=== PATIENT | female | born 1950 | race Caucasian/White ===

== ENCOUNTER 2016-04-03 10:50 | Inpatient (IN) | payer BC ==
[2016-04-03] MEDS ORDERED: MAGNESIUM SULF 50% (8.12 MEQ/2 ML-1 GM VIAL) ONE (10:54)
[2016-04-03] MEDS ORDERED: TERBUTALINE SULFATE 1 MG/1 ML VIAL SQ ONE ×2 (10:54→10:59)
[2016-04-03] MEDS ORDERED: MAGNESIUM SULF 50% (8.12 MEQ/2 ML-1 GM VIAL) IVPB ONE (10:59)
--- NOTE | 2016-04-03 11:04 | PDOC ---
History of Present Illness - General History Source: Patient Exam Limitations: No Limitations - History of Present Illness Initial Comments: 04/03/16 11:06 The patient is a 65 year old female, with a significant past medical history of asthma, COPD, congenital defect (corrected at ), on home O2 (2L), HTN, and EtOH abuse who was BIBA and presents to the emergency department with recent cough and SOB for the past couple of days She reports having multiple sick contacts with most of her family being sick with the flu. She reports with her cough bringing up yellow sputum. She reports 4 days ago being put on 5mg of prednisone daily which she increased to 30mg. She denies recent fevers, chills, headache or dizziness. She denies recent nausea, vomit, diarrhea or constipation. She denies recent chest pain. Allergies: NKA Social history: Former smoker (20 years ago). EtOH abuse. 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) COPD: Yes (o2 dependent at home) - Psycho/Social/Smoking Cessation Hx Anxiety: Yes Suicidal Ideation: No Smoking History: Former smoker Have you smoked in the past 12 months: No If you are a former smoker, when did you quit?: 1989 Information on smoking cessation initiated: No Hx Alcohol Use: No Drug/Substance Use Hx: No Substance Use Type: Alcohol <Brigette Castellanos - Last Filed: 04/03/16 13:36> - Past Medical History Allergies/Adverse Reactions: Allergies Allergy/AdvReac Type Severity Reaction Status Date / Time No Known Allergies Allergy Verified 04/03/16 11:01 Home Medications: Ambulatory Orders Albuterol Sulfate Inhaler - [Ventolin HFA Inhaler -] 2 inh PO Q4H PRN 05/05/15 Prednisone [Deltasone -] 30 mg PO BID #30 tablet 05/05/15 Nebivolol HCl [Bystolic] 2.5 mg PO HS 04/03/16 Tiotropium Br/Olodaterol HCl [Stiolto Respimat Inhal [place]] 4 gm IH DAILY Verapamil HCl [Verapamil ER] 180 mg PO DAILY 04/03/16 Review of Systems - Review of Systems Able to Perform ROS?: Yes Comments:: 04/03/16 11:06 CONSTITUTIONAL: Absent: fever, no chills, no fatigue EYES: Absent: visual changes ENT: Absent: ear pain, no sore throat CARDIOVASCULAR: Absent: chest pain, no palpitations RESPIRATORY: + cough and SOB GI: Absent: abdominal pain, no nausea, no vomiting, no constipation, no diarrhea GENITOURINARY: Absent: dysuria, no frequency, no hematuria MUSKULOSKELETAL: Absent: back pain, no arthralgia, no myalgia SKIN: Absent: rash NEURO: Absent: headache <Simone Nesbitt - Last Filed: 04/03/16 13:34> *Physical Exam - Vital Signs Last Vital Signs Temp Pulse Resp BP Pulse Ox 107 H 36 H 130/67 100 04/03/16 10:56 04/03/16 10:56 04/03/16 10:56 04/03/16 10:56 - Physical Exam Comments: 04/03/16 11:07 GENERAL: Well developed, well nourished. Awake and alert. No acute distress. HEENT: Normocephalic, atraumatic. PERRLA, EOMI. No conjunctival pallor. Sclera are non- icteric. Moist mucous membranes. Oropharynx is clear. NECK: Supple. Full ROM. No JVD. Carotid pulses 2+ and symmetric, without bruits. No thyromegaly. No lymphadenopathy. CARDIOVASCULAR: +Tachycardia. Regular rate and rhythm. No murmurs, rubs, or gallops. Distal pulses are 2+ and symmetric. PULMONARY: Distant breath sounds bilaterally. Labored breathing with accessory muscle use. No wheezing, rales or rhonchi. ABDOMINAL: Soft. Non-tender. Non-distended. No rebound or guarding. No organomegaly. Normoactive bowel sounds. MUSCULOSKELETAL Normal range of motion at all joints. No bony deformities or tenderness. No CVA tenderness. EXTREMITIES: No cyanosis. No clubbing. No edema. No calf tenderness. SKIN: Psoriatic raised erythematous lesions, circumferential around her bilateral tibial fibial region. Warm and dry. NEUROLOGICAL: Alert, awake, appropriate. Cranial nerves 2-12 intact. No deficits to light touch and temperature in face, upper extremities and lower extremities. No motor deficits in the in face, upper extremities and lower extremities. Normoreflexic in the upper and lower extremities. Normal speech. Toes are down- going bilaterally. Gait is normal without ataxia. PSYCHIATRIC: Cooperative. Good eye contact. Appropriate mood and affect. <Simone Nesbitt - Last Filed: 04/03/16 13:34> - Vital Signs Last Vital Signs Temp Pulse Resp BP Pulse Ox 107 H 36 H 130/67 100 04/03/16 10:56 04/03/16 10:56 04/03/16 10:56 04/03/16 10:56 <Brigette Castellanos - Last Filed: 04/03/16 13:36> ED Treatment Course - LABORATORY CBC & Chemistry Diagram: 04/03/16 11:10 04/03/16 11:10 - RADIOLOGY Radiograph Interpretation: 04/03/16 12:08 CHEST X-RAY impressions reported : No evidence of active pulmonary disease. <Simone Nesbitt - Last Filed: 04/03/16 13:34> - LABORATORY CBC & Chemistry Diagram: 04/03/16 11:10 04/03/16 11:10 <Brigette Castellanos - Last Filed: 04/03/16 13:36> Medical Decision Making - Medical Decision Making 04/03/16 12:55 Call made to , awaiting call back Call made to Dr. Devlin, awaiting call back. 04/03/16 12:58 Call back from , case discussed. 04/03/16 13:17 Call made to , awaiting call back. 04/03/16 13:34 Call back from , case discussed. <Simone Nesbitt - Last Filed: 04/03/16 13:34> - Medical Decision Making 04/03/16 11:12 65-year-old female with history of COPDon home O2 2 L and chronic steroids ( prednisone 5 mg daily), intubated many years ago, hypertension presents to the emergency department with 4 day history of cough productive with yellow sputum and progressively worsening shortness of breath; she was in respiratory distress and was given Solu-Medrol and DuoNeb treatment by EMS prior to arrival. Differential diagnosis includes but is not limited to: COPD exacerbation, CHF exacerbation, influenza, pneumonia, ACS, anemia, dehydration, sepsis, electrolyte abnormality, toxic/metabolic derangement. Plan: 1. Respiratory supportwe'll place the patient on BiPAP 2. DuoNeb treatment 3. Terbutaline 0.25 mg IM 4. Magnesium sulfate 5. Chest x-ray 6. EKG 7. Labs 8. Urine 9. Influenza PCR 10. Observe and reevaluate 04/03/16 13:35 Addendum: Labs were reviewed and are noted in the EMR. Her lactate is 3.8. The patient was given broad-spectrum antibiotics. She is feeling improved on the BiPAP but nonetheless will admit her to the ICU. <Brigette Castellanos - Last Filed: 04/03/16 13:36> *DC/Admit/Observation/Transfer - Attestations Scribe Attestion: 04/03/16 11:07 Documentation prepared by Simone Nesbitt, acting as expert medical writer for Brigette Castellanos MD. <Simone Nesbitt - Last Filed: 04/03/16 13:34> - Discharge Dispostion Admit: Yes - Attestations Physician Attestion: 04/03/16 11:16 I, Dr. Brigette Castellanos, attest that the scribes documentation that appears above has been prepared under my direction and personally reviewed by me in its entirety. I confirmed that the note above accurately reflects all work, treatment, procedures, and medical decision-making performed by me. <Brigette Castellanos - Last Filed: 04/03/16 13:36> Diagnosis at time of Disposition: Shortness of breath, COPD exacerbation - Discharge Dispostion Condition at time of disposition: Stable
[2016-04-03] MEDS ORDERED: IPRATROPIUM BR 0.02% 0.5 MG/2.5 ML VIAL.NEB. NEB ONE (11:05)
[2016-04-03] MEDS ORDERED: methylPREDNISolone NA SUCC 125 MG/2 ML VIAL ONE (11:09)
[2016-04-03] MEDS: ALBUTEROL SO4 0.083% IH SOL 2.5 MG/3 ML VIAL.NEB. NEB SCH ×4 (11:15→12:30)
[2016-04-03] MEDS ORDERED: ALBUTEROL SO4 0.083% IH SOL 2.5 MG/3 ML VIAL.NEB. NEB ONE (11:26)
[2016-04-03 11:30] LABS: BASOPHIL 0.2 % (0-2.0); EOSINOPHIL 0.1 % (0-4.5); MCH 35.5 pg (25.7-33.7); MCHC 33.6 g/dl (32.0-36.0); MEAN CELL VOLUME 105.5 fl (80-96); MEAN PLT VOLUME 6.8 fl (7.5-11.1); NEUTROPHILS 87.7 % (42.8-82.8); PLATELET COUNT 142 K/MM3 (134-434); RDW 13.7 % (11.6-15.6); WHITE BLOOD COUNT 6.2 K/mm3 (4.0-10.0)
[2016-04-03 12:08] LABS: ALBUMIN 3.7 g/dl (3.4-5.0); ANION GAP 12 (8-16); BILIRUBIN,TOTAL 0.5 mg/dL (0.2-1.0); CALCIUM 8.4 mg/dL (8.5-10.1); CO2 27 mmol/L (21-32); CREATININE 0.6 mg/dL (0.55-1.02); GLUCOSE,RANDOM 165 mg/dL (74-106); SGPT/ALT 44 U/L (12-78); TOT PROT 7.1 g/dl (6.4-8.2)
[2016-04-03 12:10] LABS: ALK PHOS 59 U/L (45-117); TROPONIN I < 0.02 ng/ml (0.00-0.05)
[2016-04-03 12:13] LABS: SGOT/AST 65 U/L (15-37)
[2016-04-03] MEDS ORDERED: SODIUM CHLORIDE 1,000 ML IV STA ×2 (12:15→18:10)
[2016-04-03] MEDS ORDERED: VANCOMYCIN 1,000 MG in DEXTROSE 5%-WATER - 250 ML IVPB ONE (12:15)
[2016-04-03] MEDS ORDERED: PIPERACILLIN/TAZOB 3.375 GM/50 ML PRE-DOCKED IV ONE (12:15)
[2016-04-03] MEDS ORDERED: PIPERACILLIN/TAZOB 3.375 GM 50 ML IVPB ONE (12:42)
[2016-04-03] MEDS ORDERED: VANCOMYCIN 1 GRAM (PRE-DOCKED) 250 ML IVPB ONE (12:42)
[2016-04-03 13:00] LABS: ARTERIAL BLOOD GAS BASE EXCESS 3.5 meq/l (-2-2); ARTERIAL BLOOD GAS HCO3 29.4 meq/L (22-26); ARTERIAL BLOOD GAS pH 7.38 (7.35-7.45)
[2016-04-03 13:01] LABS: ALLENS TEST POSITIVE; ART PUNCT SITE LEFT RADIAL; LPM/O2% 40%; MECH. VENT. BIPAP; METHEMOGLOBIN 1.8 % (0.4-1.5); PT. ON O2? YES; TYPE OF O2 BIPAP
[2016-04-03 13:02] LABS: VENT RATE 14; VT/PRESS IPAP 10/EPAP 4
--- NOTE | 2016-04-03 14:57 | HP ---
PCP: Annette Bruno CHIEF COMPLAINT: Shortness of breath HISTORY OF PRESENT ILLNESS: This is a 65-year-old woman who comes to the ER complaining of shortness of breath. She says she has a history of COPD and asthma, and she uses oxygen 2 LPM. She started feeling short of breath on 03/31 and started taking Prednisone. She has also been using Albuterol inhaler and nebulizer with no improvement. She has been short of breath at rest and with exertion. She has a cough with yellow sputum, chills and wheezing. She denies fever, chest pain, leg edema, orthopnea, PND, nocturia, urinary frequency. She has been in contact with family members who have influenza. In the ER, she was treated with terbutaline 0.25 mg SQ, magnesium sulfate 2 g IV, Atrovent neb, Albuterol neb, SoluMedrol 125 mg IV, Zosyn 3.375 g IV, Vancomycin 1 g IV, and she was placed on BiPAP. PAST MEDICAL HISTORY Chronic hypoxic respiratory failure COPD Asthma Hypertension Alcohol abuse Eczema PAST SURGICAL HISTORY Congenital heart defect repair Allergies No Known Allergies Allergy (Verified 04/03/16 11:01) HOME MEDICATIONS 3 Medication Instructions Recorded Albuterol Sulfate Inhaler - 2 inh PO Q4H PRN 05/05/15 [Ventolin HFA Inhaler -] Prednisone [Deltasone -] 30 mg PO BID #30 tablet 05/05/15 Nebivolol HCl [Bystolic] 2.5 mg PO HS 04/03/16 Tiotropium Br/Olodaterol HCl 4 gm IH DAILY 04/03/16 [Stiolto Respimat Inhal [place]] Verapamil HCl [Verapamil ER] 180 mg PO DAILY 04/03/16 Social History: Smoking: Quit 20 years ago Alcohol: Denies recent use Drugs: Denies Recent Travel: No Family History: Unremarkable REVIEW OF SYSTEMS CONSTITUTIONAL: Present: chills. Absent: fever, diaphoresis, generalized weakness, malaise, loss of appetite, weight change HEENT: Absent: rhinorrhea, nasal congestion, throat pain, throat swelling, difficulty swallowing, mouth swelling, ear pain, eye pain, visual changes CARDIOVASCULAR: Absent: chest pain, syncope, palpitations, lightheadedness, peripheral edema RESPIRATORY: Present: cough, shortness of breath, wheezing. Absent: orthopnea, stridor, hemoptysis GASTROINTESTINAL: Absent: abdominal pain, abdominal distension, nausea, vomiting , diarrhea, constipation, melena, hematochezia GENITOURINARY: Absent: dysuria, frequency, urgency, hesitancy, hematuria, flank pain MUSCULOSKELETAL: Absent: myalgia, arthralgia, joint swelling, back pain, neck pain SKIN: Absent: rash, itching, pallor HEMATOLOGIC/IMMUNOLOGIC: Absent: easy bleeding, easy bruising, lymphadenopathy, frequent infections ENDOCRINE: Absent: unexplained weight gain, unexplained weight loss, heat intolerance, cold intolerance NEUROLOGIC: Absent: headache, focal weakness, paresthesias, dizziness, unsteady gait, seizure, mental status changes, bladder or bowel incontinence PSYCHIATRIC: Absent: anxiety, depression, suicidal or homicidal ideation, hallucinations. PHYSICAL EXAMINATION Vital Signs Period Temp Pulse Resp BP Sys/[place] Pulse Ox Last 24 Hr 99.7 F 100-120 16-36 102-130/55-67 93-100 GENERAL: Awake, alert, and fully oriented, tachypneic. HEAD: Normal with no signs of trauma. EYES: Pupils equal, round and reactive to light, extraocular movements intact, sclerae anicteric, conjunctivae clear. EARS, NOSE, THROAT: Ears normal, nares patent, oropharynx clear without exudates. Moist mucous membranes. NECK: Normal range of motion, supple without lymphadenopathy, JVD, or masses. LUNGS: Diminished breath sounds with wheezes bilaterally. No accessory muscle use. HEART: Tachycardic, normal S1 and S2 without murmur, rub or gallop. ABDOMEN: Soft, nontender, not distended, normoactive bowel sounds, no guarding, no rebound, no masses. No hepatomegaly or splenomegaly. MUSCULOSKELETAL: Normal range of motion at all joints. No bony deformities or tenderness. No CVA tenderness. UPPER EXTREMITIES: 2+ pulses, warm, well-perfused. No cyanosis. No clubbing. Cap refill <2 seconds. No peripheral edema. LOWER EXTREMITIES: 2+ pulses, warm, well-perfused. No calf tenderness. No peripheral edema. NEUROLOGICAL: Cranial nerves II-XII intact. Normal speech. Gait not observed. PSYCHIATRIC: Cooperative. Good eye contact. Appropriate mood and affect. SKIN: Warm, dry, normal turgor. Scaly erythematous rash on back and legs. Laboratory Results - last 24 hr 04/03/16 04/03/16 04/03/16 11:10 11:10 11:10 WBC 6.2 RBC 3.93 Hgb 14.0 Hct 41.5 MCV 105.5 H MCHC 33.6 RDW 13.7 Plt Count 142 MPV 6.8 L Neutrophils % 87.7 H Lymphocytes % 6.4 L Monocytes % 5.6 Eosinophils % 0.1 Basophils % 0.2 Puncture Site ABG pH ABG pCO2 at Pt Temp ABG pO2 at Pt Temp ABG HCO3 ABG O2 Sat (Measured) ABG O2 Content ABG Base Excess Cuate Test Carboxyhemoglobin Methemoglobin O2 Delivery Device Oxygen Flow Rate Vent Mode Vent Rate Mechanical Rate PEEP Pressure Support Vent Sodium 135 L Potassium 5.1 Chloride 96 L Carbon Dioxide 27 Anion Gap 12 BUN 5 L Creatinine 0.6 Creat Clearance w eGFR > 60 Random Glucose 165 H Lactic Acid 3.852 H* Calcium 8.4 L Total Bilirubin 0.5 AST 65 H ALT 44 Alkaline Phosphatase 59 Creatine Kinase 133 Troponin I < 0.02 Total Protein 7.1 Albumin 3.7 04/03/16 12:55 WBC RBC Hgb Hct MCV MCHC RDW Plt Count MPV Neutrophils % Lymphocytes % Monocytes % Eosinophils % Basophils % Puncture Site Left radial ABG pH 7.38 ABG pCO2 at Pt Temp 51.4 H D ABG pO2 at Pt Temp 118.0 H D ABG HCO3 29.4 H ABG O2 Sat (Measured) 98.0 ABG O2 Content 19.1 ABG Base Excess 3.5 H Cuate Test Positive Carboxyhemoglobin 1.0 Methemoglobin 1.8 H O2 Delivery Device Bipap Oxygen Flow Rate 40% Vent Mode S/t Vent Rate 14 Mechanical Rate Bipap PEEP 0.0 Pressure Support Vent Ipap 10/epap 4 Sodium Potassium Chloride Carbon Dioxide Anion Gap BUN Creatinine Creat Clearance w eGFR Random Glucose Lactic Acid Calcium Total Bilirubin AST ALT Alkaline Phosphatase Creatine Kinase Troponin I Total Protein Albumin Chest x-ray: No acute process. ASSESSMENT/PLAN: This is a 65-year-old woman with a history of chronic hypoxic respiratory failure, COPD, asthma, HTN, eczema and alcohol abuse, who comes to the ER with shortness of breath and productive cough x 3 days. She has had no improvement with Prednisone and Albuterol. She was tachycardic and tachypneic and found to have lactic acid 3.85. She is being admitted now for treatment of an emergent condition. 1. Acute and chronic hypoxic respiratory failure secondary to acute bronchitis and acute exacerbation of COPD - Continue SoluMedrol, DuoNeb - Hold Prednisone, Albuterol, Stiolto - Rocephin, Zithromax IV - Sputum culture - Oxygen to keep saturation >90% - BiPAP as needed - Pulmonary consult 2. Sepsis secondary to acute bronchitis - IV fluids - Repeat lactic acid - Follow up blood, sputum cultures - Repeat chest x-ray in AM 3. Hypertension - Continue Bystolic, Verapamil
[2016-04-03] MEDS ORDERED: ONDANSETRON 4 MG/2 ML VIAL IVPB PRN (14:59)
[2016-04-03] MEDS ORDERED: AZITHROMYCIN IVPB 500 MG in DEXTROSE 5%-WATER - 250 ML IVPB SCH (16:15)
[2016-04-03] MEDS: AZITHROMYCIN IVPB 500 MG/250 ML D5W PRE-DOCKED IVPB SCH (16:39)
--- NOTE | 2016-04-03 16:48 | CONSULT ---
Consult Consult Specialty:: PULM/CCM Referred by:: POONAM Reason for Consultation:: Acute Respiratory Failure / Possible Sepsis - History of Present Illness Chief Complaint: Worsening SOB History of Present Illness: 65 F, well known to me from the outpatient setting. Severe, O2 dependent COPD ( GOLD D). Daughter had Influenza last week. Over the last few days developed increasing SOB. According to her daughter, she became pail and cyanotic. Required NIPPV in the ER due to hypoxemia and severe respiratory distress. No travel history. No recorded fever. No hemoptysis. In the ER she was treated with terbutaline 0.25 mg SQ, magnesium sulfate 2 g IV , Atrovent/Albuterol nebulizers, SoluMedrol 125 mg IV, Zosyn 3.375 g IV, and Vancomycin 1 g IV. - History Source History Provided By: Patient Limitations to Obtaining History: No Limitations - Past Medical History Pulmonary: Yes: COPD, O2 Dependent. No: Sleep Apnea - Alcohol/Substance Use Hx Alcohol Use: No - Smoking History Smoking history: Former smoker Have you smoked in the past 12 months: No If you are a former smoker, when did you quit?: 1989 Home Medications - Allergies Allergies/Adverse Reactions: Allergies Allergy/AdvReac Type Severity Reaction Status Date / Time No Known Allergies Allergy Verified 04/03/16 11:01 - Home Medications Home Medications: Ambulatory Orders Albuterol Sulfate Inhaler - [Ventolin HFA Inhaler -] 2 inh PO Q4H PRN 05/05/15 Prednisone [Deltasone -] 30 mg PO BID #30 tablet 05/05/15 Nebivolol HCl [Bystolic] 2.5 mg PO HS 04/03/16 Tiotropium Br/Olodaterol HCl [Stiolto Respimat Inhal [place]] 4 gm IH DAILY Verapamil HCl [Verapamil ER] 180 mg PO DAILY 04/03/16 Review of Systems - Review of Systems Constitutional: reports: Malaise, Weakness. denies: Chills, Fever, Night Sweats , Unintentional Wgt. Loss Eyes: reports: No Symptoms HENT: reports: No Symptoms Neck: reports: No Symptoms Cardiovascular: reports: Shortness of Breath. denies: Chest Pain, Edema, Palpitations Respiratory: reports: Cough, SOB, SOB on Exertion, Wheezing. denies: Hemoptysis Gastrointestinal: reports: No Symptoms Genitourinary: reports: No Symptoms Breasts: reports: No Symptoms Reported Musculoskeletal: reports: No Symptoms Integumentary: reports: No Symptoms Neurological: reports: No Symptoms Endocrine: reports: No Symptoms Hematology/Lymphatic: reports: No Symptoms Psychiatric: reports: No Symptoms Physical Exam Vital Signs: Vital Signs Temperature 98.2 F 04/03/16 16:00 Pulse Rate 96 H 04/03/16 16:00 Respiratory Rate 22 04/03/16 16:00 Blood Pressure 94/55 04/03/16 16:00 O2 Sat by Pulse Oximetry (%) 95 04/03/16 15:24 Constitutional: Yes: Mild Distress, Thin Eyes: Yes: Conjunctiva Clear, EOM Intact HENT: Yes: Atraumatic, Normocephalic Neck: Yes: Supple, Trachea Midline Cardiovascular: Yes: Tachycardia Respiratory: Yes: Accessory Muscle Use, Cough, Diminished, On Nasal O2, Rhonchi , SOB, Tachypnea, Wheezes. No: Rales, Stridor Gastrointestinal: Yes: Normal Bowel Sounds, Soft ...Rectal Exam: No: Deferred Renal/: Yes: WNL Musculoskeletal: Yes: WNL Extremities: Yes: WNL Edema: No Peripheral Pulses WNL: Yes Integumentary: Yes: WNL Neurological: Yes: Alert, Oriented ...Motor Strength: WNL Psychiatric: Yes: WNL, Alert, Oriented Imaging - Results Chest X-ray: Report Reviewed, Image Reviewed (No acute process) Problem List - Problems (1) COPD exacerbation Code(s): J44.1 - CHRONIC OBSTRUCTIVE PULMONARY DISEASE W (ACUTE) EXACERBATION (2) Shortness of breath Code(s): R06.02 - SHORTNESS OF BREATH (3) Bronchitis Code(s): J40 - BRONCHITIS, NOT SPECIFIED ACUTE OR CHRONIC (4) COPD (chronic obstructive pulmonary disease) Code(s): J44.9 - CHRONIC OBSTRUCTIVE PULMONARY DISEASE, UNSPECIFIED Qualifiers : COPD type: COPD with acute exacerbation Qualified Code(s): J44.1 - Chronic obstructive pulmonary disease with (acute) exacerbation (5) Acute respiratory failure with hypoxia Code(s): J96.01 - ACUTE RESPIRATORY FAILURE WITH HYPOXIA (6) Sepsis Code(s): A41.9 - SEPSIS, UNSPECIFIED ORGANISM (7) Lactic acidosis Code(s): E87.2 - ACIDOSIS Assessment/Plan NIPPV support as needed BD TX Medrol Trend lactic acid -> R/O Sepsis but likely due to Increased WOB ID evaluation Influenza screen is negative Follow cultures VTE prophylaxis ICU monitoring Dr Devlin CCTime 35"
[2016-04-03 17:03] VITALS: BMI 25.8
[2016-04-03 17:33] LABS: URINE APPEARANCE CLEAR; URINE BILIRUBIN NEGATIVE (NEGATIVE); URINE COLOR STRAW; URINE GLUCOSE (UA) 3+ (NEGATIVE); URINE KETONE NEGATIVE (NEGATIVE); URINE LEUK ESTERASE NEGATIVE (NEGATIVE); URINE NITRITE NEGATIVE (NEGATIVE); URINE PROTEIN NEGATIVE (NEGATIVE); URINE UROBILINOGEN NEGATIVE E.U./dl (0.2-1.0)
[2016-04-03 17:34] LABS: URINE BLOOD 1+ (NEGATIVE)
[2016-04-03 17:39] LABS: URINE BACTERIA RARE /hpf (NONE SEEN); URINE RBC 1 /hpf (0-3); URINE WBC <1 /hpf (3-5)
--- NOTE | 2016-04-03 18:00 | PN ---
Progress Note (short form) - Note Progress Note: ID Consult dictated Acute exacerbation COPD Possible pneumonia Lactic acidosis Pending c/s, continue empiric zithromax/ ceftriaxone
[2016-04-03] MEDS: methylPREDNISolone NA SUCC 40 MG/1 ML VIAL IVPB SCH (18:12)
[2016-04-03] MEDS: ALBUTEROL SO4 2.5/IPRATROPIUM 0.5 INH SOL 3 ML VIAL.NEB. NEB SCH (19:35)
--- NOTE | 2016-04-03 20:02 | CONS ---
DATE OF CONSULTATION: INFECTIOUS DISEASE CONSULTATION HISTORY OF PRESENT ILLNESS: The patient is a 65-year-old female with a history of oxygen dependent COPD, eczema, evaluated for possible pneumonia. The patient lives at home. She was in contact with her daughter who was diagnosed with acute influenza. The patient did not receive Tamiflu prophylaxis. Over the past several days, she has had increasing shortness of breath, cough productive of greenish sputum. She presented to the emergency room. Chest x-ray showed no new changes; she was however short of breath requiring BiPAP, and was noted to have an elevated lactic acid level. An influenza swab performed in the emergency room was negative. She was empirically treated with Zosyn, Zithromax, ceftriaxone, for possible pneumonia. At the present time she is in the intensive care unit. She is on nasal cannula. She appears slightly short of breath but is in no acute respiratory distress. No recent hospitalizations, ill contact as mentioned. No recent antibiotic therapy. She is a former smoker. Positive for oxygen dependent COPD, asthma, hypertension, eczema. PAST SURGICAL HISTORY: Status post congenital heart defect repair. ALLERGIES: No known allergies. MEDICATION: Ventolin, prednisone, Bystolic, verapamil. SOCIAL HISTORY: Lives at home, former smoker. Former alcohol use. SYSTEMS REVIEW: Neurologic: No loss of consciousness, seizure activity, or focal weakness. Cardiac: Negative chest pain or palpitations. Respiratory: As per HPI. Gastrointestinal: Negative vomiting or diarrhea. Genitourinary: Negative for urinary tract infection. LABORATORY DATA: White count 6.2, hematocrit 41.5, platelet count 142. BUN 5, creatinine 0.6. Liver enzymes normal. Lactic acid 3.2. Urinalysis less than 1 white cell. Influenza screen negative. Chest x-ray chronic changes, no acute infiltrate. PHYSICAL EXAMINATION: General: She is awake and alert. She is short of breath at rest on nasal cannula, cachectic. Vital signs: Temperature 98.2, blood pressure 99/55, pulse 95 regular, respirations 18 per minute. HEENT: Sclerae anicteric. Cardiovascular: Heart sounds tachycardic, S1, S2. Respiratory: Lungs diminished breath sounds throughout. Abdomen: Soft. Nontender. Extremities: Negative for edema. Skin: Evidence of eczema present on her back, upper and lower extremities. IMPRESSION: 1. Acute exacerbation chronic obstructive pulmonary disease. 2. Possible pneumonia. 3. Lactic acidosis. 4. Influenza exposure. Await cultures. Continue empiric Zithromax and ceftriaxone, intravenous corticosteroids, and inhaled bronchodilators. Would not give Tamiflu prophylaxis at this point. Follow up chest x-ray, will follow. Thank you for the kind referral. EDAURDO BALDERAS M.D. ALEX/[id number]
--- NOTE | 2016-04-03 21:25 | EKG ---
Test Reason : Blood Pressure : / mmHG Vent. Rate : 118 BPM Atrial Rate : 118 BPM P-R Int : 116 ms QRS Dur : 070 ms QT Int : 310 ms P-R-T Axes : 076 075 065 degrees QTc Int : 434 ms SINUS TACHYCARDIA OTHERWISE NORMAL ECG WHEN COMPARED WITH ECG OF 11-FEB-2002 12:39, NO SIGNIFICANT CHANGE WAS FOUND Confirmed by CHRISTIAN GARVEY MD ([id number]) on 04/03/2016 9:24:34 PM Referred By: Confirmed By:CHRISTIAN GARVEY MD
[2016-04-03] MEDS ORDERED: CHLORHEXIDINE GLUCONATE 4% CLEANSER FOR DECOLONIZATION TP SCH (22:00)
[2016-04-03] MEDS ORDERED: NEBIVOLOL 2.5 MG TABLET (FP) PO SCH (22:00)
[2016-04-03] MEDS: MUPIROCIN 2% TOPICAL OINTMENT FOR DECOLONIZATION NS SCH (22:40)
[2016-04-03] MEDS: HEPARIN NA (PORCINE) 5,000 UNITS/ML 1ML VIAL SQ SCH (22:41)
[2016-04-04] MEDS: ALBUTEROL SO4 2.5/IPRATROPIUM 0.5 INH SOL 3 ML VIAL.NEB. NEB SCH ×4 (00:33→18:30)
[2016-04-04] MEDS: methylPREDNISolone NA SUCC 40 MG/1 ML VIAL IVPB SCH ×3 (02:00→17:44)
[2016-04-04] MEDS: HEPARIN NA (PORCINE) 5,000 UNITS/ML 1ML VIAL SQ SCH ×3 (06:12→21:38)
[2016-04-04 06:44] LABS: MEAN CELL VOLUME 105.7 fl (80-96); MEAN PLT VOLUME 7.2 fl (7.5-11.1); NEUTROPHILS 84.1 % (42.8-82.8); PLATELET COUNT 156 K/MM3 (134-434); RDW 13.4 % (11.6-15.6); WHITE BLOOD COUNT 2.8 K/mm3 (4.0-10.0)
[2016-04-04 07:10] LABS: CALCIUM 8.1 mg/dL (8.5-10.1); CREATININE 0.4 mg/dL (0.55-1.02); PHOSPHOROUS 3.5 mg/dL (2.5-4.9)
[2016-04-04] MEDS ORDERED: ACETAMINOPHEN 325 MG TABLET (FP) PO PRN ×2 (09:16→13:42)
--- NOTE | 2016-04-04 09:19 | PN ---
Progress Note, Physician History of Present Illness: Awake, alert OOB in chair Appears more comfortable Mildly tachypneic at rest on nasal cannula No c/o fever/ chills - Current Medication List Current Medications: Active Medications Albuterol/Ipratropium (Duoneb -) 1 amp NEB QIDR [facility] Last Admin: 04/04/16 06:20 Dose: 1 amp Azithromycin (Zithromax 500mg Ivpb (Pre-Docked)) 500 mg IVPB DAILY [facility] Last Admin: 04/03/16 16:39 Dose: 500 mg Ceftriaxone Sodium (Rocephin 1gm Ivpb (Pre-Docked)) 1 gm IVPB DAILY [facility] Chlorhexidine Gluconate (Hibiclens For Decolonization -) 1 applic TP HS [facility] Last Admin: 04/03/16 22:41 Dose: 1 applic Heparin Sodium (Porcine) (Heparin -) 5,000 unit SQ TID [facility] Last Admin: 04/04/16 06:12 Dose: 5,000 unit Methylprednisolone Sodium Succinate (Solu-Medrol -) 40 mg IVPB Q8H-IV [facility] Last Admin: 04/04/16 02:00 Dose: 40 mg Mupirocin (Bactroban Ointment (For Decolonization) -) 1 applic NS BID [facility] Stop: 04/08/16 21:59 Last Admin: 04/03/16 22:40 Dose: 1 applic Nebivolol (Bystolic -) 2.5 mg PO HS [facility] Last Admin: 04/03/16 22:41 Dose: 2.5 mg Ondansetron HCl (Zofran Injection) 4 mg IVPB Q6H PRN PRN Reason: NAUSEA Verapamil HCl (Calan Sr -) 180 mg PO DAILY [facility] - Objective Vital Signs: Vital Signs Temperature 98.4 F 04/04/16 05:58 Pulse Rate 80 04/04/16 08:00 Respiratory Rate 18 04/04/16 08:00 Blood Pressure 108/56 04/04/16 08:00 O2 Sat by Pulse Oximetry (%) 96 04/03/16 20:00 Constitutional: Yes: No Distress, Cachectic Eyes: Yes: Conjunctiva Clear Cardiovascular: Yes: Regular Rate and Rhythm, S2 Respiratory: Yes: Diminished Gastrointestinal: Yes: Normal Bowel Sounds, Soft. No: Tenderness Edema: No Integumentary: Yes: Other (+ eczema) Labs: CBC, BMP 04/04/16 05:20 04/04/16 05:20 Assessment/Plan Acute exacerbation COPD Possible pneumonia Lactic acidosis Leukopenia- possibly secondary to viral URI Await cultures Continue empiric zithromax/ ceftriaxone
[2016-04-04] MEDS ORDERED: TRIMETHOBENZAMIDE HCL 200MG/2ML INJ IM ONE (09:25)
[2016-04-04] MEDS ORDERED: PT OWN MED DRAWER 7, Y5N ONE (09:26)
[2016-04-04] MEDS: AZITHROMYCIN IVPB 500 MG/250 ML D5W PRE-DOCKED IVPB SCH (09:28)
[2016-04-04] MEDS: MUPIROCIN 2% TOPICAL OINTMENT FOR DECOLONIZATION NS SCH (09:29)
[2016-04-04] MEDS ORDERED: CEFTRIAXONE 1 GM in DEXTROSE 5%-WATER - 50 ML IVPB SCH (10:00)
[2016-04-04] MEDS ORDERED: VERAPAMIL HCL 180 MG E.R. TABLET (FP) PO SCH (10:00)
[2016-04-04] MEDS ORDERED: cefTRIAXone 1 GM/50 ML BAG (PRE-DOCKED) IVPB SCH (10:00)
[2016-04-04] MEDS ORDERED: chlordiazePOXIDE 5 MG CAPSULE PO PRN ×2 (11:04→13:42)
--- NOTE | 2016-04-04 11:06 | PN ---
Physical Exam: SUBJECTIVE: Patient seen and examined at bedside in ICU. States she feels much better & is breathing well. Afebrile overnight on bipap and saturating well on NC 2liters this morning. OBJECTIVE: Vital Signs Period Temp Pulse Resp BP Sys/[place] Pulse Ox Last 24 Hr 98.2 F-98.8 F 70-97 18-22 94-129/55-80 95-96 GENERAL: The patient is awake, alert, and fully oriented, in no acute distress. HEENT: Atraumatic, EOMI, PERRLA, No lynmphadenopathy, no rhinorrhea LUNGS: diminished breath soudns bilaterally without wheezing, crackles or stridor HEART: Regular rate and rhythm, S1, S2 without murmur, rub or gallop. ABDOMEN: Soft, nontender, nondistended, normoactive bowel sounds EXTREMITIES: 2+ pulses, warm, well-perfused, no edema. NEUROLOGICAL: Cranial nerves II through XII grossly intact. Normal speech, normal gait. PSYCH: Normal mood, normal affect. SKIN: Warm, dry, normal turgor, no rashes or lesions noted Laboratory Results - last 24 hr 04/03/16 04/03/16 04/04/16 16:22 19:30 05:20 WBC 2.8 L D RBC 3.78 Hgb 13.6 Hct 40.0 MCV 105.7 H MCHC 34.0 RDW 13.4 Plt Count 156 MPV 7.2 L Neutrophils % 84.1 H Lymphocytes % 6.4 L Monocytes % 9.5 Eosinophils % 0.0 D Basophils % 0.0 Sodium Potassium Chloride Carbon Dioxide Anion Gap BUN Creatinine Random Glucose Lactic Acid 1.948 Calcium Phosphorus Magnesium Urine Color Straw Urine Appearance Clear Urine pH 6.0 Ur Specific [place] 1.003 Urine Protein Negative Urine Glucose (UA) 3+ H Urine Ketones Negative Urine Blood 1+ H Urine Nitrite Negative Urine Bilirubin Negative Urine Urobilinogen Negative Ur Leukocyte Esterase Negative Urine RBC 1 Urine WBC <1 Ur Epithelial Cells Rare Urine Bacteria Rare 04/04/16 05:20 WBC RBC Hgb Hct MCV MCHC RDW Plt Count MPV Neutrophils % Lymphocytes % Monocytes % Eosinophils % Basophils % Sodium 141 Potassium 4.3 Chloride 100 Carbon Dioxide 32 Anion Gap 9 BUN 8 D Creatinine 0.4 L D Random Glucose 120 H D Lactic Acid Calcium 8.1 L Phosphorus 3.5 Magnesium 3.0 H Urine Color Urine Appearance Urine pH Ur Specific [place] Urine Protein Urine Glucose (UA) Urine Ketones Urine Blood Urine Nitrite Urine Bilirubin Urine Urobilinogen Ur Leukocyte Esterase Urine RBC Urine WBC Ur Epithelial Cells Urine Bacteria Active Medications Generic Name Dose Route Start Last Admin Trade Name Freq PRN Reason Stop Dose Admin Acetaminophen 650 mg 04/04/16 09:16 Tylenol - PO Q6H PRN FEVER OR PAIN Albuterol/Ipratropium 1 amp 04/03/16 18:00 04/04/16 06:20 Duoneb - NEB 1 amp QIDR [place] Administration Azithromycin 500 mg 04/03/16 16:15 04/04/16 09:28 Zithromax 500mg Ivpb (Pre-Docked) IVPB 500 mg DAILY [place] Administration Ceftriaxone Sodium 1 gm 04/04/16 10:00 04/04/16 09:28 Rocephin 1gm Ivpb (Pre-Docked) IVPB 1 gm DAILY [place] Administration Chlorhexidine Gluconate 1 applic 04/03/16 22:00 04/03/16 22:41 Hibiclens For Decolonization - TP 1 applic HS [place] Administration Heparin Sodium (Porcine) 5,000 unit 04/03/16 22:00 04/04/16 06:12 Heparin - SQ 5,000 unit TID [place] Administration Methylprednisolone Sodium Succinate 40 mg 04/03/16 18:00 04/04/16 09:28 Solu-Medrol - IVPB 40 mg Q8H-IV [place] Administration Mupirocin 1 applic 04/03/16 22:00 04/04/16 09:29 Bactroban Ointment (For Decolonization) - NS 04/08/16 21:59 1 applic BID [place] Administration Nebivolol 2.5 mg 04/03/16 22:00 04/03/16 22:41 Bystolic - PO 2.5 mg HS [place] Administration Ondansetron HCl 4 mg 04/03/16 14:59 Zofran Injection IVPB Q6H PRN NAUSEA Verapamil HCl 180 mg 04/04/16 10:00 Calan Sr - PO DAILY [place] ASSESSMENT/PLAN: 65 F w/ severe O2 dependent COPD (GOLD D). Daughter had flu last week, shes felt SOB last few days & became pail & cyanotic. She has a cough with yellow sputum, chills and wheezing. Required BiPAP in ED d/t hypoxemia. Found to have lactic acid 3.85. #Acute on Chronic Hypoxic respiratory failure, due to likely viral bronchitis superimposed on chronic COPD -Solumedrol 40mg q8h, start tapering tomorrow -Azithromycin, Ceftriaxone -continue duonebs -NC @2L, keep O2 Sat >90% -ID Following #Acute Sepsis -lactic acid resolved -no IVF at present (Received 2 liters NS in ED) -continue antibiotics & f/u cultures -f/u CXR in AM #HTN -Continue home meds: Bystolic, Verapamil #History of alcohol abuse -daughter informed me that patient drinks 4-5 beers a night -started Librium PRN for potential withdrawal symptoms Prophylaxis/FEN -Heparin -No IVF, Monitoring electrolytes, tolerating PO diet Visit type - Emergency Visit Emergency Visit: Yes ED Registration Date: 04/03/16 Care time: The patient presented to the Emergency Department on the above date and was hospitalized for further evaluation of their emergent condition. - New Patient This patient is new to me today: Yes Date on this admission: 04/04/16 - Critical Care Critical Care patient: Yes Total Critical Care Time (in minutes): 45 Critical Care Statement: The care of this patient involved high complexity decision making to prevent further life threatening deterioration of the patient 's condition and/or to evalute & treat vital organ system(s) failure or risk of failure.
[2016-04-04 11:55] LABS: PLATELET ESTIMATE ADEQUATE (NORMAL)
--- NOTE | 2016-04-04 12:28 | PN ---
Teaching Attending Note Name of Resident: Trey Vasques ATTENDING PHYSICIAN STATEMENT I saw and evaluated the patient. I reviewed the resident's note and discussed the case with the resident. I agree with the resident's findings and plan as documented. SUBJECTIVE: Pt seen and examined in the ICU. Breathing much improved today. Minimal cough and wheezing. Did not require BiPAP overnight. Saturating well on nasal cannula 2L/min which is her baseline. No fevers or chills. OBJECTIVE: Last Vital Signs Temp Pulse Resp BP Pulse Ox 98.8 F 90 18 99/82 95 04/04/16 10:00 04/04/16 10:00 04/04/16 11:21 04/04/16 11:21 04/04/16 09:00 Intake & Output 04/01/16 04/02/16 04/03/16 04/04/16 23:59 23:59 23:59 23:59 Intake Total 1980 1050 Output Total 400 Balance 1580 1050 Weight 88 lb 4 oz 88 lb 4 oz Gen: mildly tachypneic at rest Heart: RRR Lung: distant breath sounds, no wheezes, rales Abd: soft, nontender Ext: no edema CBC, BMP 04/04/16 05:20 04/04/16 05:20 Active Medications Acetaminophen (Tylenol -) 650 mg PO Q6H PRN PRN Reason: FEVER OR PAIN Albuterol/Ipratropium (Duoneb -) 1 amp NEB QIDR [facility] Last Admin: 04/04/16 11:10 Dose: 1 amp Azithromycin (Zithromax 500mg Ivpb (Pre-Docked)) 500 mg IVPB DAILY [facility] Last Admin: 04/04/16 09:28 Dose: 500 mg Ceftriaxone Sodium (Rocephin 1gm Ivpb (Pre-Docked)) 1 gm IVPB DAILY [facility] Last Admin: 04/04/16 09:28 Dose: 1 gm Chlordiazepoxide HCl (Librium -) 15 mg PO Q8H PRN PRN Reason: WITHDRAWAL(CONT SUBST) Last Admin: 04/04/16 12:00 Dose: 15 mg Chlorhexidine Gluconate (Hibiclens For Decolonization -) 1 applic TP HS [facility] Last Admin: 04/03/16 22:41 Dose: 1 applic Heparin Sodium (Porcine) (Heparin -) 5,000 unit SQ TID [facility] Last Admin: 04/04/16 06:12 Dose: 5,000 unit Methylprednisolone Sodium Succinate (Solu-Medrol -) 40 mg IVPB Q8H-IV [place] Last Admin: 04/04/16 09:28 Dose: 40 mg Mupirocin (Bactroban Ointment (For Decolonization) -) 1 applic NS BID [facility] Stop: 04/08/16 21:59 Last Admin: 04/04/16 09:29 Dose: 1 applic Nebivolol (Bystolic -) 2.5 mg PO HS [facility] Last Admin: 04/03/16 22:41 Dose: 2.5 mg Ondansetron HCl (Zofran Injection) 4 mg IVPB Q6H PRN PRN Reason: NAUSEA Verapamil HCl (Calan Sr -) 180 mg PO DAILY [facility] ASSESSMENT AND PLAN: Acute on Chronic Hypoxic and Hypercapneic Respiratory Failure Acute COPD Exacerbation Lactic Acidosis resolved Acute Bronchitis - continue medrol at current dose - inhaled bronchodilators standing and PRN - O2 to keep SpO2 >90% - continue antibiotics - f/u cultures - monitor for alcohol withdrawal - DVT prophylaxis - can monitor on floor
[2016-04-04] MEDS ORDERED: ONDANSETRON 4 MG/2 ML VIAL IVPB PRN (13:42)
--- NOTE | 2016-04-04 19:46 | PN ---
Physical Exam: SUBJECTIVE: Patient seen and examined at bedside. When asked about tremulousness , patient states she gets tremulous from albuterol. Breathing is better than when arrived in ED but not at baseline, becomes SOB with ambulation. OBJECTIVE: Vital Signs Period Temp Pulse Resp BP Sys/[place] Pulse Ox Last 24 Hr 97.8 F-98.8 F 70-92 18-22 99-129/42-82 95-96 GENERAL: The patient is awake, alert, and fully oriented, in no acute distress. HEAD: Normal with no signs of trauma. EYES: PERRL, extraocular movements intact, sclera anicteric, conjunctiva clear. No ptosis. LUNGS: Distant breath sounds. No wheezes, no crackles, no accessory muscle use. HEART: Regular rate and rhythm, S1, S2 without murmur, rub or gallop. ABDOMEN: Soft, nontender, nondistended, normoactive bowel sounds, no guarding, no rebound, no hepatosplenomegaly, no masses. EXTREMITIES: 2+ pulses, warm, well-perfused, no edema. NEUROLOGICAL: Cranial nerves II through XII grossly intact. Normal speech, gait not observed. Laboratory Results - last 24 hr 04/03/16 04/04/16 04/04/16 19:30 05:20 05:20 WBC 2.8 L D RBC 3.78 Hgb 13.6 Hct 40.0 MCV 105.7 H MCHC 34.0 RDW 13.4 Plt Count 156 MPV 7.2 L Neutrophils % 84.1 H Lymphocytes % 6.4 L Monocytes % 9.5 Eosinophils % 0.0 D Basophils % 0.0 Platelet Estimate Adequate Basophilic Stippling 1+ Macrocytosis 1+ Sodium 141 Potassium 4.3 Chloride 100 Carbon Dioxide 32 Anion Gap 9 BUN 8 D Creatinine 0.4 L D Random Glucose 120 H D Lactic Acid 1.948 Calcium 8.1 L Phosphorus 3.5 Magnesium 3.0 H Active Medications Generic Name Dose Route Start Last Admin Trade Name Freq PRN Reason Stop Dose Admin Acetaminophen 650 mg 04/04/16 13:42 Tylenol - PO Q6H PRN FEVER OR PAIN Albuterol/Ipratropium 1 amp 04/04/16 18:00 04/04/16 18:30 Duoneb - NEB 1 amp QIDR [place] Administration Azithromycin 500 mg 04/05/16 10:00 Zithromax 500mg Ivpb (Pre-Docked) IVPB DAILY [facility] Ceftriaxone Sodium 1 gm 04/05/16 10:00 Rocephin 1gm Ivpb (Pre-Docked) IVPB DAILY [facility] Chlordiazepoxide HCl 15 mg 04/04/16 13:42 Librium - PO Q8H PRN WITHDRAWAL(CONT SUBST) Heparin Sodium (Porcine) 5,000 unit 04/04/16 14:00 04/04/16 15:17 Heparin - SQ 5,000 unit TID [place] Administration Methylprednisolone Sodium Succinate 40 mg 04/04/16 18:00 04/04/16 17:44 Solu-Medrol - IVPB 40 mg Q8H-IV [place] Administration Nebivolol 2.5 mg 04/04/16 22:00 Bystolic - PO HS [place] Ondansetron HCl 4 mg 04/04/16 13:42 Zofran Injection IVPB Q6H PRN NAUSEA Verapamil HCl 180 mg 04/05/16 10:00 Calan Sr - PO DAILY [place] Imaging 04/03 CXR: emphysematous changes in upper lobes; no acute process 04/04 CXR: increased interstitial markings consistent with COPD ASSESSMENT/PLAN: 65-year-old woman with a history of chronic hypoxic respiratory failure, COPD on home O2, asthma, HTN, eczema and alcohol abuse, admitted for SOB. Acute on chronic hypoxic and hypercapnic respiratory failure secondary to acute bronchitis and acute exacerbation of COPD - on 3L NC now, baseline need at home is 2L - continue SoluMedrol, DuoNebs - ceftriaxone (day #1) and azithromycin (day #1) - flu swab negative; sputum culture ordered - BiPAP as needed - pulmonary following Sepsis secondary to acute bronchitis Lactic acidosis, resolved - tachycardia and tachypnea have resolved - lactic acid trended to wnl after IV fluids - flu swab negative; blood cultures NGTD; sputum culture ordered Hypertension --BP well-controlled --continue Bystolic, verapamil F/E/N Fluids: PO intake adequate Electrolytes: replete as indicated Nutrition: regular diet DVT prophylaxis: subq heparin, oob, ambulation Dispo: pre post tomorrow to assess home O2 needs; continues to require inpatient care. Full Code. Visit type - Emergency Visit Emergency Visit: Yes ED Registration Date: 04/03/16 Care time: The patient presented to the Emergency Department on the above date and was hospitalized for further evaluation of their emergent condition. - New Patient This patient is new to me today: Yes Date on this admission: 04/04/16 - Critical Care Critical Care patient: No
[2016-04-04] MEDS: FOLIC ACID 1 MG TABLET (FP) PO SCH (21:38)
[2016-04-04] MEDS: THIAMINE HCL 100 MG TABLET (FP) PO SCH (21:38)
[2016-04-04] MEDS: NEBIVOLOL 2.5 MG TABLET (FP) PO SCH (21:43)
[2016-04-05] MEDS: methylPREDNISolone NA SUCC 40 MG/1 ML VIAL IVPB SCH ×3 (02:23→16:59)
[2016-04-05] MEDS: ALBUTEROL SO4 2.5/IPRATROPIUM 0.5 INH SOL 3 ML VIAL.NEB. NEB SCH ×5 (06:45→18:22)
[2016-04-05] MEDS: HEPARIN NA (PORCINE) 5,000 UNITS/ML 1ML VIAL SQ SCH ×3 (06:47→21:38)
[2016-04-05 07:29] LABS: BASOPHIL 0.2 % (0-2.0); MCH 36.1 pg (25.7-33.7); MEAN CELL VOLUME 106.2 fl (80-96); MEAN PLT VOLUME 7.1 fl (7.5-11.1); NEUTROPHILS 90.8 % (42.8-82.8); PLATELET COUNT 141 K/MM3 (134-434); WHITE BLOOD COUNT 4.8 K/mm3 (4.0-10.0)
[2016-04-05 08:08] LABS: ALBUMIN 3.5 g/dl (3.4-5.0); ALK PHOS 56 U/L (45-117); ANION GAP 10 (8-16); BILIRUBIN,TOTAL 0.4 mg/dL (0.2-1.0); CALCIUM 8.5 mg/dL (8.5-10.1); CO2 31 mmol/L (21-32); CREATININE 0.6 mg/dL (0.55-1.02); GLUCOSE,RANDOM 131 mg/dL (74-106); MAGNESIUM 2.7 mg/dL (1.8-2.4); PHOSPHOROUS 3.3 mg/dL (2.5-4.9); SGOT/AST 20 U/L (15-37); SGPT/ALT 35 U/L (12-78); TOT PROT 6.7 g/dl (6.4-8.2)
[2016-04-05] MEDS ORDERED: PT OWN MED DRAWER 7, Y5N ONE ×2 (09:08→21:36)
[2016-04-05] MEDS: VERAPAMIL HCL 180 MG E.R. TABLET (FP) PO SCH (09:24)
[2016-04-05] MEDS: FOLIC ACID 1 MG TABLET (FP) PO SCH (09:24)
[2016-04-05] MEDS: THIAMINE HCL 100 MG TABLET (FP) PO SCH (09:24)
[2016-04-05] MEDS ORDERED: cefTRIAXone 1 GM/50 ML BAG (PRE-DOCKED) IVPB SCH (10:00)
[2016-04-05] MEDS ORDERED: AZITHROMYCIN IVPB 500 MG/250 ML D5W PRE-DOCKED IVPB SCH (10:00)
--- NOTE | 2016-04-05 11:01 | PN ---
Progress Note (short form) - Note Progress Note: PULMONARY States breathing about the same but appears more dyspneic today. +nonproductive cough but no wheezing. +chest tightness. Last Vital Signs Temp Pulse Resp BP Pulse Ox 98.0 F 98 H 20 112/54 94 L 04/05/16 08:00 04/05/16 08:00 04/05/16 08:00 04/05/16 08:00 04/05/16 08:00 Gen: mildly tachypneic at rest Heart: RRR Lung: distant breath sounds, no wheezes Abd: soft, nontender Ext: no edema CBC, BMP 04/05/16 05:35 04/05/16 05:35 Active Medications Acetaminophen (Tylenol -) 650 mg PO Q6H PRN PRN Reason: FEVER OR PAIN Albuterol/Ipratropium (Duoneb -) 1 amp NEB QIDR [facility] Last Admin: 04/05/16 06:45 Dose: 1 amp Azithromycin (Zithromax 500mg Ivpb (Pre-Docked)) 500 mg IVPB DAILY [facility] Last Admin: 04/05/16 09:25 Dose: 500 mg Ceftriaxone Sodium (Rocephin 1gm Ivpb (Pre-Docked)) 1 gm IVPB DAILY [facility] Chlordiazepoxide HCl (Librium -) 15 mg PO Q8H PRN PRN Reason: WITHDRAWAL(CONT SUBST) Folic Acid (Folic Acid -) 1 mg PO DAILY [facility] Last Admin: 04/05/16 09:24 Dose: 1 mg Heparin Sodium (Porcine) (Heparin -) 5,000 unit SQ TID [facility] Last Admin: 04/05/16 06:47 Dose: 5,000 unit Methylprednisolone Sodium Succinate (Solu-Medrol -) 40 mg IVPB Q8H-IV [facility] Last Admin: 04/05/16 09:24 Dose: 40 mg Nebivolol (Bystolic -) 2.5 mg PO HS [facility] Last Admin: 04/04/16 21:43 Dose: 2.5 mg Ondansetron HCl (Zofran Injection) 4 mg IVPB Q6H PRN PRN Reason: NAUSEA Thiamine HCl (Vitamin B1 -) 100 mg PO DAILY [facility] Last Admin: 04/05/16 09:24 Dose: 100 mg Verapamil HCl (Calan Sr -) 180 mg PO DAILY [facility] Last Admin: 04/05/16 09:24 Dose: 180 mg A/P Acute on Chronic Hypoxic and Hypercapneic Respiratory Failure Acute COPD Exacerbation Lactic Acidosis resolved Acute Bronchitis - continue medrol at current dose - inhaled bronchodilators standing and PRN - O2 to keep SpO2 >90% - continue antibiotics - f/u cultures - monitor for alcohol withdrawal - DVT prophylaxis
[2016-04-05] MEDS ORDERED: LORAZEPAM CARPU-JECT 2 MG/ML DISP.SYRIN IVPUSH PRN (13:30)
--- NOTE | 2016-04-05 13:34 | PN ---
Physical Exam: SUBJECTIVE: Patient seen and examined. Still SOB with exertion. OBJECTIVE: Vital Signs Period Temp Pulse Resp BP Sys/[place] Pulse Ox Last 24 Hr 97.6 F-98.6 F 83-98 18-20 112-141/42-91 94-94 GENERAL: The patient is awake, alert, and fully oriented, in no acute distress. HEAD: Normal with no signs of trauma. EYES: PERRL, extraocular movements intact, sclera anicteric, conjunctiva clear. No ptosis. LUNGS: Distant breath sounds. No wheezes, no crackles, no accessory muscle use. HEART: Regular rate and rhythm, S1, S2 without murmur, rub or gallop. ABDOMEN: Soft, nontender, nondistended, normoactive bowel sounds, no guarding, no rebound, no hepatosplenomegaly, no masses. EXTREMITIES: 2+ pulses, warm, well-perfused, no edema. NEUROLOGICAL: Cranial nerves II through XII grossly intact. Normal speech, gait not observed. Laboratory Results - last 24 hr 04/05/16 04/05/16 05:35 05:35 WBC 4.8 D RBC 4.10 Hgb 14.8 Hct 43.6 MCV 106.2 H MCHC 34.0 RDW 13.0 Plt Count 141 MPV 7.1 L Neutrophils % 90.8 H Lymphocytes % 4.7 L D Monocytes % 4.3 Eosinophils % 0.0 Basophils % 0.2 D Sodium 141 Potassium 4.2 Chloride 100 Carbon Dioxide 31 Anion Gap 10 BUN 11 D Creatinine 0.6 D Creat Clearance w eGFR > 60 Random Glucose 131 H Calcium 8.5 Phosphorus 3.3 Magnesium 2.7 H Total Bilirubin 0.4 AST 20 D ALT 35 D Alkaline Phosphatase 56 Total Protein 6.7 Albumin 3.5 Active Medications Generic Name Dose Route Start Last Admin Trade Name Freq PRN Reason Stop Dose Admin Acetaminophen 650 mg 04/04/16 13:42 Tylenol - PO Q6H PRN FEVER OR PAIN Albuterol/Ipratropium 1 amp 04/04/16 18:00 04/05/16 11:25 Duoneb - NEB 1 amp QIDR [place] Administration Azithromycin 500 mg 04/05/16 10:00 04/05/16 09:25 Zithromax 500mg Ivpb (Pre-Docked) IVPB 500 mg DAILY [place] Administration Ceftriaxone Sodium 1 gm 04/05/16 10:00 02/23/17 13:23 Rocephin 1gm Ivpb (Pre-Docked) IVPB 1 gm DAILY [place] Administration Chlordiazepoxide HCl 15 mg 04/04/16 13:42 Librium - PO Q8H PRN WITHDRAWAL(CONT SUBST) Folic Acid 1 mg 04/04/16 20:30 04/05/16 09:24 Folic Acid - PO 1 mg DAILY [place] Administration Heparin Sodium (Porcine) 5,000 unit 04/04/16 14:00 04/05/16 13:24 Heparin - SQ 5,000 unit TID [place] Administration Lorazepam 2 mg 04/05/16 13:30 Ativan Injection - IVPUSH 04/06/16 13:29 ONCE PRN WITHDRAWAL(CONT SUBST) Methylprednisolone Sodium Succinate 40 mg 04/04/16 18:00 04/05/16 09:24 Solu-Medrol - IVPB 40 mg Q8H-IV [place] Administration Nebivolol 2.5 mg 04/04/16 22:00 04/04/16 21:43 Bystolic - PO 2.5 mg HS [place] Administration Ondansetron HCl 4 mg 04/04/16 13:42 Zofran Injection IVPB Q6H PRN NAUSEA Thiamine HCl 100 mg 04/04/16 20:30 04/05/16 09:24 Vitamin B1 - PO 100 mg DAILY [place] Administration Verapamil HCl 180 mg 04/05/16 10:00 04/05/16 09:24 Calan Sr - PO 180 mg DAILY [place] Administration Imaging 04/03 CXR: emphysematous changes in upper lobes; no acute process 04/04 CXR: increased interstitial markings consistent with COPD ASSESSMENT/PLAN 65-year-old woman with a history of chronic hypoxic respiratory failure, COPD on home O2, asthma, HTN, eczema and alcohol abuse, admitted for SOB. Acute on chronic hypoxic and hypercapnic respiratory failure secondary to acute bronchitis and acute exacerbation of COPD - continue SoluMedrol, DuoNebs - ceftriaxone (day #2) and azithromycin (day #2) - flu swab negative; sputum culture ordered - BiPAP as needed - pre-post evaluation pending - pulmonary following Sepsis secondary to acute bronchitis, sepsis resolved Lactic acidosis, resolved Hypertension --BP well-controlled --continue Bystolic, verapamil h/o ETOH abuse --monitor for signs of withdrawal --ativan PRN for seizure F/E/N Fluids: PO intake adequate Electrolytes: replete as indicated Nutrition: regular diet DVT prophylaxis: subq heparin, oob, ambulation Dispo: continues to require inpatient care. Full Code. Visit type - Emergency Visit Emergency Visit: Yes ED Registration Date: 04/03/16 Care time: The patient presented to the Emergency Department on the above date and was hospitalized for further evaluation of their emergent condition. - New Patient This patient is new to me today: No - Critical Care Critical Care patient: No
--- NOTE | 2016-04-05 15:30 | PN ---
Progress Note, Physician History of Present Illness: OOB in chair Breathing improved Mildly tachypneic on nasal cannula Afebrile - Current Medication List Current Medications: Active Medications Acetaminophen (Tylenol -) 650 mg PO Q6H PRN PRN Reason: FEVER OR PAIN Albuterol/Ipratropium (Duoneb -) 1 amp NEB QIDR [facility] Last Admin: 04/05/16 13:52 Dose: 1 amp Chlordiazepoxide HCl (Librium -) 15 mg PO Q8H PRN PRN Reason: WITHDRAWAL(CONT SUBST) Folic Acid (Folic Acid -) 1 mg PO DAILY [facility] Last Admin: 04/05/16 09:24 Dose: 1 mg Heparin Sodium (Porcine) (Heparin -) 5,000 unit SQ TID [facility] Last Admin: 04/05/16 13:24 Dose: 5,000 unit Lorazepam (Ativan Injection -) 2 mg IVPUSH ONCE PRN PRN Reason: WITHDRAWAL(CONT SUBST) Stop: 04/06/16 13:29 Methylprednisolone Sodium Succinate (Solu-Medrol -) 40 mg IVPB Q8H-IV [facility] Last Admin: 04/05/16 09:24 Dose: 40 mg Nebivolol (Bystolic -) 2.5 mg PO HS [facility] Last Admin: 04/04/16 21:43 Dose: 2.5 mg Ondansetron HCl (Zofran Injection) 4 mg IVPB Q6H PRN PRN Reason: NAUSEA Thiamine HCl (Vitamin B1 -) 100 mg PO DAILY [facility] Last Admin: 04/05/16 09:24 Dose: 100 mg Verapamil HCl (Calan Sr -) 180 mg PO DAILY [facility] Last Admin: 04/05/16 09:24 Dose: 180 mg - Objective Vital Signs: Vital Signs Temperature 97.5 F L 04/05/16 14:00 Pulse Rate 84 04/05/16 14:00 Respiratory Rate 21 04/05/16 14:00 Blood Pressure 112/54 04/05/16 08:00 O2 Sat by Pulse Oximetry (%) 96 04/05/16 13:30 Constitutional: Yes: No Distress, Cachectic Eyes: Yes: Conjunctiva Clear Cardiovascular: Yes: Regular Rate and Rhythm, S1, S2 Respiratory: Yes: CTA Bilaterally Gastrointestinal: Yes: Normal Bowel Sounds, Soft. No: Tenderness Edema: No Integumentary: Yes: Other (+ eczema) Labs: CBC, BMP 04/05/16 05:35 04/05/16 05:35 Assessment/Plan Acute exacerbation COPD Lactic acidosis- resolved D/C antibiotics, observe off
[2016-04-05] MEDS: NEBIVOLOL 2.5 MG TABLET (FP) PO SCH (21:41)
[2016-04-06] MEDS: ALBUTEROL SO4 2.5/IPRATROPIUM 0.5 INH SOL 3 ML VIAL.NEB. NEB SCH ×3 (00:05→11:43)
[2016-04-06] MEDS: methylPREDNISolone NA SUCC 40 MG/1 ML VIAL IVPB SCH ×2 (01:51→10:02)
[2016-04-06] MEDS: HEPARIN NA (PORCINE) 5,000 UNITS/ML 1ML VIAL SQ SCH ×2 (05:51→14:03)
[2016-04-06 07:29] LABS: BASOPHIL 0.2 % (0-2.0); MCH 35.7 pg (25.7-33.7); MCHC 33.9 g/dl (32.0-36.0); MEAN CELL VOLUME 105.4 fl (80-96); MEAN PLT VOLUME 7.1 fl (7.5-11.1); NEUTROPHILS 90.3 % (42.8-82.8); PLATELET COUNT 149 K/MM3 (134-434); RDW 13.4 % (11.6-15.6); WHITE BLOOD COUNT 5.9 K/mm3 (4.0-10.0)
[2016-04-06 07:46] LABS: ALBUMIN 3.5 g/dl (3.4-5.0); ALK PHOS 57 U/L (45-117); ANION GAP 6 (8-16); BILIRUBIN,TOTAL 0.4 mg/dL (0.2-1.0); CALCIUM 8.2 mg/dL (8.5-10.1); CO2 33 mmol/L (21-32); CREATININE 0.6 mg/dL (0.55-1.02); GLUCOSE,RANDOM 123 mg/dL (74-106); MAGNESIUM 2.8 mg/dL (1.8-2.4); SGOT/AST 20 U/L (15-37); SGPT/ALT 37 U/L (12-78); TOT PROT 6.7 g/dl (6.4-8.2)
[2016-04-06] MEDS ORDERED: PT OWN MED DRAWER 7, Y5N ONE (10:01)
[2016-04-06] MEDS: THIAMINE HCL 100 MG TABLET (FP) PO SCH (10:02)
[2016-04-06] MEDS: VERAPAMIL HCL 180 MG E.R. TABLET (FP) PO SCH (10:02)
[2016-04-06] MEDS: FOLIC ACID 1 MG TABLET (FP) PO SCH (10:02)
[2016-04-06 11:43] VITALS: PULSE 85
--- NOTE | 2016-04-06 12:40 | PN ---
Progress Note (short form) - Note Progress Note: PULMONARY WANTS TO GO HOME VSS/AFEBRILE ANICTERIC DISTANT NO WHEEZE S1S2 BS+ NO EDEMA LABS/MEDS/NOTES/IMAGING/MICRO REVIEWED Acute on Chronic Hypoxic and Hypercapneic Respiratory Failure resolved Acute COPD Exacerbation Lactic Acidosis resolved Acute Bronchitis - Taper prednisone as an outpatient - inhaled bronchodilators standing and PRN - O2 to keep SpO2 >90% has home O2 - Agree with continuing treatment as an outpatient Jovan ROSE MD
[2016-04-06 14:12] VITALS: BP 144/60; TEMP 98
--- NOTE | 2016-04-06 15:10 | DS ---
[id number] Period Temp Pulse Resp BP Sys/[place] Pulse Ox Last 24 Hr 97.4 F-98.0 F 73-100 20-20 128-144/58-78 91-96 PHYSICAL EXAM GENERAL: The patient is awake, alert, and fully oriented, in no acute distress. HEAD: Normal with no signs of trauma. EYES: PERRL, extraocular movements intact, sclera anicteric, conjunctiva clear. ENT: Ears normal, nares patent, oroph O2 to keep SpO2 >90% has home [id number] clear without exudates, moist mucous membranes. NECK: Trachea midline, full range of motion, supple. LUNGS: Breath sounds equal, clear to auscultation bilaterally, no wheezes, no crackles, no accessory muscle use. HEART: Regular rate and rhythm, S1, S2 without murmur, rub or gallop. ABDOMEN: Soft, nontender, nondistended, normoactive bowel sounds, no guarding, no rebound, no hepatosplenomegaly, no masses. EXTREMITIES: 2+ pulses, warm, well-perfused, no edema. NEUROLOGICAL: Cranial nerves II through XII grossly intact. Normal speech, gait not observed. PSYCH: Normal mood, normal affect. SKIN: Warm, dry, normal turgor, no rashes or lesions noted. LABS Laboratory Results - last 24 hr 04/06/16 04/06/16 06:30 06:30 WBC 5.9 RBC 4.14 Hgb 14.8 Hct 43.6 MCV 105.4 H MCHC 33.9 RDW 13.4 Plt Count 149 MPV 7.1 L Neutrophils % 90.3 H Lymphocytes % 3.7 L D Monocytes % 5.8 Eosinophils % 0.0 Basophils % 0.2 Sodium 139 Potassium 4.2 Chloride 100 Carbon Dioxide 33 H Anion Gap 6 L BUN 12 Creatinine 0.6 Creat Clearance w eGFR > 60 Random Glucose 123 H Calcium 8.2 L Magnesium 2.8 H Total Bilirubin 0.4 AST 20 ALT 37 Alkaline Phosphatase 57 Total Protein 6.7 Albumin 3.5 HOSPITAL COURSE: Date of Admission:04/03/16 Date of Discharge: 04/06/16 Minutes to complete discharge: 35 Discharge Summary Reason For Visit: SOB;OBSTRUCTIVE CHRONIC BRONCITIS WITH EXACERBATIO Current Active Problems Acute respiratory failure with hypoxia (Acute) COPD exacerbation (Acute) Lactic acidosis (Acute) Sepsis (Acute) Shortness of breath (Acute) Hospital Course: This is a 65-year-old woman with a history of chronic hypoxic respiratory failure, COPD on home O2, asthma, HTN, eczema and alcohol abuse,who presents with to ER c/o SOB. Admitted with Acute on chronic hypoxic and hypercapnic respiratory failure secondary to acute bronchitis and acute exacerbation of COPD : Pt was evaluated by pulmonary during the hospital stay, received IV Steroid and Nebulizer with improvement, will transitioned to PO Prednisone. Pt received Ceftriaxone and Azithomycin, remains afebrile, Cxr showed no evidence of active pulmonary disease. Influenza ruled out,, Blood culture showed no growth. Seen by ID who suggests to hold off on antibiotics, O2 sat stable on 2L N/C. Sepsis secondary to acute bronchitis, sepsis resolved * Hypertension : BP remains well-controlled, will continue Bystolic, verapamil *h/o ETOH abus: No signs of signs of withdrawal Condition: Fair - Instructions Diet, Activity, Other Instructions: Low salt diet Continue on Home oxygen, keep SpO2 >90% has home O2 Prednisone 10mg taper dose 40mg daily for 3 days 30mg daily for 3 days 20mg daily for 3 days, then continue on 10mg daily Referrals: Annette Bruno MD [Primary Care Provider] - 2 Weeks Brennan Devlin MD [Staff Physician] - 2 Weeks Disposition: HOME - Home Medications Comprehensive Discharge Medication List: Ambulatory Orders Albuterol Sulfate Inhaler - [Ventolin HFA Inhaler -] 2 inh PO Q4H PRN 05/05/15 Nebivolol HCl [Bystolic] 2.5 mg PO HS 04/03/16 Tiotropium Br/Olodaterol HCl [Stiolto Respimat Inhal [place]] 4 gm IH DAILY Verapamil HCl [Verapamil ER] 180 mg PO DAILY 04/03/16 Acetaminophen [Tylenol .Regular Strength -] 650 mg PO Q6H PRN #0 tablet Folic Acid - 1 mg PO DAILY #30 tablet 04/06/16 Prednisone [Deltasone -] 40 mg PO DAILY #30 tablet 04/06/16 Thiamine HCl [Vitamin B1 -] 100 mg PO DAILY #30 tablet 04/06/16 This patient is new to me today: Yes Date on this admission: 04/06/16 Emergency Visit: Yes ED Registration Date: 04/03/16 Care time: The patient presented to the Emergency Department on the above date and was hospitalized for further evaluation of their emergent condition. Critical Care patient: No - Discharge Referral Referred to [facility] No
== END 2016-04-06 17:19 | disposition home or self-care (01) | DRG 871 ==
LOC: JER 10:50 → JERBED 15:11 → JICU 16:14 → J6S 04-04 15:43
PROVIDERS: ADMIT Internal Medicine; ATTEND Nurse Practitioner Family
PROC: 5A09357 Assistance with Respiratory Ventilation, Less than 24 Consecutive Hours, Continuous Positive Airway Pressure (ICD-10-PCS; principal; 2016-04-03)
DX: A41.9 Sepsis, unspecified organism (principal); J96.21 Acute and chronic respiratory failure with hypoxia; J96.22 Acute and chronic respiratory failure with hypercapnia; J44.0 Chronic obstructive pulmonary disease with (acute) lower respiratory infection; J44.1 Chronic obstructive pulmonary disease with (acute) exacerbation; J45.901 Unspecified asthma with (acute) exacerbation; E87.2 Acidosis; R64 Cachexia; Z99.81 Dependence on supplemental oxygen; I10 Essential (primary) hypertension; F10.10 Alcohol abuse, uncomplicated; Z87.891 Personal history of nicotine dependence; L30.9 Dermatitis, unspecified; J20.9 Acute bronchitis, unspecified
CPT/HCPCS: 36415; 36600; 71010-TC; 80048; 80053; 81003; 81015; 82375; 82550; 82803; 83050; 83605; 83735; 84100; 84484; 85025; 87040; 87254; 87804; 93005; 93010; 94640; 94761; 99285-25; J1644

== ENCOUNTER 2016-12-31 09:46 | Emergency (ER) | payer BC ==
[2016-12-31 10:01] VITALS: BP 97/70; TEMP 98; BMI 19.0
--- NOTE | 2016-12-31 11:56 | PDOC ---
History of Present Illness - History of Present Illness Initial Comments: 12/31/16 12:07 Patient is a 66 year old female with a PMHx of COPD (former smoker), Oxygen dependent, chronic low dose steroids, insomnia, and chronic leg pain, who presents to the ED with shortness of breath on exertion. Patient just came from respiratory rehab, given albuterol and nebulizer, referred to ED for her shortness of breath. She states shes been feeling very tired lately. She last saw her hydrology technician a month ago. She denies fevers, chills, sore throat. Denies nausea, vomiting, diarrhea. She denies abdominal pain, chest pain. 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 ASD VS VSD) - Suicide/Smoking/Psychosocial Hx Smoking History: Former smoker Have you smoked in the past 12 months: No If you are a former smoker, when did you quit?: 1989 Information on smoking cessation initiated: No Hx Alcohol Use: No Drug/Substance Use Hx: No Substance Use Type: None <Heather Prather - Last Filed: 12/31/16 14:05> - Past Medical History Allergies/Adverse Reactions: Allergies Allergy/AdvReac Type Severity Reaction Status Date / Time No Known Allergies Allergy Verified 12/31/16 09:56 Home Medications: Ambulatory Orders Albuterol Sulfate Inhaler - [Ventolin HFA Inhaler -] 2 inh PO Q4H PRN 05/05/15 Nebivolol HCl [Bystolic] 2.5 mg PO HS 04/03/16 Tiotropium Br/Olodaterol HCl [Stiolto Respimat Inhal [place]] 4 gm IH DAILY Verapamil HCl [Verapamil ER] 180 mg PO DAILY 04/03/16 Acetaminophen [Tylenol .Regular Strength -] 650 mg PO Q6H PRN #0 tablet Folic Acid - 1 mg PO DAILY #30 tablet 04/06/16 Prednisone [Deltasone -] 40 mg PO DAILY #30 tablet 04/06/16 Thiamine HCl [Vitamin B1 -] 100 mg PO DAILY #30 tablet 04/06/16 Azithromycin [Zithromax 250mg Tablets -] 250 mg PO UTDICT #6 tab 12/31/16 Prednisone [Deltasone -] 40 mg PO DAILY #4 tablet 12/31/16 Review of Systems - Review of Systems Comments:: 12/31/16 12:07 GENERAL/CONSTITUTIONAL: No fever or chills. +generalized weakness. HEAD, EYES, EARS, NOSE AND THROAT: No change in vision. No ear pain or discharge. No sore throat. GASTROINTESTINAL: No nausea, vomiting, diarrhea or constipation. GENITOURINARY: No dysuria, frequency, or change in urination. CARDIOVASCULAR: No chest pain or shortness of breath. RESPIRATORY: +dyspnea on exertion. No cough, no hemoptysis. MUSCULOSKELETAL: No new joint or muscle swelling or pain. No neck or back pain. +chronic leg pain. SKIN: No rash NEUROLOGIC: No headache, vertigo, loss of consciousness, or change in strength/ sensation. ENDOCRINE: No increased thirst. No abnormal weight change. HEMATOLOGIC/LYMPHATIC: No anemia, easy bleeding, or history of blood clots. ALLERGIC/IMMUNOLOGIC: No hives or skin allergy. <Becky Lane - Last Filed: 12/31/16 12:07> *Physical Exam - Vital Signs Last Vital Signs Temp Pulse Resp BP Pulse Ox 98.0 F 79 20 97/70 98 12/31/16 09:56 12/31/16 09:56 12/31/16 09:56 12/31/16 09:56 12/31/16 09:56 - Physical Exam Comments: 12/31/16 12:10 GENERAL: Awake, alert, and fully oriented, in no acute distress HEAD: No signs of trauma EYES: PERRLA, EOMI, sclera anicteric, conjunctiva clear ENT: Auricles normal inspection, hearing grossly normal, nares patent, oropharynx clear without exudates. Moist mucosa NECK: Normal ROM, supple, no lymphadenopathy, JVD, or masses LUNGS: Diminished breath sounds bilaterally. Conversational dyspnea. HEART: Regular rate and rhythm, normal S1 and S2, no murmurs, rubs or gallops ABDOMEN: Soft, nontender, normoactive bowel sounds. No guarding, no rebound. No masses EXTREMITIES: Normal range of motion, no edema. No clubbing or cyanosis. No cords, erythema, or tenderness NEUROLOGICAL: Cranial nerves II through XII grossly intact. Normal speech, normal gait SKIN: Warm, Dry, normal turgor, no rashes or lesions noted. <Becky Lane - Last Filed: 12/31/16 12:07> - Vital Signs Last Vital Signs Temp Pulse Resp BP Pulse Ox 98.0 F 79 20 97/70 98 12/31/16 09:56 12/31/16 09:56 12/31/16 09:56 12/31/16 09:56 12/31/16 09:56 <Heather Prather - Last Filed: 12/31/16 14:05> ED Treatment Course - LABORATORY CBC & Chemistry Diagram: 12/31/16 12:30 12/31/16 12:24 <Heather Prather - Last Filed: 12/31/16 14:05> Medical Decision Making - Medical Decision Making 12/31/16 12:49 a/p: 66yo female with copd on chronic home o2 with conversational dyspnea and sob -worse over last 4 days -sent from resp rehab pulm quita labs, ekg, cxr nebs, steroids, reassess abg 12/31/16 14:00 lungs cta after 3 duonebs. pt states feeling much better. ambulated with patient multiple laps in the ED without conversational dypsnea or resp distress no fevers or cough. 12/31/16 14:01 cxra clear labs reviewed. pt requesting to go home will d/c home with burst steroids discussed extensively with the patient and her daughter all reasons to return to the Ed and need for follow up with Dr. Devlin Answered all questions. Pt stable for d/c to home. <Heather Prather - Last Filed: 12/31/16 14:05> *DC/Admit/Observation/Transfer - Attestations Scribe Attestion: 12/31/16 12:11 Documentation prepared by Becky Lane, acting as medical director occupational health for Heather Prather DO. <Becky Lane - Last Filed: 12/31/16 12:07> - Discharge Dispostion Admit: No - Attestations Physician Attestion: 12/31/16 14:05 I, Dr. Heather Prather DO, attest that this document has been prepared under my direction and personally reviewed by me in its entirety. I further attest, that it accurately reflects all work, treatment, procedures and medical decision -making performed by me. <Heather Prather - Last Filed: 12/31/16 14:05> Diagnosis at time of Disposition: COPD exacerbation - Discharge Dispostion Disposition: HOME Condition at time of disposition: Stable - Prescriptions Prescriptions: Azithromycin [Zithromax 250mg Tablets -] 250 mg PO UTDICT #6 tab Prednisone [Deltasone -] 40 mg PO DAILY #4 tablet - Referrals Referrals: Brennan Devlin MD [Staff Physician] - - Patient Instructions Printed Discharge Instructions: DI for Chronic Obstructive Pulmonary Disease Additional Instructions: Please make an appointment to see Dr. Devlin. Please return to the ED with any concerns. Please take all meds as prescribed.
[2016-12-31] MEDS ORDERED: ALBUTEROL SO4 2.5/IPRATROPIUM 0.5 INH SOL 3 ML VIAL.NEB. NEB ONE ×3 (11:57)
[2016-12-31] MEDS ORDERED: methylPREDNISolone NA SUCC 125 MG/2 ML VIAL IVPB ONE (11:58)
[2016-12-31] MEDS ORDERED: SODIUM CHLORIDE 0.9% 1000 ML INFUS.BAG IV ONE (11:58)
[2016-12-31 12:17] LABS: ARTERIAL BLD GAS O2 SATURATION 95.2 % (90-98.9); ARTERIAL BLOOD GAS BASE EXCESS 3.3 meq/l (-2-2); ARTERIAL BLOOD GAS HCO3 28.6 meq/L (22-26); ARTERIAL BLOOD GAS PO2 72.1 mmHg (80-100); ARTERIAL BLOOD GAS pH 7.39 (7.35-7.45)
[2016-12-31 12:21] LABS: ALLENS TEST POSITIVE
[2016-12-31 12:39] LABS: BASOPHIL 0.6 % (0-2.0); EOSINOPHIL 0.5 % (0-4.5); MCH 32.2 pg (25.7-33.7); MCHC 33.4 g/dl (32.0-36.0); MEAN CELL VOLUME 96.6 fl (80-96); MEAN PLT VOLUME 6.9 fl (7.5-11.1); NEUTROPHILS 87.2 % (42.8-82.8); PLATELET COUNT 194 K/MM3 (134-434); RDW 12.6 % (11.6-15.6); WHITE BLOOD COUNT 7.1 K/mm3 (4.0-10.0)
[2016-12-31] MEDS ORDERED: methylPREDNISolone NA SUCC 125 MG/2 ML VIAL ONE (12:39)
[2016-12-31 13:07] LABS: ALK PHOS 65 U/L (45-117); ANION GAP 5 (8-16); BILIRUBIN,TOTAL 0.5 mg/dL (0.2-1.0); CALCIUM 9.3 mg/dL (8.5-10.1); CO2 32 mmol/L (21-32); CREATININE 0.6 mg/dL (0.55-1.02); GLUCOSE,RANDOM 99 mg/dL (74-106); MAGNESIUM 2.4 mg/dL (1.8-2.4); SGOT/AST 23 U/L (15-37); SGPT/ALT 32 U/L (12-78); TOT PROT 6.9 g/dl (6.4-8.2)
[2016-12-31 14:20] VITALS: PULSE 78
--- NOTE | 2017-01-01 18:20 | EKG ---
Test Reason : Blood Pressure : / mmHG Vent. Rate : 072 BPM Atrial Rate : 072 BPM P-R Int : 126 ms QRS Dur : 070 ms QT Int : 392 ms P-R-T Axes : 055 069 044 degrees QTc Int : 429 ms NORMAL SINUS RHYTHM NONSPECIFIC ST ABNORMALITY WHEN COMPARED WITH ECG OF 03-APR-2016 11:10, VENT. RATE HAS DECREASED BY 46 BPM BASELINE ARTIFACT REPEAT EKG IF CLINICALLY INDICATED Confirmed by KEVYN SOUTH MD ([id number]) on 01/01/2017 6:19:45 PM Referred By: Confirmed By:KEVYN SOUTH MD
== END 2016-12-31 14:20 | disposition home or self-care (01) ==
LOC: JER 09:46
PROC: 3E0333Z Introduction of Anti-inflammatory into Peripheral Vein, Percutaneous Approach (ICD-10-PCS; principal; 2016-12-31)
PROC: 3E0F7GC Introduction of Other Therapeutic Substance into Respiratory Tract, Via Natural or Artificial Opening (ICD-10-PCS; 2016-12-31)
PROC: 3E0F7GC Introduction of Other Therapeutic Substance into Respiratory Tract, Via Natural or Artificial Opening (ICD-10-PCS; 2016-12-31)
PROC: 3E0F7GC Introduction of Other Therapeutic Substance into Respiratory Tract, Via Natural or Artificial Opening (ICD-10-PCS; 2016-12-31)
DX: J44.1 Chronic obstructive pulmonary disease with (acute) exacerbation (principal); Z99.81 Dependence on supplemental oxygen; G47.00 Insomnia, unspecified
CPT/HCPCS: 36415; 36600; 71010-TC; 80053; 82375; 82803; 83050; 83735; 85025; 93005; 93010; 94640; 96374; 99283-25

== ENCOUNTER 2017-12-04 19:31 | Emergency (ER) | payer BC ==
[2017-12-04 19:50] VITALS: BMI 21.2
[2017-12-04] MEDS ORDERED: ALBUTEROL SO4 2.5/IPRATROPIUM 0.5 INH SOL 3 ML VIAL.NEB. NEB ONE (19:51)
--- NOTE | 2017-12-04 19:52 | PDOC ---
History of Present Illness - General Chief Complaint: Shortness of Breath Stated Complaint: SOB Time Seen by Provider: 12/04/17 19:41 - History of Present Illness Initial Comments: 12/04/17 19:52 66 year old woman with history of COPD (former smoker) on 2L home oxygen, spinal stenosis, chronic leg pain, on low dose steroids who presents with 2 days of exertional shortness of breath. She denies any recent travel, long flights or car rides, denies recent surgery or prolonged immobilization. Denies any estrogen use. Denies any fevers, sick contacts, denies cough or URI symptoms. The patient's last COPD exacerbation was 1 year ago and she goes to pulmonary theray 3 times a week. She denies any other complaints at bedside but notes that she feels anxious because she does not want to feel short of breath when she moves. PMHX: as in HPI Meds: see below Allergies: NKDA Tob: prior smoker Etoh: none Rec drugs: none PCP: Kiana Pulm: Beckie Past History - Past Medical History Allergies/Adverse Reactions: Allergies Allergy/AdvReac Type Severity Reaction Status Date / Time No Known Allergies Allergy Verified 01/19/17 12:47 Home Medications: Ambulatory Orders Albuterol Sulfate Inhaler - [Ventolin HFA Inhaler -] 2 inh PO Q4H PRN 05/05/15 Tiotropium Br/Olodaterol HCl [Stiolto Respimat Inhal [place]] 2 gm IH DAILY Verapamil HCl [Verapamil ER] 180 mg PO DAILY 04/03/16 Acetaminophen [Tylenol .Regular Strength -] 650 mg PO Q6H PRN #0 tablet Nebivolol HCl [Bystolic] 5 mg PO HS 12/31/16 Escitalopram Oxalate [Lexapro -] 5 mg PO DAILY 01/19/17 Thiamine HCl [B-1] 100 mg PO DAILY 01/19/17 predniSONE [Deltasone -] 10 mg PO DAILY 01/19/17 predniSONE [Deltasone -] 40 mg PO DAILY #8 tablet 01/19/17 Asthma: Yes Cardiac Disorders: Yes (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 ASD VS VSD) - Suicide/Smoking/Psychosocial Hx Smoking History: Unknown if ever smoked Have you smoked in the past 12 months: No If you are a former smoker, when did you quit?: 1989 Information on smoking cessation initiated: No Hx Alcohol Use: No Drug/Substance Use Hx: No Substance Use Type: None *Physical Exam - Vital Signs Last Vital Signs Temp Pulse Resp BP Pulse Ox 98.3 F 90 30 H 143/86 91 L 12/04/17 19:31 12/04/17 19:31 12/04/17 19:31 12/04/17 19:31 12/04/17 19:31 - Physical Exam Comments: 12/04/17 20:47 + decreased breath sounds in all lobes RRR palpable pulses moist mucous membranes, nonerythematous, no notable nasal congestion No CVA tenderness otherwise unremarkable exam ED Treatment Course - LABORATORY CBC & Chemistry Diagram: 12/04/17 20:18 12/04/17 20:18 Medical Decision Making - Medical Decision Making 12/04/17 20:45 66 year old woman with history of COPD (former smoker) on 2L home oxygen, spinal stenosis, chronic leg pain, on low dose steroids who presents with 2 days of exertional shortness of breath. She denies any recent travel, long flights or car rides, denies recent surgery or prolonged immobilization. Denies any estrogen use. Denies any fevers, sick contacts, denies cough or URI symptoms. The patient's last COPD exacerbation was 1 year ago and she goes to pulmonary theray 3 times a week. She denies any other complaints at bedside but notes that she feels anxious because she does not want to feel short of breath when she moves. DDX including but not limited to: COPD exacerbation vs PNA vs PE vs viral URI W/U: - cbc, cmp, trop, lactic acid, PT/INR, PTT - EKG - CXR TX: - duoneb, solumedrol, Mg ED Course: Patient anxious appearing but satting above 95-96 on home oxygen (2L [place]) Duoneb started at bedside. 12/04/17 20:48 ABG showed some mild CO2 retention. CBC w/o white count Likely COPD exacerbation *DC/Admit/Observation/Transfer - Referrals Referrals: Annette Bruno MD [Primary Care Provider] - - Patient Instructions - Post Discharge Activity
[2017-12-04] MEDS ORDERED: MAGNESIUM SULF 50% (8.12 MEQ/2 ML-1 GM VIAL) IVPB ONE (20:00)
[2017-12-04] MEDS ORDERED: methylPREDNISolone NA SUCC 125 MG/2 ML VIAL IVPUSH ONE (20:00)
[2017-12-04 20:24] LABS: BASO % 0.4 % (0-2.0); EOS % 3.1 % (0-4.5); HEMOGLOBIN 13.8 GM/dL (10.7-15.3); LYMPH % 10.6 % (8-40); MCHC 33.5 g/dl (32.0-36.0); MEAN CELL VOLUME 98.4 fl (80-96); MEAN PLT VOLUME 7.5 fl (7.5-11.1); MONO % 7.2 % (3.8-10.2); NEUT % 78.7 % (42.8-82.8); PLATELET COUNT 170 K/MM3 (134-434); RBC 4.17 M/mm3 (3.60-5.2); RDW 12.5 % (11.6-15.6); WHITE BLOOD COUNT 7.2 K/mm3 (4.0-10.0)
[2017-12-04] MEDS ORDERED: MAGNESIUM 1GM/D5W - 1 GM/100 ML IVPB IVPB ONE (20:29)
[2017-12-04] MEDS ORDERED: methylPREDNISolone NA SUCC 125 MG/2 ML VIAL ONE (20:29)
[2017-12-04 20:43] LABS: ARTERIAL BLD GAS O2 SATURATION 95.9 % (90-98.9); ARTERIAL BLOOD GAS BASE EXCESS 1.4 meq/l (-2-2); ARTERIAL BLOOD GAS PCO2 57.8 mmHg (35-45); ARTERIAL BLOOD GAS PO2 89.8 mmHg (80-100); ARTERIAL BLOOD GAS pH 7.31 (7.35-7.45)
[2017-12-04 20:45] LABS: ALLENS TEST POSITIVE
--- NOTE | 2017-12-04 21:00 | PDOC ---
Attending Attestation - Resident Resident Name: Alicia Hurd - ED Attending Attestation I have performed the following: I have examined & evaluated the patient, The case was reviewed & discussed with the resident, I agree w/resident's findings & plan, Exceptions are as noted - HPI HPI: 12/04/17 20:57 Ms Reyes is a 66 yo F h/o COPD (former smoker) on 2L home oxygen, spinal stenosis, chronic leg pain, on low dose steroids who presents with 2 days of exertional shortness of breath. She denies chest pain She denies palpitations She denies productive cough Pt concerned because she is now afraid to exert herself due to fear of worsening shortness of breath short of breath when she moves. PMHX: as in HPI Meds: see below Allergies: NKDA PCP: Kiana Pulm: [place] - Physicial Exam PE: 12/04/17 20:59 GENERAL: The patient is in no acute distress. HEAD: Normal with no signs of trauma. EYES: PERRLA, EOMI, sclera anicteric, conjunctiva clear. ENT: Ears normal, nares patent, oropharynx clear without exudates. Moist mucous membranes. NECK: Normal range of motion, supple without lymphadenopathy, JVD, or masses. LUNGS: Decreased breath sounds diffusely, faint expiratory wheezing, upper airway noise HEART: Regular rate and rhythm, normal S1 and S2 without murmur ABDOMEN: Soft, nontender, no guarding, no rebound. EXTREMITIES: Normal range of motion, no edema. NEUROLOGICAL: Cranial nerves II through XII grossly intact. Normal speech. No focal neurological deficits. MUSCULOSKELETAL: Back non-tender to palpation, no CVA tenderness SKIN: Warm, Dry, normal turgor, no rashes or lesions noted. 12/05/17 03:59 - Medical Decision Making 12/04/17 20:59 Laboratory Tests 12/04/17 12/04/17 20:18 20:33 WBC 7.2 Hgb 13.8 Hct 41.0 Plt Count 170 ABG pH 7.31 L ABG pCO2 at Pt Temp 57.8 H D ABG pO2 at Pt Temp 89.8 D ABG HCO3 28.4 H ABG O2 Sat (Measured) 95.9 EK12/04/17 22:52 CXR: ? increased markings Right middle lobe? Pt re assessed She states that she feels much better She does not want to stay in the Hospital Will discharge to home - Prednisone burst, Azithromycin Follow up with Pulmonary Return to the ER for any other concerns or complaints Clinical Impression: COPD exacerbation, initial presentation
[2017-12-04 21:22] LABS: INR 0.87 (0.83-1.09); PROTHROMBIN TIME (PATIENT) 10.3 SEC (9.7-13.0)
[2017-12-04 21:25] LABS: ACTIVATED PTT 30.2 SECONDS (25.2-36.5)
[2017-12-04] MEDS ORDERED: AZITHROMYCIN IVPB 500 MG in DEXTROSE 5%-WATER - 250 ML IVPB ONE (22:03)
[2017-12-04] MEDS ORDERED: AZITHROMYCIN IVPB 500 MG/250 ML BAG IVPB ONE (22:21)
[2017-12-04 22:40] LABS: ALBUMIN 3.4 g/dl (3.4-5.0); ALK PHOS 73 U/L (45-117); ANION GAP 7 MMOL/L (8-16); BILIRUBIN,TOTAL 0.2 mg/dL (0.2-1); BLOOD UREA NITROGEN 9 mg/dL (7-18); CALCIUM 8.8 mg/dL (8.5-10.1); CHLORIDE 102 mmol/L (98-107); CO2 30 mmol/L (21-32); CREATININE 0.6 mg/dL (0.55-1.3); GLUCOSE,RANDOM 124 mg/dL (74-106); POTASSIUM 4.2 mmol/L (3.5-5.1); SGOT/AST 31 U/L (15-37); SGPT/ALT 34 U/L (13-61); SODIUM 139 mmol/L (136-145); TOT PROT 6.2 g/dl (6.4-8.2)
--- NOTE | 2017-12-04 23:02 | PDOC ---
*Physical Exam - Vital Signs Last Vital Signs Temp Pulse Resp BP Pulse Ox 98.3 F 90 30 H 143/86 91 L 12/04/17 19:31 12/04/17 19:31 12/04/17 19:31 12/04/17 19:31 12/04/17 19:31 - Physical Exam Comments: 12/05/17 03:50 General Appearance: Nourished. No Apparent Distress HEENT: No Pharyngeal Erythema, Tonsillar Exudate, Tonsillar Erythema Neck: No Cervical Lymphadenopathy Respiratory/Chest: Lungs Clear, Normal Breath Sounds. No Crackles, Rales, Rhonchi, Wheezing Cardiovascular: Regular Rhythm, Regular Rate. No Murmur, Gallops, Rubs Gastrointestinal/Abdominal: Normal Bowel Sounds, Soft. No Guarding, Rebound, Tenderness Musculoskeletal: No CVA Tenderness Extremity: Normal Capillary Refill Integumentary: Normal Color, Dry, Warm Neurologic: Fully Oriented, Alert, Normal Mood/Affect, Normal Response, ED Treatment Course - LABORATORY CBC & Chemistry Diagram: 12/04/17 20:18 12/04/17 20:45 - ADDITIONAL ORDERS Additional order review: Laboratory Results 12/04/17 12/04/17 12/04/17 20:45 20:45 20:45 PT with INR INR PTT (Actin FS) D-Dimer 313 Anticoagulation Therapy Puncture Site ABG pH ABG pCO2 at Pt Temp ABG pO2 at Pt Temp ABG HCO3 ABG O2 Sat (Measured) ABG O2 Content ABG Base Excess Cuate Test O2 Delivery Device Oxygen Flow Rate Vent Mode Vent Rate Mechanical Rate Pressure Support Vent Sodium 139 Potassium 4.2 Chloride 102 Carbon Dioxide 30 Anion Gap 7 L BUN 9 Creatinine 0.6 Creat Clearance w eGFR > 60 Random Glucose 124 H Lactic Acid 0.8 Calcium 8.8 Total Bilirubin 0.2 AST 31 ALT 34 Alkaline Phosphatase 73 Creatine Kinase 78 CK-MB (CK-2) Troponin I < 0.02 Total Protein 6.2 L Albumin 3.4 12/04/17 12/04/17 12/04/17 20:33 20:18 20:18 PT with INR INR PTT (Actin FS) D-Dimer Anticoagulation Therapy No Result Required. Puncture Site Right radial ABG pH 7.31 L ABG pCO2 at Pt Temp 57.8 H D ABG pO2 at Pt Temp 89.8 D ABG HCO3 28.4 H ABG O2 Sat (Measured) 95.9 ABG O2 Content 17.7 ABG Base Excess 1.4 Cuate Test Positive O2 Delivery Device No Result Required. Oxygen Flow Rate 2lpm Vent Mode No Result Required. Vent Rate No Result Required. Mechanical Rate No Result Required. Pressure Support Vent No Result Required. Sodium Potassium Chloride Carbon Dioxide Anion Gap BUN Creatinine Creat Clearance w eGFR Random Glucose Lactic Acid 1.0 Calcium Total Bilirubin AST ALT Alkaline Phosphatase Creatine Kinase CK-MB (CK-2) Troponin I Cancelled Total Protein Albumin 12/04/17 12/04/17 20:18 20:18 PT with INR 10.30 INR 0.87 PTT (Actin FS) 30.2 D-Dimer Anticoagulation Therapy Puncture Site ABG pH ABG pCO2 at Pt Temp ABG pO2 at Pt Temp ABG HCO3 ABG O2 Sat (Measured) ABG O2 Content ABG Base Excess Cuate Test O2 Delivery Device Oxygen Flow Rate Vent Mode Vent Rate Mechanical Rate Pressure Support Vent Sodium Cancelled Potassium Cancelled Chloride Cancelled Carbon Dioxide Cancelled Anion Gap Cancelled BUN Cancelled Creatinine Cancelled Creat Clearance w eGFR Cancelled Random Glucose Cancelled Lactic Acid Calcium Cancelled Total Bilirubin Cancelled AST Cancelled ALT Cancelled Alkaline Phosphatase Cancelled Creatine Kinase Cancelled CK-MB (CK-2) Cancelled Troponin I Total Protein Cancelled Albumin Cancelled 12/04/17 20:18 RBC 4.17 MCV 98.4 H MCHC 33.5 RDW 12.5 MPV 7.5 D Neutrophils % 78.7 Lymphocytes % 10.6 D Monocytes % 7.2 Eosinophils % 3.1 Basophils % 0.4 - Medications Given in the ED: ED Medications Discontinued Medications Generic Name Dose Route Start Last Admin Trade Name [place]q PRN Reason Stop Dose Admin Albuterol/Ipratropium 1 amp 12/04/17 19:51 12/04/17 20:18 Duoneb - NEB 12/04/17 19:52 1 amp ONCE ONE Administration Magnesium Sulfate 1 gm 12/04/17 20:00 12/04/17 20:43 Magnesium Sulfate IVPB 12/04/17 20:01 1 gm ONCE ONE Administration Methylprednisolone Sodium Succinate 125 mg 12/04/17 20:00 12/04/17 20:43 Solu-Medrol - IVPUSH 12/04/17 20:01 125 mg ONCE ONE Administration Progress Note - Progress Note Progress Note: The patient is a 67 year old female with a history of COPD who presents for evaluation of shortness of breath. The patient is pending lab results and dispo. Medical Decision Making - Medical Decision Making 12/05/17 03:51 CMP is unremarkable. The patient reports improvement in her symptoms and is requesting discharge. We will discharge the patient with azithromycin and prednisone with primary care provider and pulmonology follow up. We discussed the results, plan, and return precautions with the patient who voiced understanding and is agreeable with the plan. *DC/Admit/Observation/Transfer Diagnosis at time of Disposition: COPD (chronic obstructive pulmonary disease) Qualifiers: COPD type: unspecified COPD Qualified Code(s): J44.9 - Chronic obstructive pulmonary disease, unspecified - Discharge Dispostion Disposition: HOME Condition at time of disposition: Stable Decision to Admit order: No - Prescriptions Prescriptions: Azithromycin [Zithromax 250mg Tablets -] 250 mg PO UTDICT #6 tab predniSONE [Deltasone -] 40 mg PO DAILY #8 tablet - Referrals Referrals: Annette Bruno MD [Primary Care Provider] - Yunior Arechiga MD [Staff Physician] - - Patient Instructions Printed Discharge Instructions: DI for Chronic Obstructive Pulmonary Disease Additional Instructions: Please return to the ER if you experience concerning or worsening symptoms including worsening difficulty breathing, weakness, or chest pain. We have sent a prescription for antibiotics to your pharmacy and steroids that you should take as directed. Please call to schedule a follow up appointment with your primary care provider tomorrow to discuss your ER visit and further management of your symptoms. - Post Discharge Activity
[2017-12-05 00:03] VITALS: BP 136/78; PULSE 99; TEMP 98.5
== END 2017-12-05 00:03 | disposition home or self-care (01) ==
LOC: JER 19:31
PROC: 3E0F7GC Introduction of Other Therapeutic Substance into Respiratory Tract, Via Natural or Artificial Opening (ICD-10-PCS; principal; 2017-12-04)
PROC: 3E0333Z Introduction of Anti-inflammatory into Peripheral Vein, Percutaneous Approach (ICD-10-PCS; 2017-12-04)
PROC: 3E033GC Introduction of Other Therapeutic Substance into Peripheral Vein, Percutaneous Approach (ICD-10-PCS; 2017-12-04)
DX: J44.9 Chronic obstructive pulmonary disease, unspecified (principal); Z99.81 Dependence on supplemental oxygen; M48.00 Spinal stenosis, site unspecified; I48.91 Unspecified atrial fibrillation; M79.609 Pain in unspecified limb; Z79.52 Long term (current) use of systemic steroids
CPT/HCPCS: 36415; 36600; 71045-TC-FY; 80053; 82550; 82803; 83605; 84484; 85025; 85379; 85610; 85730; 87040; 99283-25

== ENCOUNTER 2017-12-17 20:44 | Observation (INO) | payer BC ==
[2017-12-17] MEDS ORDERED: DEXAMETHASONE SOD PHOSPHATE 10 MG/1 ML VIAL ONE (20:54)
[2017-12-17] MEDS ORDERED: MAGNESIUM SULF 50% (8.12 MEQ/2 ML-1 GM VIAL) IVPB ONE (21:07)
--- NOTE | 2017-12-17 21:10 | PDOC ---
History of Present Illness - General Chief Complaint: Shortness of Breath Stated Complaint: DIFFICULTY BREATHING Time Seen by Provider: 12/17/17 20:59 History Source: Patient - History of Present Illness Initial Comments: 12/17/17 23:55 67 year old female with increased work of breathing and desating at home BIBA given duoneb and decadron En route. upon arrival patient with increased work of breathing, decreased breath sounds and tripoding noted. patient reports that symptoms all started today at 2 pm patient currently on 2 L oxygen via NC. denies fever/ chills, cough, NVD, abdominal pain. reports that she completed a course of antibiotics for pneumonia 2 weeks ago. 12/18/17 00:28 Past History - Past Medical History Allergies/Adverse Reactions: Allergies Allergy/AdvReac Type Severity Reaction Status Date / Time No Known Allergies Allergy Verified 01/19/17 12:47 Home Medications: Ambulatory Orders Albuterol Sulfate Inhaler - [Ventolin HFA Inhaler -] 2 inh PO Q4H PRN 05/05/15 Tiotropium Br/Olodaterol HCl [Stiolto Respimat Inhal [place]] 2 gm IH DAILY Verapamil HCl [Verapamil ER] 180 mg PO DAILY 04/03/16 Acetaminophen [Tylenol .Regular Strength -] 650 mg PO Q6H PRN #0 tablet Nebivolol HCl [Bystolic] 5 mg PO HS 12/31/16 Escitalopram Oxalate [Lexapro -] 5 mg PO DAILY 01/19/17 Thiamine HCl [B-1] 100 mg PO DAILY 01/19/17 predniSONE [Deltasone -] 10 mg PO DAILY 01/19/17 Azithromycin [Zithromax 250mg Tablets -] 250 mg PO UTDICT #6 tab 12/04/17 predniSONE [Deltasone -] 40 mg PO DAILY #8 tablet 12/04/17 Asthma: Yes Cardiac Disorders: Yes (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 ASD VS VSD) - Suicide/Smoking/Psychosocial Hx Smoking History: Unknown if ever smoked Have you smoked in the past 12 months: No If you are a former smoker, when did you quit?: 1989 Hx Alcohol Use: No Drug/Substance Use Hx: No Substance Use Type: None Review of Systems - Review of Systems Able to Perform ROS?: Yes Is the patient limited Ukrainian proficient: No Constitutional: No: Symptoms Reported, See HPI, Chills, Diaphoresis, Fever, Loss of Appetite, Malaise, Night Sweats, Weakness, Weight Stable, Unintentional Wgt. Loss, Unexplained wgt Loss, Other Respiratory: Yes: Shortness of Breath, SOB at Rest, Wheezing Cardiac (ROS): No: Symptoms Reported, See HPI, Chest Pain, Edema, Irregular Heart Rate, Lightheadedness, Palpitations, Syncope, Chest Tightness, Other ABD/GI: No: Symptoms Reported, See HPI, Abdominal Distended, Abd. Pain w/ defecation, Blood Streaked Bowels, Constipated, Diarrhea, Difficulty Swallowing , Nausea, Poor Appetite, Poor Fluid Intake, Rectal Bleeding, Vomiting, Indigestion, Abdominal cramping, Tarry Stools, Other *Physical Exam - Vital Signs 12/18/17 00:31 Last Vital Signs Temp Pulse Resp BP Pulse Ox 98.4 F 121 H 24 H 109/53 L 99 12/17/17 20:45 12/17/17 20:45 12/17/17 20:45 12/17/17 20:45 12/17/17 20:45 - Physical Exam General Appearance: Yes: Severe Distress Respiratory/Chest: positive: Accessory Muscle Use, Decreased Breath Sounds Cardiovascular: positive: Regular Rate Gastrointestinal/Abdominal: positive: Normal Bowel Sounds, Soft Integumentary: positive: Normal Color, Dry, Warm Neurologic: positive: Fully Oriented, Alert, Normal Mood/Affect Heart Score/ECG Review - History History: Slightly suspicious - Electrocardiogram EKG: Normal - Age Age: >/= 65 - Risk Factors Risk Factors Heart Score: Yes Smoking History Based on the list above the patient has:: 1-2 risk factors - Troponin Troponin: </= normal limit - Score Heart Score - Total: 3 - ECG Intrepretation Rhythm: Regular Rhythm Comment:: 12/18/17 00:36 NSR: 96 Bpm ED Treatment Course - LABORATORY CBC & Chemistry Diagram: 12/17/17 21:12 12/17/17 23:02 - RADIOLOGY Radiology Studies Ordered: Category Date Time Status CHEST X-RAY PORTABLE* [RAD] Stat Radiology 12/17/17 21:05 Ordered Progress Note - Progress Note Progress Note: A: Medical Decision Making - Medical Decision Making 12/17/17 23:09 patient now reports that she is feeling better. o2 sat 90% on 2 l increased to 3 l now at 92- 93%. patient has oxygen at home however o2 is more than at home dose. 12/17/17 23:45 patient signed out to Dr. Siddiqi/ Dr. still pending chemistry and ABG. *DC/Admit/Observation/Transfer Diagnosis at time of Disposition: COPD exacerbation COPD (chronic obstructive pulmonary disease) Qualifiers: COPD type: unspecified COPD Qualified Code(s): J44.9 - Chronic obstructive pulmonary disease, unspecified - Discharge Dispostion Decision to Admit order: Yes - Referrals Referrals: Annette Bruno MD [Primary Care Provider] - - Patient Instructions - Post Discharge Activity
[2017-12-17] MEDS ORDERED: MAGNESIUM 1GM/D5W - 1 GM/100 ML IVPB IVPB ONE (21:13)
[2017-12-17] MEDS: ALBUTEROL SO4 2.5/IPRATROPIUM 0.5 INH SOL 3 ML VIAL.NEB. NEB SCH ×3 (21:20→22:13)
[2017-12-17 21:27] LABS: BASO % 0.4 % (0-2.0); EOS % 1.8 % (0-4.5); HEMATOCRIT 40.9 % (32.4-45.2); HEMOGLOBIN 14.1 GM/dL (10.7-15.3); LYMPH % 21.9 % (8-40); MCHC 34.5 g/dl (32.0-36.0); MEAN CELL VOLUME 98.5 fl (80-96); MEAN PLT VOLUME 7.8 fl (7.5-11.1); MONO % 8.3 % (3.8-10.2); NEUT % 67.6 % (42.8-82.8); PLATELET COUNT 188 K/MM3 (134-434); RBC 4.16 M/mm3 (3.60-5.2); RDW 12.5 % (11.6-15.6); WHITE BLOOD COUNT 6.9 K/mm3 (4.0-10.0)
[2017-12-17 21:46] LABS: INR 0.87 (0.83-1.09); PROTHROMBIN TIME (PATIENT) 10.2 SEC (9.7-13.0)
[2017-12-17] MEDS ORDERED: ALBUTEROL SO4 2.5/IPRATROPIUM 0.5 INH SOL 3 ML VIAL.NEB. NEB ONE (21:54)
[2017-12-17 23:38] LABS: ALBUMIN 3.5 g/dl (3.4-5.0); ALK PHOS 65 U/L (45-117); ANION GAP 6 MMOL/L (8-16); BILIRUBIN,TOTAL 0.2 mg/dL (0.2-1); BLOOD UREA NITROGEN 9 mg/dL (7-18); CALCIUM 8.7 mg/dL (8.5-10.1); CHLORIDE 100 mmol/L (98-107); CO2 32 mmol/L (21-32); CREATININE 0.6 mg/dL (0.55-1.3); GLUCOSE,RANDOM 172 mg/dL (74-106); MAGNESIUM 2.8 mg/dL (1.8-2.4); N-TERMINAL BNP 159.9 pg/ml (5-125); POTASSIUM 3.9 mmol/L (3.5-5.1); SGOT/AST 23 U/L (15-37); SGPT/ALT 27 U/L (13-61); SODIUM 138 mmol/L (136-145); TOT PROT 6.2 g/dl (6.4-8.2)
[2017-12-17 23:55] LABS: ARTERIAL BLD GAS O2 SATURATION 97.6 % (90-98.9); ARTERIAL BLOOD GAS BASE EXCESS 4.4 meq/l (-2-2); ARTERIAL BLOOD GAS pH 7.36 (7.35-7.45); CARBOXYHEMOGLOBIN 0.8 gm% (0.5-2.0)
--- NOTE | 2017-12-18 00:13 | PN ---
Teaching Attending Note Name of Resident: Reema Siddiqi ATTENDING PHYSICIAN STATEMENT I saw and evaluated the patient. I reviewed the resident's note and discussed the case with the resident. I agree with the resident's findings and plan as documented. SUBJECTIVE: Patient is a 67 year old woman with history of COPD (former smoker) on 2L home oxygen, spinal stenosis, chronic leg pain, on low dose steroids who presents with 2 days of worsening shortness of breath. She was desaturating at Home and was unable to speak on arrival in the ER. Feeling much better after duoneb, MgSO4 and decadron treatment. Denies fever or chills but had mild cough with scanty yellow sputum. She completed a course of antibiotics (azithromycin) for pneumonia 2 weeks ago. Got Flu and pneumovax vaccines. OBJECTIVE: Alert Vital Signs Period Temp Pulse Resp BP Sys/[place] Pulse Ox Last 24 Hr 98.4 F 96-121 24-24 109/53 99-99 HEENT: No Jaundice, eye redness or discharge, PERRLA, EOMI. Normocephalic, atraumatic. External ears are normal and hearing is grossly intact. No nasal discharge. Neck: Supple, nontender. No palpable adenopathy or thyromegaly. No JVD Chest: Good effort. No wheezing or rales. Good air entry. Clear to percussion. Heart: Regular. No S3, rub or murmur Abdomen: Not distended, soft, nontender and no HSM. No rebound or guarding. Normoactive bowel sounds. Ext: Peripheral pulses intact. No leg edema. Skin: Warm and dry. No petechiae, rash or ecchymosis. Neuro: Alert. Oriented x3. CN 2-12 grossly intact. Sensation grossly intact in all four extremities and DTR are symmetric. Home Medications Medication Instructions Recorded Albuterol Sulfate Inhaler - 2 inh PO Q4H PRN 05/05/15 [Ventolin HFA Inhaler -] Tiotropium Br/Olodaterol HCl 2 gm IH DAILY 04/03/16 [Stiolto Respimat Inhal [place]] Verapamil HCl [Verapamil ER] 180 mg PO DAILY 04/03/16 Acetaminophen [Tylenol .Regular 650 mg PO Q6H PRN #0 tablet 04/06/16 Strength -] Nebivolol HCl [Bystolic] 5 mg PO HS 12/31/16 Escitalopram Oxalate [Lexapro -] 5 mg PO DAILY 01/19/17 Thiamine HCl [B-1] 100 mg PO DAILY 01/19/17 predniSONE [Deltasone -] 10 mg PO DAILY 01/19/17 Azithromycin [Zithromax 250mg 250 mg PO UTDICT #6 tab 12/04/17 Tablets -] predniSONE [Deltasone -] 40 mg PO DAILY #8 tablet 12/04/17 Abnormal Lab Results 12/17/17 12/17/17 12/17/17 21:12 23:02 23:44 MCV 98.5 H MCH 34.0 H ABG pCO2 at Pt Temp 55.0 H ABG pO2 at Pt Temp 101.0 H ABG HCO3 30.6 H ABG Base Excess 4.4 H Anion Gap 6 L Random Glucose 172 H Magnesium 2.8 H B-Natriuretic Peptide 159.9 H Total Protein 6.2 L ASSESSMENT AND PLAN: 1. COPD exacerbation - No obvious precpitating factor. No acute pathology on CXR. Will continue treatment with duoneb, spiriva, symbicort, solumedrol and NC oxygen. No need for antibiotics at this time. 2. DVT prophylaxis - Lovenox 40 mg SQ q 24 hours. 3. Advance directives - Full code
[2017-12-18 00:25] VITALS: BMI 20.8
[2017-12-18] MEDS ORDERED: methylPREDNISolone NA SUCC 40 MG/1 ML VIAL IVPUSH SCH (02:15)
--- NOTE | 2017-12-18 03:01 | HP ---
CHIEF COMPLAINT: SOB PCP: Dr. Bruno HISTORY OF PRESENT ILLNESS: Patient is a 67 y/o female with a history of HTN, COPD on 2 L NC, spinal stenosis, and chronic leg pain who presents for shortness of breath. Patient reports she started feeling short of breath around 2 pm. Even with movement on the couch she would feel sort of breath and had to stop and rest. She did a nebulizer treatment with no relief and decided to come to the hospital. Patient was recently in the ED for shortness of breath two weeks, was given a Zpack and course of steroids. She reports she felt better after the treatment. She follows with Dr. Devlin who she saw on Thrusday and also reported she was at her baseline. She denies any travel or feelings of fever, cough, or congestion recently. She was diagnosed with COPD 2.5 years ago and put on 2 L NC around the same time. She reports being compliant with her medications. She received dexamethasone and magnesium in the ED and feels better, but she was returning from walking to the bathroom and continued to be short of breath. Patient reported she got the flu shot this year. ER course was notable for: (1) Dexamethasone (2) Magnesium (3) Recent Travel: denies PAST MEDICAL HISTORY: HTN, COPD on 2L, spinal stenosis PAST SURGICAL HISTORY: repair of congenital heart "valve defect" at age 16 Social History: Smokin pack year history, quit 23 years ago Alcohol: denies Drugs: medical marijuana for chronic back pain Family History: Allergies No Known Allergies Allergy (Verified 01/19/17 12:47) HOME MEDICATIONS: Home Medications Medication Instructions Recorded Albuterol Sulfate Inhaler - 2 inh PO Q4H PRN 05/05/15 [Ventolin HFA Inhaler -] Tiotropium Br/Olodaterol HCl 2 gm IH DAILY 04/03/16 [Stiolto Respimat Inhal [place]] Verapamil HCl [Verapamil ER] 180 mg PO DAILY 04/03/16 Acetaminophen [Tylenol .Regular 650 mg PO Q6H PRN #0 tablet 04/06/16 Strength -] Nebivolol HCl [Bystolic] 5 mg PO HS 12/31/16 Escitalopram Oxalate [Lexapro -] 5 mg PO DAILY 01/19/17 Thiamine HCl [B-1] 100 mg PO DAILY 01/19/17 predniSONE [Deltasone -] 10 mg PO DAILY 01/19/17 Azithromycin [Zithromax 250mg 250 mg PO UTDICT #6 tab 12/04/17 Tablets -] predniSONE [Deltasone -] 40 mg PO DAILY #8 tablet 12/04/17 REVIEW OF SYSTEMS CONSTITUTIONAL: Absent: fever, chills, diaphoresis, generalized weakness, malaise, loss of appetite, weight change HEENT: Absent: rhinorrhea, nasal congestion, throat pain, throat swelling, difficulty swallowing, mouth swelling, ear pain, eye pain, visual changes CARDIOVASCULAR: Absent: chest pain, syncope, palpitations, irregular heart rate, lightheadedness , peripheral edema RESPIRATORY: shortness of breathdyspnea with exertion, Absent: cough, orthopnea, wheezing, stridor, hemoptysis GASTROINTESTINAL: Absent: abdominal pain, abdominal distension, nausea, vomiting, diarrhea, constipation, melena, hematochezia GENITOURINARY: Absent: dysuria, frequency, urgency, hesitancy, hematuria, flank pain, genital pain MUSCULOSKELETAL: Absent: myalgia, arthralgia, joint swelling, back pain, neck pain SKIN: Absent: rash, itching, pallor HEMATOLOGIC/IMMUNOLOGIC: Absent: easy bleeding, easy bruising, lymphadenopathy, frequent infections ENDOCRINE: Absent: unexplained weight gain, unexplained weight loss, heat intolerance, cold intolerance NEUROLOGIC: Absent: headache, focal weakness or paresthesias, dizziness, unsteady gait, seizure, mental status changes, bladder or bowel incontinence PSYCHIATRIC: Absent: anxiety, depression, suicidal or homicidal ideation, hallucinations. PHYSICAL EXAMINATION Vital Signs - 24 hr 12/17/17 12/17/17 20:45 21:05 Temperature 98.4 F Pulse Rate 121 H 96 H Respiratory 24 H 24 H Rate Blood Pressure 109/53 L O2 Sat by Pulse 99 99 Oximetry (%) GENERAL: Awake, alert, and fully oriented, in no acute distress. HEAD: Normal with no signs of trauma. EYES: Pupils equal, round and reactive to light, extraocular movements intact, EARS, NOSE, THROAT: Moist mucous membranes. LUNGS:Bilateral crackles, poor inspiratory effort. No accessory muscle use. HEART: Regular rate and rhythm, normal S1 and S2 without murmur, rub or gallop. ABDOMEN: Soft, nontender, not distended, normoactive bowel sounds, no guarding, no rebound, no masses. LOWER EXTREMITIES: 2+ pulses, warm, well-perfused. No calf tenderness. No peripheral edema. NEUROLOGICAL: Cranial nerves II-XII intact. Normal speech. Normal gait. PSYCHIATRIC: Cooperative. Good eye contact. Appropriate mood and affect. SKIN: Warm, dry, normal turgor, no rashes or lesions noted, normal capillary refill. Laboratory Results - last 24 hr CBC, BMP 12/17/17 21:12 12/17/17 23:02 ASSESSMENT/PLAN: Patient is a 67 y/o female with a history of HTN, COPD on 2 L NC, spinal stenosis, and chronic leg pain who presents for shortness of breath likely 2/2 to COPD exacerbation. #COPD exacerbation - no evidence of infectious process - patient received Dexamethasone and Magnesium in ED - ABG ph: 7.36 CO2: 55 O2: 101 HCO3: 30.6 - patient at baseline 2L NC and oxygen saturation ~95% - CXR: no acute disease - [address] : COPD, no acute processes - 40 q8h solumedrol - duonebs scheduled QID - symbicort BID - continue daily prednisone 5mg #HTN - continue home medications #depression - continue escatalopram Visit type - Emergency Visit Emergency Visit: Yes Care time: The patient presented to the Emergency Department on the above date and was hospitalized for further evaluation of their emergent condition. - New Patient This patient is new to me today: Yes Date on this admission: 12/18/17 - Critical Care Critical Care patient: No
[2017-12-18 06:17] LABS: BASO % 0.1 % (0-2.0); HEMATOCRIT 38.6 % (32.4-45.2); HEMOGLOBIN 12.8 GM/dL (10.7-15.3); LYMPH % 5.2 % (8-40); MCH 32.2 pg (25.7-33.7); MCHC 33.1 g/dl (32.0-36.0); MEAN CELL VOLUME 97.2 fl (80-96); MONO % 1.3 % (3.8-10.2); NEUT % 93.4 % (42.8-82.8); PLATELET COUNT 151 K/MM3 (134-434); RBC 3.97 M/mm3 (3.60-5.2); RDW 12.1 % (11.6-15.6); WHITE BLOOD COUNT 5.3 K/mm3 (4.0-10.0)
[2017-12-18] MEDS ORDERED: methylPREDNISolone NA SUCC 40 MG/1 ML VIAL ONE (06:23)
[2017-12-18 07:12] LABS: ALBUMIN 3.5 g/dl (3.4-5.0); ALK PHOS 62 U/L (45-117); ANION GAP 8 MMOL/L (8-16); BILIRUBIN,TOTAL 0.3 mg/dL (0.2-1); BLOOD UREA NITROGEN 9 mg/dL (7-18); CALCIUM 8.9 mg/dL (8.5-10.1); CHLORIDE 102 mmol/L (98-107); CO2 29 mmol/L (21-32); CREATININE 0.6 mg/dL (0.55-1.3); GLUCOSE,RANDOM 150 mg/dL (74-106); POTASSIUM 4.2 mmol/L (3.5-5.1); SGOT/AST 18 U/L (15-37); SGPT/ALT 27 U/L (13-61); SODIUM 138 mmol/L (136-145); TOT PROT 6.4 g/dl (6.4-8.2)
[2017-12-18 07:54] VITALS: PULSE 97; TEMP 98.5
[2017-12-18] MEDS ORDERED: ALBUTEROL SO4 2.5/IPRATROPIUM 0.5 INH SOL 3 ML VIAL.NEB. NEB SCH (08:00)
[2017-12-18] MEDS ORDERED: ALBUTEROL SO4 8 GM HFA INHALER IH PRN (08:27)
--- NOTE | 2017-12-18 08:41 | DS ---
Physical Examination Vital Signs: Vital Signs Temperature 98.5 F 12/18/17 07:50 Pulse Rate 97 H 12/18/17 07:50 Respiratory Rate 16 12/18/17 07:50 Blood Pressure 109/54 L 12/18/17 07:50 O2 Sat by Pulse Oximetry (%) 99 12/18/17 07:50 Patient feels improved denies any worsening SOB or Cough wants to go home, at home on 2 Ltr NC HEENT: Mm moist, not using accessory muscles CHEST: CA B/L minimal wheezes B/L Good AE CVS: S1S2 R no m/g/r ABD: No distention, non tender Bs + EXT: No edema feet, no calf tenderness NEUROLOGIST: AOX3 non focal Labs: CBC, BMP 12/18/17 06:00 12/18/17 06:00 CBC, BMP 12/18/17 06:00 12/18/17 06:00 Discharge Summary Reason For Visit: OBSTRUCTIVE CHRONIC BRONCHITIS WITH EXACERBATION Current Active Problems COPD exacerbation (Acute) HTN COPD Hospital Course: 67 y/o female with a history of HTN, COPD on 2 L NC, spinal stenosis, and chronic leg pain who presents for shortness of breath. Patient reports she started feeling short of breath around 2 pm. Patient is compliant with meds F/U regularly with Pulmologist, schedule for a visit tomorrow, over night patient symptoms improved denies any fever, chills, nausea, vomiting, normal WBC , CXR no infiltrates, , patient was admitted for observation but she wants to go home as she improved and understand how to manage her symptoms. Will discuss with Dr Quiles if he wants to see her before she goes home. At the time of examination she is comfortable hemodynamically stable no respiratory distress. Time Spent 36 minutes Condition: Fair - Instructions Diet, Activity, Other Instructions: Low Salt ;ow cholestrol Patient is advised to stay for observation , but insisted to go home as sghe ffels improved will F/U with his Pulmologist office, patient signed ama and left home we explained all adverse out come including worsening SOB< Hypoxia, respiratory failure and , but patient signed ama in presence of her daughter, she has all her meds at home will provided Po prednisone prescription and educated to call 911 and visit Ed if develops worsening Htpoxia , SOB or any other symptoms.Daughter and Patient understood the plan. Referrals: Hadi,Annette, MD [Primary Care Provider] - 2 Weeks Brennan Devlin MD [Staff Physician] - 12/18/17 Disposition: AGAINST MEDICAL ADVICE - Home Medications Comprehensive Discharge Medication List: Ambulatory Orders Albuterol Sulfate Inhaler - [Ventolin HFA Inhaler -] 2 inh PO Q4H PRN 05/05/15 Verapamil HCl [Verapamil ER] 60 mg PO DAILY 04/03/16 Nebivolol HCl [Bystolic] 5 mg PO HS 12/31/16 Escitalopram Oxalate [Lexapro -] 5 mg PO DAILY 01/19/17 Umeclidinium [place] [Incruse Ellipta] 62.5 mcg IH DAILY 12/18/17 predniSONE [Deltasone -] 40 mg PO DAILY #14 tablet 12/18/17
[2017-12-18] MEDS ORDERED: predniSONE 20 MG TABLET (UD) PO ONE (09:40)
[2017-12-18] MEDS ORDERED: predniSONE 20 MG TABLET (UD) ONE (09:43)
[2017-12-18 09:49] VITALS: BP 106/58
--- NOTE | 2017-12-18 09:56 | EKG ---
Test Reason : Blood Pressure : / mmHG Vent. Rate : 096 BPM Atrial Rate : 096 BPM P-R Int : 114 ms QRS Dur : 064 ms QT Int : 348 ms P-R-T Axes : 110 083 084 degrees QTc Int : 439 ms POOR DATA QUALITY, INTERPRETATION MAY BE ADVERSELY AFFECTED NORMAL SINUS RHYTHM NORMAL ECG WHEN COMPARED WITH ECG OF 19-JAN-2017 12:52, NO SIGNIFICANT CHANGE WAS FOUND Confirmed by SONDRA CEDENO, NEIDA ([id number]) on 12/18/2017 9:56:21 AM Referred By: Confirmed By:NEIDA AMARO MD
[2017-12-18] MEDS ORDERED: BUDESONIDE/FORMETEROL FUMARATE 160/4.5 mcg INHALER IH SCH (10:00)
[2017-12-18] MEDS ORDERED: PATIENT'S OWN MEDICATION (NON-FORMULARY) (Umeclidinium Bromide [Incruse Ellipta] 62.5 MCG) IH SCH (10:00)
[2017-12-18] MEDS ORDERED: ESCITALOPRAM OXALATE 10 MG TABLET (FP) PO SCH (10:00)
[2017-12-18] MEDS ORDERED: VERAPAMIL HCL 120 MG TABLET PO SCH (10:00)
[2017-12-18] MEDS ORDERED: predniSONE 5 MG TABLET (UD) PO SCH (10:00)
[2017-12-18] MEDS ORDERED: NEBIVOLOL 5 MG TABLET (FP) PO SCH (10:00)
[2017-12-18 11:16] LABS: ANISOCYTOSIS 1+; MACROCYTOSIS 1+; OVALOCYTE 1+
[2017-12-18 11:38] LABS: PLATELET ESTIMATE ADEQUATE
== END 2017-12-18 09:45 | disposition left against medical advice (07) ==
LOC: JER 20:44 → JERBED 23:46
PROVIDERS: ADMIT Internal Medicine; ATTEND Internal Medicine
PROC: 3E0333Z Introduction of Anti-inflammatory into Peripheral Vein, Percutaneous Approach (ICD-10-PCS; principal; 2017-12-17)
PROC: 3E033GC Introduction of Other Therapeutic Substance into Peripheral Vein, Percutaneous Approach (ICD-10-PCS; 2017-12-17)
PROC: 3E0F7GC Introduction of Other Therapeutic Substance into Respiratory Tract, Via Natural or Artificial Opening (ICD-10-PCS; 2017-12-17)
DX: J44.1 Chronic obstructive pulmonary disease with (acute) exacerbation (principal); I10 Essential (primary) hypertension; F32.9 Major depressive disorder, single episode, unspecified; Z87.891 Personal history of nicotine dependence; Z95.1 Presence of aortocoronary bypass graft; Z99.81 Dependence on supplemental oxygen
CPT/HCPCS: 36415; 36600; 71045-TC-FY; 80053; 82375; 82550; 82803; 83050; 83735; 83880; 84484; 85025; 85610; 85730; 93005; 93010; 94640; 96374; 96375; 99285-25; G0378

== ENCOUNTER 2018-01-12 10:57 | Inpatient (IN) | payer BC ==
[2018-01-12] MEDS ORDERED: ALBUTEROL SO4 2.5/IPRATROPIUM 0.5 INH SOL 3 ML VIAL.NEB. NEB ONE ×2 (11:14→11:17)
--- NOTE | 2018-01-12 11:14 | PDOC ---
History of Present Illness - General Chief Complaint: Shortness of Breath Stated Complaint: trouble breathing Time Seen by Provider: 01/12/18 11:14 - History of Present Illness Initial Comments: 01/12/18 11:26 The patient is a 67 year old female with a history of COPD on home O2, CAD, Spinal stenosis who presents for evaluation of shortness of breath. She reports worsening shortness of breath over the past few days despite use of her inhaler and nebulizers prompting her presentation to the ED for further evaluation. She notes that her symptoms are similar to her prior COPD exacerbations. She otherwise denies fevers, chills, cough, chest pain, nausea, vomiting, abdominal pain, or changes with urination or bowel movements. Past History - Past Medical History Allergies/Adverse Reactions: Allergies Allergy/AdvReac Type Severity Reaction Status Date / Time No Known Allergies Allergy Verified 01/12/18 11:06 Home Medications: Ambulatory Orders Albuterol Sulfate Inhaler - [Ventolin HFA Inhaler -] 2 inh PO Q4H PRN 05/05/15 Verapamil HCl [Verapamil ER] 60 mg PO DAILY 04/03/16 Nebivolol HCl [Bystolic] 5 mg PO HS 12/31/16 Escitalopram Oxalate [Lexapro -] 5 mg PO DAILY 01/19/17 predniSONE [Deltasone -] 5 mg PO DAILY 01/19/17 Umeclidinium Brm/Vilanterol Tr [Anoro Ellipta 62.5-25 Mcg INH] 1 each IH DAILY 01/12/18 Asthma: Yes Cardiac Disorders: Yes (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 ASD VS VSD) - Suicide/Smoking/Psychosocial Hx Smoking History: Unknown if ever smoked Have you smoked in the past 12 months: No If you are a former smoker, when did you quit?: 1989 Information on smoking cessation initiated: No Hx Alcohol Use: No Drug/Substance Use Hx: No Substance Use Type: None Review of Systems - Review of Systems Comments:: 01/12/18 11:28 Constitutional: No fevers, chills, fatigue, malaise HEENT: No Rhinorrhea, nasal congestion, visual changes Cardiovascular: No chest pain, syncope, palpitations, lightheadedness Respiratory: Shortness of breath. No Cough, Hemoptysis, Gastrointestinal: No Abdominal pain, Nausea, Vomiting, Constipation, Diarrhea, Melena Genitourinary: No Dysuria, Frequency, Urgency, Hesitancy, Hematuria, Flank pain Musculoskeletal: No Myalgia, arthralgia Skin: No rashes, itching, bruising, pallor Neurologic: No Headache, Dizziness, Numbness, Weakness, or Tingling Psychiatric: No Hallucinations. No SI or HI *Physical Exam - Vital Signs Last Vital Signs Temp Pulse Resp BP Pulse Ox 98 H 22 H 109/57 L 92 L 01/12/18 11:03 01/12/18 11:03 01/12/18 11:03 01/12/18 11:03 - Physical Exam Comments: 01/12/18 11:28 General Appearance: Nourished. No Apparent Distress HEENT: No Pharyngeal Erythema, Tonsillar Exudate, Tonsillar Erythema Neck: No Cervical Lymphadenopathy Respiratory/Chest: Poor air movement bilaterally with bibasilar rales and diffuse end expiratory wheezing on exam. No Crackles, Rhonchi, Cardiovascular: Regular Rhythm, Regular Rate. No Murmur, Gallops, Rubs Gastrointestinal/Abdominal: Normal Bowel Sounds, Soft. No Guarding, Rebound, Tenderness Musculoskeletal: No CVA Tenderness Extremity: Normal Capillary Refill Integumentary: Normal Color, Dry, Warm Neurologic: Fully Oriented, Alert, Normal Mood/Affect, Normal Response, Moderate Sedation - Procedure Monitoring Vital Signs: Procedure Monitoring Vital Signs Temperature Pulse Rate 98 H 01/12/18 11:03 Respiratory Rate 22 H 01/12/18 11:03 Blood Pressure 109/57 L 01/12/18 11:03 O2 Sat by Pulse Oximetry (%) 92 L 01/12/18 11:03 ED Treatment Course - LABORATORY CBC & Chemistry Diagram: 01/12/18 11:23 01/12/18 11:30 Medical Decision Making - Medical Decision Making 01/12/18 11:30 The patient is a 67 year old female with a history of COPD on home O2, CAD, Spinal stenosis who presents for evaluation of shortness of breath. Differential includes but is not limited to: COPD exacerbation, ACS, Arrhythmia , Infectious, Metabolic Derangement. Given the patient's history and physical exam, we will obtain a cbc, cmp, troponin, bnp, ekg, chest plain film to evaluate further. We will treat with duonebs, and solumedrol and continue to monitor and reassess while here in the ED. 01/12/18 12:59 CBC, cmp, troponin, bnp is unremarkable. Chest plain film demonstrates flattened diapharms. The patient continues to have poor air movement on exam despite treatment. We believe she requires admission for further management. We discussed the case with the admitting team who accepted the patient for admission. We discussed the case with Dr. Tariq who is covering for the patient's pulmonoligist Dr. Devlin who is aware of the case. *DC/Admit/Observation/Transfer Diagnosis at time of Disposition: COPD (chronic obstructive pulmonary disease) Qualifiers: COPD type: unspecified COPD Qualified Code(s): J44.9 - Chronic obstructive pulmonary disease, unspecified - Discharge Dispostion Condition at time of disposition: Stable Decision to Admit order: Yes - Referrals Referrals: Annette Bruno MD [Primary Care Provider] - - Patient Instructions - Post Discharge Activity
[2018-01-12] MEDS ORDERED: methylPREDNISolone NA SUCC 125 MG/2 ML VIAL IVPUSH ONE (11:25)
[2018-01-12] MEDS ORDERED: methylPREDNISolone NA SUCC 125 MG/2 ML VIAL ONE (11:31)
[2018-01-12 11:52] LABS: BASO % 0.7 % (0-2.0); EOS % 4.5 % (0-4.5); HEMATOCRIT 41.8 % (32.4-45.2); HEMOGLOBIN 13.7 GM/dL (10.7-15.3); LYMPH % 15.7 % (8-40); MCH 32.1 pg (25.7-33.7); MCHC 32.8 g/dl (32.0-36.0); MEAN CELL VOLUME 97.8 fl (80-96); MEAN PLT VOLUME 6.9 fl (7.5-11.1); NEUT % 69.1 % (42.8-82.8); PLATELET COUNT 197 K/MM3 (134-434); RBC 4.28 M/mm3 (3.60-5.2); RDW 12.8 % (11.6-15.6); WHITE BLOOD COUNT 6.1 K/mm3 (4.0-10.0)
--- NOTE | 2018-01-12 12:23 | PDOC ---
Attending Attestation - Resident Resident Name: Juan Ramon Chandra - ED Attending Attestation I have performed the following: I have examined & evaluated the patient, The case was reviewed & discussed with the resident, I agree w/resident's findings & plan, Exceptions are as noted - HPI HPI: 01/12/18 12:18 67-year-old female history of COPD on home O2 and chronic steroids 5 mg of prednisone per day here today complaining of worsening shortness of breath for last 2-3 days. Patient states she has been using nebulizers at home without relief. No fevers no chills denies any leg swelling no chest pain is followed by Dr. bae her side her chipper. No history of previous blood clots no moderating factors - Physicial Exam PE: 01/12/18 12:22 Awake alert no acute distress lung exam is with decreased lung sounds bilaterally heart is regular without any murmurs rubs or gallops abdomen is soft and nontender skin is warm and dry extremities are warm and well-perfused no edema tenderness neurologically alert and oriented 3 - Medical Decision Making 01/12/18 12:23 Differential diagnosis includes pneumonia, COPD exacerbation, pleural effusions , CHF, no current risk factors for PE. Anemia, plan CBC CMP chest x-ray we will treat for likely COPD exacerbation with steroid bolus to a nabs patient will likely require admission for COPD exacerbation will discuss with the ECP Dr. Bruno or Dr. best Heart Score/ECG Review #1 ECG reviewed & interpreted by me at: 11:30 General ECG Interpretation: Sinus Rhythm, Normal Rate (76), Normal Intervals, No acute ischemic changes (L)
[2018-01-12 12:26] LABS: ALBUMIN 3.6 g/dl (3.4-5.0); ALK PHOS 55 U/L (45-117); ANION GAP 9 MMOL/L (8-16); BILIRUBIN,TOTAL 0.4 mg/dL (0.2-1); BLOOD UREA NITROGEN 8 mg/dL (7-18); CALCIUM 8.8 mg/dL (8.5-10.1); CHLORIDE 102 mmol/L (98-107); CO2 30 mmol/L (21-32); CREATININE 0.7 mg/dL (0.55-1.3); GLUCOSE,RANDOM 129 mg/dL (74-106); N-TERMINAL BNP 75.6 pg/ml (5-125); POTASSIUM 3.9 mmol/L (3.5-5.1); SGOT/AST 17 U/L (15-37); SGPT/ALT 25 U/L (13-61); SODIUM 141 mmol/L (136-145); TOT PROT 6.4 g/dl (6.4-8.2)
[2018-01-12] MEDS ORDERED: ALBUTEROL SO4 0.083% IH SOL 2.5 MG/3 ML VIAL.NEB. NEB ONE ×2 (12:37→12:50)
[2018-01-12] MEDS ORDERED: MAGNESIUM SULF 50% (8.12 MEQ/2 ML-1 GM VIAL) IVPB ONE (12:57)
[2018-01-12] MEDS ORDERED: MAGNESIUM 1GM/D5W - 1 GM/100 ML IVPB IVPB ONE (13:12)
[2018-01-12] MEDS ORDERED: ALBUTEROL SO4 8 GM HFA INHALER IH PRN (13:38)
--- NOTE | 2018-01-12 13:43 | HP ---
CHIEF COMPLAINT:Shortness of breath PCP: Dr. Bruno HISTORY OF PRESENT ILLNESS: 67 y/o female with PMH of COPD (on 2l of home o2), Afib (not on AC), spinal stenosis presents for worsening shortness of breath. patient states for the past few ays she has been having increased tightness in the chest and worsening shortness of breath depsite using her usual inhales, she has also been walking less. She states this is how her usuaul COPD exacerbation presents. Of note, she was here one month ago with similar complaints. She states her granddaughetr has been sick with fever and cough however she denies any other symptoms except shortness of breath. denies any recent travel ER course was notable for: (1) solumedrol 125 X1 (2) 3 rounds of duonebs, 1 amp of albuterol (3) Recent Travel: none PAST MEDICAL HISTORY: see above PAST SURGICAL HISTORY: congenital cardiac defect surgery at age 16 Social History: Smoking:former smoker smoked for 40 years, quit 23 years ago Alcohol:denies Drugs: CBD oil for her spinal stenosis pain Family History: DM, colon ca on mothers side; cardiac problems on both side Allergies No Known Allergies Allergy (Verified 01/12/18 11:06) HOME MEDICATIONS: Home Medications Medication Instructions Recorded Albuterol Sulfate Inhaler - 2 inh PO Q4H PRN 05/05/15 [Ventolin HFA Inhaler -] Verapamil HCl [Verapamil ER] 60 mg PO DAILY 04/03/16 Nebivolol HCl [Bystolic] 5 mg PO HS 12/31/16 Escitalopram Oxalate [Lexapro -] 5 mg PO DAILY 01/19/17 predniSONE [Deltasone -] 5 mg PO DAILY 01/19/17 Umeclidinium Brm/Vilanterol Tr 1 each IH DAILY 01/12/18 [Anoro Ellipta 62.5-25 Mcg INH] REVIEW OF SYSTEMS CONSTITUTIONAL: Absent: fever, chills, diaphoresis, generalized weakness, malaise, loss of appetite, weight change HEENT: Absent: rhinorrhea, nasal congestion, throat pain, throat swelling, difficulty swallowing, mouth swelling, ear pain, eye pain, visual changes CARDIOVASCULAR: Absent: chest pain, syncope, palpitations, irregular heart rate, lightheadedness , peripheral edema RESPIRATORY: Present:shortness of breath, dyspnea with exertion, wheezing Absent: cough, , orthopnea, wheezing, stridor, hemoptysis GASTROINTESTINAL: Absent: abdominal pain, abdominal distension, nausea, vomiting, diarrhea, constipation, melena, hematochezia GENITOURINARY: Absent: dysuria, frequency, urgency, hesitancy, hematuria, flank pain, genital pain MUSCULOSKELETAL: Absent: myalgia, arthralgia, joint swelling, back pain, neck pain SKIN: Absent: rash, itching, pallor HEMATOLOGIC/IMMUNOLOGIC: Absent: easy bleeding, easy bruising, lymphadenopathy, frequent infections ENDOCRINE: Absent: unexplained weight gain, unexplained weight loss, heat intolerance, cold intolerance NEUROLOGIC: Absent: headache, focal weakness or paresthesias, dizziness, unsteady gait, seizure, mental status changes, bladder or bowel incontinence PSYCHIATRIC: Absent: anxiety, depression, suicidal or homicidal ideation, hallucinations. PHYSICAL EXAMINATION Vital Signs - 24 hr 01/12/18 01/12/18 11:03 12:10 Temperature 98.6 F Pulse Rate 98 H Pulse Rate [ 74 Apical] Respiratory 22 H 20 Rate Blood Pressure 109/57 L Blood Pressure 120/60 [Left Arm] O2 Sat by Pulse 92 L 99 Oximetry (%) GENERAL: Awake, alert,, in no acute distress, on nasal cannula. EYES: no scleral icterus NECK: no JVD, no lymphadenopathy LUNGS:poor inspiratory effort; however, no rales, rhonchi or wheezing appreciated. HEART: Regular rate and rhythm, normal S1 and S2 without murmur, rub or gallop. ABDOMEN: Soft, nontender, not distended, normoactive bowel sounds, no guarding, no rebound, no masses. No hepatomegaly or splenomegaly. MUSCULOSKELETAL: Normal range of motion at all joints. No bony deformities or tenderness. No CVA tenderness. EXTREMITIES: warm; well-perfused, no clubbing/cyanosis or edema SKIN: Warm, dry, normal turgor, no rashes or lesions noted, normal capillary refill. Laboratory Results - last 24 hr 01/12/18 01/12/18 11:23 11:30 WBC 6.1 RBC 4.28 Hgb 13.7 Hct 41.8 MCV 97.8 H MCH 32.1 MCHC 32.8 RDW 12.8 Plt Count 197 D MPV 6.9 L Absolute Neuts (auto) 4.2 Neutrophils % 69.1 D Lymphocytes % 15.7 D Monocytes % 10.0 D Eosinophils % 4.5 D Basophils % 0.7 D Nucleated RBC % 0 Sodium 141 Potassium 3.9 Chloride 102 Carbon Dioxide 30 Anion Gap 9 BUN 8 Creatinine 0.7 Creat Clearance w eGFR > 60 Random Glucose 129 H Calcium 8.8 Total Bilirubin 0.4 AST 17 ALT 25 Alkaline Phosphatase 55 Creatine Kinase 60 Troponin I < 0.02 B-Natriuretic Peptide 75.6 Total Protein 6.4 Albumin 3.6 ASSESSMENT/PLAN: 67 y/o female with PMH of COPD (on home o2), Afib, spinal stenosis presents to the ED with worsening shortness of breath and chest tightness for the past few days, #Acute COPD Exacerbation -patient has had multiple hospitalizations this year for COPD -IV solumedrol 40q6H -standing duonebs QID -c/w patients home inhalers -Azithromycin -Dr Devlin has already been consulted by the ED -monitor O2 sats #Afib not on AC -Dr. Patel is patients supervisor framing mill -c/w bystolic 5mg and verapamil 180 daily #Depression -c/w pateints lexapro F/E/N -not on fluids -monitor electrolytes -sodium controlled diet DVT PPX: heaprin SQ dispo: admit to med-surg Problem List - Problem (1) COPD (chronic obstructive pulmonary disease) Code(s): J44.9 - CHRONIC OBSTRUCTIVE PULMONARY DISEASE, UNSPECIFIED Qualifiers: COPD type: unspecified COPD Qualified Code(s): J44.9 - Chronic obstructive pulmonary disease, unspecified (2) Shortness of breath Code(s): R06.02 - SHORTNESS OF BREATH Visit type - Emergency Visit Emergency Visit: Yes ED Registration Date: 01/12/18 Care time: The patient presented to the Emergency Department on the above date and was hospitalized for further evaluation of their emergent condition. - New Patient This patient is new to me today: Yes Date on this admission: 01/12/18 - Critical Care Critical Care patient: No
--- NOTE | 2018-01-12 13:50 | HP ---
CHIEF COMPLAINT: sob PCP: Quita (pulm), Amanda (cardio) HISTORY OF PRESENT ILLNESS: Pt is a 67 y/o F with PMH COPD 2L home O2 with 2 exacerbations within the last year who presented to ED with complaint of SOB x 4 days. Pt has been resistant to coming to ED, but finally agreed to let daughter bring her as she was not improving. Pt's grandchild is sick with resp symptoms. Denies fever, chills, cough, travel, leg swelling, nausea, vomiting, diarrhea. ER course was notable for: (1) HR 98, BP 109/57, RR 22, sat 99 on 2L (2) CXR with hyperinflation. Similar to previous. No infiltrate. (3) duonebs x 3, medrol 125, ventolin x 1, mag sulfate Recent Travel: denies PAST MEDICAL HISTORY: COPD (2L home O2, 2 exacerbations w/in last year), ?Afib (reported but no AC), spinal stenosis, s/p CABG for repair of congenital septal defect (unclear if atrial or ventricular). Note: pt denies hx CAD stating she had CABG for congenital defect and has no known coronary disease PAST SURGICAL HISTORY: Social History: Smoking: former Alcohol: denies Drugs: prescribed CBD oil Family History: denies Allergies No Known Allergies Allergy (Verified 01/12/18 11:06) HOME MEDICATIONS: Home Medications Medication Instructions Recorded Albuterol Sulfate Inhaler - 2 inh PO Q4H PRN 05/05/15 [Ventolin HFA Inhaler -] Verapamil HCl [Verapamil ER] 60 mg PO DAILY 04/03/16 Nebivolol HCl [Bystolic] 5 mg PO HS 12/31/16 Escitalopram Oxalate [Lexapro -] 5 mg PO DAILY 01/19/17 predniSONE [Deltasone -] 5 mg PO DAILY 01/19/17 Umeclidinium Brm/Vilanterol Tr 1 each IH DAILY 01/12/18 [Anoro Ellipta 62.5-25 Mcg INH] REVIEW OF SYSTEMS CONSTITUTIONAL: Absent: fever, chills, diaphoresis, generalized weakness, malaise, loss of appetite, weight change HEENT: Absent: rhinorrhea, nasal congestion, throat pain, throat swelling, difficulty swallowing, mouth swelling, ear pain, eye pain, visual changes CARDIOVASCULAR: Absent: chest pain, syncope, palpitations, irregular heart rate, lightheadedness , peripheral edema RESPIRATORY: shortness of breath Absent: cough,, dyspnea with exertion, orthopnea, wheezing, stridor, hemoptysis GASTROINTESTINAL: Absent: abdominal pain, abdominal distension, nausea, vomiting, diarrhea, constipation, melena, hematochezia GENITOURINARY: Absent: dysuria, frequency, urgency, hesitancy, hematuria, flank pain, genital pain MUSCULOSKELETAL: Absent: myalgia, arthralgia, joint swelling, back pain, neck pain SKIN: Absent: rash, itching, pallor HEMATOLOGIC/IMMUNOLOGIC: Absent: easy bleeding, easy bruising, lymphadenopathy, frequent infections ENDOCRINE: Absent: unexplained weight gain, unexplained weight loss, heat intolerance, cold intolerance NEUROLOGIC: Absent: headache, focal weakness or paresthesias, dizziness, unsteady gait, seizure, mental status changes, bladder or bowel incontinence PSYCHIATRIC: Absent: anxiety, depression, suicidal or homicidal ideation, hallucinations. PHYSICAL EXAMINATION Vital Signs - 24 hr 01/12/18 01/12/18 11:03 12:10 Temperature 98.6 F Pulse Rate 98 H Pulse Rate [ 74 Apical] Respiratory 22 H 20 Rate Blood Pressure 109/57 L Blood Pressure 120/60 [Left Arm] O2 Sat by Pulse 92 L 99 Oximetry (%) GEN: comfortable, nad HEENT: NCAT, EOMI Neck: supple, no jvd, no bruits Cardio: rrr, normal s1s2, no mrg Pulm: decreased air entry b/l, no wheezing, no rales/ronchi Abd: soft, + bs, nontender, no organomegally Ext: no edema Laboratory Results - last 24 hr 01/12/18 01/12/18 11:23 11:30 WBC 6.1 RBC 4.28 Hgb 13.7 Hct 41.8 MCV 97.8 H MCH 32.1 MCHC 32.8 RDW 12.8 Plt Count 197 D MPV 6.9 L Absolute Neuts (auto) 4.2 Neutrophils % 69.1 D Lymphocytes % 15.7 D Monocytes % 10.0 D Eosinophils % 4.5 D Basophils % 0.7 D Nucleated RBC % 0 Sodium 141 Potassium 3.9 Chloride 102 Carbon Dioxide 30 Anion Gap 9 BUN 8 Creatinine 0.7 Creat Clearance w eGFR > 60 Random Glucose 129 H Calcium 8.8 Total Bilirubin 0.4 AST 17 ALT 25 Alkaline Phosphatase 55 Creatine Kinase 60 Troponin I < 0.02 B-Natriuretic Peptide 75.6 Total Protein 6.4 Albumin 3.6 ASSESSMENT/PLAN: Pt is a 67 y/o F with PMH COPD with mult exacerbations who presents to ED with complaint of SOB x 4 days. Pt admitted with COPD exacerbation. #COPD exacerbation -ventolin -solu 40 q6h -pulm consult. ED spoke with Dr. Marcum -Azithromycin #AF -currently in sinus -? a fib -pt will need to f/u with cardio regarding possible benefit of AC. d/w pt. states understanding -c/w bystolic #spinal stenosis -chronic -pain is controlled -no alarm signs #FEN -not on fluids -lytes wnl -Na diet #PPx -Hep SubQ #Dispo -Med surg for COPD exacerbation Rad Ness MD PGY-2 IM Visit type - Emergency Visit Emergency Visit: Yes ED Registration Date: 01/12/18 Care time: The patient presented to the Emergency Department on the above date and was hospitalized for further evaluation of their emergent condition. - New Patient This patient is new to me today: Yes Date on this admission: 01/14/18 - Critical Care Critical Care patient: No
[2018-01-12] MEDS ORDERED: AZITHROMYCIN 250 MG TABLET ONE (14:35)
[2018-01-12] MEDS ORDERED: HEPARIN NA (PORCINE) 5,000 UNITS/ML 1ML VIAL ONE (14:45)
[2018-01-12] MEDS: HEPARIN NA (PORCINE) 5,000 UNITS/ML 1ML VIAL SQ SCH ×2 (14:49→21:01)
[2018-01-12] MEDS ORDERED: AZITHROMYCIN 500 MG TABLET PO ONE (15:00)
[2018-01-12] MEDS: ALBUTEROL SO4 2.5/IPRATROPIUM 0.5 INH SOL 3 ML VIAL.NEB. NEB SCH ×2 (16:00→22:10)
--- NOTE | 2018-01-12 16:12 | PN ---
Teaching Attending Note Name of Resident: Bessy Atkinson ATTENDING PHYSICIAN STATEMENT I saw and evaluated the patient. I reviewed the resident's note and discussed the case with the resident. I agree with the resident's findings and plan as documented. SUBJECTIVE:67yo F wtih PMH COPD on 2L [place] home O2, afib not on anticoagulation, congenital heart defect s/p repair, and spinal stenosis presenting wtih SOB for several days. no assoc with fever, chills, cough, N/V/C/D. this is her 3rd exacerbation this year and 2nd since her chronic steroids were reduced from 10mg to 5mg. (she has been on 10mg since the ) OBJECTIVE: Last Vital Signs Temp Pulse Resp BP Pulse Ox 99.5 F 99 H 16 110/69 96 01/12/18 15:58 01/12/18 15:58 01/12/18 13:44 01/12/18 15:58 01/12/18 15:58 General NAD CV S1 S2 RRR no murmur/rub/gallop Lungs CTA B/L no wheezing/rales/rhonchi abdomen soft NT/ND Extremities no pedal edema ASSESSMENT AND PLAN: 67yo F wtih PMH COPD on 2L [place] home O2, afib not on anticoagulation, congenital heart defect s/p repair, and spinal stenosis presenting with SOB for several days and found to have acute COPD exacerbation 1. Acute COPD exacerbation- medicine admission. currently 96% on 2L NC. start solumedrol 40mg Q8H, Azithromycin, nebs RTC and prn, inhalers. will consult pulm. may benefit from increasing steroids back up to 10mg. will defer to pulmonary team to decide 2. afib not on anticoagulation- unclear why. rate controlled. cont home medications 3. spinal stenosis- PT and pain control 4. congenital heart defect- s/p surgical repair 5. DVT ppx- hep sq
--- NOTE | 2018-01-12 16:41 | CON.PULM ---
Consult Consult Specialty:: PULMONARY Referred by:: POONAM Reason for Consultation:: A/E COPD - History of Present Illness Chief Complaint: SOB History of Present Illness: The patient is a 67 year old female with a history of COPD on home O2, CAD, Spinal stenosis who presents for evaluation of shortness of breath. She reports worsening shortness of breath over the past few days despite use of her inhaler and nebulizers prompting her presentation to the ED for further evaluation. She notes that her symptoms are similar to her prior COPD exacerbations. She otherwise denies fevers, chills, cough, chest pain, nausea, vomiting, abdominal pain, or changes with urination or bowel movements. - History Source History Provided By: Patient, Family Member, Medical Record Limitations to Obtaining History: No Limitations - Past Medical History Pulmonary: Yes: COPD, O2 Dependent. No: Sleep Apnea - Alcohol/Substance Use Hx Alcohol Use: No - Smoking History Smoking history: Unknown if ever smoked Have you smoked in the past 12 months: No If you are a former smoker, when did you quit?: 1989 - Social History ADL: Independent Place of : [facility] History of Recent Travel: Yes Home Medications - Allergies Allergies/Adverse Reactions: Allergies Allergy/AdvReac Type Severity Reaction Status Date / Time No Known Allergies Allergy Verified 01/12/18 11:06 - Home Medications Home Medications: Ambulatory Orders Albuterol Sulfate Inhaler - [Ventolin HFA Inhaler -] 2 inh PO Q4H PRN 05/05/15 Verapamil HCl [Verapamil ER] 60 mg PO DAILY 04/03/16 Nebivolol HCl [Bystolic] 5 mg PO HS 12/31/16 Escitalopram Oxalate [Lexapro -] 5 mg PO DAILY 01/19/17 predniSONE [Deltasone -] 5 mg PO DAILY 01/19/17 Umeclidinium Brm/Vilanterol Tr [Anoro Ellipta 62.5-25 Mcg INH] 1 each IH DAILY 01/12/18 Family Disease History - Family Disease History Family History: Unremarkable Review of Systems - Review of Systems Constitutional: reports: Lethargy, Loss of Appetite Cardiovascular: reports: Shortness of Breath Respiratory: reports: Exercise Intolerance, SOB, SOB on Exertion Gastrointestinal: reports: No Symptoms Genitourinary: reports: No Symptoms Breasts: reports: No Symptoms Reported Musculoskeletal: reports: No Symptoms Physical Exam Vital Sings: Vital Signs Temperature 99.5 F 01/12/18 15:58 Pulse Rate 99 H 01/12/18 15:58 Respiratory Rate 16 01/12/18 13:44 Blood Pressure 110/69 01/12/18 15:58 O2 Sat by Pulse Oximetry (%) 96 01/12/18 15:58 Constitutional: Yes: Anxious Eyes: Yes: PERRL HENT: Yes: Normocephalic Neck: Yes: Trachea Midline Cardiovascular: Yes: Regular Rate and Rhythm, S1, S2 Respiratory: Yes: Diminished Gastrointestinal: Yes: Soft Edema: No Labs: CBC, BMP 01/12/18 11:23 01/12/18 11:30 Imaging - Results Chest X-ray: Report Reviewed, Image Reviewed Problem List - Problems (1) COPD (chronic obstructive pulmonary disease) Code(s): J44.9 - CHRONIC OBSTRUCTIVE PULMONARY DISEASE, UNSPECIFIED Qualifiers: COPD type: unspecified COPD Qualified Code(s): J44.9 - Chronic obstructive pulmonary disease, unspecified (2) Acute respiratory failure with hypoxia Code(s): J96.01 - ACUTE RESPIRATORY FAILURE WITH HYPOXIA (3) Bronchitis Code(s): J40 - BRONCHITIS, NOT SPECIFIED ACUTE OR CHRONIC (4) COPD exacerbation Code(s): J44.1 - CHRONIC OBSTRUCTIVE PULMONARY DISEASE W (ACUTE) EXACERBATION (5) Shortness of breath Code(s): R06.02 - SHORTNESS OF BREATH Assessment/Plan O2 SUPPLEMENTATION SUGGEST ICS/LABA/LAMA/HARRY IV STEROIDS ORDERED CHEST CT ANTIBIOTICS PER PRIMARY TEAM INFLU SWAB/URINARY ANTIGENS/SPUTUM GRAM STAIN WILL FOLLOW Jovan ROSE MD
[2018-01-12] MEDS ORDERED: ACETAMINOPHEN 325 MG TABLET (FP) PO PRN (17:24)
[2018-01-12 17:59] VITALS: BMI 20.2
[2018-01-12] MEDS: NEBIVOLOL 5 MG TABLET (FP) PO SCH (21:00)
[2018-01-12] MEDS: methylPREDNISolone NA SUCC 40 MG/1 ML VIAL IVPUSH SCH (21:01)
[2018-01-13] MEDS: methylPREDNISolone NA SUCC 40 MG/1 ML VIAL IVPUSH SCH ×4 (00:57→17:56)
[2018-01-13] MEDS: HEPARIN NA (PORCINE) 5,000 UNITS/ML 1ML VIAL SQ SCH ×3 (05:42→23:54)
[2018-01-13] MEDS: ALBUTEROL SO4 2.5/IPRATROPIUM 0.5 INH SOL 3 ML VIAL.NEB. NEB SCH ×4 (07:09→20:20)
[2018-01-13 07:40] LABS: HEMATOCRIT 39.9 % (32.4-45.2); HEMOGLOBIN 12.7 GM/dL (10.7-15.3); MCH 31.4 pg (25.7-33.7); MEAN CELL VOLUME 98.2 fl (80-96); PLATELET COUNT 173 K/MM3 (134-434); RBC 4.06 M/mm3 (3.60-5.2); RDW 12.2 % (11.6-15.6); WHITE BLOOD COUNT 4.1 K/mm3 (4.0-10.0)
[2018-01-13 08:03] LABS: ANION GAP 7 MMOL/L (8-16); BLOOD UREA NITROGEN 10 mg/dL (7-18); CALCIUM 8.6 mg/dL (8.5-10.1); CHLORIDE 101 mmol/L (98-107); CO2 30 mmol/L (21-32); CREATININE 0.6 mg/dL (0.55-1.3); GLUCOSE,RANDOM 142 mg/dL (74-106); MAGNESIUM 2.5 mg/dL (1.8-2.4); PHOSPHOROUS 3.5 mg/dL (2.5-4.9); POTASSIUM 4.1 mmol/L (3.5-5.1); SODIUM 138 mmol/L (136-145)
[2018-01-13] MEDS ORDERED: PT OWN MED DRAWER 7, Y5N ONE ×2 (09:14→23:36)
[2018-01-13] MEDS: ESCITALOPRAM OXALATE 10 MG TABLET (FP) PO SCH (09:54)
[2018-01-13] MEDS: AZITHROMYCIN 250 MG TABLET PO SCH (09:54)
[2018-01-13] MEDS: VERAPAMIL HCL 120 MG E.R. TABLET PO SCH (09:55)
[2018-01-13] MEDS ORDERED: PATIENT'S OWN MEDICATION (NON-FORMULARY) (Escitalopram Oxalate [Lexapro -] 5 MG) PO SCH (10:00)
[2018-01-13] MEDS ORDERED: PATIENT'S OWN MEDICATION (NON-FORMULARY) (Umeclidinium Brm/Vilanterol Tr [Anoro Ellipta 62 IH SCH (10:00)
--- NOTE | 2018-01-13 11:18 | EKG ---
Test Reason : Blood Pressure : / mmHG Vent. Rate : 076 BPM Atrial Rate : 076 BPM P-R Int : 136 ms QRS Dur : 060 ms QT Int : 382 ms P-R-T Axes : 065 079 077 degrees QTc Int : 429 ms NORMAL SINUS RHYTHM NORMAL ECG WHEN COMPARED WITH ECG OF 17-DEC-2017 21:00, NO SIGNIFICANT CHANGE WAS FOUND Confirmed by CHRISTIAN GARVEY MD ([id number]) on 01/13/2018 11:17:58 AM Referred By: Confirmed By:CHRISTIAN GARVEY MD
--- NOTE | 2018-01-13 11:59 | PN ---
Progress Note (short form) - Note Progress Note: PULMONARY States breathing is improving. Less cough and wheezing. No fevers or chills. Vital Signs Period Temp Pulse Resp BP Sys/Meadows Pulse Ox Last 24 Hr 97.4 F-99.5 F 74-107 16-20 108-137/45-69 96-99 Gen: NAD at rest Heart: RRR Lung: scattered rhonchi Abd: soft, nontender Ext: no edema CBC, BMP 01/13/18 06:15 01/13/18 06:15 Active Medications Acetaminophen (Tylenol -) 650 mg PO Q6H PRN PRN Reason: pain 4-6 Albuterol Sulfate (Ventolin Hfa Inhaler -) 2 puff IH Q4H PRN PRN Reason: SHORT OF BREATH/WHEEZING Albuterol/Ipratropium (Duoneb -) 1 amp NEB RQID [facility] Last Admin: 01/13/18 11:38 Dose: 1 amp Azithromycin (Zithromax -) 250 mg PO DAILY [facility] Last Admin: 01/13/18 09:54 Dose: 250 mg Escitalopram Oxalate (Lexapro -) 5 mg PO DAILY [facility] Last Admin: 01/13/18 09:54 Dose: 5 mg Heparin Sodium (Porcine) (Heparin -) 5,000 unit SQ TID [facility] Last Admin: 01/13/18 05:42 Dose: 5,000 unit Methylprednisolone Sodium Succinate (Solu-Medrol -) 40 mg IVPUSH Q6H-IV [facility] Last Admin: 01/13/18 09:54 Dose: 40 mg Nebivolol (Bystolic -) 5 mg PO HS [facility] Last Admin: 01/12/18 21:00 Dose: Not Given Non-Formulary Medication (Umeclidinium Brm/Vilanterol Tr [Anoro Ellipta 62.5-25 Mcg Inh]) 1 each IH DAILY [facility] Verapamil HCl (Calan Sr -) 120 mg PO DAILY [facility] Last Admin: 01/13/18 09:55 Dose: 120 mg A/P Acute COPD Exacerbation Chronic Hypoxic Respiratory Failure Atrial Fibrillation - will decrease steroids to q8h - can likely change steroids to PO prednisone 40mg daily in AM if continues to improve - inhaled bronchodilators standing and PRN - azithromycin - O2 to keep SpO2 >90% - DVT prophylaxis
--- NOTE | 2018-01-13 13:22 | PN ---
Teaching Attending Note Name of Resident: Bessy Atkinson ATTENDING PHYSICIAN STATEMENT I saw and evaluated the patient. I reviewed the resident's note and discussed the case with the resident. I agree with the resident's findings and plan as documented. SUBJECTIVE:clinically improved. had coughing fit last night which has since resolved. not productive. denies CP, SOB, fever, chills, N/V/C/D OBJECTIVE: Last Vital Signs Temp Pulse Resp BP Pulse Ox 98.6 F 107 H 18 137/57 L 98 01/13/18 10:01/13/18 10:01/13/18 10:01/13/18 10:01/12/18 21:00 General NAD CV S1 S2 RRR no murmur/rub/gallop Lungs CTA B/L no wheezing/rales/rhonchi ASSESSMENT AND PLAN: 67yo F wtih PMH COPD on 2L [place] home O2, afib not on anticoagulation, congenital heart defect s/p repair, and spinal stenosis presenting with SOB for several days and found to have acute COPD exacerbation 1. Acute COPD exacerbation-clinically improved. CT chest done. awaiting results. decrease medrol to Q8H, azithro day 2, nebs and inhalers. will need close monitoring with pulmonary team on discharge. may need higher dose of maintenance steroids after taper is completed. 2. afib not on anticoagulation- unclear why. rate controlled. cont home medications 3. spinal stenosis- PT and pain control 4. congenital heart defect- s/p surgical repair 5. DVT ppx- hep sq 6. anticipate d/c in next 24H.
--- NOTE | 2018-01-13 14:09 | PN ---
Physical Exam: SUBJECTIVE: Patient seen and examined at bedside. patient states she si feeling better however was getting dyspenic slightly while going to the bathroom- she denies any CP/N/V fevers or chills OBJECTIVE: Vital Signs Period Temp Pulse Resp BP Sys/Meadows Pulse Ox Last 24 Hr 97.4 F-99.5 F 84-107 18-19 108-138/46-69 96-98 GENERAL: The patient is awake, alert, on nasal canula 2L. EYES: no sceleral icterus NECK: no JVD. LUNGS: no wheezing or rales, slight decreased inspiratory effort. HEART: tachycardic, S1, S2 without murmur, rub or gallop. ABDOMEN: Soft, nontender, nondistended, normoactive bowel sounds, no guarding, no rebound, no hepatosplenomegaly, no masses. EXTREMITIES: 2+ pulses, warm, well-perfused, no edema. SKIN: Warm, dry, normal turgor, no rashes or lesions noted Laboratory Results - last 24 hr 01/13/18 01/13/18 06:15 06:15 WBC 4.1 RBC 4.06 Hgb 12.7 Hct 39.9 MCV 98.2 H MCH 31.4 MCHC 32.0 RDW 12.2 Plt Count 173 MPV 7.0 L Sodium 138 Potassium 4.1 Chloride 101 Carbon Dioxide 30 Anion Gap 7 L BUN 10 Creatinine 0.6 Creat Clearance w eGFR > 60 Random Glucose 142 H Calcium 8.6 Phosphorus 3.5 Magnesium 2.5 H Active Medications Generic Name Dose Route Start Last Admin Trade Name Freq PRN Reason Stop Dose Admin Acetaminophen 650 mg 01/12/18 17:24 Tylenol - PO Q6H PRN pain 4-6 Albuterol Sulfate 2 puff 01/12/18 13:38 Ventolin Hfa Inhaler - IH Q4H PRN SHORT OF BREATH/WHEEZING Albuterol/Ipratropium 1 amp 01/12/18 16:00 01/13/18 11:38 Duoneb - NEB 1 amp RQID [place] Administration Azithromycin 250 mg 01/13/18 10:00 01/13/18 09:54 Zithromax - PO 250 mg DAILY [place] Administration Escitalopram Oxalate 5 mg 01/13/18 10:00 01/13/18 09:54 Lexapro - PO 5 mg DAILY [place] Administration Heparin Sodium (Porcine) 5,000 unit 01/12/18 14:00 01/13/18 05:42 Heparin - SQ 5,000 unit TID [place] Administration Methylprednisolone Sodium Succinate 40 mg 01/13/18 18:00 Solu-Medrol - IVPUSH Q8H-IV [place] Nebivolol 5 mg 01/12/18 22:00 01/12/18 21:00 Bystolic - PO Not Given HS [place] Non-Formulary Medication 1 each 01/13/18 10:00 Umeclidinium Brm/Vilanterol Tr [Anoro Ellipta 62.5-25 Mcg Inh] IH DAILY [place] Verapamil HCl 120 mg 01/13/18 10:00 01/13/18 09:55 Calan Sr - PO 120 mg DAILY [place] Administration ASSESSMENT/PLAN: 67 y/o female with PMH of COPD (on home o2), Afib, spinal stenosis presents to the ED with worsening shortness of breath and chest tightness for the past few days, #Acute COPD Exacerbation -patient has had multiple hospitalizations this year for COPD -IV solumedrol 40q6H -standing duonebs QID -c/w patients home inhalers -Azithromycin -Dr Devlin has already been consulted by the ED -monitor O2 sats -awaiting CT results #Afib not on AC -Dr. Patel is patients producer assistant -c/w bystolic 5mg and verapamil 120 daily #Depression -c/w pateints lexapro F/E/N -not on fluids -monitor electrolytes -sodium controlled diet DVT PPX: heaprin SQ Problem List - Problems (1) COPD (chronic obstructive pulmonary disease) Code(s): J44.9 - CHRONIC OBSTRUCTIVE PULMONARY DISEASE, UNSPECIFIED Qualifiers: COPD type: unspecified COPD Qualified Code(s): J44.9 - Chronic obstructive pulmonary disease, unspecified (2) Shortness of breath Code(s): R06.02 - SHORTNESS OF BREATH Visit type - Emergency Visit Emergency Visit: Yes ED Registration Date: 01/12/18 Care time: The patient presented to the Emergency Department on the above date and was hospitalized for further evaluation of their emergent condition. - New Patient This patient is new to me today: No - Critical Care Critical Care patient: No
[2018-01-13] MEDS: NEBIVOLOL 5 MG TABLET (FP) PO SCH (23:54)
[2018-01-14] MEDS: methylPREDNISolone NA SUCC 40 MG/1 ML VIAL IVPUSH SCH ×2 (02:18→09:33)
[2018-01-14 06:26] LABS: HEMATOCRIT 37.9 % (32.4-45.2); HEMOGLOBIN 12.6 GM/dL (10.7-15.3); MCH 32.3 pg (25.7-33.7); MCHC 33.2 g/dl (32.0-36.0); MEAN CELL VOLUME 97.5 fl (80-96); MEAN PLT VOLUME 7.1 fl (7.5-11.1); PLATELET COUNT 172 K/MM3 (134-434); RBC 3.88 M/mm3 (3.60-5.2); RDW 12.4 % (11.6-15.6)
[2018-01-14] MEDS: HEPARIN NA (PORCINE) 5,000 UNITS/ML 1ML VIAL SQ SCH ×2 (06:39→13:20)
[2018-01-14 06:59] LABS: ANION GAP 7 MMOL/L (8-16); BLOOD UREA NITROGEN 11 mg/dL (7-18); CALCIUM 8.4 mg/dL (8.5-10.1); CHLORIDE 104 mmol/L (98-107); CO2 31 mmol/L (21-32); CREATININE 0.6 mg/dL (0.55-1.3); GLUCOSE,RANDOM 127 mg/dL (74-106); MAGNESIUM 2.3 mg/dL (1.8-2.4); PHOSPHOROUS 3.1 mg/dL (2.5-4.9); POTASSIUM 4.3 mmol/L (3.5-5.1); SODIUM 142 mmol/L (136-145)
[2018-01-14] MEDS: ALBUTEROL SO4 2.5/IPRATROPIUM 0.5 INH SOL 3 ML VIAL.NEB. NEB SCH ×3 (08:58→16:50)
[2018-01-14] MEDS: ESCITALOPRAM OXALATE 10 MG TABLET (FP) PO SCH (09:32)
[2018-01-14] MEDS: AZITHROMYCIN 250 MG TABLET PO SCH (09:32)
[2018-01-14] MEDS: VERAPAMIL HCL 120 MG E.R. TABLET PO SCH (09:33)
[2018-01-14] MEDS ORDERED: predniSONE 20 MG TABLET (UD) PO SCH (10:30)
[2018-01-14] MEDS ORDERED: predniSONE 20 MG TABLET (UD) PO ONE (11:15)
--- NOTE | 2018-01-14 12:19 | PN ---
Progress Note, Physician History of Present Illness: PULMONARY ALERT,OOB-CHAIR,-RESP DISTRESS - Current Medication List Current Medications: Active Medications Acetaminophen (Tylenol -) 650 mg PO Q6H PRN PRN Reason: pain 4-6 Albuterol Sulfate (Ventolin Hfa Inhaler -) 2 puff IH Q4H PRN PRN Reason: SHORT OF BREATH/WHEEZING Albuterol/Ipratropium (Duoneb -) 1 amp NEB RQID [facility] Last Admin: 01/14/18 08:58 Dose: 1 amp Azithromycin (Zithromax -) 250 mg PO DAILY [facility] Last Admin: 01/14/18 09:32 Dose: 250 mg Escitalopram Oxalate (Lexapro -) 5 mg PO DAILY [facility] Last Admin: 01/14/18 09:32 Dose: 5 mg Heparin Sodium (Porcine) (Heparin -) 5,000 unit SQ TID [facility] Last Admin: 01/14/18 06:39 Dose: 5,000 unit Nebivolol (Bystolic -) 5 mg PO HS [facility] Last Admin: 01/13/18 23:54 Dose: 5 mg Non-Formulary Medication (Umeclidinium Brm/Vilanterol Tr [Anoro Ellipta 62.5-25 Mcg Inh]) 1 each IH DAILY [facility] Prednisone (Deltasone -) 60 mg PO DAILY [facility] Verapamil HCl (Calan Sr -) 120 mg PO DAILY [facility] Last Admin: 01/14/18 09:33 Dose: 120 mg - Objective Vital Signs: Vital Signs Temperature 97.7 F 01/14/18 09:43 Pulse Rate 92 H 01/14/18 09:43 Respiratory Rate 20 01/14/18 09:43 Blood Pressure 154/60 01/14/18 09:43 O2 Sat by Pulse Oximetry (%) 98 01/13/18 21:00 Constitutional: Yes: Well Nourished, Calm Eyes: Yes: WNL HENT: Yes: WNL Neck: Yes: WNL Cardiovascular: Yes: Pulse Irregular, S1, S2 Respiratory: Yes: Diminished Gastrointestinal: Yes: Normal Bowel Sounds, Soft Extremities: Yes: WNL Edema: No Labs: CBC, BMP 01/14/18 06:15 01/14/18 06:15 Problem List - Problems (1) Chronic hypoxemic respiratory failure Code(s): J96.11 - CHRONIC RESPIRATORY FAILURE WITH HYPOXIA (2) COPD exacerbation Code(s): J44.1 - CHRONIC OBSTRUCTIVE PULMONARY DISEASE W (ACUTE) EXACERBATION (3) Shortness of breath Code(s): R06.02 - SHORTNESS OF BREATH (4) Afib Code(s): I48.91 - UNSPECIFIED ATRIAL FIBRILLATION Assessment/Plan A/P Acute COPD Exacerbation improving Chronic Hypoxic Respiratory Failure Atrial Fibrillation - prednisone 60mg daily with taper - inhaled bronchodilators standing and PRN - azithromycin - O2 to keep SpO2 >90% - DVT prophylaxis - pfts outpatient DR ISBELL
--- NOTE | 2018-01-14 14:53 | PN ---
Teaching Attending Note Name of Resident: Bessy Atkinson ATTENDING PHYSICIAN STATEMENT I saw and evaluated the patient. I reviewed the resident's note and discussed the case with the resident. I agree with the resident's findings and plan as documented with exceptions below. SUBJECTIVE: Patient seen and examined. breathing improved, feels well, no complaints. OBJECTIVE: Vital Signs Period Temp Pulse Resp BP Sys/[place] Pulse Ox Last 24 Hr 97.5 F-98.0 F 85-93 20-20 111-154/44-96 92-98 Intake & Output 01/11/18 01/12/18 01/13/18 01/14/18 23:59 23:59 23:59 23:59 Output Total 500 Balance -500 Weight 100 lb 9.6 oz General: sitting in chair in no acute distress, no use of acessory muscles of respiration, able to talk in full sentences Chest: good air entry, no wheezing appreciated Extremities: no edema Active Medications Acetaminophen (Tylenol -) 650 mg PO Q6H PRN PRN Reason: pain 4-6 Albuterol Sulfate (Ventolin Hfa Inhaler -) 2 puff IH Q4H PRN PRN Reason: SHORT OF BREATH/WHEEZING Albuterol/Ipratropium (Duoneb -) 1 amp NEB RQID [facility] Last Admin: 01/14/18 12:31 Dose: 1 amp Azithromycin (Zithromax -) 250 mg PO DAILY [facility] Last Admin: 01/14/18 09:32 Dose: 250 mg Escitalopram Oxalate (Lexapro -) 5 mg PO DAILY [facility] Last Admin: 01/14/18 09:32 Dose: 5 mg Heparin Sodium (Porcine) (Heparin -) 5,000 unit SQ TID [facility] Last Admin: 01/14/18 13:20 Dose: 5,000 unit Nebivolol (Bystolic -) 5 mg PO HS [facility] Last Admin: 01/13/18 23:54 Dose: 5 mg Non-Formulary Medication (Umeclidinium Brm/Vilanterol Tr [Anoro Ellipta 62.5-25 Mcg Inh]) 1 each IH DAILY [facility] Prednisone (Deltasone -) 60 mg PO DAILY [facility] Verapamil HCl (Calan Sr -) 120 mg PO DAILY [facility] Last Admin: 01/14/18 09:33 Dose: 120 mg ASSESSMENT AND PLAN: -Acute COPD exacerbation -?afib not on anticoagulation -HTN Plan: Markedly improved. Breathing well. Discussed with Dr. Arechiga, slow prednisone taper till reaches 10 mg, then per DR. Devlin. Resume home meds D/c home today. Plan discussed with patient in detail, all questions answered.
[2018-01-14 15:11] VITALS: PULSE 85; TEMP 98.6
[2018-01-14 15:23] VITALS: BP 130/60
--- NOTE | 2018-01-14 15:39 | DS ---
Physical Exam: SUBJECTIVE: Patient seen and examined OBJECTIVE: Vital Signs Period Temp Pulse Resp BP Sys/[place] Pulse Ox Last 24 Hr 97.5 F-98.6 F 85-93 20-20 111-154/44-96 92-98 PHYSICAL EXAM GENERAL: The patient is awake, alert, and fully oriented, in no acute distress. HEAD: Normal with no signs of trauma. EYES: PERRL, extraocular movements intact, sclera anicteric, conjunctiva clear. ENT: Ears normal, nares patent, oropharynx clear without exudates, moist mucous membranes. NECK: Trachea midline, full range of motion, supple. LUNGS: Breath sounds equal, clear to auscultation bilaterally, no wheezes, no crackles, no accessory muscle use. HEART: Regular rate and rhythm, S1, S2 without murmur, rub or gallop. ABDOMEN: Soft, nontender, nondistended, normoactive bowel sounds, no guarding, no rebound, no hepatosplenomegaly, no masses. EXTREMITIES: 2+ pulses, warm, well-perfused, no edema. NEUROLOGICAL: Cranial nerves II through XII grossly intact. Normal speech, gait not observed. PSYCH: Normal mood, normal affect. SKIN: Warm, dry, normal turgor, no rashes or lesions noted. LABS Laboratory Results - last 24 hr 01/14/18 01/14/18 06:15 06:15 WBC 8.0 RBC 3.88 Hgb 12.6 Hct 37.9 MCV 97.5 H MCH 32.3 MCHC 33.2 RDW 12.4 Plt Count 172 MPV 7.1 L Sodium 142 Potassium 4.3 Chloride 104 Carbon Dioxide 31 Anion Gap 7 L BUN 11 Creatinine 0.6 Creat Clearance w eGFR > 60 Random Glucose 127 H Calcium 8.4 L Phosphorus 3.1 Magnesium 2.3 HOSPITAL COURSE: Date of Admission:01/12/18 67 y/o female with PMH of COPD, afib spinal stenosis presented to ED with worsening shoprtness of breat, 2/2 COPD> this feels like her usual exacerbations she states. she was given solumedrol 125 in the ED in addition to 3 rounds of duonebs. she was seen by Dr. Oneal the rate clerk passenger. we staarted her on IV solumedorl 40 q6 in addition to standing duonebs and albuterol. she repsonded well, she normally uses 2l of o2 at home so we continued that here. we then decreased her steroids to 40 q8 with great improvmet. she was discharged on a prednisoen taper starting at 60mg with the taper down by 5mg every 3 days untul shr got to her usual dose of 10 mg. she was told to follow up with her rate clerk passenger in 2 weeks. Date of Discharge: 01/14/18 Minutes to complete discharge: 39 Discharge Summary Reason For Visit: OBSTRUCTIVE CHRONIC BRONCHITIS WITH EXACERBATION Current Active Problems Afib (Acute) COPD (chronic obstructive pulmonary disease) (Acute) Chronic hypoxemic respiratory failure (Acute) Condition: Stable - Instructions Diet, Activity, Other Instructions: You came to the emergency room with worsening shortness of breath likely secondary to your COPD. Please resume all of your home medications in addition: -We are sending you home on a steroid taper We are starting you on 60mg then will taper by 5mg every 3 days until you reach 10mg and then continue to take 10mg daily 60 mg for 3 days 55 mg for 3 days 50 mg for 3 days 45 mg for 3 days 40 mg for 3 days 35 mg for 3 days 30 mg for 3 days 25 mg for 3 days 20 mg for 3 days 15 mg for 3 days 10 mg daily until you see Dr. Devlin Please use 2 liters of 02 while at rest; and use 3 liters of 02 with exercise. We advise that you follow up with Dr. Bruno within one week We advise that you follow up with Dr. Devlin within two weeks *If you begin to experience worsening shortness of breath, chest pain, fevers, vomiting please return to the emergency room immediately. Referrals: Annette Bruno MD [Primary Care Provider] - 1 Week Brennan Devlin MD [Staff Physician] - 2 Weeks Disposition: HOME - Home Medications Comprehensive Discharge Medication List: Ambulatory Orders Albuterol Sulfate Inhaler - [Ventolin HFA Inhaler -] 2 inh PO Q4H PRN 05/05/15 Verapamil HCl [Verapamil ER] 60 mg PO DAILY 04/03/16 Nebivolol HCl [Bystolic] 5 mg PO HS 12/31/16 Escitalopram Oxalate [Lexapro -] 5 mg PO DAILY 01/19/17 predniSONE [Deltasone -] 5 mg PO DAILY 01/19/17 Umeclidinium Brm/Vilanterol Tr [Anoro Ellipta 62.5-25 Mcg INH] 1 each IH DAILY 01/12/18 Prednisone See Taper PO DAILY 33 Days #231 tab.ds.pk 01/14/18 Problem List - Problems (1) COPD (chronic obstructive pulmonary disease) Code(s): J44.9 - CHRONIC OBSTRUCTIVE PULMONARY DISEASE, UNSPECIFIED Qualifiers: COPD type: unspecified COPD Qualified Code(s): J44.9 - Chronic obstructive pulmonary disease, unspecified (2) Shortness of breath Code(s): R06.02 - SHORTNESS OF BREATH This patient is new to me today: No Emergency Visit: Yes ED Registration Date: 01/12/18 Care time: The patient presented to the Emergency Department on the above date and was hospitalized for further evaluation of their emergent condition. Critical Care patient: No - Discharge Referral Referred to [facility] No
[2018-01-15] MEDS ORDERED: predniSONE 20 MG TABLET (UD) PO SCH (10:00)
== END 2018-01-14 17:49 | disposition home or self-care (01) | DRG 191 ==
LOC: JER 10:57 → JERBED 12:57 → OBSVTOIN 13:35 → J5S 16:18
PROVIDERS: ADMIT Internal Medicine; ATTEND Hospitalist
DX: J44.1 Chronic obstructive pulmonary disease with (acute) exacerbation (principal); J96.11 Chronic respiratory failure with hypoxia; I25.10 Atherosclerotic heart disease of native coronary artery without angina pectoris; Z95.1 Presence of aortocoronary bypass graft; Z99.81 Dependence on supplemental oxygen; F32.9 Major depressive disorder, single episode, unspecified
CPT/HCPCS: 36415; 71045-TC-FY; 71250-TC; 80048; 80053; 82550; 83735; 83880; 84100; 84484; 85025; 85027; 87899; 93005; 93010; 94640; 94761; 99284-25; G0378; J1644

== ENCOUNTER 2018-10-09 09:44 | Emergency (ER) | payer BC ==
[2018-10-09 10:01] VITALS: TEMP 98.5; BMI 21.8
--- NOTE | 2018-10-09 10:51 | PDOC ---
History of Present Illness - General Chief Complaint: Blood Pressure Problem Stated Complaint: HYPOTENSION Time Seen by Provider: 10/09/18 10:24 - History of Present Illness Initial Comments: 10/09/18 10:45 68F with pmh of COPD on 2L home O2 and chronic steroids 6mg of prednisone per day here today for low blood pressure found by the nurse as she was prepared for her usual physical therapy. The patient fells asymptomatic, at her baseline. No recent change in medication, no recent use of antibiotics. Hasn't had breakfast this morning, never does besides coffee. 10/09/18 11:07 Pressure at physical Therapy was around 80/40 Past History - Past Medical History Allergies/Adverse Reactions: Allergies Allergy/AdvReac Type Severity Reaction Status Date / Time No Known Allergies Allergy Verified 10/09/18 09:59 Home Medications: Ambulatory Orders Albuterol Sulfate Inhaler - [Ventolin HFA Inhaler -] 2 inh PO Q4H PRN 05/05/15 Verapamil HCl [Verapamil ER] 120 mg PO DAILY 04/03/16 Nebivolol HCl [Bystolic] 5 mg PO HS 12/31/16 Escitalopram Oxalate [Lexapro -] 5 mg PO DAILY 01/19/17 predniSONE [Deltasone -] 6 mg PO DAILY 01/19/17 Asthma: Yes Cardiac Disorders: Yes (A.FIB) COPD: Yes (o2 dependent at home) HTN: Yes - Surgical History 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) - Suicide/Smoking/Psychosocial Hx Smoking History: Never smoked Have you smoked in the past 12 months: No If you are a former smoker, when did you quit?: 1989 Information on smoking cessation initiated: No Hx Alcohol Use: No Drug/Substance Use Hx: No Substance Use Type: None Review of Systems - Review of Systems Able to Perform ROS?: Yes Is the patient limited Moroccan proficient: No Constitutional: No: Symptoms Reported HEENTM: No: Symptoms Reported Respiratory: No: Symptoms reported Cardiac (ROS): No: Symptoms Reported ABD/GI: No: Symptoms Reported : No: Symptoms Reported Musculoskeletal: No: Symptoms Reported Integumentary: No: Symptoms Reported Neurological: No: Symptoms reported All Other Systems: Reviewed and Negative *Physical Exam - Vital Signs Last Vital Signs Temp Pulse Resp BP Pulse Ox 98.5 F 72 17 110/41 L 97 10/09/18 09:59 10/09/18 09:59 10/09/18 09:59 10/09/18 09:59 10/09/18 09:59 - Physical Exam General Appearance: Yes: Nourished, Appropriately Dressed. No: Apparent Distress HEENT: positive: EOMI, TOLU, Normal ENT Inspection Respiratory/Chest: positive: Lungs Clear, Decreased Breath Sounds. negative: Chest Tender, Respiratory Distress Cardiovascular: positive: Regular Rhythm, Regular Rate, S1, S2 Gastrointestinal/Abdominal: positive: Normal Bowel Sounds, Flat, Soft. negative : Tender Musculoskeletal: positive: Normal Inspection. negative: CVA Tenderness Extremity: positive: Normal Capillary Refill Integumentary: positive: Normal Color, Dry, Warm Neurologic: positive: Fully Oriented, Normal Mood/Affect ED Treatment Course - LABORATORY CBC & Chemistry Diagram: 10/09/18 11:05 10/09/18 11:05 Medical Decision Making - Medical Decision Making 10/09/18 11:09 68F witrh chronic COPD/emphysema on home O2 2L and prednisone coming in for low blood pressure per physical therapist. On the differential is acs, PE, or any infectious process of the lung, UTI. However in the absence of chest pain, acute shortness of breath, tachycardia, recent travel, swollen legs, active cancers, hemoptysis and hormonal therapy this patient is at very low risk for PE and we will not investigate this avenue at this time. Will check EKG and troponin for acs, and cxr for evidence pneumonia, as well as UA/UC for UTI. 10/09/18 11:55 EKG: Normal sinus rhythm, normal ekg CXR: No change of adverse nature. 10/09/18 12:16 Patient still feels asymptomatic, no change in BP from her baseline here. Pending UA for discharge., 10/09/18 13:[address] Bruno who will reach out to the patient to schedule an appointment for next week. *DC/Admit/Observation/Transfer Diagnosis at time of Disposition: Hypotensive episode - Discharge Dispostion Disposition: HOME Condition at time of disposition: Improved Decision to Admit order: No - Referrals Referrals: Annette Bruno MD [Primary Care Provider] - - Patient Instructions Printed Discharge Instructions: DI for Hypotension Additional Instructions: Come back to the emergency department for any new, worsening or concerning symptom. Follow up with Dr. Bruno, she will call you to set up an appointment. - Post Discharge Activity
[2018-10-09] MEDS ORDERED: SODIUM CHLORIDE 1,000 ML IV STA (10:55)
[2018-10-09 11:26] LABS: BASO % 0.2 % (0-2.0); EOS % 0.2 % (0-4.5); HEMATOCRIT 39.8 % (32.4-45.2); HEMOGLOBIN 13.4 GM/dL (10.7-15.3); LYMPH % 6.9 % (8-40); MCH 33.2 pg (25.7-33.7); MCHC 33.5 g/dl (32.0-36.0); MEAN PLT VOLUME 7.3 fl (7.5-11.1); MONO % 3.4 % (3.8-10.2); NEUT % 89.3 % (42.8-82.8); PLATELET COUNT 172 K/MM3 (134-434); RBC 4.03 M/mm3 (3.60-5.2); RDW 12.9 % (11.6-15.6); WHITE BLOOD COUNT 8.9 K/mm3 (4.0-10.0)
[2018-10-09 12:10] LABS: ALBUMIN 3.7 g/dl (3.4-5.0); BILIRUBIN,TOTAL 0.5 mg/dL (0.2-1); BLOOD UREA NITROGEN 8.6 mg/dL (7-18); CALCIUM 9.2 mg/dL (8.5-10.1); CREATININE 0.6 mg/dL (0.55-1.3); MAGNESIUM 2.5 mg/dL (1.8-2.4); POTASSIUM 4.9 mmol/L (3.5-5.1); TOT PROT 6.7 g/dl (6.4-8.2)
--- NOTE | 2018-10-09 12:43 | PDOC ---
Documentation entered by Lety Burns SCRIBE, acting as scribe for Erma Matute MD. Erma Matute MD: This documentation has been prepared by the Kayt ramon Adrianna, SCRIBE, under my direction and personally reviewed by me in its entirety. I confirm that the documentation accurately reflects all work, treatment, procedures, and medical decision making performed by me. Attending Attestation - Resident Resident Name: Cezar Moralez - ED Attending Attestation I have performed the following: I have examined & evaluated the patient, The case was reviewed & discussed with the resident, I agree w/resident's findings & plan, Exceptions are as noted - HPI HPI: 10/09/18 12:36 68 yo F h/o severe copd on home oxygen, currently physicial therapy due to severe copd, here today with c/o feeling lightheaded at physical therapy. pt was sitting, and suddenly felt lightheaded. denies loc. no cp no palpitations. no f/c has had this intermittently for the last few months, usually while standing relieved by sitting down. denies vertigo. no other complaints. no ho pe or dvt. no recent leg swelling.no new meds. - Physicial Exam PE: 10/09/18 12:40 awake alert dry mucous membranes, lungs distant breath sounds bilaterally heart rrr no mrg abd soft nt nd ext wwp. no edema. no calf tenderness. - Medical Decision Making 10/09/18 12:40 68 yo F h/o severe copd. frequent low bp, here today with transient hypotension at physical therapy, feeling lighteaded now resolves. normal exam plan iv hydration. r/o electrolyte abnormality anemia, infection such as uti or pna. ekg. pt feels improved following ns bolus. ekg unremarkable. Heart Score/ECG Review #1 General ECG Interpretation: Sinus Rhythm, Normal Rate (65), Normal Intervals, No acute ischemic changes
[2018-10-09 12:47] VITALS: BP 112/78; PULSE 65
[2018-10-09 13:06] LABS: EPI CELLS 2.9 /HPF (0-5/HPF); HYALINE CASTS 0 /lpf (0-8); URINE APPEARANCE CLEAR; URINE BACTERIA 26.9 /hpf (NEGATIVE); URINE BILIRUBIN NEGATIVE (NEGATIVE); URINE COLOR YELLOW; URINE GLUCOSE (UA) NEGATIVE (NEGATIVE); URINE KETONE NEGATIVE (NEGATIVE); URINE LEUK ESTERASE 2+ (NEGATIVE); URINE NITRITE NEGATIVE (NEGATIVE); URINE PROTEIN NEGATIVE (NEGATIVE); URINE RBC 1 /hpf (0-4); URINE UROBILINOGEN 0.2 mg/dL (0.2-1.0); URINE WBC 7 /hpf (0-5)
--- NOTE | 2018-10-09 15:29 | EKG ---
Test Reason : Blood Pressure : / mmHG Vent. Rate : 065 BPM Atrial Rate : 065 BPM P-R Int : 132 ms QRS Dur : 068 ms QT Int : 412 ms P-R-T Axes : 068 067 059 degrees QTc Int : 428 ms POOR DATA QUALITY, INTERPRETATION MAY BE ADVERSELY AFFECTED NORMAL SINUS RHYTHM NORMAL ECG WHEN COMPARED WITH ECG OF 12-JAN-2018 11:25, NO SIGNIFICANT CHANGE WAS FOUND Confirmed by HEAVENLY CEDENO, ALFA ([id number]) on 10/09/2018 3:29:41 PM Referred By: Confirmed By:ALFA BURDICK MD
== END 2018-10-09 14:22 | disposition home or self-care (01) ==
LOC: JER 09:44
PROC: 3E0337Z Introduction of Electrolytic and Water Balance Substance into Peripheral Vein, Percutaneous Approach (ICD-10-PCS; principal; 2018-10-09)
DX: I95.9 Hypotension, unspecified (principal); I10 Essential (primary) hypertension; I48.91 Unspecified atrial fibrillation; J44.9 Chronic obstructive pulmonary disease, unspecified; J45.909 Unspecified asthma, uncomplicated; Z99.81 Dependence on supplemental oxygen; Z79.52 Long term (current) use of systemic steroids
CPT/HCPCS: 36415; 71045-TC-FY; 80053; 81003; 83735; 84484; 85025; 87086; 93005; 93010; 99283-25; J7030

== ENCOUNTER 2018-11-18 05:08 | Inpatient (IN) | payer BC ==
[2018-11-11 10:53] VITALS: BMI 21.4
[~2018-11-18 05:08] MED LIST: BACITRACIN 50,000 UNITS VIAL TP ONE; BUPIVACAINE HCL/PF 0.25% (2.5MG/ML) 10 ML VIAL IJ ONE; BUPIVACAINE LIPOSOME/PF (EXPAREL) 266 MG/20 ML VIAL NR ONE; LIDOCAINE 1%/EPI 1:100000 (20 ML MULTI DOSE VIAL) IJ ONE; VANCOMYCIN 1,000 MG VIAL (RESTRICTED TO ID ONLY) IVPB ONE
[2018-11-18] MEDS ORDERED: BUPIVACAINE LIPOSOME/PF (EXPAREL) 266 MG/20 ML VIAL ONE (07:17)
[2018-11-18] MEDS ORDERED: BUPIVACAINE HCL/PF 0.25% (2.5MG/ML) 10 ML VIAL ONE (07:18)
[2018-11-18] MEDS ORDERED: BUPIVACAINE HCL/PF 0.5% (5 MG/ML) 30 ML VIAL IJ ONE ×4 (07:18→08:28)
[2018-11-18] MEDS ORDERED: MIDAZOLAM HCL 2 MG/2 ML SINGLE DOSE VIAL ONE ×2 (07:19)
[2018-11-18] MEDS ORDERED: LIDOCAINE HCL 1% EPINEPHRINE 1:200,000 30 ML VIAL (PF) ONE ×2 (07:20→07:27)
[2018-11-18] MEDS ORDERED: THROMBIN (BOVINE) 20,000 UNIT VIAL TP ONE (07:27)
[2018-11-18] MEDS ORDERED: HYDROCORTISONE SOD SUCCINATE 2 ML ONE (07:35)
[2018-11-18] MEDS ORDERED: PROPOFOL 20 ML ONE (07:49)
[2018-11-18] MEDS ORDERED: SUCCINYLCHOLINE CHLORIDE 200 MG/10 ML SYRINGE ONE (07:50)
[2018-11-18] MEDS ORDERED: ROCURONIUM BROMIDE 50 MG/5 ML SYRINGE ONE (07:50)
[2018-11-18] MEDS ORDERED: CEFAZOLIN 1 GM/D5W 1 GM/50 ML BAG IVPB ONE (08:13)
[2018-11-18] MEDS ORDERED: morphine SULFATE/PF 0.5 MG/ML (2cc Syringe - QUVA) ONE (08:15)
--- NOTE | 2018-11-18 08:17 | HP ---
History & Physical Update - History History: No Change - Physical Physical: No Change - Assessment Assessment: No Change - Plan Plan: No Change (Inital H&P is located in patient's paper chart. It is complete , accurate and UTD. No new complaints or medications.)
[2018-11-18] MEDS ORDERED: morphine SULFATE/PF 0.5 MG/ML (2cc Syringe - QUVA) IT ONE (08:20)
[2018-11-18] MEDS ORDERED: ACETAMINOPHEN 1000 MG/100 ML VIAL (NON FORMULARY) IVPB PRN ×3 (08:20→18:13)
[2018-11-18] MEDS ORDERED: PHENYLEPHRINE HCL 10 MG/1 ML SINGLE DOSE VIAL ONE (08:42)
[2018-11-18] MEDS ORDERED: LIDOCAINE 1%/EPI 1:100000 (20 ML MULTI DOSE VIAL) IJ ONE (08:49)
[2018-11-18] MEDS ORDERED: FLUMAZENIL 0.5 MG/5 ML VIAL ONE (09:19)
[2018-11-18] MEDS ORDERED: GENTAMICIN SO4 80 MG/2 ML VIAL IVPB ONE (09:50)
[2018-11-18] MEDS ORDERED: HYDROGEN PEROXIDE 473 ML PO ONE (09:50)
[2018-11-18] MEDS ORDERED: BACITRACIN 50,000 UNITS VIAL TP ONE (09:50)
--- NOTE | 2018-11-18 10:48 | OP ---
Operative Note - Note: Operative Date: 11/18/18 Pre-Operative Diagnosis: Chronic LBP, spondylosis, radiculopathy Operation: L4/5 Laminectomies w/ transpedicular approach for interbody cage and arthrodesis with L4/5 posterior fusion Implants: As above Post-Operative Diagnosis: Same as Pre-op Surgeon: Luciano Andino Marine Electrician Apprentice: Ralph Newsome Anesthesiologist/FILM NUMBERER: Kari Rodriguez Anesthesia: Spinal Specimens Removed: L4/5 disc Estimated Blood Loss (mls): 50 Drains & Tubes with Location: ABBEY Drains, Volume Out (mls): 100 (Snell/clear) Fluid Volume Replaced (mls): 1,000 Operative Report Dictated: Yes
[2018-11-18] MEDS ORDERED: ALBUTEROL SO4 8 GM HFA INHALER IH PRN ×2 (10:55→18:13)
[2018-11-18] MEDS ORDERED: LACTATED RINGERS SOLUTION 1,000 ML/1,000 ML INFUS.BAG IV SCH ×2 (11:00→18:13)
[2018-11-18] MEDS ORDERED: HEPARIN NA (PORCINE) 5,000 UNITS/ML 1ML VIAL SQ SCH ×2 (11:00→22:00)
--- NOTE | 2018-11-18 11:15 | HP ---
CHIEF COMPLAINT: Lumbar spine Laminectomy PCP: Dr. Bruno HISTORY OF PRESENT ILLNESS: 68yo F with h/o of COPD (2LNC), HTN, pAF (Not on AC), and spinal stenosis who presents today after L4-L5 laminectomy performed by Dr. Andino. Pt reports she has had significant lower extremity neuropathic pain for years, however within the past 6 months her activity and walking has been suffering. She sought help from Dr. Andino who recommended she have L4-L5 laminectomy due to her significant debilitation. In her procedure today, pt underwent epidural/spinal blockade as opposed to general due to her significant COPD history. Her surgery was uneventful with reported 50cc EBL, ABBEY drain instillment , and 1L IVF replacement. Pt post-operatively reports no pain and is unable to truly control her legs due to the lasting effects under the spinal anesthesia. She reports no pain and her breathing feels her baseline. 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 Social History: Smoking: Former; quit 31 years prior and smoked 0.5-1ppd for over 40years Alcohol: Denies Drugs: Previous CBD oil use for back pain FamHx: DM, colon ca maternal side; cardiac issues on both maternal and paternal sides Allergies No Known Allergies Allergy (Verified 11/18/18 07:05) HOME MEDICATIONS: Home Medications Medication Instructions Recorded Albuterol Sulfate Inhaler - 2 inh PO Q4H PRN 05/05/15 [Ventolin HFA Inhaler -] Verapamil HCl [Verapamil ER] 120 mg PO DAILY 04/03/16 Nebivolol HCl [Bystolic] 5 mg PO HS 12/31/16 Escitalopram Oxalate [Lexapro -] 5 mg PO DAILY 01/19/17 predniSONE [Deltasone -] 2.6 mg PO TID 01/19/17 Calcium Carbonate [Calcium] 500 mg PO DAILY 11/11/18 Cholecalciferol (Vitamin D3) 1,000 unit PO DAILY 11/11/18 [Vitamin D3] REVIEW OF SYSTEMS As per HPI PHYSICAL EXAMINATION Vital Signs - 24 hr 11/18/18 11/18/18 06:40 07:03 Temperature 98.1 F Pulse Rate 81 Respiratory 18 18 Rate Blood Pressure 114/59 L GENERAL: Awake, alert, and fully oriented, in no acute distress. HEENT: NC/AT, EOMI, EUGENIA, sclera anicteric, MMM NECK: No JVD LUNGS: CTA bilaterally. No wheezes, and no crackles. No accessory muscle use. 2LNC HEART: RRR, normal S1 and S2 without murmur ABDOMEN: Soft, NT/ND, normoactive bowel sounds, no guarding EXTREMITIES: 2+ DP pulses, warm, well-perfused. No peripheral edema. NEUROLOGICAL: Limited due to spinal anesthesia effect CN II-XII intact Strength symmetrical in upper extremities Sensation intactin upper extremities Unable to assess lower extremities currently PSYCHIATRIC: Cooperative. Good eye contact. Appropriate mood and affect. SKIN: Warm, dry, no rashes Laboratory Results - last 24 hr 11/18/18 06:15 Blood Type B POSITIVE Antibody Screen Negative Active Medications Albuterol Sulfate (Ventolin Hfa Inhaler -) 2 puff IH Q4H PRN PRN Reason: SHORT OF BREATH/WHEEZING Calcium Carbonate (Os-Kapil 500mg -) 500 mg PO DAILY [place] Cholecalciferol (Vitamin D3 -) 1,000 unit PO DAILY [place] Docusate Sodium (Colace -) 100 mg PO TID [place] Escitalopram Oxalate (Lexapro -) 5 mg PO DAILY [place] Folic Acid (Folic Acid -) 1 mg PO DAILY [place] Heparin Sodium (Porcine) (Heparin -) 5,000 unit SQ Q8H [place] Cefazolin Sodium (Ancef 1 Gm Premixed Ivpb -) 1 gm in 50 mls @ 100 mls/hr IVPB Q8H-IV [place] Stop: 11/19/18 17:59 Lactated Ringer's (Lactated Ringers Solution) 1,000 ml in 1,000 mls @ 125 mls/ hr IV ASDIR [place] Nebivolol (Bystolic -) 5 mg PO HS [place] Prednisone (Deltasone -) 2.6 mg PO TID [place] Verapamil HCl (Calan Sr -) 120 mg PO DAILY [place] ASSESSMENT/PLAN: L4-L5 laminectomy POD 0 2/2 to spinal stenosis COPD, not in exacerbaton HTN Paroxysmal Atrial fibrillation --Pain control currently with spinal anesthesia --Avoid NSAIDs at all points --May have to introduce agents once anesthesia effects diminish: trial tylenol first --Monitor ABBEY drain output --Pt received Ancef pre-op for ABX PPX --Albuterol PRN available to patient if SOB or wheezing ensues --Continue home medications as below: Calcium supplementation Colace 100mg TID Vitamin D3 supplementation Lexapro 5mg qdaily Prednisone 2.6mg TID PO Bystolic 5mg HS PO Verapamil 120mg qdaily PO FEN: Fluids: LR@100cc/hr; hemodynamics allowing can d/c once eating Electrolyte abnormalities: AM labs tomorrow Nutrition: Regular diet per surgery PPX: DVT - SCDs only Dispo: Monitor due to COPD history Case discussed with Dr. Toby Stewart, DO - IM PGY-3 Visit type - Emergency Visit Emergency Visit: No - New Patient This patient is new to me today: Yes Date on this admission: 11/18/18 - Critical Care Critical Care patient: No
--- NOTE | 2018-11-18 12:25 | CONSULT ---
Consultation: REQUESTING PROVIDER: Dr Andino CONSULT REQUEST: We have been asked to medically evaluate this patient for ( specify). HISTORY OF PRESENT ILLNESS: Pt is a 68 yo F with a significant past medical history of COPD (on 2l NC at home), HTN, pAF (Not on AC), and spinal stenosis who presented to [facility] today to undego an L4-L5 laminectomy. Pt endorses she has been suffering from chronic bilateral lower extremity neuropathic pain for many years. Pt states that over the past 6 months, her pain has progressively gotten worse and this is what prompted her to visit a Neurosurgeon. Pt is POD#0 L4/5 Laminectomies w/ transpedicular approach for interbody cage and arthrodesis with L4/5 posterior fusion. Pt underwent epidural/spinal blockade due to COPD history. Surgery was uneventful with reported 50cc EBL. Pt evaluated in PACU. Endorses feeling well, denies any acute complaints at this juncture. 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 Alcohol: Denies NKDA REVIEW OF SYSTEMS: CONSTITUTIONAL: Absent: fever, chills, diaphoresis, generalized weakness, malaise, loss of appetite, weight change HEENT: Absent: rhinorrhea, nasal congestion, throat pain, throat swelling, difficulty swallowing, mouth swelling, ear pain, eye pain, visual changes CARDIOVASCULAR: Absent: chest pain, syncope, palpitations, irregular heart rate, lightheadedness , peripheral edema RESPIRATORY: Absent: cough, shortness of breath, dyspnea with exertion, orthopnea, wheezing, stridor, hemoptysis GASTROINTESTINAL: Absent: abdominal pain, abdominal distension, nausea, vomiting, diarrhea, constipation, melena, hematochezia GENITOURINARY: Absent: dysuria, frequency, urgency, hesitancy, hematuria, flank pain, genital pain MUSCULOSKELETAL: PRESENT: Lower extremity myalgia SKIN: Absent: rash, itching, pallor HEMATOLOGIC/IMMUNOLOGIC: Absent: easy bleeding, easy bruising, lymphadenopathy, frequent infections ENDOCRINE: Absent: unexplained weight gain, unexplained weight loss, heat intolerance, cold intolerance NEUROLOGIC: Absent: headache, focal weakness or paresthesias, dizziness, unsteady gait, seizure, mental status changes, bladder or bowel incontinence PSYCHIATRIC: Absent: anxiety, depression, suicidal or homicidal ideation, hallucinations. PHYSICAL EXAMINATION Vital Signs - 24 hr 11/18/18 11/18/18 11/18/18 06:40 07:03 10:39 Temperature 98.1 F 98.2 F Pulse Rate 81 84 Respiratory 18 18 18 Rate Blood Pressure 114/59 L 92/44 L O2 Sat by Pulse 96 Oximetry (%) 11/18/18 11/18/18 11/18/18 11:00 11:15 11:30 Temperature Pulse Rate 76 75 78 Respiratory 18 18 20 Rate Blood Pressure 86/41 L 85/40 L 90/60 O2 Sat by Pulse 95 95 94 L Oximetry (%) 11/18/18 11/18/18 11/18/18 11:45 12:00 12:15 Temperature Pulse Rate 80 78 75 Respiratory 22 H 22 H 24 H Rate Blood Pressure 87/54 L 110/83 91/52 L O2 Sat by Pulse 90 L 92 L 96 Oximetry (%) GENERAL: NAD HEAD: AT/NC EYES: EOMI, Sclera Clear EARS, NOSE, THROAT: MMM LUNGS: Rales lower lobes HEART: RRR S1S2 ABDOMEN: Soft NDNT, No HSM. LOWER EXTREMITIES: No CCE. NEUROLOGICAL: Cranial nerves II-XII intact. SILT. Motor 3/5 bilaterally. Motor upper Extremities 5/5 bilaterally. PSYCHIATRIC: Cooperative. Good eye contact. Appropriate mood and affect. SKIN: Warm, dry, normal turgor, no rashes or lesions noted. Laboratory Results - last 24 hr 11/18/18 06:15 Blood Type B POSITIVE Antibody Screen Negative Active Medications Generic Name Dose Route Start Last Admin Trade Name Freq PRN Reason Stop Dose Admin Albuterol Sulfate 2 puff 11/18/18 10:55 Ventolin Hfa Inhaler - IH Q4H PRN SHORT OF BREATH/WHEEZING Calcium Carbonate 500 mg 11/19/18 10:00 Os-Kapil 500mg - PO DAILY [place] Cholecalciferol 1,000 unit 11/19/18 10:00 Vitamin D3 - PO DAILY [place] Docusate Sodium 100 mg 11/18/18 14:00 Colace - PO TID [place] Escitalopram Oxalate 5 mg 11/19/18 10:00 Lexapro - PO DAILY [place] Folic Acid 1 mg 11/19/18 10:00 Folic Acid - PO DAILY [place] Heparin Sodium (Porcine) 5,000 unit 11/18/18 11:00 Heparin - SQ Q8H [place] Cefazolin Sodium 1 gm in 50 mls @ 100 mls/hr 11/18/18 18:00 Ancef 1 Gm Premixed Ivpb - IVPB 11/19/18 17:59 Q8H-IV [place] Lactated Ringer's 1,000 ml in 1,000 mls @ 125 mls/hr 11/18/18 11:00 Lactated Ringers Solution IV ASDIR [place] Nebivolol 5 mg 11/18/18 22:00 Bystolic - PO HS [place] Prednisone 2.6 mg 11/18/18 14:00 Deltasone - PO TID [place] Verapamil HCl 120 mg 11/19/18 10:00 Calan Sr - PO DAILY [facility] ASSESSMENT/PLAN: Pt is a 68 yo F with a significant past medical history of COPD (on 2l NC at home), HTN, pAF (Not on AC), and spinal stenosis who presented to [facility] today to undergo an L4-L5 laminectomy. # Neuro- POD#0 L4-L5 Laminectomy -Dr Andino on board -Monitor ABBEY drain output -Lumbar Spine CT w/o contrast Pending -Oxycodone 5 mg PO Q3h PRN for analgesia -Zofran PRN for Nausea -Avoid NSAIDS -s/p Ancef pre-op for ABX PPX #PULM: COPD -Solumedrol 40 Q8H -Duonebs QID -Will hold home Prednisone -HFOT for increased WOB #CARDIO- AFIB, HTN -No AC in light of fall risk -Resume Verapamil 120 Daily -Bystolic 5 HS #FEN: - LR@100cc/hr -Monitor electrolytes -Reg Diet #PPX: - HEPSQTID in evening per surgery Dispo: We will continue to follow the patient. Thank you for this consultative opportunity. Visit type - Emergency Visit Emergency Visit: No - New Patient This patient is new to me today: Yes Date on this admission: 11/18/18 - Critical Care Critical Care patient: Yes Total Critical Care Time (in minutes): 35 Critical Care Statement: The care of this patient involved high complexity decision making to prevent further life threatening deterioration of the patient 's condition and/or to evaluate & treat vital organ system(s) failure or risk of failure.
[2018-11-18] MEDS ORDERED: ALBUTEROL SO4 0.083% IH SOL 2.5 MG/3 ML VIAL.NEB. NEB ONE ×4 (12:39→17:00)
[2018-11-18] MEDS ORDERED: ONDANSETRON 4 MG/2 ML VIAL IVPUSH PRN ×3 (13:15→18:13)
[2018-11-18] MEDS ORDERED: LACTATED RINGERS SOLUTION 1,000 ML IV SCH ×2 (13:15→18:13)
[2018-11-18] MEDS ORDERED: NALOXONE HCL 0.4 MG/ML VIAL IVPUSH PRN (13:18)
[2018-11-18] MEDS ORDERED: oxyCODONE HCL 5 MG TABLET PO PRN ×2 (13:18→18:13)
[2018-11-18] MEDS ORDERED: ALBUTEROL SO4 2.5/IPRATROPIUM 0.5 INH SOL 3 ML VIAL.NEB. NEB SCH (13:26)
--- NOTE | 2018-11-18 13:53 | PN ---
Teaching Attending Note Name of Resident: Rad Leavitt ATTENDING PHYSICIAN STATEMENT I saw and evaluated the patient. I reviewed the resident's note and discussed the case with the resident. I agree with the resident's findings and plan as documented. SUBJECTIVE: Patient seen and examined in the PACU. Home O2 and steroid dependent COPD (2L NC, HTN, pAFib (Not on AC), and spinal stenosis. Refractory low back. S/P L4/5 Laminectomies w/ transpedicular approach for interbody cage and arthrodesis with L4/5 posterior fusion laminectomy. Procedure performed under spinal anesthesia. 50cc EDL. She is awake and alert. Breathing appears at baseline on NC O2. PHYSICAL EXAMINATION Vital Signs - 24 hr 11/18/18 11/18/18 11/18/18 06:40 07:03 10:39 Temperature 98.1 F 98.2 F Pulse Rate 81 84 Respiratory 18 18 18 Rate Blood Pressure 114/59 L 92/44 L O2 Sat by Pulse 96 Oximetry (%) 11/18/18 11/18/18 11/18/18 11:00 11:15 11:30 Temperature Pulse Rate 76 75 78 Respiratory 18 18 20 Rate Blood Pressure 86/41 L 85/40 L 90/60 O2 Sat by Pulse 95 95 94 L Oximetry (%) 11/18/18 11/18/18 11/18/18 11:45 12:00 12:15 Temperature Pulse Rate 80 78 75 Respiratory 22 H 22 H 24 H Rate Blood Pressure 87/54 L 110/83 91/52 L O2 Sat by Pulse 90 L 92 L 96 Oximetry (%) GENERAL: Awake and alert, NAD on NC O2 HEAD: AT/NC EYES: EOMI, Sclera Clear EARS, NOSE, THROAT: MMM LUNGS: diminished throughout, I:E prolonged, no wheezing HEART: RRR S1S2 ABDOMEN: Soft NDNT, No HSM. LOWER EXTREMITIES: No CCE. NEUROLOGICAL: Awake and alert, under residual spinal anesthesia PSYCHIATRIC: Cooperative. Good eye contact. Appropriate mood and affect. SKIN: Warm, dry, normal turgor, no rashes or lesions noted. Laboratory Results - last 24 hr 11/18/18 06:15 Blood Type B POSITIVE Antibody Screen Negative Active Medications Generic Name Dose Route Start Last Admin Trade Name Freq PRN Reason Stop Dose Admin Albuterol Sulfate 2 puff 11/18/18 10:55 Ventolin Hfa Inhaler - IH Q4H PRN SHORT OF BREATH/WHEEZING Calcium Carbonate 500 mg 11/19/18 10:00 Os-Kapil 500mg - PO DAILY [place] Cholecalciferol 1,000 unit 11/19/18 10:00 Vitamin D3 - PO DAILY [place] Docusate Sodium 100 mg 11/18/18 14:00 Colace - PO TID [place] Escitalopram Oxalate 5 mg 11/19/18 10:00 Lexapro - PO DAILY [place] Folic Acid 1 mg 11/19/18 10:00 Folic Acid - PO DAILY [place] Heparin Sodium (Porcine) 5,000 unit 11/18/18 11:00 Heparin - SQ Q8H [place] Cefazolin Sodium 1 gm in 50 mls @ 100 mls/hr 11/18/18 18:00 Ancef 1 Gm Premixed Ivpb - IVPB 11/19/18 17:59 Q8H-IV [place] Lactated Ringer's 1,000 ml in 1,000 mls @ 125 mls/hr 11/18/18 11:00 Lactated Ringers Solution IV ASDIR [place] Nebivolol 5 mg 11/18/18 22:00 Bystolic - PO HS [place] Prednisone 2.6 mg 11/18/18 14:00 Deltasone - PO TID [place] Verapamil HCl 120 mg 11/19/18 10:00 Calan Sr - PO DAILY [place] ASSESSMENT/PLAN: POD#1: S/P L4/5 Laminectomies w/ transpedicular approach for interbody cage and arthrodesis with L4/5 posterior fusion laminectomy. O2 and steroid dependent COPD HTN PAFib (not on AC) Spinal stenosis IV steroids x 24 hours BD TX Standing and PRN O2 to maintain saturation HFOT for increased WOB Avoid NSAIDS Monitor Neuro exam Will need CT Lumbar Spine Monitor drain output ICU monitoring for possible respiratory insufficiency x [address] Devlin
[2018-11-18] MEDS ORDERED: predniSONE 20 MG TABLET (UD) PO SCH (14:00)
[2018-11-18] MEDS ORDERED: DOCUSATE SODIUM 100 MG CAPSULE (FP) PO SCH (14:00)
--- NOTE | 2018-11-18 16:07 | PN ---
Teaching Attending Note Name of Resident: Dimitry Stewart ATTENDING PHYSICIAN STATEMENT I saw and evaluated the patient. I reviewed the resident's note and discussed the case with the resident. I agree with the resident's findings and plan as documented. SUBJECTIVE: This is a 68 year old woman with a history of COPD, chronic hypoxic respiratory failure, HTN, PAF, spinal stenosis who is being admitted after undergoing L4-L5 laminectomies, arthrodesis, L4-L5 posterior fusion by Dr. Andino. She had been experiencing chronic back and leg pain. Currently she has no complaints - she denies pain, SOB. OBJECTIVE: Vital Signs Period Temp Pulse Resp BP Sys/[place] Pulse Ox Last 24 Hr 98.1 F-98.2 F 68-84 15-25 85-123/40-83 90-100 HEART: S1S2, RRR LUNGS: Clear ABDOMEN: Soft, non-tender, non-distended, normal BS EXTREMITIES: No edema NEUROLOGICAL: Unable to assess lower extremities secondary to residual effects of spinal anesthesia Laboratory Results - last 24 hr 11/18/18 06:15 Blood Type B POSITIVE Antibody Screen Negative Current Medications Generic Name Dose Route Start Last Admin Trade Name Freq PRN Reason Stop Dose Admin Acetaminophen 800 mg 11/18/18 08:20 Ofirmev Injection - IVPB Q6H PRN PAIN LEVEL 1-5 Albuterol Sulfate 2 puff 11/18/18 10:55 Ventolin Hfa Inhaler - IH Q4H PRN SHORT OF BREATH/WHEEZING Albuterol/Ipratropium 1 amp 11/18/18 16:00 Duoneb - NEB RQID [place] Calcium Carbonate 500 mg 11/19/18 10:00 Os-Kapil 500mg - PO DAILY [place] Chlorhexidine Gluconate 1 applic 11/18/18 22:00 Hibiclens For Decolonization - TP HS [place] Cholecalciferol 1,000 unit 11/19/18 10:00 Vitamin D3 - PO DAILY [place] Diphenhydramine HCl 25 mg 11/18/18 13:18 Benadryl Injection - IVPUSH ONCE PRN FOR ITCHING Docusate Sodium 100 mg 11/18/18 14:00 Colace - PO TID [place] Escitalopram Oxalate 5 mg 11/19/18 10:00 Lexapro - PO DAILY [place] Folic Acid 1 mg 11/19/18 10:00 Folic Acid - PO DAILY [place] Heparin Sodium (Porcine) 5,000 unit 10/08/19 22:00 Heparin - SQ Q8H [place] Cefazolin Sodium 1 gm in 50 mls @ 100 mls/hr 11/18/18 18:00 Ancef 1 Gm Premixed Ivpb - IVPB 11/19/18 17:59 Q8H-IV [place] Lactated Ringer's 1,000 ml in 1,000 mls @ 125 mls/hr 11/18/18 11:00 Lactated Ringers Solution IV ASDIR [place] Lactated Ringer's 1,000 mls @ 75 mls/hr 11/18/18 13:15 Lactated Ringers Solution IV ASDIR [place] Methylprednisolone Sodium Succinate 40 mg 11/18/18 18:00 Solu-Medrol - IVPUSH Q8H-IV [place] Mupirocin 1 applic 11/18/18 22:00 Bactroban Ointment (For Decolonization) - NS 11/23/18 21:59 BID [place] Naloxone HCl 0.4 mg 11/18/18 13:18 Narcan - IVPUSH ONCE PRN Sedation Nebivolol 5 mg 11/18/18 22:00 Bystolic - PO HS [place] Ondansetron HCl 4 mg 11/18/18 13:15 Zofran Injection IVPUSH Q6H PRN NAUSEA AND/OR VOMITING Ondansetron HCl 4 mg 11/18/18 13:18 Zofran Injection IVPUSH ONCE PRN NAUSEA Oxycodone HCl 5 mg 11/18/18 13:18 Roxicodone - PO Q3H PRN PAIN LEVEL 6-10 Verapamil HCl 120 mg 11/19/18 10:00 Calan Sr - PO DAILY [facility] ASSESSMENT AND PLAN: This is a 68 year old woman with a history of COPD, chronic hypoxic respiratory failure, HTN, PAF, lumbar spinal stenosis with radiculopathy who presented today for lumbar spine surgery. 1. Lumbar spinal stenosis, spondylosis, and radiculopathy - s/p L4-L5 laminectomies, arthrodesis, L4-L5 posterior fusion today - Pain control - Physical therapy 2. Chronic hypoxic respiratory failure secondary to COPD - Stable - Oxygen to maintain saturation >90% - On Prednisone at home - changed to SoluMedrol - DuoNeb, albuterol as needed 3. HTN - Continue Bystolic, verapamil 4. Paroxysmal atrial fib - Currently in sinus rhythm
[2018-11-18] MEDS ORDERED: ceFAZolin SODIUM 1 GM VIAL IVPB ONE (17:00)
[2018-11-18] MEDS ORDERED: ceFAZolin SODIUM 1 GM VIAL ONE (17:04)
[2018-11-18] MEDS ORDERED: methylPREDNISolone NA SUCC 40 MG/1 ML VIAL IVPUSH SCH (18:00)
[2018-11-18] MEDS ORDERED: CEFAZOLIN 1 GM/D5W 1 GM/50 ML BAG IVPB SCH (18:00)
[2018-11-18] MEDS ORDERED: PT OWN MED DRAWER 7, Y5N ONE (21:11)
[2018-11-18] MEDS: ALBUTEROL SO4 2.5/IPRATROPIUM 0.5 INH SOL 3 ML VIAL.NEB. NEB SCH (21:25)
[2018-11-18] MEDS: DOCUSATE SODIUM 100 MG CAPSULE (FP) PO SCH (21:27)
[2018-11-18] MEDS: HEPARIN NA (PORCINE) 5,000 UNITS/ML 1ML VIAL SQ SCH (21:28)
[2018-11-18] MEDS: NEBIVOLOL 5 MG TABLET (FP) PO SCH (21:28)
[2018-11-18] MEDS: MUPIROCIN 2% TOPICAL OINTMENT FOR DECOLONIZATION NS SCH (21:47)
[2018-11-18] MEDS ORDERED: NEBIVOLOL 5 MG TABLET (FP) PO SCH (22:00)
[2018-11-18] MEDS ORDERED: CHLORHEXIDINE GLUCONATE 4% CLEANSER FOR DECOLONIZATION TP SCH (22:00)
[2018-11-18] MEDS ORDERED: MUPIROCIN 2% TOPICAL OINTMENT FOR DECOLONIZATION NS SCH (22:00)
[2018-11-19] MEDS ORDERED: DEXTROSE 5%-WATER - 50 ML IVPB ONE ×3 (01:19→16:41)
[2018-11-19] MEDS ORDERED: ceFAZolin SODIUM 1 GM VIAL ONE ×3 (01:19→16:40)
[2018-11-19] MEDS: CEFAZOLIN 1 GM in DEXTROSE 5%-WATER - 50 ML IVPB SCH ×3 (01:28→17:06)
[2018-11-19] MEDS: methylPREDNISolone NA SUCC 40 MG/1 ML VIAL IVPUSH SCH ×3 (01:29→17:07)
[2018-11-19] MEDS ORDERED: KETOROLAC TROMETHAMINE 30 MG/1 ML VIAL IVPUSH ONE (01:32)
[2018-11-19] MEDS ORDERED: KETOROLAC TROMETHAMINE 30 MG/1 ML VIAL ONE (01:35)
[2018-11-19] MEDS ORDERED: methylPREDNISolone NA SUCC 40 MG/1 ML VIAL IVPUSH SCH (02:00)
[2018-11-19] MEDS: DOCUSATE SODIUM 100 MG CAPSULE (FP) PO SCH ×3 (06:20→21:48)
[2018-11-19] MEDS: HEPARIN NA (PORCINE) 5,000 UNITS/ML 1ML VIAL SQ SCH ×3 (06:20→21:48)
[2018-11-19 06:56] LABS: HEMATOCRIT 32.3 % (32.4-45.2); MCH 33.6 pg (25.7-33.7); MCHC 33.9 g/dl (32.0-36.0); MEAN CELL VOLUME 98.9 fl (80-96); MEAN PLT VOLUME 7.7 fl (7.5-11.1); PLATELET COUNT 131 K/MM3 (134-434); RBC 3.27 M/mm3 (3.60-5.2); RDW 12.5 % (11.6-15.6); WHITE BLOOD COUNT 7.5 K/mm3 (4.0-10.0)
[2018-11-19 07:12] LABS: BLOOD UREA NITROGEN 9.7 mg/dL (7-18); CALCIUM 8.6 mg/dL (8.5-10.1); CREATININE 0.8 mg/dL (0.55-1.3); POTASSIUM 4.8 mmol/L (3.5-5.1)
[2018-11-19] MEDS ORDERED: SENNOSIDES 8.6MG TABLET (FP) PO PRN ×2 (07:33→18:47)
[2018-11-19] MEDS: ALBUTEROL SO4 2.5/IPRATROPIUM 0.5 INH SOL 3 ML VIAL.NEB. NEB SCH ×4 (07:35→20:26)
--- NOTE | 2018-11-19 08:45 | PN ---
Progress Note (short form) - Note Progress Note: NEUROSURGERY POD #1 s/p L4/5 Laminectomies w/ transpedicular approach for interbody cage and arthrodesis with L4/5 posterior fusion No acute events since surgery per RN notes. Prior too surgery, patient c/o LBP with LLE radiculopathy. Now s/p above procedure, states her LLE pain has completely resolved. Patient is alert. Supine in bed at 30 degrees. Pain is 3/10. Hasn't been oob yet. Denies n/v/f/c, CP, palpitations, SOB, VILLAGRAN or parasthesias. Last Vital Signs Temp Pulse Resp BP Pulse Ox 97.6 F 77 19 103/73 97 11/19/18 08:00 11/19/18 08:00 11/19/18 08:00 11/19/18 08:00 11/18/18 21:00 CBC, BMP 11/19/18 05:46 11/19/18 05:46 Output Trends 11/18/18 11/18/18 11/18/18 11/18/18 10:30 17:30 22:07 06:00 MACIE 50 75 Musa 100 250 Gen: nad Back: wound c/d/i. MACIE (serosang) on bulb suction --> (expect more as we used 3L intraop for irrigation) Musa: to gravity (clear) Neuro: GMNVI in all extremities. No motor or sensory deficits LE: SCDs bilat. Soft. NT. Problem List - Problems (1) Spondylosis Assessment/Plan: 68 yo female POD #1 s/p POD #1 s/p L4/5 Laminectomies w/ transpedicular approach for interbody cage and arthrodesis with L4/5 posterior fusion Goals for today: 1. dc musa and begin trial of void 2. pain management as per anasthesia 3. record macie output q shift --> most likely will dc in AM 4. cleared from neurosurgery to downgrade to floor 5. oob and ambulate with PT 6. TLSO 7. dc planning for home 11/20/18 Above plan discussed with Dr. Andino and agrees. Code(s): M47.9 - SPONDYLOSIS, UNSPECIFIED (2) Afib Code(s): I48.91 - UNSPECIFIED ATRIAL FIBRILLATION (3) COPD (chronic obstructive pulmonary disease) Code(s): J44.9 - CHRONIC OBSTRUCTIVE PULMONARY DISEASE, UNSPECIFIED Qualifiers: COPD type: unspecified COPD Qualified Code(s): J44.9 - Chronic obstructive pulmonary disease, unspecified (4) HTN (hypertension) Code(s): I10 - ESSENTIAL (PRIMARY) HYPERTENSION
[2018-11-19] MEDS ORDERED: PT OWN MED DRAWER 7, Y5N ONE (09:35)
[2018-11-19] MEDS: MUPIROCIN 2% TOPICAL OINTMENT FOR DECOLONIZATION NS SCH (09:40)
--- NOTE | 2018-11-19 09:41 | PN ---
Progress Note, Physician Chief Complaint: s/p lumbar laminectomy under spinal anesthesia History of Present Illness: post op day one, duramorph in the spinal for post op analgesia - Current Medication List Current Medications: Active Medications Acetaminophen (Ofirmev Injection -) 800 mg IVPB Q6H PRN PRN Reason: PAIN LEVEL 1-5 Albuterol Sulfate (Ventolin Hfa Inhaler -) 2 puff IH Q4H PRN PRN Reason: SHORT OF BREATH/WHEEZING Albuterol/Ipratropium (Duoneb -) 1 amp NEB RQID [facility] Last Admin: 11/18/18 21:25 Dose: 1 amp Calcium Carbonate (Os-Kapil 500mg -) 500 mg PO DAILY [facility] Cholecalciferol (Vitamin D3 -) 1,000 unit PO DAILY [facility] Docusate Sodium (Colace -) 100 mg PO TID [facility] Last Admin: 11/19/18 06:20 Dose: Not Given Escitalopram Oxalate (Lexapro -) 5 mg PO DAILY [facility] Folic Acid (Folic Acid -) 1 mg PO DAILY [facility] Heparin Sodium (Porcine) (Heparin -) 5,000 unit SQ TID [facility] Last Admin: 11/19/18 06:20 Dose: 5,000 unit Cefazolin Sodium 1 gm/ (Dextrose) 50 mls @ 100 mls/hr IVPB Q8H-IV [facility] Stop: 11/20/18 01:59 Last Admin: 11/19/18 01:28 Dose: 100 mls/hr Influenza Virus Vaccine Quadrival (Flulaval Quad [id number]) 60 mcg IM .ONCE ONE Stop: 11/19/18 10:01 Methylprednisolone Sodium Succinate (Solu-Medrol -) 40 mg IVPUSH Q8H-IV [facility] Last Admin: 11/19/18 01:29 Dose: 40 mg Mupirocin (Bactroban Ointment (For Decolonization) -) 1 applic NS BID [facility] Stop: 11/23/18 21:59 Last Admin: 11/18/18 21:47 Dose: 1 applic Nebivolol (Bystolic -) 5 mg PO DAILY [facility] Ondansetron HCl (Zofran Injection) 4 mg IVPUSH Q6H PRN PRN Reason: NAUSEA AND/OR VOMITING Oxycodone HCl (Roxicodone -) 5 mg PO Q3H PRN PRN Reason: PAIN LEVEL 6-10 Last Admin: 11/18/18 23:32 Dose: 5 mg Senna (Senna -) 2 tab PO HS PRN PRN Reason: CONSTIPATION Verapamil HCl (Calan Sr -) 120 mg PO DAILY [place] - Objective Vital Signs: Vital Signs Temperature 97.6 F 11/19/18 08:00 Pulse Rate 77 11/19/18 08:00 Respiratory Rate 11/19/18 08:00 Blood Pressure 103/73 11/19/18 08:00 O2 Sat by Pulse Oximetry (%) 97 11/19/18 08:00 Constitutional: Yes: Well Nourished Cardiovascular: Yes: WNL Respiratory: Yes: WNL Gastrointestinal: Yes: WNL Labs: CBC, BMP 11/19/18 05:46 11/19/18 05:46 Assessment/Plan Doing well, pain controlled, no anesthetic complications, dept of anesthesia janeth sign off care at this time
[2018-11-19] MEDS ORDERED: ESCITALOPRAM OXALATE 10 MG TABLET (FP) PO SCH ×2 (10:00)
[2018-11-19] MEDS ORDERED: NEBIVOLOL 5 MG TABLET (FP) PO SCH (10:00)
[2018-11-19] MEDS ORDERED: VERAPAMIL HCL 120 MG E.R. TABLET PO SCH ×2 (10:00)
[2018-11-19] MEDS ORDERED: CHOLECALCIFEROL (VIT D3) 1,000 UNIT (25 MCG) TABLET PO SCH ×2 (10:00)
[2018-11-19] MEDS ORDERED: CALCIUM (OYSTER SHELL) 500 MG TABLET (FP) PO SCH ×2 (10:00)
[2018-11-19] MEDS ORDERED: FLU VACCINE QUAD 60 MCG/0.5 ML (MDV 19-20) IM ONE (10:00)
[2018-11-19] MEDS ORDERED: FOLIC ACID 1 MG TABLET (FP) PO SCH ×2 (10:00)
--- NOTE | 2018-11-19 10:10 | PN ---
Progress Note (short form) - Note Progress Note: PE: No events overnight. No complaints today. Denies shortness of breath. Pain well controlled with medications. Vital Signs Temperature 97.6 F 11/19/18 08:00 Pulse Rate 77 11/19/18 08:00 Respiratory Rate 19 11/19/18 08:00 Blood Pressure 103/73 11/19/18 08:00 O2 Sat by Pulse Oximetry (%) 97 11/19/18 08:00 GENERAL: Awake, alert, and fully oriented, in no acute distress. HEENT: NC/AT, EOMI, EUGENIA, sclera anicteric, MMM NECK: No JVD LUNGS: CTA bilaterally. No wheezes, and no crackles. No accessory muscle use. 2LNC HEART: RRR, normal S1 and S2 without murmur ABDOMEN: Soft, NT/ND, normoactive bowel sounds, no guarding EXTREMITIES: 2+ DP pulses, warm, well-perfused. No peripheral edema. NEUROLOGICAL: CN II-XII intact. 5/5 strength b/l upper extremities in all jordan 4/5 in lower extremities in all jordan b/l Sensation intact PSYCHIATRIC: Cooperative. Good eye contact. Appropriate mood and affect. SKIN: Warm, dry, no rashes CBC, BMP 11/19/18 05:46 11/19/18 05:46 Active Medications Acetaminophen (Ofirmev Injection -) 800 mg IVPB Q6H PRN PRN Reason: PAIN LEVEL 1-5 Albuterol Sulfate (Ventolin Hfa Inhaler -) 2 puff IH Q4H PRN PRN Reason: SHORT OF BREATH/WHEEZING Albuterol/Ipratropium (Duoneb -) 1 amp NEB RQID [facility] Last Admin: 11/18/18 21:25 Dose: 1 amp Calcium Carbonate (Os-Kapil 500mg -) 500 mg PO DAILY [facility] Last Admin: 11/19/18 09:39 Dose: 500 mg Cholecalciferol (Vitamin D3 -) 1,000 unit PO DAILY [facility] Last Admin: 11/19/18 09:39 Dose: 1,000 unit Docusate Sodium (Colace -) 100 mg PO TID [facility] Last Admin: 11/19/18 06:20 Dose: Not Given Escitalopram Oxalate (Lexapro -) 5 mg PO DAILY [facility] Last Admin: 11/19/18 09:39 Dose: 5 mg Folic Acid (Folic Acid -) 1 mg PO DAILY [facility] Last Admin: 11/19/18 09:39 Dose: 1 mg Heparin Sodium (Porcine) (Heparin -) 5,000 unit SQ TID [facility] Last Admin: 11/19/18 06:20 Dose: 5,000 unit Cefazolin Sodium 1 gm/ (Dextrose) 50 mls @ 100 mls/hr IVPB Q8H-IV [facility] Stop: 11/20/18 01:59 Last Admin: 11/19/18 09:38 Dose: 100 mls/hr Methylprednisolone Sodium Succinate (Solu-Medrol -) 40 mg IVPUSH Q8H-IV [facility] Last Admin: 11/19/18 09:39 Dose: 40 mg Mupirocin (Bactroban Ointment (For Decolonization) -) 1 applic NS BID [facility] Stop: 11/23/18 21:59 Last Admin: 11/19/18 09:40 Dose: 1 applic Nebivolol (Bystolic -) 5 mg PO DAILY [facility] Last Admin: 11/19/18 09:47 Dose: 5 mg Ondansetron HCl (Zofran Injection) 4 mg IVPUSH Q6H PRN PRN Reason: NAUSEA AND/OR VOMITING Oxycodone HCl (Roxicodone -) 5 mg PO Q3H PRN PRN Reason: PAIN LEVEL 6-10 Last Admin: 11/18/18 23:32 Dose: 5 mg Senna (Senna -) 2 tab PO HS PRN PRN Reason: CONSTIPATION Verapamil HCl (Calan Sr -) 120 mg PO DAILY [facility] Last Admin: 11/19/18 09:47 Dose: 120 mg --Pain controlled; continue regiment: --Tylenol Pain 4-6 --Oxycodone 5mg q3h Pain 6-10 --Avoid NSAIDs at all points --Monitor ABBEY drain output: minimal --Surgery per post-op ABX duration --Albuterol PRN available to patient if SOB or wheezing ensues --Would likely need Symbicort BID and Spiriva long-term --Can decrease steroids to Medrol 40mg BID today --Continue home medications as below: Calcium supplementation Colace 100mg TID Vitamin D3 supplementation Lexapro 5mg qdaily Bystolic 5mg HS PO Verapamil 120mg qdaily PO FEN: Fluids: Discontinue fluids Electrolyte abnormalities: None Nutrition: Regular diet PPX: DVT - SCDs; chemical Case discussed with Dr. Erin Stewart, DO - IM PGY-3 <Dimitry Stewart - Last Filed: 11/19/18 10:24> - Note Progress Note: Attending Addendum I have seen and examined the indicated patient independently/along with the resident team. I have personally verified all lawson exam findings and historical components. I have personally interpreted all diagnostics indicated per todays orders and reviewed interpretation of indicated subspecialty services. This patient meets a high level of medical complexity and warrants inpatient admission to avoid decompensation and worsening of the indicated illness. 60 minutes have been spent in the completion of this admission. S: Agree with historical findings as outlined in resident documentation regarding history of present illness. 10 system ROS completed and is negative aside from indicated issues in the resident/attending history of present illness and full documentation. Past Medical History and Past Surgical Histories reviewed in depth; per resident note Social history is reviewed; per resident note; Complete family history is reviewed with patient and is non-pertinent aside from the indicated issues outlined above. No sudden history of cardiac . O: All vital signs reviewed per ER records and are as per EMR NAD, AAO, Resting in bed; mentating at baseline per prior encounters. Postop changes noted with no acute signs of infection. NC AT EOMI PERRLA Neck supple, trachea midline, no luis en[address] LN RRR s1/2 Lungs CTAB, w/ sym expansion. On 2L O2 via NC. NT ND +BS No skin breakdown or rashes noted CN2-12 wnl, no new focal deficits noted Muscle tone normal, no deficits in motor function or strength noted Normal mood, appropriate behavior, average insight A/P: Patient seen, examined, and discussed in depth with resident team. Problem list reviewed per resident note and agree with their discussion aside from as supplemented by myself below. She is not on LABA/LAMA, etc. at home per documented meds. No recent PFTs. Calling pulmonary medicine for assessment. Problems include: -Chronic respiratory failure on home O2 2/2 underlying COPD (continue O2, incentive spirometry, pulmonary consult, PRN nebs, continue PO steroids. Question need for inhaled steroids given chronic pred use. Will discuss with pulm. Needs PFTs) -S/P Operative fixation as described. Further management per surgical services. Full code Problems include: Continue to monitor on the floor; agree with plan as documented per resident note. <Sang Khan - Last Filed: 11/20/18 07:11>
--- NOTE | 2018-11-19 11:35 | PN ---
Teaching Attending Note Name of Resident: Alirio Leavitt ATTENDING PHYSICIAN STATEMENT I saw and evaluated the patient. I reviewed the resident's note and discussed the case with the resident. I agree with the resident's findings and plan as documented. SUBJECTIVE: Pt seen and examined in the ICU. Pain controlled. Tolerating PO. No fevers or chills. OBJECTIVE: Vital Signs Period Temp Pulse Resp BP Sys/Meadows Pulse Ox Last 24 Hr 97.6 F-99.2 F 68-86 14-25 87-133/41-83 90-100 Intake & Output 11/16/18 11/17/18 11/18/18 11/19/18 23:59 23:59 23:59 23:59 Intake Total 1950 50 Output Total 1210 1495 Balance 740 -1445 Weight 50.802 kg 52.481 kg Gen: NAD at rest Heart: RRR Lung: decreased breath sounds at the bases Abd: soft, nontender Ext: no edema CBC, BMP 11/19/18 05:46 11/19/18 05:46 Active Medications Acetaminophen (Ofirmev Injection -) 800 mg IVPB Q6H PRN PRN Reason: PAIN LEVEL 1-5 Albuterol Sulfate (Ventolin Hfa Inhaler -) 2 puff IH Q4H PRN PRN Reason: SHORT OF BREATH/WHEEZING Albuterol/Ipratropium (Duoneb -) 1 amp NEB RQID [facility] Last Admin: 11/18/18 21:25 Dose: 1 amp Calcium Carbonate (Os-Kapil 500mg -) 500 mg PO DAILY [facility] Last Admin: 11/19/18 09:39 Dose: 500 mg Cholecalciferol (Vitamin D3 -) 1,000 unit PO DAILY [facility] Last Admin: 11/19/18 09:39 Dose: 1,000 unit Docusate Sodium (Colace -) 100 mg PO TID [facility] Last Admin: 11/19/18 06:20 Dose: Not Given Escitalopram Oxalate (Lexapro -) 5 mg PO DAILY [facility] Last Admin: 11/19/18 09:39 Dose: 5 mg Folic Acid (Folic Acid -) 1 mg PO DAILY [facility] Last Admin: 11/19/18 09:39 Dose: 1 mg Heparin Sodium (Porcine) (Heparin -) 5,000 unit SQ TID [facility] Last Admin: 11/19/18 06:20 Dose: 5,000 unit Cefazolin Sodium 1 gm/ (Dextrose) 50 mls @ 100 mls/hr IVPB Q8H-IV [facility] Stop: 11/20/18 01:59 Last Admin: 11/19/18 09:38 Dose: 100 mls/hr Methylprednisolone Sodium Succinate (Solu-Medrol -) 40 mg IVPUSH Q8H-IV [facility] Last Admin: 11/19/18 09:39 Dose: 40 mg Mupirocin (Bactroban Ointment (For Decolonization) -) 1 applic NS BID [facility] Stop: 11/23/18 21:59 Last Admin: 11/19/18 09:40 Dose: 1 applic Nebivolol (Bystolic -) 5 mg PO DAILY [facility] Last Admin: 11/19/18 09:47 Dose: 5 mg Ondansetron HCl (Zofran Injection) 4 mg IVPUSH Q6H PRN PRN Reason: NAUSEA AND/OR VOMITING Oxycodone HCl (Roxicodone -) 5 mg PO Q3H PRN PRN Reason: PAIN LEVEL 6-10 Last Admin: 11/18/18 23:32 Dose: 5 mg Senna (Senna -) 2 tab PO HS PRN PRN Reason: CONSTIPATION Verapamil HCl (Calan Sr -) 120 mg PO DAILY [facility] Last Admin: 11/19/18 09:47 Dose: 120 mg ASSESSMENT AND PLAN: Lumbar Spinal Stenosis with Radiculopathy s/p L4-L5 Laminectomies/Interbody Cage Insertion/Fusion COPD Chronic Hypoxic Respiratory Failure Paroxysmal Atrial Fibrillation HTN - pain control - incentive spirometry - decrease steroids to home dose - inhaled bronchodilators - O2 to keep SpO2 >90% - monitor drain output - PO as tolerated - rehab/PT - DVT prophylaxis - can monitor on floor
--- NOTE | 2018-11-19 15:23 | PN ---
Physical Exam: SUBJECTIVE: Patient seen and examined in ICU. No acute events, pt feels great. OBJECTIVE: Vital Signs Period Temp Pulse Resp BP Sys/Meadows Pulse Ox Last 24 Hr 97.6 F-99.2 F 70-86 14-24 92-133/42-73 94-97 GENERAL: The patient is awake, alert, and fully oriented, in no acute distress. NECK: Trachea midline, full range of motion, supple. LUNGS: Breath sounds equal, clear to a uscultation bilaterally, no wheezes, no crackles, no accessory muscle use. HEART: Regular rate and rhythm, S1, S2 without murmur, rub or gallop. ABDOMEN: Soft, nontender, nondistended EXTREMITIES: warm, well-perfused, no edema. SKIN: Warm, dry, no rashes or lesions noted Laboratory Results - last 24 hr 11/19/18 11/19/18 05:46 05:46 WBC 7.5 RBC 3.27 L Hgb 11.0 Hct 32.3 L MCV 98.9 H MCH 33.6 MCHC 33.9 RDW 12.5 Plt Count 131 L D MPV 7.7 Sodium 140 Potassium 4.8 Chloride 104 Carbon Dioxide 32 Anion Gap 4 L BUN 9.7 Creatinine 0.8 Est GFR (CKD-EPI)AfAm 88.42 Est GFR (CKD-EPI)NonAf 76.29 Random Glucose 104 Calcium 8.6 Active Medications Generic Name Dose Route Start Last Admin Trade Name Freq PRN Reason Stop Dose Admin Acetaminophen 800 mg 11/18/18 18:13 Ofirmev Injection - IVPB Q6H PRN PAIN LEVEL 1-5 Albuterol Sulfate 2 puff 11/18/18 18:13 Ventolin Hfa Inhaler - IH Q4H PRN SHORT OF BREATH/WHEEZING Albuterol/Ipratropium 1 amp 11/18/18 16:00 11/19/18 11:20 Duoneb - NEB 1 amp RQID [place] Administration Calcium Carbonate 500 mg 11/19/18 10:00 11/19/18 09:39 Os-Kapil 500mg - PO 500 mg DAILY [facility] Administration Cholecalciferol 1,000 unit 11/19/18 10:00 11/19/18 09:39 Vitamin D3 - PO 1,000 unit DAILY [place] Administration Docusate Sodium 100 mg 11/18/18 22:00 11/19/18 06:20 Colace - PO Not Given TID [place] Escitalopram Oxalate 5 mg 11/19/18 10:00 11/19/18 09:39 Lexapro - PO 5 mg DAILY [place] Administration Folic Acid 1 mg 11/19/18 10:00 11/19/18 09:39 Folic Acid - PO 1 mg DAILY [place] Administration Heparin Sodium (Porcine) 5,000 unit 11/18/18 22:00 11/19/18 06:20 Heparin - SQ 5,000 unit TID [place] Administration Cefazolin Sodium 1 gm/ 50 mls @ 100 mls/hr 11/19/18 02:00 11/19/18 09:38 Dextrose IVPB 11/20/18 01:59 100 mls/hr Q8H-IV [place] Administration Methylprednisolone Sodium Succinate 40 mg 11/19/18 02:00 11/19/18 09:39 Solu-Medrol - IVPUSH 40 mg Q8H-IV [place] Administration Mupirocin 1 applic 11/18/18 22:00 11/19/18 09:40 Bactroban Ointment (For Decolonization) - NS 11/23/18 21:59 1 applic BID [place] Administration Nebivolol 5 mg 11/19/18 10:00 11/19/18 09:47 Bystolic - PO 5 mg DAILY [place] Administration Ondansetron HCl 4 mg 11/18/18 18:13 Zofran Injection IVPUSH Q6H PRN NAUSEA AND/OR VOMITING Oxycodone HCl 5 mg 11/18/18 18:13 11/18/18 23:32 Roxicodone - PO 5 mg Q3H PRN Administration PAIN LEVEL 6-10 Senna 2 tab 11/19/18 07:33 Senna - PO HS PRN CONSTIPATION Verapamil HCl 120 mg 11/19/18 10:00 11/19/18 09:47 Calan Sr - PO 120 mg DAILY [place] Administration ASSESSMENT/PLAN: Pt is a 68 yo F with a significant past medical history of COPD (on 2l NC at home), HTN, pAF (Not on AC), and spinal stenosis who presented to [facility] today to undergo an L4-L5 laminectomy. # Neuro- POD#1 L4-L5 Laminectomy -Dr Andino on board -Monitor ABBEY drain output -Lumbar Spine CT w/o contrast Pending -Oxycodone 5 mg PO Q3h PRN for analgesia -Zofran PRN for Nausea -Avoid NSAIDS -s/p Ancef pre-op for ABX PPX - Incentive shyann and get oob as tolerated. -PT/OT evaluation #PULM: COPD -Solumedrol 40 Q8H -Duonebs QID -Will hold home Prednisone -HFOT for increased WOB #CARDIO- AFIB, HTN -No AC in light of fall risk -Resume Verapamil 120 Daily -Bystolic 5 HS #FEN: - LR@100cc/hr -Monitor electrolytes -Reg Diet #PPX: - HEPSQTID in evening per surgery Dispo: Up for transfer to the floors. Thank you for this consultative opportunity. Visit type - Emergency Visit Emergency Visit: Yes ED Registration Date: 11/18/18 Care time: The patient presented to the Emergency Department on the above date and was hospitalized for further evaluation of their emergent condition. - New Patient This patient is new to me today: Yes Date on this admission: 11/19/18 - Critical Care Critical Care patient: Yes Total Critical Care Time (in minutes): 35 Critical Care Statement: The care of this patient involved high complexity decision making to prevent further life threatening deterioration of the patient 's condition and/or to evaluate & treat vital organ system(s) failure or risk of failure. - Discharge Referral Referred to [facility] Med P.C[facility] No ATTENDING PHYSICIAN STATEMENT I saw and evaluated the patient. I reviewed the resident's note and discussed the case with the resident. I agree with the resident's findings and plan as documented. SUBJECTIVE: OBJECTIVE: ASSESSMENT AND PLAN:
[2018-11-19] MEDS ORDERED: ALBUTEROL SO4 8 GM HFA INHALER IH PRN (18:47)
[2018-11-19] MEDS ORDERED: ACETAMINOPHEN 1000 MG/100 ML VIAL (NON FORMULARY) IVPB PRN (18:47)
[2018-11-19] MEDS ORDERED: ONDANSETRON 4 MG/2 ML VIAL IVPUSH PRN (18:47)
[2018-11-19] MEDS ORDERED: MUPIROCIN 2% TOPICAL OINTMENT FOR DECOLONIZATION NS SCH (22:00)
[2018-11-19] MEDS: oxyCODONE HCL 5 MG TABLET PO PRN (23:52)
[2018-11-20] MEDS ORDERED: ceFAZolin SODIUM 1 GM VIAL ONE ×2 (01:32→10:17)
[2018-11-20] MEDS: CEFAZOLIN 1 GM in DEXTROSE 5%-WATER - 50 ML IVPB SCH ×2 (01:39→10:21)
[2018-11-20] MEDS ORDERED: methylPREDNISolone NA SUCC 40 MG/1 ML VIAL IVPUSH SCH ×2 (02:00→10:00)
[2018-11-20] MEDS: HEPARIN NA (PORCINE) 5,000 UNITS/ML 1ML VIAL SQ SCH ×2 (06:06→13:51)
[2018-11-20] MEDS: DOCUSATE SODIUM 100 MG CAPSULE (FP) PO SCH ×2 (06:06→13:51)
[2018-11-20] MEDS: ALBUTEROL SO4 2.5/IPRATROPIUM 0.5 INH SOL 3 ML VIAL.NEB. NEB SCH ×4 (07:15→15:38)
[2018-11-20] MEDS: NEBIVOLOL 5 MG TABLET (FP) PO SCH (07:32)
--- NOTE | 2018-11-20 08:42 | PN ---
Progress Note (short form) - Note Progress Note: POD #2, s/p L4/5 Laminectomies w/ transpedicular approach for interbody cage and arthrodesis with L4/5 posterior fusion Pt seen and examined. Doing well overall. Reports some discomfort overnight. Tolerating PO. Had a small BM yesterday, +flatus. Has been oob walking. Denies cp/sob, n/v/d. Vital Signs Temp 98 F 11/20/18 06:00 Pulse 80 11/20/18 06:00 Resp 20 11/20/18 06:00 BP 133/73 11/20/18 06:00 Pulse Ox 97 11/19/18 20:40 Intake & Output 11/19/18 11/19/18 11/20/18 11:59 23:59 11:59 Intake Total 50 340 Output Total 1495 335 40 Balance -1445 5 -40 Weight 115 lb 11.2 oz 113 lb 12.8 oz Intake: IVPB 50 100 Oral 240 Output: Drainage 95 85 40 Right Lower Back 95 85 40 Urine 1400 250 Snell 1400 Void 250 Other: Voiding Method Indwelling Catheter Toilet # Unmeasured Voids Void 2 Bowel Movement No Weight Measurement Method Built in Bedscale Built in Bedscale CBC, BMP 11/19/18 05:46 11/19/18 05:46 Gen: awake, alert, nad Back: wound c/d/i (dressing changed to new 4x4's and tegaderms). ABBEY (minimal serosang drainage in reservoir-tubing stripped) on bulb suction. Drain removed, tip intact pt tolerated well. Neuro: B/L LE's 5/5 dorsi/plantarflexion. 5/5 Hip flexion/ext. SILT b/l le's A/P: 68 y/o F w/ PMHx stage 4 COPD (2LNC), HTN, pAF (Not on AC), and spinal stenosis now POD 2, s/p L4-L5 laminectomy. Afebrile, VSS Labs wnl Exam stable, incision benign ABBEY output 4ml overnight-> removed this AM without issue -Pt cleared for d/c from neurosurgery standpoint -Pt should f/u in the office in 7-10 days -Continue TLSO brace d/w attending Dr Fernandez
[2018-11-20] MEDS ORDERED: ESCITALOPRAM OXALATE 10 MG TABLET (FP) PO SCH (10:00)
[2018-11-20] MEDS ORDERED: NEBIVOLOL 5 MG TABLET (FP) PO SCH (10:00)
[2018-11-20] MEDS ORDERED: CALCIUM (OYSTER SHELL) 500 MG TABLET (FP) PO SCH (10:00)
[2018-11-20] MEDS ORDERED: FOLIC ACID 1 MG TABLET (FP) PO SCH (10:00)
[2018-11-20] MEDS ORDERED: CHOLECALCIFEROL (VIT D3) 1,000 UNIT (25 MCG) TABLET PO SCH (10:00)
[2018-11-20] MEDS ORDERED: VERAPAMIL HCL 120 MG E.R. TABLET PO SCH (10:00)
[2018-11-20] MEDS ORDERED: PT OWN MED DRAWER 7, Y5N ONE (10:16)
--- NOTE | 2018-11-20 10:16 | DS ---
"Physical Exam: SUBJECTIVE: Pt without pain today. Has only required one dose overnight. ABBEY removed by surgery today and pt feels in her usual state of health. No numbness or tingling reported. No shortness of breath. OBJECTIVE: Vital Signs Period Temp Pulse Resp BP Sys/Meadows Pulse Ox Last 24 Hr 97.9 F-98.6 F 70-94 18-21 92-143/41-73 97 PHYSICAL EXAM GENERAL: Awake, alert, and fully oriented, in no acute distress. HEENT: NC/AT, EOMI, EUGENIA, sclera anicteric, MMM NECK: No JVD LUNGS: CTA bilaterally. No wheezes, and no crackles. No accessory muscle use. 2LNC HEART: RRR, normal S1 and S2 without murmur ABDOMEN: Soft, NT/ND, normoactive bowel sounds, no guarding EXTREMITIES: 2+ DP pulses, warm, well-perfused. No peripheral edema. NEUROLOGICAL: CN II-XII intact. 5/5 strength b/l upper extremities jordan 4/5 in lower extremities jordan b/l Sensation intact PSYCHIATRIC: Cooperative. Good eye contact. Appropriate mood and affect. SKIN: Warm, dry, no rashes LABS CBC, BMP 11/19/18 05:46 11/19/18 05:46 Active Medications Acetaminophen (Ofirmev Injection -) 800 mg IVPB Q6H PRN PRN Reason: PAIN LEVEL 1-5 Albuterol Sulfate (Ventolin Hfa Inhaler -) 2 puff IH Q4H PRN PRN Reason: SHORT OF BREATH/WHEEZING Albuterol/Ipratropium (Duoneb -) 1 amp NEB RQID [facility] Last Admin: 11/20/18 07:15 Dose: 1 amp Calcium Carbonate (Os-Kapil 500mg -) 500 mg PO DAILY [facility] Last Admin: 11/20/18 10:21 Dose: 500 mg Cholecalciferol (Vitamin D3 -) 1,000 unit PO DAILY [facility] Last Admin: 11/20/18 10:21 Dose: 1,000 unit Docusate Sodium (Colace -) 100 mg PO TID [facility] Last Admin: 11/20/18 06:06 Dose: 100 mg Escitalopram Oxalate (Lexapro -) 5 mg PO DAILY [facility] Last Admin: 11/20/18 10:21 Dose: 5 mg Folic Acid (Folic Acid -) 1 mg PO DAILY [facility] Last Admin: 11/20/18 10:21 Dose: 1 mg Heparin Sodium (Porcine) (Heparin -) 5,000 unit SQ TID [facility] Last Admin: 11/20/18 06:06 Dose: 5,000 unit Cefazolin Sodium 1 gm/ (Dextrose) 50 mls @ 100 mls/hr IVPB Q8H-IV [facility] Stop: 11/21/18 01:59 Last Admin: 11/20/18 10:21 Dose: 100 mls/hr Nebivolol (Bystolic -) 5 mg PO DAILY [facility] Ondansetron HCl (Zofran Injection) 4 mg IVPUSH Q6H PRN PRN Reason: NAUSEA AND/OR VOMITING Oxycodone HCl (Roxicodone -) 5 mg PO Q3H PRN PRN Reason: PAIN LEVEL 6-10 Last Admin: 11/19/18 23:52 Dose: 5 mg Prednisone (Deltasone -) 2.5 mg PO TID [facility] Senna (Senna -) 2 tab PO HS PRN PRN Reason: CONSTIPATION Verapamil HCl (Calan Sr -) 120 mg PO DAILY [facility] Imaging: Lumbar Spine CT: IMPRESSION: Status post posterior fusion of L4 and L5 vertebral bodies with an interbody spacer present and grade 1 anterolisthesis of L4 over L5, 6 mm. Postop soft tissue changes and air are present posteriorly with a drainage catheter. Chronic compression of T12 and L1 vertebral bodies, as described above. Dense calcified atheromatous plaques in the abdominal aorta wall down through its bifurcation HOSPITAL COURSE: Date of Admission:11/18/18 Date of Discharge: 11/20/18 Pt was admitted on 11/18/18 due to lower extremity neuropathy found to have spinal stenosis of the lumbar spine for which she was receiving L4-L5 laminectomy by Dr. Andino. Pt had uncomplicated surgical procedure with minimal EBL and with placement of ABBEY drain. In addition she received post- operative prophylactic Ancef fo 24hrs post-procedure. Due to her high risk as a result of COPD pt was monitored in the hospital with post-operative Medrol. Pt had minimal pain only requiring oxycodone 5mg once throughout her stay. She was fitted for a TLSO brace and physical therapy reported 100+ feet of walking. ABBEY drain was removed by surgical team wiht <10cc output since surgery and pt was tolerating feeds and having BM. Pt is being discharged today in stable condition with instructions to visit Dr. Andino in 7-10 days for post- operative follow-up. Post-operative instructions were left by her surgical team as below. Final Diagnoses: L4-L5 laminectomy 2/2 to spinal stenosis COPD, not in exacerbaton Hx of HTN Paroxysmal Atrial fibrillation Minutes to complete discharge: 35 <Dimitry Stewart - Last Filed: 11/20/18 11:12> Physical Exam: SUBJECTIVE: Patient seen and examined OBJECTIVE: Vital Signs Period Temp Pulse Resp BP Sys/Meadows Pulse Ox Last 24 Hr 97.9 F-98.6 F 70-94 18-21 94-143/41-73 97 PHYSICAL EXAM GENERAL: The patient is awake, alert, and fully oriented, in no acute distress. HEAD: Normal with no signs of trauma. EYES: PERRL, extraocular movements intact, sclera anicteric, conjunctiva clear. ENT: Ears normal, nares patent, oropharynx clear without exudates, moist mucous membranes. NECK: Trachea midline, full range of motion, supple. LUNGS: Breath sounds equal, clear to auscultation bilaterally, no wheezes, no crackles, no accessory muscle use. HEART: Regular rate and rhythm, S1, S2 without murmur, rub or gallop. ABDOMEN: Soft, nontender, nondistended, normoactive bowel sounds, no guarding, no rebound, no hepatosplenomegaly, no masses. EXTREMITIES: 2+ pulses, warm, well-perfused, no edema. NEUROLOGICAL: Cranial nerves II through XII grossly intact. Normal speech, gait not observed. PSYCH: Normal mood, normal affect. SKIN: Warm, dry, normal turgor, no rashes or lesions noted. LABS Laboratory Results - last 24 hr 11/20/18 09:04 Vitamin B12 571 Serum Folate 19 H HOSPITAL COURSE: Date of Admission:11/18/18 Date of Discharge: 11/20/18 <Sang Khan - Last Filed: 11/20/18 12:46> Discharge Summary Problems reviewed: Yes Reason For Visit: LUMBAR STENOSIS AND INSTABILITY Current Active Problems HTN (hypertension) (Acute) Spondylosis (Acute) - Home Medications Comprehensive Discharge Medication List: Ambulatory Orders Verapamil HCl [Verapamil ER] 120 mg PO DAILY 04/03/16 Nebivolol HCl [Bystolic] 5 mg PO HS 12/31/16 Escitalopram Oxalate [Lexapro -] 5 mg PO DAILY 01/19/17 predniSONE [Deltasone -] 2.6 mg PO TID 01/19/17 Calcium Carbonate [Calcium] 500 mg PO DAILY 11/11/18 Cholecalciferol (Vitamin D3) [Vitamin D3] 1,000 unit PO DAILY 11/11/18 Albuterol Sulfate Inhaler - [Ventolin HFA Inhaler -] 2 inh PO Q4H PRN #30 neb <Dimitry Stewart - Last Filed: 11/20/18 11:12> Problems reviewed: Yes Current Active Problems HTN (hypertension) (Acute) Spondylosis (Acute) - Home Medications Comprehensive Discharge Medication List: Ambulatory Orders Verapamil HCl [Verapamil ER] 120 mg PO DAILY 04/03/16 Nebivolol HCl [Bystolic] 5 mg PO HS 12/31/16 Escitalopram Oxalate [Lexapro -] 5 mg PO DAILY 01/19/17 predniSONE [Deltasone -] 2.6 mg PO TID 01/19/17 Calcium Carbonate [Calcium] 500 mg PO DAILY 11/11/18 Cholecalciferol (Vitamin D3) [Vitamin D3] 1,000 unit PO DAILY 11/11/18 Albuterol Sulfate Inhaler - [Ventolin HFA Inhaler -] 2 inh PO Q4H PRN #30 neb <Sang Khan - Last Filed: 11/20/18 12:46> Condition: Stable - Instructions Diet, Activity, Other Instructions: Post Operative Instructions Physical Activity Resume your normal everyday activity as tolerated. No heavy lifting or exercise until seen by your surgeon. You may walk unlimited amounts and climb stairs. You may resume driving the car when you feel safe and comfortable behind the wheel and you are no longer wearing your brace. Do not operate a vehicle while taking narcotic medication. Brace If you had back surgery, wear TLSO Brace whenever out of bed. May remove to sleep and shower. Wound Care Keep your incision clean, dry and covered at all times. Apply an occlusive dressing (Saran wrap or Tegaderm) when showering to avoid getting your incision wet. Do not submerge incision or apply ointments or creams. The gustavo will be removed in the office in 10-14 days post-op. Diet There are no dietary restrictions. Eat healthy, high-fiber foods. Drink 6-8 glasses of liquid each day. This will assist in keeping your bowels regular. Pain Management You may take Tylenol or acetaminophen. Any pain prescription medication ordered should be taken as prescribed for moderate to severe pain. Avoid any ibuprofen (Motrin, Advil, Aleve, Toradol, etc) for 3 months unless otherwise discussed with your surgeon. Call Dr Mendez for any of the following: Severe pain not relieved by medication Fever of 101 or higher Excessive bleeding or drainage on dressing Inability to urinate Any chest pain or shortness of breath, seek Emergency Care. Call the office to confirm a post-operative appointment for 2-3 weeks post-op Luciano Andino MD [facility] [place] [address] [facility] CHILD SUPPORT OFFICER: This report was requested by: Ralph Newsome | Reference #: [id number] Referrals: Luciano Andino MD, [facility] [Staff Physician] - 1 Week () Annette Bruno MD [Non Staff, Medical] - 1 Week Brennan Devlin MD [Staff Physician] - (Needs PFTs, inhaler optimization, etc. Within 1 week of DC) Disposition: HOME This patient is new to me today: No Emergency Visit: No Critical Care patient: No - Discharge Referral Referred to [facility] No <Dimitry Stewart - Last Filed: 11/20/18 11:12> This patient is new to me today: No Emergency Visit: Yes ED Registration Date: 11/18/18 Care time: The patient presented to the Emergency Department on the above date and was hospitalized for further evaluation of their emergent condition. Critical Care patient: No - Discharge Referral Referred to [facility] No <Sang Khan - Last Filed: 11/20/18 12:46> ATTENDING PHYSICIAN STATEMENT I saw and evaluated the patient. I reviewed the resident's note and discussed the case with the resident. I agree with the resident's findings and plan as documented. SUBJECTIVE: OBJECTIVE: ASSESSMENT AND PLAN: <Dimitry Stewart - Last Filed: 11/20/18 11:12> Agree with resident discharge summary. Provided medical surveillance while she was in the hospital as an inpatient for indicated surgical procedure. She had no worsening of her chronic medical conditions, was discharged home on her base amount of oxygen, has no dyspnea, shortness of breath, or developing neuropathic or radicular symptoms. No red flag postoperative findings noted. Stable physical exam. Indicated follow-up as noted. <Sang Khan - Last Filed: 11/20/18 12:46>"
[2018-11-20] MEDS ORDERED: DEXTROSE 5%-WATER - 50 ML IVPB ONE (10:17)
[2018-11-20] MEDS: oxyCODONE HCL 5 MG TABLET PO PRN (12:45)
[2018-11-20 13:59] VITALS: BP 115/54; TEMP 98.1
[2018-11-20] MEDS ORDERED: predniSONE 5 MG TABLET (UD) PO SCH (14:00)
[2018-11-20 14:49] VITALS: PULSE 100
--- NOTE | 2018-11-25 09:36 | SURG ---
Surgery Editor Publications Note Editor Publications: Ralph Newsome PA-C Date of Service: 11/18/18 Diagnosis: disc herniation w/ stenosis, lithesis and facet arthropathy, significant insatbility Procedure: 1. L4/5 Transpedicular approach 2. L4/5 Laminectomy for stenosis 3. Fluroscopy 4. Microdissection 5. Interbody cage L4/5 6. Interbody & Posterior/lateral arthrodesis L4/5 7. L4/5 Posterior Instrumentation 8. Local autograft 9. Bilateral soft tissue advancement flaps (50 CM2) I was present for the entirety of the operative procedure. For further detail, please refer to operative report. Visit type - Case Type Case Type: Scheduled - New patient This patient is new to me today: Yes Date on this admission: 11/25/18
== END 2018-11-20 16:31 | disposition home or self-care (01) | DRG 454 ==
LOC: JSAMEDAYSX 05:08 → JICU 17:31 → J8W 11-19 18:51
PROVIDERS: ADMIT Internal Medicine; ATTEND Internal Medicine
PROC: 0SG0071 Fusion of Lumbar Vertebral Joint with Autologous Tissue Substitute, Posterior Approach, Posterior Column, Open Approach (ICD-10-PCS; 2018-11-18)
PROC: 0SB20ZZ Excision of Lumbar Vertebral Disc, Open Approach (ICD-10-PCS; 2018-11-18)
PROC: 0JX70ZZ Transfer Back Subcutaneous Tissue and Fascia, Open Approach (ICD-10-PCS; 2018-11-18)
PROC: B01BZZZ Fluoroscopy of Spinal Cord (ICD-10-PCS; 2018-11-18)
PROC: 0SG00AJ Fusion of Lumbar Vertebral Joint with Interbody Fusion Device, Posterior Approach, Anterior Column, Open Approach (ICD-10-PCS; principal; 2018-11-18 08:00)
DX: M48.061 Spinal stenosis, lumbar region without neurogenic claudication (principal); I47.1 Supraventricular tachycardia; J96.11 Chronic respiratory failure with hypoxia; M43.16 Spondylolisthesis, lumbar region; M51.16 Intervertebral disc disorders with radiculopathy, lumbar region; M47.26 Other spondylosis with radiculopathy, lumbar region; Q24.9 Congenital malformation of heart, unspecified; J44.9 Chronic obstructive pulmonary disease, unspecified; I48.0 Paroxysmal atrial fibrillation; I10 Essential (primary) hypertension; Z99.81 Dependence on supplemental oxygen; Z79.51 Long term (current) use of inhaled steroids
CPT/HCPCS: 36415; 72131-TC; 76000-TC-FY; 80048; 82607; 82746; 85027; 86803; 86850; 86900; 86901; 87389; 94640; 94760; 97116-GP; 97161-GP; J0131; J1644; Q2036

== ENCOUNTER 2019-02-13 17:24 | Inpatient (IN) | payer OTHER ==
--- NOTE | 2019-02-13 17:27 | PDOC ---
Rapid Medical Evaluation Time Seen by Provider: 02/13/19 17:27 Medical Evaluation: Allergies Allergy/AdvReac Type Severity Reaction Status Date / Time No Known Allergies Allergy Verified 11/18/18 07:05 02/13/19 17:27 I have performed a brief in-person evaluation of this patient. The patient presents with a chief complaint of:sob. H/o COPD (on 2LNC), pAF, not on AC, spinal stenosis, s/p L4-5 laminectomy 11/2018 Pertinent physical exam findings:visibly sob, sating 90% on 2L, RR 26 w/ BP 95/ 43 I have ordered the following:ekg/cxr/labs The patient will proceed to the ED for further evaluation. Discharge Disposition - Diagnosis SOB (shortness of breath) - Referrals - Patient Instructions - Post Discharge Activity
[2019-02-13] MEDS ORDERED: ALBUTEROL SO4 2.5/IPRATROPIUM 0.5 INH SOL 3 ML VIAL.NEB. NEB ONE ×3 (18:01→23:15)
[2019-02-13] MEDS ORDERED: methylPREDNISolone NA SUCC 125 MG/2 ML VIAL IVPUSH ONE (18:01)
[2019-02-13] MEDS ORDERED: VANCOMYCIN 1 GM in D5W (PRE-DOCKED) 1,000 MG/250 ML IVPB ONE (18:02)
[2019-02-13] MEDS ORDERED: PIPERACILLIN/TAZOB 4.5 GM 4.5 GM in DEXTROSE 5%-WATER 100 ML IVPB ONE (18:02)
--- NOTE | 2019-02-13 18:06 | PDOC ---
History of Present Illness - General Chief Complaint: Shortness of Breath Stated Complaint: SOB Time Seen by Provider: 02/13/19 17:27 History Source: Patient Exam Limitations: No Limitations - History of Present Illness Initial Comments: 02/13/19 18:03 68yF w PMHx stage IV COPD (2L NC), a fib not on AC, spinal stenosis s/p L4-5 laminectomy 11/2018 presenting w SOB. Progressive onset over past day. Took multiple albuterol inhalers today, 1x nebulizer without improvement. Denies fever, cough, chest pain, nausea/vomiting, AB swelling, urinary/bowel mvmt changes 2 weeks ago hit R leg on closet door, laceration required 22 stitches Pulm - [place] Past History - Past Medical History Allergies/Adverse Reactions: Allergies Allergy/AdvReac Type Severity Reaction Status Date / Time No Known Allergies Allergy Verified 02/13/19 17:28 Home Medications: Ambulatory Orders Verapamil HCl [Verapamil ER] 120 mg PO DAILY 04/03/16 Nebivolol HCl [Bystolic] 5 mg PO HS 12/31/16 Escitalopram Oxalate [Lexapro -] 5 mg PO DAILY 01/19/17 predniSONE [Deltasone -] 7.5 mg PO DAILY 01/19/17 Calcium Carbonate [Calcium] 500 mg PO DAILY 11/11/18 Cholecalciferol (Vitamin D3) [Vitamin D3] 1,000 unit PO DAILY 11/11/18 Albuterol Sulfate Inhaler - [Ventolin HFA Inhaler -] 2 inh PO Q4H PRN #30 neb Albuterol 0.083% Nebulizer Lelo [Ventolin 0.083%] 1 neb NEB Q4H PRN 02/13/19 Anemia: No Asthma: Yes Cancer: No Cardiac Disorders: Yes (A.FIB) CVA: No COPD: Yes (o2 dependent at home) CHF: No Dementia: No Diabetes: No GI Disorders: No Disorders: No HTN: Yes Hypercholesterolemia: Yes Liver Disease: No Seizures: No Thyroid Disease: No - Surgical History Abdominal Surgery: No Appendectomy: No 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 No: Cough, Wheezing Cardiac (ROS): No: Chest Pain, Palpitations, Syncope ABD/GI: No: Abdominal Distended, Constipated, Diarrhea, Nausea, Vomiting : No: Burning, Dysuria, Discharge Musculoskeletal: No: Back Pain, Joint Pain Integumentary: No: Bruising, Dryness, Erythema Neurological: No: Headache, Seizure, Tingling Psychiatric: No: Anxiety, Depression, Stressors Endocrine: No: Excessive Sweating, Flushing, Intolerance to Cold, Intolerance to Heat Hematologic/Lymphatic: No: Anemia, Blood Clots *Physical Exam - Vital Signs Last Vital Signs Temp Pulse Resp BP Pulse Ox 97.7 F 90 26 H 95/43 L 90 L 02/13/19 17:36 02/13/19 17:36 02/13/19 17:36 02/13/19 17:36 02/13/19 17:36 - Physical Exam General Appearance: Yes: Nourished, Appropriately Dressed, Mild Distress HEENT: positive: EOMI, TOLU, Normal Voice, Hearing Grossly Normal. negative: Scleral Icterus (R), Scleral Icterus (L), Nasal Congestion, Rhinorrhea Respiratory/Chest: positive: Accessory Muscle Use, Labored Respiration, Rapid RR , Decreased Breath Sounds (francisco javier), Wheezing (francisco javier). negative: Chest Tender, Crackles, Rales, Rhonchi, Stridor Cardiovascular: positive: Regular Rhythm, S1, S2, Tachycardia. negative: Murmur Extremity: positive: Swelling (1+ pitting to knees francisco javier), Other (R medial lower leg stiched laceration, no erythema/tenderness) Integumentary: positive: Normal Color, Dry Neurologic: positive: Fully Oriented, Alert, Normal Mood/Affect, Normal Response , Motor Strength 5/5, Responsive. negative: Numbness, Confused, Disoriented ED Treatment Course - LABORATORY CBC & Chemistry Diagram: 02/13/19 18:08 02/13/19 18:08 Medical Decision Making - Medical Decision Making 02/13/19 18:03 EKG NS, HR 76, QTc 423, no ST changes CXR clear lung jordan lactate 2.1, pH 7.31, CO2 62, O2<49 --- 68yF w PMHx COPD (2L NC), a fib not on AC, spinal stenosis s/p L4-5 laminectomy 11/2018 presenting w 1d SOB d/t COPD exacerbation (decreased breath sounds, wheezing). Low concern for ACS (neg trop) vs CHF (normal BNP) vs PNA (no consolidation) Did not start BiPAP d/t hypotension. Unknown cause of BLE swelling. Pending UA Given duoneb x3, solumedrol, vanc, zosyn, 500mL NS Admitted m/s Dr Murcia for COPD exacerbation Discharge - Discharge Information Problems reviewed: Yes Clinical Impression/Diagnosis: SOB (shortness of breath) Condition: Improved - Follow up/Referral - Patient Discharge Instructions - Post Discharge Activity
[2019-02-13] MEDS ORDERED: PIPERACILLIN/TAZOB 4.5 GM 4.5 GM/100 ML BAG IVPB ONE (18:24)
[2019-02-13] MEDS ORDERED: methylPREDNISolone NA SUCC 125 MG/2 ML VIAL ONE (18:24)
[2019-02-13 18:25] LABS: VENOUS PC02 62.8 mmHg (38-52); VENOUS PH 7.31 (7.31-7.41); VENOUS PO2 < 49 mmHg (28-48)
--- NOTE | 2019-02-13 18:28 | PDOC ---
Attending Attestation - Resident Resident Name: Rico Yee - HPI HPI: 02/13/19 18:21 pt presents to the ED complaining of a two day history of shortness of breath that is much worse than her chronic shortness of breath. Patient has a history of stage 4 COPD and is chronically on home O2. Patient states that she is usually able to ambulate without difficulty, but over the last two days she has become short of breath with any activity. Denies fever. Chronically on low dose prednisone. Has tried nebs at home without relief. 02/13/19 18:46 - Physicial Exam PE: 02/13/19 18:28 Agree with resident exam. Patient is alert and in no acute distress. Lungs are clear b/l, but with markedly decreased air entry. speaking in complete sentences. CV: rrr no murmur. - Medical Decision Making 02/13/19 18:39 Pt presents to the ED complaining of shortness of breath and VILLAGRAN. Longstanding history of severe COPD. Symptoms may be secondary to COPD exacerbation will treat with nebs and steroids and antibiotics. Will check CXR. Symptoms may also be secondary to CHF--will check troponin and BNP. Will admit to medicine 02/13/19 18:46
[2019-02-13 18:33] LABS: BASO % 0.5 % (0-2.0); EOS % 1.5 % (0-4.5); HEMATOCRIT 38.1 % (32.4-45.2); HEMOGLOBIN 12.2 GM/dL (10.7-15.3); MCH 30.1 pg (25.7-33.7); MCHC 32.1 g/dl (32.0-36.0); MEAN CELL VOLUME 93.8 fl (80-96); MEAN PLT VOLUME 7.5 fl (7.5-11.1); MONO % 10.1 % (3.8-10.2); NEUT % 65.9 % (42.8-82.8); PLATELET COUNT 206 K/MM3 (134-434); RBC 4.06 M/mm3 (3.60-5.2); RDW 13.8 % (11.6-15.6); WHITE BLOOD COUNT 4.3 K/mm3 (4.0-10.0)
[2019-02-13 18:45] LABS: INR 0.95 (0.83-1.09); PROTHROMBIN TIME (PATIENT) 11.2 SEC (9.7-13.0)
[2019-02-13 18:57] LABS: ALBUMIN 3.6 g/dl (3.4-5.0); BILIRUBIN,TOTAL 0.3 mg/dL (0.2-1); CALCIUM 9.6 mg/dL (8.5-10.1); CREATININE 0.6 mg/dL (0.55-1.3); POTASSIUM 4.7 mmol/L (3.5-5.1); TOT PROT 6.9 g/dl (6.4-8.2)
[2019-02-13] MEDS ORDERED: VANCOMYCIN 1 GRAM (PRE-DOCKED) 1,000 MG/250 ML BAG IVPB ONE (19:18)
[2019-02-13] MEDS ORDERED: SODIUM CHLORIDE 0.9% 500 ML INFUS.BAG IV ONE (20:39)
--- NOTE | 2019-02-13 20:48 | PN ---
Teaching Attending Note Name of Resident: Machelle Brown ATTENDING PHYSICIAN STATEMENT I saw and evaluated the patient. I reviewed the resident's note and discussed the case with the resident. I agree with the resident's findings and plan as documented. SUBJECTIVE: Patient is a 68 year old woman with a PMH of stage IV COPD (2L NC O2), Afib ( not on AC), Spinal stenosis (s/p L4-5 laminectomy 11/2018) and HLD presenting with SOB. Progressive onset over past day. Took multiple albuterol inhalers today, 1x nebulizer without improvement. Denies fever, cough, chest pain, nausea , vomiting, abdominal swelling, dysuria, frequency, diarrhea or constipation. Two weeks ago hit right leg on closet door and sustained a laceration that required 22 stitches. No recent travels or sick contacts. Denies alcohol, tobacco or illicit drug use. Did not get the Flu vaccine. OBJECTIVE: Alert Vital Signs Period Temp Pulse Resp BP Sys/[place] Pulse Ox Last 24 Hr 97.7 F 90 26 95/43 90 HEENT: No Jaundice, eye redness or discharge, PERRLA, EOMI. Normocephalic, atraumatic. External ears are normal and hearing is grossly intact. No nasal discharge. Neck: Supple, nontender. No palpable adenopathy or thyromegaly. No JVD Chest: Good effort. Wheezing. Clear to percussion. Heart: Regular. No S3, rub or murmur Abdomen: Not distended, soft, nontender and no HSM. No rebound or guarding. Normal bowel sounds. Ext: Peripheral pulses intact. No leg edema. Skin: Warm and dry. No petechiae, rash or ecchymosis. Neuro: Alert. Oriented x3. CN 2-12 grossly intact. Sensation grossly intact in all four extremities and DTR are symmetric. Psych: Appropriate mood and affect. Good insight. Home Medications Medication Instructions Recorded Verapamil HCl [Verapamil ER] 120 mg PO DAILY 04/03/16 Nebivolol HCl [Bystolic] 5 mg PO HS 12/31/16 Escitalopram Oxalate [Lexapro -] 5 mg PO DAILY 01/19/17 predniSONE [Deltasone -] 7.5 mg PO DAILY 01/19/17 Calcium Carbonate [Calcium] 500 mg PO DAILY 11/11/18 Cholecalciferol (Vitamin D3) 1,000 unit PO DAILY 11/11/18 [Vitamin D3] Albuterol Sulfate Inhaler - 2 inh PO Q4H PRN #30 neb 11/20/18 [Ventolin HFA Inhaler -] Albuterol 0.083% Nebulizer Lelo 1 neb NEB Q4H PRN 02/13/19 [Ventolin 0.083%] Abnormal Lab Results 02/13/19 02/13/19 02/13/19 18:08 18:08 18:08 POC VBG pCO2 62.8 H POC VBG pO2 < 49 H VBG HCO3 30.8 H VBG O2 Sat (Isidro) 63.7 L VBG Base Excess 3.5 H Anion Gap 4 L BUN 6.0 L Lactic Acid 2.1 H ASSESSMENT AND PLAN: 1. COPD exacerbation - No obvious precipitating factor. No acute abnormality on CXR. VBG shows hypoxia and hypercarbia. EKG shows NSR with no significant changes. Urinalysis pending. Being treated with solumedrol, duoneb, azithromycin , symbicort and O2. Will get ECHO and continue comprehensive care for all of patients comorbid conditions. 2. DVT prophylaxis - Lovenox 40 mg SQ q 24 hours. 3. Advance directives - Full code
--- NOTE | 2019-02-13 21:07 | HP ---
CHIEF COMPLAINT: shortness of breath HISTORY OF PRESENT ILLNESS: Ms. Reyes is a 68y/o female with COPD, a-fib (not on AC), spinal stenosis s /p laminectomy 11/2018, who presents with progressive shortness of breath. About 1 week ago she reports using her nebulizer, which she does not often, and it became more frequent. The last 4-5 days she became more short of breath with activity. In the last 24 hours the patient has been unable to get out of bed because of weakness and labored breathing. She reports cough only with breathing treatments. She denies wheezing, fever, chills, n/v/d. She did receive the flu vaccine this season. She denies sick contacts. She uses 2L O2 at home almost 24 hours a day. Her prednisone dose was recently decreased. ER course was notable for: (1) IV bolus (2) vanc, zosyn (3) solumedrol, nebs PAST MEDICAL HISTORY: COPD, a-fib (not on AC), spinal stenosis s/p laminectomy 11/2018 PAST SURGICAL HISTORY: Social History: Smoking: smoked 40 years, quit 23 years ago Alcohol: denies Drugs: denies lives with daughter Allergies No Known Allergies Allergy (Verified 02/13/19 17:28) HOME MEDICATIONS: Home Medications Medication Instructions Recorded Verapamil HCl [Verapamil ER] 120 mg PO DAILY 04/03/16 Nebivolol HCl [Bystolic] 5 mg PO HS 12/31/16 Escitalopram Oxalate [Lexapro -] 5 mg PO DAILY 01/19/17 predniSONE [Deltasone -] 7.5 mg PO DAILY 01/19/17 Calcium Carbonate [Calcium] 500 mg PO DAILY 11/11/18 Cholecalciferol (Vitamin D3) 1,000 unit PO DAILY 11/11/18 [Vitamin D3] Albuterol Sulfate Inhaler - 2 inh PO Q4H PRN #30 neb 11/20/18 [Ventolin HFA Inhaler -] Albuterol 0.083% Nebulizer Lelo 1 neb NEB Q4H PRN 02/13/19 [Ventolin 0.083%] REVIEW OF SYSTEMS see HPI PHYSICAL EXAMINATION Vital Signs - 24 hr 02/13/19 17:36 Temperature 97.7 F Pulse Rate 90 Respiratory 26 H Rate Blood Pressure 95/43 L O2 Sat by Pulse 90 L Oximetry (%) GENERAL: Awake, alert, and fully oriented, in no acute distress. 2L NC HEAD: Normal with no signs of trauma. EYES: Pupils equal, round and reactive to light, extraocular movements intact, conjunctiva clear. EARS, NOSE, THROAT: Ears normal, nares patent, oropharynx slightly erythematous. Moist mucous membranes. NECK: Normal range of motion LUNGS: Clear to auscultation bilaterally, decreased breath sounds HEART: Regular rate and rhythm, no murmur ABDOMEN: Soft, nontender, not distended, normoactive bowel sounds MUSCULOSKELETAL: Normal range of motion at all joints. UPPER EXTREMITIES: Warm, well-perfused. No peripheral edema. LOWER EXTREMITIES: Warm, well-perfused. Trace LLE edema. Sutured laceration on distal [place]. NEUROLOGICAL: Cranial nerves II-XII intact. Normal speech. PSYCHIATRIC: Cooperative. Good eye contact. Appropriate mood and affect. SKIN: Warm, dry, normal turgor Laboratory Results - last 24 hr 02/13/19 02/13/19 02/13/19 18:08 18:08 18:08 WBC 4.3 RBC 4.06 Hgb 12.2 Hct 38.1 D MCV 93.8 MCH 30.1 D MCHC 32.1 RDW 13.8 D Plt Count 206 D MPV 7.5 Absolute Neuts (auto) 2.9 Neutrophils % 65.9 Lymphocytes % 22.0 D Monocytes % 10.1 Eosinophils % 1.5 Basophils % 0.5 Nucleated RBC % 0 PT with INR INR VBG pH POC VBG pCO2 POC VBG pO2 VBG HCO3 VBG O2 Sat (Isidro) VBG Base Excess Sodium 140 Potassium 4.7 Chloride 103 Carbon Dioxide 32 Anion Gap 4 L BUN 6.0 L Creatinine 0.6 Est GFR (CKD-EPI)AfAm 109.31 Est GFR (CKD-EPI)NonAf 94.32 Random Glucose 101 Lactic Acid Calcium 9.6 Total Bilirubin 0.3 AST 23 ALT 23 Alkaline Phosphatase 67 Creatine Kinase 60 Troponin I < 0.02 B-Natriuretic Peptide Total Protein 6.9 Albumin 3.6 02/13/19 02/13/19 02/13/19 18:08 18:08 18:08 WBC RBC Hgb Hct MCV MCH MCHC RDW Plt Count MPV Absolute Neuts (auto) Neutrophils % Lymphocytes % Monocytes % Eosinophils % Basophils % Nucleated RBC % PT with INR INR VBG pH 7.31 POC VBG pCO2 62.8 H POC VBG pO2 < 49 H VBG HCO3 30.8 H VBG O2 Sat (Isidro) 63.7 L VBG Base Excess 3.5 H Sodium Potassium Chloride Carbon Dioxide Anion Gap BUN Creatinine Est GFR (CKD-EPI)AfAm Est GFR (CKD-EPI)NonAf Random Glucose Lactic Acid 2.1 H Calcium Total Bilirubin AST ALT Alkaline Phosphatase Creatine Kinase Troponin I B-Natriuretic Peptide 89.2 Total Protein Albumin 02/13/19 18:08 WBC RBC Hgb Hct MCV MCH MCHC RDW Plt Count MPV Absolute Neuts (auto) Neutrophils % Lymphocytes % Monocytes % Eosinophils % Basophils % Nucleated RBC % PT with INR 11.20 INR 0.95 VBG pH POC VBG pCO2 POC VBG pO2 VBG HCO3 VBG O2 Sat (Isidro) VBG Base Excess Sodium Potassium Chloride Carbon Dioxide Anion Gap BUN Creatinine Est GFR (CKD-EPI)AfAm Est GFR (CKD-EPI)NonAf Random Glucose Lactic Acid Calcium Total Bilirubin AST ALT Alkaline Phosphatase Creatine Kinase Troponin I B-Natriuretic Peptide Total Protein Albumin ASSESSMENT/PLAN: Ms. Reyes is a 68y/o female with COPD, a-fib (not on AC), spinal stenosis s /p laminectomy 11/2018, who presents with progressive shortness of breath. #shortness of breath -solumedrol 40mg Q6H -azithromycin 500mg daily -duonebs QID -Symbicort BID -echo -consider pulm and cards consults -blood cx pending -repeat lactic acid -UA/ urine cx DVT Ppx lovenox FEN PO fluids monitor labs dispo med/surg Visit type - Emergency Visit Emergency Visit: Yes ED Registration Date: 02/13/19 Care time: The patient presented to the Emergency Department on the above date and was hospitalized for further evaluation of their emergent condition. - New Patient This patient is new to me today: Yes Date on this admission: 02/13/19 - Critical Care Critical Care patient: No ATTENDING PHYSICIAN STATEMENT I saw and evaluated the patient. I reviewed the resident's note and discussed the case with the resident. I agree with the resident's findings and plan as documented. SUBJECTIVE: OBJECTIVE: ASSESSMENT AND PLAN:
[2019-02-13] MEDS ORDERED: AZITHROMYCIN 250 MG TABLET PO ONE (22:56)
[2019-02-13] MEDS ORDERED: AZITHROMYCIN 250 MG TABLET ONE (23:15)
[2019-02-13] MEDS: ALBUTEROL SO4 2.5/IPRATROPIUM 0.5 INH SOL 3 ML VIAL.NEB. NEB SCH (23:19)
[2019-02-13] MEDS: BUDESONIDE/FORMETEROL FUMARATE 80/4.5 mcg INHALER IH SCH (23:48)
[2019-02-14] MEDS: methylPREDNISolone NA SUCC 40 MG/1 ML VIAL IVPUSH SCH ×4 (03:04→21:40)
[2019-02-14 04:02] VITALS: BMI 29.0
[2019-02-14 06:02] LABS: PH,URINE 5.5 (5.0-8.0); URINE APPEARANCE CLEAR; URINE BILIRUBIN NEGATIVE (NEGATIVE); URINE COLOR YELLOW; URINE GLUCOSE (UA) TRACE (NEGATIVE); URINE KETONE 1+ (NEGATIVE); URINE LEUK ESTERASE NEGATIVE (NEGATIVE); URINE NITRITE NEGATIVE (NEGATIVE); URINE PROTEIN NEGATIVE (NEGATIVE)
[2019-02-14 08:36] LABS: BASO % 0.1 % (0-2.0); HEMATOCRIT 35.2 % (32.4-45.2); HEMOGLOBIN 11.6 GM/dL (10.7-15.3); LYMPH % 6.3 % (8-40); MCH 30.5 pg (25.7-33.7); MCHC 32.9 g/dl (32.0-36.0); MEAN CELL VOLUME 92.7 fl (80-96); MEAN PLT VOLUME 7.8 fl (7.5-11.1); MONO % 1.4 % (3.8-10.2); NEUT % 92.2 % (42.8-82.8); PLATELET COUNT 191 K/MM3 (134-434); RDW 13.7 % (11.6-15.6); WHITE BLOOD COUNT 4.1 K/mm3 (4.0-10.0)
[2019-02-14] MEDS: ALBUTEROL SO4 2.5/IPRATROPIUM 0.5 INH SOL 3 ML VIAL.NEB. NEB SCH ×3 (08:46→20:40)
[2019-02-14 09:06] LABS: ALBUMIN 3.2 g/dl (3.4-5.0); BILIRUBIN,TOTAL 0.3 mg/dL (0.2-1); BLOOD UREA NITROGEN 8.2 mg/dL (7-18); CALCIUM 9.2 mg/dL (8.5-10.1); CREATININE 0.5 mg/dL (0.55-1.3); MAGNESIUM 2.5 mg/dL (1.8-2.4); POTASSIUM 4.8 mmol/L (3.5-5.1); TOT PROT 6.2 g/dl (6.4-8.2)
[2019-02-14] MEDS: ENOXAPARIN NA (PORCINE) 40 MG/0.4 ML DISP.SYRIN SQ SCH (09:30)
[2019-02-14] MEDS: BUDESONIDE/FORMETEROL FUMARATE 80/4.5 mcg INHALER IH SCH ×2 (09:31→21:40)
--- NOTE | 2019-02-14 10:53 | PN ---
Progress Note (short form) - Note Progress Note: Patient is a 68 yof with a PMHx of stage IV COPD (2L NC O2), Afib (not on AC), Spinal stenosis (s/p L4-5 laminectomy 11/2018) and HLD presenting with SOB. Vital Signs Temperature 98.3 F 02/14/19 08:15 Pulse Rate 119 H 02/14/19 10:20 Respiratory Rate 20 02/14/19 08:15 Blood Pressure 123/69 02/14/19 08:15 O2 Sat by Pulse Oximetry (%) 95 02/14/19 09:00 GENERAL: The patient is awake, alert, and fully oriented, in no acute distress. HEAD: Normal with no signs of trauma. EYES: PERRL, EOMI, sclera anicteric, conjunctiva clear. ENT: Ears normal, oropharynx clear without exudates, moist mucous membranes. NECK: Trachea midline, full range of motion, supple. LUNGS: decreased air entry BL, no accessory muscle use. HEART: Regular rate and rhythm, S1, S2 without murmur, rub or gallop. ABDOMEN: Soft, Nt,ND, normoactive bowel sounds, no guarding, no rebound, no hepatosplenomegaly, no masses. EXTREMITIES: 2+ pulses, warm, well-perfused, no edema. NEUROLOGICAL: Cranial nerves II through XII grossly intact. Normal speech, gait is stable PSYCH: Normal mood, normal affect. SKIN: Warm, dry, normal turgor, no rashes or lesions noted CBCD WBC 4.1 K/mm3 (4.0-10.0) 02/14/19 07:51 RBC 3.80 M/mm3 (3.60-5.2) 02/14/19 07:51 Hgb 11.6 GM/dL (10.7-15.3) 02/14/19 07:51 Hct 35.2 % (32.4-45.2) 02/14/19 07:51 MCV 92.7 fl (80-96) 02/14/19 07:51 MCHC 32.9 g/dl (32.0-36.0) 02/14/19 07:51 RDW 13.7 % (11.6-15.6) 02/14/19 07:51 Plt Count 191 K/MM3 (134-434) 02/14/19 07:51 MPV 7.8 fl (7.5-11.1) 02/14/19 07:51 CMP Sodium 139 mmol/L (136-145) 02/14/19 07:51 Potassium 4.8 mmol/L (3.5-5.1) 02/14/19 07:51 Chloride 102 mmol/L (98-107) 02/14/19 07:51 Carbon Dioxide 31 mmol/L (21-32) 02/14/19 07:51 Anion Gap 5 MMOL/L (8-16) L 02/14/19 07:51 BUN 8.2 mg/dL (7-18) 02/14/19 07:51 Creatinine 0.5 mg/dL (0.55-1.3) L 02/14/19 07:51 Random Glucose 175 mg/dL (74-106) H 02/14/19 07:51 Calcium 9.2 mg/dL (8.5-10.1) 02/14/19 07:51 Total Bilirubin 0.3 mg/dL (0.2-1) 02/14/19 07:51 AST 15 U/L (15-37) 02/14/19 07:51 ALT 20 U/L (13-61) 02/14/19 07:51 Alkaline Phosphatase 60 U/L (45-117) 02/14/19 07:51 Total Protein 6.2 g/dl (6.4-8.2) L 02/14/19 07:51 Albumin 3.2 g/dl (3.4-5.0) L 02/14/19 07:51 CARDIAC ENZYMES Creatine Kinase 60 U/L (26-192) 02/13/19 18:08 Troponin I < 0.02 ng/ml (0.00-0.05) 02/13/19 18:08 Current Medications Generic Name Dose Route Start Last Admin Trade Name Freq PRN Reason Stop Dose Admin Albuterol/Ipratropium 1 amp 02/13/19 22:00 02/14/19 08:46 Duoneb - NEB 1 amp RQID [place] Administration Budesonide/Formoterol Fumarate 2 puff 02/13/19 23:00 02/14/19 09:31 Symbicort 80/4.5mcg - IH 2 puff BID [place] Administration Enoxaparin Sodium 40 mg 02/14/19 10:00 02/14/19 09:30 Lovenox - SQ 40 mg DAILY [place] Administration Methylprednisolone Sodium Succinate 40 mg 02/14/19 03:00 02/14/19 09:30 Solu-Medrol - IVPUSH 40 mg Q6H-IV [place] Administration Home Medications Medication Instructions Recorded Verapamil HCl [Verapamil ER] 120 mg PO DAILY 04/03/16 Nebivolol HCl [Bystolic] 5 mg PO HS 12/31/16 Escitalopram Oxalate [Lexapro -] 5 mg PO DAILY 01/19/17 predniSONE [Deltasone -] 7.5 mg PO DAILY 01/19/17 Calcium Carbonate [Calcium] 500 mg PO DAILY 11/11/18 Cholecalciferol (Vitamin D3) 1,000 unit PO DAILY 11/11/18 [Vitamin D3] Albuterol Sulfate Inhaler - 2 inh PO Q4H PRN #30 neb 11/20/18 [Ventolin HFA Inhaler -] Albuterol 0.083% Nebulizer Lelo 1 neb NEB Q4H PRN 02/13/19 [Ventolin 0.083%] CXR: No infiltrate Assessment and Plan: Patient is a 68y/o female with COPD, a-fib (not on AC), spinal stenosis s/p laminectomy 11/2018, who presents with progressive shortness of breath. #Acute COPD exacerbation on duoneb, Symbicort BID, solumedrol 40mg IV, pulm consult appreciated blood cx pending, repeat lactic acid, UA/ urine cx pending DVT Ppx: lovenox Visit type - Emergency Visit Emergency Visit: Yes ED Registration Date: 02/13/19 Care time: The patient presented to the Emergency Department on the above date and was hospitalized for further evaluation of their emergent condition. - New Patient This patient is new to me today: Yes Date on this admission: 02/15/19 - Critical Care Critical Care patient: No - Discharge Referral Referred to [facility] No
[2019-02-14] MEDS ORDERED: ALBUTEROL SO4 0.083% IH SOL 2.5 MG/3 ML VIAL.NEB. NEB PRN (12:23)
[2019-02-14 12:27] LABS: PLATELET ESTIMATE ADEQUATE
--- NOTE | 2019-02-14 12:28 | CON.PULM ---
Consult Consult Specialty:: PULM/CCM Referred by:: Hospitalist Reason for Consultation:: SOB - History of Present Illness Chief Complaint: SOB History of Present Illness: 68 F, well known to me from my office. Moderate to severe O2 dependent(2 L NC) COPD due to previous smoking history. AFib (not on AC), and recent laminectomy on 11/2018) due to spinal stenosis. Admitted via the ER due to progressive shortness of breath for about 3 to 4 days refractory to her home BD [place]. Of note, her albuterol may be . Reduction in daily Prednisone from 7.5 to 5 about 1 month ago. She did have a possible sick contact (her granddaughter). No travel history. No fever or chills. CXR: No acute process - History Source History Provided By: Patient Limitations to Obtaining History: No Limitations - Past Medical History Pulmonary: Yes: Bronchitis, COPD, O2 Dependent, Pneumonia, Previously Intubated. No: Asthma, Cancer, Pulmonary Embolus, Pulmonary Fibrosis, Sleep Apnea - Alcohol/Substance Use Hx Alcohol Use: No - Smoking History Smoking history: Former smoker Have you smoked in the past 12 months: No If you are a former smoker, when did you quit?: 1989 - Social History ADL: Independent History of Recent Travel: Yes Home Medications - Allergies Allergies/Adverse Reactions: Allergies Allergy/AdvReac Type Severity Reaction Status Date / Time No Known Allergies Allergy Verified 02/13/19 17:28 - Home Medications Home Medications: Ambulatory Orders Verapamil HCl [Verapamil ER] 120 mg PO DAILY 04/03/16 Nebivolol HCl [Bystolic] 5 mg PO HS 12/31/16 Escitalopram Oxalate [Lexapro -] 5 mg PO DAILY 01/19/17 predniSONE [Deltasone -] 7.5 mg PO DAILY 01/19/17 Calcium Carbonate [Calcium] 500 mg PO DAILY 11/11/18 Cholecalciferol (Vitamin D3) [Vitamin D3] 1,000 unit PO DAILY 11/11/18 Albuterol Sulfate Inhaler - [Ventolin HFA Inhaler -] 2 inh PO Q4H PRN #30 neb Albuterol 0.083% Nebulizer Lelo [Ventolin 0.083%] 1 neb NEB Q4H PRN 02/13/19 Review of Systems - Review of Systems Constitutional: reports: Malaise, Weakness. denies: Chills, Fever, Night Sweats , Unintentional Wgt. Loss Eyes: reports: No Symptoms HENT: reports: No Symptoms Neck: reports: No Symptoms Cardiovascular: reports: Shortness of Breath. denies: Chest Pain, Edema, Palpitations Respiratory: reports: Cough, SOB, SOB on Exertion, Wheezing. denies: Hemoptysis , Orthopnea, PND, Snoring Gastrointestinal: reports: No Symptoms Genitourinary: reports: No Symptoms Breasts: reports: No Symptoms Reported Musculoskeletal: reports: No Symptoms Integumentary: reports: No Symptoms Neurological: reports: No Symptoms Endocrine: reports: No Symptoms Hematology/Lymphatic: reports: No Symptoms Psychiatric: reports: No Symptoms Physical Exam Vital Sings: Vital Signs Temperature 98.3 F 02/14/19 08:15 Pulse Rate 119 H 02/14/19 10:20 Respiratory Rate 02/14/19 08:15 Blood Pressure 123/69 02/14/19 08:15 O2 Sat by Pulse Oximetry (%) 95 02/14/19 09:00 Constitutional: Yes: Anxious, Mild Distress, Thin Eyes: Yes: Conjunctiva Clear, EOM Intact HENT: Yes: Atraumatic, Normocephalic Neck: Yes: Supple, Trachea Midline Cardiovascular: Yes: Pulse Irregular Respiratory: Yes: Cough, Diminished, On Nasal O2, SOB, SOB on Exertion, Tachypnea, Wheezes. No: Accessory Muscle Use, Rales, Rhonchi, Stridor ...Inspection: Yes: WNL ...Clubbing: No Gastrointestinal: Yes: Normal Bowel Sounds, Soft Renal/: Yes: WNL Musculoskeletal: Yes: WNL Extremities: Yes: WNL Edema: No Peripheral Pulses WNL: Yes Integumentary: Yes: WNL Neurological: Yes: WNL, Alert, Oriented ...Motor Strength: WNL Psychiatric: Yes: WNL, Alert, Oriented Labs: CBC, BMP 02/14/19 07:51 02/14/19 07:51 Imaging - Results Chest X-ray: Report Reviewed, Image Reviewed Problem List - Problems (1) Shortness of breath Code(s): R06.02 - SHORTNESS OF BREATH (2) Afib Code(s): I48.91 - UNSPECIFIED ATRIAL FIBRILLATION (3) Bronchitis Code(s): J40 - BRONCHITIS, NOT SPECIFIED ACUTE OR CHRONIC (4) COPD (chronic obstructive pulmonary disease) Code(s): J44.9 - CHRONIC OBSTRUCTIVE PULMONARY DISEASE, UNSPECIFIED Qualifiers: COPD type: unspecified COPD Qualified Code(s): J44.9 - Chronic obstructive pulmonary disease, unspecified (5) COPD exacerbation Code(s): J44.1 - CHRONIC OBSTRUCTIVE PULMONARY DISEASE W (ACUTE) EXACERBATION (6) Chronic hypoxemic respiratory failure Code(s): J96.11 - CHRONIC RESPIRATORY FAILURE WITH HYPOXIA (7) HTN (hypertension) Code(s): I10 - ESSENTIAL (PRIMARY) HYPERTENSION Assessment/Plan Medrol Standing Duoneb Albuterol PRN O2 as needed Monitor off ABX VTE prophylaxis No smoking Will follow Thank you. Dr Devlin
[2019-02-14] MEDS: OSELTAMIVIR PHOSPHATE 75 MG CAPSULE PO SCH (15:36)
--- NOTE | 2019-02-14 23:19 | EKG ---
Test Reason : Blood Pressure : / mmHG Vent. Rate : 076 BPM Atrial Rate : 076 BPM P-R Int : 132 ms QRS Dur : 064 ms QT Int : 376 ms P-R-T Axes : 071 080 076 degrees QTc Int : 423 ms NORMAL SINUS RHYTHM NORMAL ECG WHEN COMPARED WITH ECG OF 11-NOV-2018 10:22, [place] INTERVAL HAS INCREASED Confirmed by CHRISTIAN GARVEY MD ([id number]) on 02/14/2019 11:19:18 PM Referred By: Confirmed By:CHRISTIAN GARVEY MD
[2019-02-15] MEDS: methylPREDNISolone NA SUCC 40 MG/1 ML VIAL IVPUSH SCH ×2 (02:27→09:13)
[2019-02-15] MEDS: ALBUTEROL SO4 2.5/IPRATROPIUM 0.5 INH SOL 3 ML VIAL.NEB. NEB SCH ×2 (09:08→13:07)
[2019-02-15] MEDS: OSELTAMIVIR PHOSPHATE 75 MG CAPSULE PO SCH (09:13)
[2019-02-15] MEDS: BUDESONIDE/FORMETEROL FUMARATE 80/4.5 mcg INHALER IH SCH (09:14)
[2019-02-15] MEDS: ENOXAPARIN NA (PORCINE) 40 MG/0.4 ML DISP.SYRIN SQ SCH (09:15)
[2019-02-15 09:37] VITALS: BP 128/55; PULSE 70; TEMP 98.5
--- NOTE | 2019-02-15 11:26 | PN ---
Progress Note (short form) - Note Progress Note: Breathing feels at baseline. No CP or SOB. No acute events overnight. Intake & Output 02/12/19 02/13/19 02/14/19 02/15/19 23:59 23:59 23:59 23:59 Intake Total 200 810 Balance 200 810 Weight 100 lb 6.4 oz 100 lb 6.4 oz 98 lb 11.2 oz Last Vital Signs Temp Pulse Resp BP Pulse Ox 98.5 F 70 20 128/55 L 99 02/15/19 09:35 02/15/19 09:35 02/15/19 09:35 02/15/19 09:35 02/15/19 09:00 Active Medications Albuterol Sulfate (Ventolin 0.083% Nebulizer Soln -) 1 amp NEB Q4H PRN PRN Reason: SHORT OF BREATH/WHEEZING Albuterol/Ipratropium (Duoneb -) 1 amp NEB RQID [facility] Last Admin: 02/15/19 09:08 Dose: 1 amp Budesonide/Formoterol Fumarate (Symbicort 80/4.5mcg -) 2 puff IH BID [facility] Last Admin: 02/15/19 09:14 Dose: 2 puff Enoxaparin Sodium (Lovenox -) 40 mg SQ DAILY [facility] Last Admin: 02/15/19 09:15 Dose: 40 mg Methylprednisolone Sodium Succinate (Solu-Medrol -) 40 mg IVPUSH Q6H-IV [facility] Last Admin: 02/15/19 09:13 Dose: 40 mg Oseltamivir Phosphate (Tamiflu -) 75 mg PO DAILY [facility] Stop: 02/19/19 14:44 Last Admin: 02/15/19 09:13 Dose: 75 mg Constitutional: Yes: NAD, Thin Eyes: Yes: Conjunctiva Clear, EOM Intact HENT: Yes: Atraumatic, Normocephalic Neck: Yes: Supple, Trachea Midline Cardiovascular: Yes: Pulse Irregular Respiratory: Yes: Cough, Diminished, On Nasal O2. No: Accessory Muscle Use, Rales, Rhonchi, Stridor ...Inspection: Yes: WNL ...Clubbing: No Gastrointestinal: Yes: Normal Bowel Sounds, Soft Renal/: Yes: WNL Musculoskeletal: Yes: WNL Extremities: Yes: WNL Edema: No Peripheral Pulses WNL: Yes Integumentary: Yes: WNL Neurological: Yes: WNL, Alert, Oriented ...Motor Strength: WNL Psychiatric: Yes: WNL, Alert, Oriented Labs: Laboratory Results - last 24 hr 02/14/19 02/14/19 07:51 14:45 Neutrophils % (Manual) 85.0 H Band Neutrophils % 10.0 Lymphocytes % (Manual) 5.0 L D Monocytes % (Manual) 0 L D Eosinophils % (Manual) 0.0 Basophils % (Manual) 0.0 Platelet Estimate Adequate Influenza A (Rapid) Negative Influenza B (Rapid) Negative Problem List - Problems (1) Shortness of breath Code(s): R06.02 - SHORTNESS OF BREATH (2) Afib Code(s): I48.91 - UNSPECIFIED ATRIAL FIBRILLATION (3) Bronchitis Code(s): J40 - BRONCHITIS, NOT SPECIFIED ACUTE OR CHRONIC (4) COPD (chronic obstructive pulmonary disease) Code(s): J44.9 - CHRONIC OBSTRUCTIVE PULMONARY DISEASE, UNSPECIFIED Qualifiers: COPD type: unspecified COPD Qualified Code(s): J44.9 - Chronic obstructive pulmonary disease, unspecified (5) COPD exacerbation Code(s): J44.1 - CHRONIC OBSTRUCTIVE PULMONARY DISEASE W (ACUTE) EXACERBATION (6) Chronic hypoxemic respiratory failure Code(s): J96.11 - CHRONIC RESPIRATORY FAILURE WITH HYPOXIA (7) HTN (hypertension) Code(s): I10 - ESSENTIAL (PRIMARY) HYPERTENSION Assessment/Plan DC Home with: 1. Anoro 1 inhalational dailt Albuterol nebules Q4 PRN:(patients home meds likely ) Prednisone taper over 2 weeks starting at 40mg OD down to 5mg OD Patient has home O2 There is no Pulmonary contraindication for DC home today Dr Devlin Problem List - Problems (1) Shortness of breath Code(s): R06.02 - SHORTNESS OF BREATH (2) Afib Code(s): I48.91 - UNSPECIFIED ATRIAL FIBRILLATION (3) Bronchitis Code(s): J40 - BRONCHITIS, NOT SPECIFIED ACUTE OR CHRONIC (4) COPD (chronic obstructive pulmonary disease) Code(s): J44.9 - CHRONIC OBSTRUCTIVE PULMONARY DISEASE, UNSPECIFIED Qualifiers: COPD type: unspecified COPD Qualified Code(s): J44.9 - Chronic obstructive pulmonary disease, unspecified (5) COPD exacerbation Code(s): J44.1 - CHRONIC OBSTRUCTIVE PULMONARY DISEASE W (ACUTE) EXACERBATION (6) Chronic hypoxemic respiratory failure Code(s): J96.11 - CHRONIC RESPIRATORY FAILURE WITH HYPOXIA (7) HTN (hypertension) Code(s): I10 - ESSENTIAL (PRIMARY) HYPERTENSION
--- NOTE | 2019-02-15 14:35 | DS ---
Physical Exam: SUBJECTIVE: Patient seen and examined OBJECTIVE: Vital Signs Period Temp Pulse Resp BP Sys/[place] Pulse Ox Last 24 Hr 98.1 F-98.8 F 70-107 20-20 112-136/51-59 98-99 PHYSICAL EXAM GENERAL: The patient is awake, alert, and fully oriented, in no acute distress. HEAD: Normal with no signs of trauma. EYES: PERRL, extraocular movements intact, sclera anicteric, conjunctiva clear. ENT: Ears normal, nares patent, oropharynx clear without exudates, moist mucous membranes. NECK: Trachea midline, full range of motion, supple. LUNGS: Breath sounds equal, clear to auscultation bilaterally, no wheezes, no crackles, no accessory muscle use. HEART: Regular rate and rhythm, S1, S2 without murmur, rub or gallop. ABDOMEN: Soft, nontender, nondistended, normoactive bowel sounds, no guarding, no rebound, no hepatosplenomegaly, no masses. EXTREMITIES: 2+ pulses, warm, well-perfused, no edema. NEUROLOGICAL: Cranial nerves II through XII grossly intact. Normal speech, gait not observed. PSYCH: Normal mood, normal affect. SKIN: Warm, dry, normal turgor, no rashes or lesions noted. LABS Laboratory Results - last 24 hr 02/14/19 14:45 Influenza A (Rapid) Negative Influenza B (Rapid) Negative HOSPITAL COURSE: Date of Admission:02/13/19 Date of Discharge: 02/15/19 Discharge Summary Problems reviewed: Yes Reason For Visit: SWELLING OF LOWER EXTREMITY,COPD Condition: Improved - Instructions Diet, Activity, Other Instructions: YOUR VISIT You came to the hospital because you were feeling short of breath. You were admitted to the hospital for care of your COPD. While here, you were seen by pulmonology. You are now stable and may return home. MEDICATIONS Please continue to take your medications as prescribed. Please continue to use your home oxygen on the same settings. NEW MEDICATION Tamiflu once a day by mouth for 3 more days You will need to take a prednisone taper as follows: February 16, 2019 take 40 mg prednisone by mouth February 17, 2019 take 40 mg prednisone by mouth February 18, 2019 take 30 mg prednisone by mouth February 19, 2019 take 30 mg prednisone by mouth February 20, 2019 take 20 mg prednisone by mouth February 21, 2019 take 10 mg prednisone by mouth February 22, 2019 take your home dose of prednisone ADDITIONAL CARE Please make an appointment to see your primary care provider, Dr. Bruno, 1 week from today. Please make an appointment to see a composition worker in 1 week. A referral has to Dr. Devlin has been provided. ADDITIONAL INFORMATION Please call 911 or come directly to the emergency department if you experience unusual headache, vision change, shortness of breath, chest pain, numbness, tingling, loss of alertness/awareness, loss of function, unusual bleeding or any alarming symptoms. Referrals: Annette Bruno MD [Primary Care Provider] - 1 Week Brennan Devlin MD [Staff Physician] - 1 Week Disposition: HOME - Home Medications Comprehensive Discharge Medication List: Ambulatory Orders Verapamil HCl [Verapamil ER] 120 mg PO DAILY 04/03/16 Nebivolol HCl [Bystolic] 5 mg PO HS 12/31/16 Escitalopram Oxalate [Lexapro -] 5 mg PO DAILY 01/19/17 predniSONE [Deltasone -] 7.5 mg PO DAILY 01/19/17 Calcium Carbonate [Calcium] 500 mg PO DAILY 11/11/18 Cholecalciferol (Vitamin D3) [Vitamin D3] 1,000 unit PO DAILY 11/11/18 Albuterol 0.083% Nebulizer Lelo [Ventolin 0.083% Nebulizer Soln -] 1 neb NEB Q4H PRN 02/13/19 Albuterol 0.083% Nebulizer Lelo [Ventolin 0.083% Nebulizer Soln -] 1 amp NEB Q4H PRN #25 amp 02/15/19 Albuterol Sulfate Inhaler - [Ventolin HFA Inhaler -] 2 inh PO Q4H PRN #1 inh 06/30 Budesonide/Formeterol Fumarate [SYMBICORT 80/4.5mcg -] 2 puff IH BID inhaler Oseltamivir Phosphate [Tamiflu] 75 mg PO BID 3 Days #6 capsule 02/15/19 Prednisone See Taper PO DAILY #17 tablet 02/15/19 ATTENDING PHYSICIAN STATEMENT I saw and evaluated the patient. I reviewed the resident's note and discussed the case with the resident. I agree with the resident's findings and plan as documented. SUBJECTIVE: OBJECTIVE: ASSESSMENT AND PLAN:
--- NOTE | 2019-02-15 16:29 | PN ---
Teaching Attending Note Name of Resident: Lawson Stern ATTENDING PHYSICIAN STATEMENT I saw and evaluated the patient. I reviewed the resident's note and discussed the case with the resident. I agree with the resident's findings and plan as documented. SUBJECTIVE: Patient is feeling with no acute distress. Vital Signs Temperature 98.5 F 02/15/19 09:35 Pulse Rate 70 02/15/19 09:35 Respiratory Rate 20 02/15/19 09:35 Blood Pressure 128/55 L 02/15/19 09:35 O2 Sat by Pulse Oximetry (%) 99 02/15/19 09:00 GENERAL: The patient is awake, alert, and fully oriented, in no acute distress. HEAD: Normal with no signs of trauma. EYES: PERRL, EOMI, sclera anicteric, conjunctiva clear. ENT: Ears normal, oropharynx clear without exudates, moist mucous membranes. NECK: Trachea midline, full range of motion, supple. LUNGS: decreased air entry BL, no wheeze, no accessory muscle use. HEART: Regular rate and rhythm, S1, S2 without murmur, rub or gallop. ABDOMEN: Soft, Nt,ND, normoactive bowel sounds, no guarding, no rebound, no hepatosplenomegaly, no masses. EXTREMITIES: 2+ pulses, warm, well-perfused, no edema. NEUROLOGICAL: Cranial nerves II through XII grossly intact. Normal speech, gait is stable PSYCH: Normal mood, normal affect. SKIN: Warm, dry, normal turgor, no rashes or lesions noted CBCD WBC 4.1 K/mm3 (4.0-10.0) 02/14/19 07:51 RBC 3.80 M/mm3 (3.60-5.2) 02/14/19 07:51 Hgb 11.6 GM/dL (10.7-15.3) 02/14/19 07:51 Hct 35.2 % (32.4-45.2) 02/14/19 07:51 MCV 92.7 fl (80-96) 02/14/19 07:51 MCHC 32.9 g/dl (32.0-36.0) 02/14/19 07:51 RDW 13.7 % (11.6-15.6) 02/14/19 07:51 Plt Count 191 K/MM3 (134-434) 02/14/19 07:51 MPV 7.8 fl (7.5-11.1) 02/14/19 07:51 CMP Sodium 139 mmol/L (136-145) 02/14/19 07:51 Potassium 4.8 mmol/L (3.5-5.1) 02/14/19 07:51 Chloride 102 mmol/L (98-107) 02/14/19 07:51 Carbon Dioxide 31 mmol/L (21-32) 02/14/19 07:51 Anion Gap 5 MMOL/L (8-16) L 02/14/19 07:51 BUN 8.2 mg/dL (7-18) 02/14/19 07:51 Creatinine 0.5 mg/dL (0.55-1.3) L 02/14/19 07:51 Random Glucose 175 mg/dL (74-106) H 02/14/19 07:51 Calcium 9.2 mg/dL (8.5-10.1) 02/14/19 07:51 Total Bilirubin 0.3 mg/dL (0.2-1) 02/14/19 07:51 AST 15 U/L (15-37) 02/14/19 07:51 ALT 20 U/L (13-61) 02/14/19 07:51 Alkaline Phosphatase 60 U/L (45-117) 02/14/19 07:51 Total Protein 6.2 g/dl (6.4-8.2) L 02/14/19 07:51 Albumin 3.2 g/dl (3.4-5.0) L 02/14/19 07:51 CARDIAC ENZYMES Creatine Kinase 60 U/L (26-192) 02/13/19 18:08 Troponin I < 0.02 ng/ml (0.00-0.05) 02/13/19 18:08 Current Medications Generic Name Dose Route Start Last Admin Trade Name Freq PRN Reason Stop Dose Admin Albuterol/Ipratropium 1 amp 02/13/19 22:00 02/14/19 08:46 Duoneb - NEB 1 amp RQID [place] Administration Budesonide/Formoterol Fumarate 2 puff 02/13/19 23:00 02/14/19 09:31 Symbicort 80/4.5mcg - IH 2 puff BID [place] Administration Enoxaparin Sodium 40 mg 02/14/19 10:00 02/14/19 09:30 Lovenox - SQ 40 mg DAILY [place] Administration Methylprednisolone Sodium Succinate 40 mg 02/14/19 03:00 02/14/19 09:30 Solu-Medrol - IVPUSH 40 mg Q6H-IV [place] Administration Home Medications Medication Instructions Recorded Verapamil HCl [Verapamil ER] 120 mg PO DAILY 04/03/16 Nebivolol HCl [Bystolic] 5 mg PO HS 12/31/16 Escitalopram Oxalate [Lexapro -] 5 mg PO DAILY 01/19/17 predniSONE [Deltasone -] 7.5 mg PO DAILY 01/19/17 Calcium Carbonate [Calcium] 500 mg PO DAILY 11/11/18 Cholecalciferol (Vitamin D3) 1,000 unit PO DAILY 11/11/18 [Vitamin D3] Albuterol Sulfate Inhaler - 2 inh PO Q4H PRN #30 neb 11/20/18 [Ventolin HFA Inhaler -] Albuterol 0.083% Nebulizer Lelo 1 neb NEB Q4H PRN 02/13/19 [Ventolin 0.083%] Home Medications Medication Instructions Recorded Verapamil HCl [Verapamil ER] 120 mg PO DAILY 04/03/16 Nebivolol HCl [Bystolic] 5 mg PO HS 12/31/16 Escitalopram Oxalate [Lexapro -] 5 mg PO DAILY 01/19/17 predniSONE [Deltasone -] 7.5 mg PO DAILY 01/19/17 Calcium Carbonate [Calcium] 500 mg PO DAILY 11/11/18 Cholecalciferol (Vitamin D3) 1,000 unit PO DAILY 11/11/18 [Vitamin D3] Albuterol 0.083% Nebulizer Lelo 1 neb NEB Q4H PRN 02/13/19 [Ventolin 0.083% Nebulizer Soln -] Albuterol 0.083% Nebulizer Lelo 1 amp NEB Q4H PRN #25 amp 02/15/19 [Ventolin 0.083% Nebulizer Soln -] Albuterol Sulfate Inhaler - 2 inh PO Q4H PRN #1 inh 02/15/19 [Ventolin HFA Inhaler -] Budesonide/Formeterol Fumarate 2 puff IH BID inhaler 02/15/19 [SYMBICORT 80/4.5mcg -] Oseltamivir Phosphate [Tamiflu] 75 mg PO BID 3 Days #6 capsule 02/15/19 Prednisone See Taper PO DAILY #17 tablet 02/15/19 CXR: No infiltrate Assessment and Plan: Patient is a 68y/o female with COPD, a-fib (not on AC), spinal stenosis s/p laminectomy 11/2018, who presents with progressive shortness of breath. #Acute COPD exacerbation , patient is feeling better, cleared by pulm. for the patient can go home, started the patient on Tamiflu since next door neighbor was found to have newly diagnosed flu, we are prophylaxing the patient with Tamiflu 75mg daily, continue home duoneb prn, Symbicort BID, prednisone tapered dose. follow up with pulm. within a week. DVT Ppx: lovenox
== END 2019-02-15 14:20 | disposition home or self-care (01) | DRG 191 ==
LOC: JER 17:24 → JERBED 20:38 → J5S 23:26
PROVIDERS: ADMIT Internal Medicine; ATTEND Internal Medicine
DX: J44.1 Chronic obstructive pulmonary disease with (acute) exacerbation (principal); J96.11 Chronic respiratory failure with hypoxia; I48.91 Unspecified atrial fibrillation; E78.00 Pure hypercholesterolemia, unspecified; J40 Bronchitis, not specified as acute or chronic; I10 Essential (primary) hypertension; Z99.81 Dependence on supplemental oxygen
CPT/HCPCS: 36415; 71045-TC-FY; 80053; 81003; 82550; 82803; 83605; 83735; 83880; 84484; 85025; 85610; 87040; 87086; 87804; 93005; 93010; 94640; 97116-GP; 97161-GP; 99285-25

== ENCOUNTER 2020-04-17 10:52 | Inpatient (IN) | payer OTHER ==
[2020-04-17] MEDS ORDERED: ALBUTEROL SO4 2.5/IPRATROPIUM 0.5 INH SOL 3 ML VIAL.NEB. NEB ONE ×2 (12:42→12:49)
[2020-04-17 12:44] LABS: BASO % 0.8 % (0-2.0); EOS % 3.1 % (0-4.5); HEMATOCRIT 35.6 % (32.4-45.2); HEMOGLOBIN 11.8 GM/dL (10.7-15.3); LYMPH % 11.1 % (8-40); MCH 31.5 pg (25.7-33.7); MEAN CELL VOLUME 95.5 fl (80-96); MEAN PLT VOLUME 7.2 fl (7.5-11.1); MONO % 10.6 % (3.8-10.2); NEUT % 74.4 % (42.8-82.8); PLATELET COUNT 193 K/MM3 (134-434); RBC 3.73 M/mm3 (3.60-5.2); RDW 13.6 % (11.6-15.6)
[2020-04-17] MEDS ORDERED: methylPREDNISolone NA SUCC 125 MG/2 ML VIAL IVPUSH ONE (12:44)
[2020-04-17] MEDS ORDERED: methylPREDNISolone NA SUCC 125 MG/2 ML VIAL ONE (12:49)
[2020-04-17 13:10] LABS: CHLORIDE 105 mmol/L (98-107); POTASSIUM 4.4 mmol/L (3.5-5.1); SODIUM 142 mmol/L (136-145)
[2020-04-17 13:12] LABS: CALCIUM 9.2 mg/dL (8.5-10.1)
[2020-04-17 13:13] LABS: ALBUMIN 3.4 g/dl (3.4-5.0); ANION GAP 3 MMOL/L (8-16); BLOOD UREA NITROGEN 13.2 mg/dL (7-18); CO2 33 mmol/L (21-32); GLUCOSE,RANDOM 76 mg/dL (74-106); MAGNESIUM 2.3 mg/dL (1.8-2.4)
[2020-04-17 13:16] LABS: CREATININE 0.6 mg/dL (0.55-1.3); PHOSPHOROUS 3.8 mg/dL (2.5-4.9); SGOT/AST 28 U/L (15-37); SGPT/ALT 41 U/L (13-61)
[2020-04-17 13:17] LABS: BILIRUBIN,TOTAL 0.4 mg/dL (0.2-1); TOT PROT 6.2 g/dl (6.4-8.2)
[2020-04-17 13:19] LABS: ALK PHOS 77 U/L (45-117)
[2020-04-17 13:21] LABS: N-TERMINAL BNP 270.3 pg/ml (5-125)
[2020-04-17] MEDS ORDERED: ALBUTEROL SO4 0.083% IH SOL 2.5 MG/3 ML VIAL.NEB. NEB PRN (18:05)
[2020-04-17] MEDS ORDERED: ACETAMINOPHEN WITH CODEINE 300MG/30MG TABLET PO PRN (18:12)
[2020-04-17] MEDS ORDERED: ALBUTEROL SO4 HFA INHALER IH PRN (18:25)
[2020-04-17] MEDS ORDERED: FAMOTIDINE 20 MG TABLET ONE (21:14)
[2020-04-17] MEDS ORDERED: ATORVASTATIN CA 10 MG TABLET (FP) ONE (21:14)
[2020-04-17] MEDS ORDERED: methylPREDNISolone NA SUCC 40 MG/1 ML VIAL ONE (21:14)
[2020-04-17] MEDS: FAMOTIDINE 20 MG TABLET PO SCH (21:23)
[2020-04-17] MEDS: methylPREDNISolone NA SUCC 40 MG/1 ML VIAL IVPUSH SCH (21:23)
[2020-04-17] MEDS: BUDESONIDE/FORMETEROL FUMARATE 80/4.5 mcg INHALER IH SCH (21:23)
[2020-04-17] MEDS: ATORVASTATIN CA 10 MG TABLET (FP) PO SCH (21:23)
[2020-04-18 02:00] VITALS: BMI 20.4
[2020-04-18] MEDS: methylPREDNISolone NA SUCC 40 MG/1 ML VIAL IVPUSH SCH ×4 (02:19→21:18)
[2020-04-18 08:33] LABS: BASO % 0.1 % (0-2.0); EOS % 0.1 % (0-4.5); HEMATOCRIT 33.7 % (32.4-45.2); HEMOGLOBIN 11.5 GM/dL (10.7-15.3); LYMPH % 5.5 % (8-40); MCH 31.8 pg (25.7-33.7); MEAN CELL VOLUME 93.6 fl (80-96); MEAN PLT VOLUME 7.5 fl (7.5-11.1); MONO % 2.5 % (3.8-10.2); NEUT % 91.8 % (42.8-82.8); PLATELET COUNT 195 K/MM3 (134-434); RDW 13.4 % (11.6-15.6); WHITE BLOOD COUNT 3.9 K/mm3 (4.0-10.0)
[2020-04-18 08:39] LABS: POTASSIUM 4.2 mmol/L (3.5-5.1)
[2020-04-18 08:47] LABS: ALBUMIN 3.3 g/dl (3.4-5.0); BLOOD UREA NITROGEN 15.2 mg/dL (7-18)
[2020-04-18 08:48] LABS: CALCIUM 8.8 mg/dL (8.5-10.1)
[2020-04-18 08:50] LABS: CREATININE 0.6 mg/dL (0.55-1.3)
[2020-04-18 08:52] LABS: BILIRUBIN,TOTAL 0.4 mg/dL (0.2-1)
[2020-04-18] MEDS: ESCITALOPRAM OXALATE 10 MG TABLET PO SCH (10:18)
[2020-04-18] MEDS: FAMOTIDINE 20 MG TABLET PO SCH ×2 (10:19→21:18)
[2020-04-18] MEDS: CALCIUM (OYSTER SHELL) 500 MG TABLET (FP) PO SCH (10:19)
[2020-04-18] MEDS: CHOLECALCIFEROL (VIT D3) 1,000 UNIT (25 MCG) TABLET PO SCH (10:19)
[2020-04-18] MEDS: BUDESONIDE/FORMETEROL FUMARATE 80/4.5 mcg INHALER IH SCH ×2 (10:20→21:19)
[2020-04-18] MEDS ORDERED: PT OWN MED DRAWER 7, Y5N ONE (10:26)
[2020-04-18 11:27] LABS: ANISOCYTOSIS 1+; MACROCYTOSIS 0; PLATELET ESTIMATE NORMAL
[2020-04-18] MEDS: NEBIVOLOL 5 MG TABLET (FP) PO SCH (12:41)
[2020-04-18] MEDS: VERAPAMIL HCL 120 MG E.R. TABLET PO SCH (12:41)
[2020-04-18] MEDS: ALBUTEROL SO4 2.5/IPRATROPIUM 0.5 INH SOL 3 ML VIAL.NEB. NEB SCH ×3 (12:50→20:00)
[2020-04-18] MEDS: HEPARIN NA (PORCINE) 5,000 UNITS/ML 1ML VIAL SQ SCH (21:18)
[2020-04-18] MEDS: ATORVASTATIN CA 10 MG TABLET (FP) PO SCH (21:18)
[2020-04-19] MEDS: methylPREDNISolone NA SUCC 40 MG/1 ML VIAL IVPUSH SCH ×4 (03:00→21:53)
[2020-04-19] MEDS: ALBUTEROL SO4 2.5/IPRATROPIUM 0.5 INH SOL 3 ML VIAL.NEB. NEB SCH ×4 (08:47→20:52)
[2020-04-19 08:53] LABS: HEMATOCRIT 36.2 % (32.4-45.2); HEMOGLOBIN 12.1 GM/dL (10.7-15.3); LYMPH % 4.1 % (8-40); MCH 31.6 pg (25.7-33.7); MCHC 33.5 g/dl (32.0-36.0); MEAN CELL VOLUME 94.3 fl (80-96); MEAN PLT VOLUME 7.4 fl (7.5-11.1); MONO % 4.1 % (3.8-10.2); NEUT % 91.8 % (42.8-82.8); PLATELET COUNT 240 K/MM3 (134-434); RBC 3.84 M/mm3 (3.60-5.2); RDW 13.8 % (11.6-15.6); WHITE BLOOD COUNT 9.5 K/mm3 (4.0-10.0)
[2020-04-19 09:00] LABS: POTASSIUM 4.1 mmol/L (3.5-5.1)
[2020-04-19 09:02] LABS: CALCIUM 9.3 mg/dL (8.5-10.1)
[2020-04-19 09:03] LABS: BLOOD UREA NITROGEN 18.8 mg/dL (7-18)
[2020-04-19 09:05] LABS: CREATININE 0.9 mg/dL (0.55-1.3)
[2020-04-19] MEDS ORDERED: PT OWN MED DRAWER 7, Y5N ONE (09:08)
[2020-04-19] MEDS: VERAPAMIL HCL 120 MG E.R. TABLET PO SCH (09:18)
[2020-04-19] MEDS: NEBIVOLOL 5 MG TABLET (FP) PO SCH (09:18)
[2020-04-19] MEDS: ESCITALOPRAM OXALATE 10 MG TABLET PO SCH (09:18)
[2020-04-19] MEDS: CHOLECALCIFEROL (VIT D3) 1,000 UNIT (25 MCG) TABLET PO SCH (09:20)
[2020-04-19] MEDS: CALCIUM (OYSTER SHELL) 500 MG TABLET (FP) PO SCH (09:20)
[2020-04-19] MEDS: FAMOTIDINE 20 MG TABLET PO SCH ×2 (09:20→21:53)
[2020-04-19] MEDS: BUDESONIDE/FORMETEROL FUMARATE 80/4.5 mcg INHALER IH SCH ×2 (09:21→21:53)
[2020-04-19] MEDS: HEPARIN NA (PORCINE) 5,000 UNITS/ML 1ML VIAL SQ SCH ×2 (09:22→21:53)
[2020-04-19 10:54] LABS: ANISOCYTOSIS 1+; MACROCYTOSIS 0; PLATELET ESTIMATE NORMAL
[2020-04-19] MEDS ORDERED: DOCUSATE SODIUM 100 MG CAPSULE (FP) PO PRN (15:59)
[2020-04-19] MEDS: ATORVASTATIN CA 10 MG TABLET (FP) PO SCH (21:53)
[2020-04-20] MEDS: methylPREDNISolone NA SUCC 40 MG/1 ML VIAL IVPUSH SCH ×4 (02:52→21:04)
[2020-04-20] MEDS: ALBUTEROL SO4 2.5/IPRATROPIUM 0.5 INH SOL 3 ML VIAL.NEB. NEB SCH (08:10)
[2020-04-20] MEDS ORDERED: PT OWN MED DRAWER 7, Y5N ONE ×2 (09:47→16:24)
[2020-04-20] MEDS: FAMOTIDINE 20 MG TABLET PO SCH ×2 (09:50→21:07)
[2020-04-20] MEDS: CALCIUM (OYSTER SHELL) 500 MG TABLET (FP) PO SCH (09:50)
[2020-04-20] MEDS: CHOLECALCIFEROL (VIT D3) 1,000 UNIT (25 MCG) TABLET PO SCH (09:50)
[2020-04-20] MEDS: HEPARIN NA (PORCINE) 5,000 UNITS/ML 1ML VIAL SQ SCH ×2 (09:51→21:05)
[2020-04-20] MEDS: ESCITALOPRAM OXALATE 10 MG TABLET PO SCH (09:51)
[2020-04-20] MEDS: NEBIVOLOL 5 MG TABLET (FP) PO SCH (09:51)
[2020-04-20] MEDS: VERAPAMIL HCL 120 MG E.R. TABLET PO SCH (09:51)
[2020-04-20] MEDS: BUDESONIDE/FORMETEROL FUMARATE 80/4.5 mcg INHALER IH SCH ×2 (09:53→21:07)
[2020-04-20] MEDS: LEVALBUTEROL HCL 0.31 MG/3 ML VIAL.NEB IH SCH ×2 (14:11→20:30)
[2020-04-20] MEDS: TIOTROPIUM BROMIDE 2.5 MCG (SPIRIVA) RESPIMAT INHALER IH SCH (16:25)
[2020-04-20] MEDS: ATORVASTATIN CA 10 MG TABLET (FP) PO SCH (21:07)
[2020-04-21] MEDS: methylPREDNISolone NA SUCC 40 MG/1 ML VIAL IVPUSH SCH ×3 (03:19→17:25)
[2020-04-21] MEDS: LEVALBUTEROL HCL 0.31 MG/3 ML VIAL.NEB IH SCH ×3 (07:29→19:37)
[2020-04-21] MEDS ORDERED: PT OWN MED DRAWER 7, Y5N ONE (08:54)
[2020-04-21] MEDS: VERAPAMIL HCL 120 MG E.R. TABLET PO SCH (09:01)
[2020-04-21] MEDS: NEBIVOLOL 5 MG TABLET (FP) PO SCH (09:01)
[2020-04-21] MEDS: CALCIUM (OYSTER SHELL) 500 MG TABLET (FP) PO SCH (09:02)
[2020-04-21] MEDS: ESCITALOPRAM OXALATE 10 MG TABLET PO SCH (09:02)
[2020-04-21] MEDS: CHOLECALCIFEROL (VIT D3) 1,000 UNIT (25 MCG) TABLET PO SCH (09:03)
[2020-04-21] MEDS: BUDESONIDE/FORMETEROL FUMARATE 80/4.5 mcg INHALER IH SCH ×2 (09:03→21:01)
[2020-04-21] MEDS: FAMOTIDINE 20 MG TABLET PO SCH ×2 (09:03→21:01)
[2020-04-21] MEDS: HEPARIN NA (PORCINE) 5,000 UNITS/ML 1ML VIAL SQ SCH ×2 (09:04→21:01)
[2020-04-21] MEDS: TIOTROPIUM BROMIDE 2.5 MCG (SPIRIVA) RESPIMAT INHALER IH SCH (11:17)
[2020-04-21] MEDS: ATORVASTATIN CA 10 MG TABLET (FP) PO SCH (21:01)
[2020-04-22] MEDS: methylPREDNISolone NA SUCC 40 MG/1 ML VIAL IVPUSH SCH ×3 (01:24→17:43)
[2020-04-22] MEDS: LEVALBUTEROL HCL 0.31 MG/3 ML VIAL.NEB IH SCH ×3 (07:55→19:53)
[2020-04-22] MEDS ORDERED: PT OWN MED DRAWER 7, Y5N ONE (09:45)
[2020-04-22] MEDS: HEPARIN NA (PORCINE) 5,000 UNITS/ML 1ML VIAL SQ SCH ×2 (10:24→21:01)
[2020-04-22] MEDS: NEBIVOLOL 5 MG TABLET (FP) PO SCH (10:26)
[2020-04-22] MEDS: VERAPAMIL HCL 120 MG E.R. TABLET PO SCH (10:26)
[2020-04-22] MEDS: CHOLECALCIFEROL (VIT D3) 1,000 UNIT (25 MCG) TABLET PO SCH (10:26)
[2020-04-22] MEDS: FAMOTIDINE 20 MG TABLET PO SCH ×2 (10:27→21:01)
[2020-04-22] MEDS: ESCITALOPRAM OXALATE 10 MG TABLET PO SCH (10:27)
[2020-04-22] MEDS: CALCIUM (OYSTER SHELL) 500 MG TABLET (FP) PO SCH (10:28)
[2020-04-22] MEDS: TIOTROPIUM BROMIDE 2.5 MCG (SPIRIVA) RESPIMAT INHALER IH SCH (10:29)
[2020-04-22] MEDS: BUDESONIDE/FORMETEROL FUMARATE 80/4.5 mcg INHALER IH SCH ×2 (10:30→21:01)
[2020-04-22] MEDS: ATORVASTATIN CA 10 MG TABLET (FP) PO SCH (21:01)
[2020-04-23] MEDS: methylPREDNISolone NA SUCC 40 MG/1 ML VIAL IVPUSH SCH ×2 (01:34→09:49)
[2020-04-23] MEDS: LEVALBUTEROL HCL 0.31 MG/3 ML VIAL.NEB IH SCH ×2 (07:57→13:44)
[2020-04-23] MEDS ORDERED: PT OWN MED DRAWER 7, Y5N ONE (09:46)
[2020-04-23] MEDS: ESCITALOPRAM OXALATE 10 MG TABLET PO SCH (09:49)
[2020-04-23] MEDS: CALCIUM (OYSTER SHELL) 500 MG TABLET (FP) PO SCH (09:49)
[2020-04-23] MEDS: HEPARIN NA (PORCINE) 5,000 UNITS/ML 1ML VIAL SQ SCH (09:50)
[2020-04-23] MEDS: FAMOTIDINE 20 MG TABLET PO SCH (09:50)
[2020-04-23] MEDS: BUDESONIDE/FORMETEROL FUMARATE 80/4.5 mcg INHALER IH SCH (09:51)
[2020-04-23] MEDS: TIOTROPIUM BROMIDE 2.5 MCG (SPIRIVA) RESPIMAT INHALER IH SCH (09:51)
[2020-04-23] MEDS: NEBIVOLOL 5 MG TABLET (FP) PO SCH (09:51)
[2020-04-23] MEDS: VERAPAMIL HCL 120 MG E.R. TABLET PO SCH (09:51)
[2020-04-23] MEDS: CHOLECALCIFEROL (VIT D3) 1,000 UNIT (25 MCG) TABLET PO SCH (09:52)
[2020-04-23 14:59] VITALS: BP 132/52; PULSE 69; TEMP 98.3
== END 2020-04-23 15:00 | disposition home or self-care (01) | DRG 191 ==
LOC: JER 10:52 → JERBED 14:11 → J8W 04-18 00:52
PROVIDERS: ADMIT Specialist; ATTEND Specialist
DX: J44.1 Chronic obstructive pulmonary disease with (acute) exacerbation (principal); J96.11 Chronic respiratory failure with hypoxia; I48.91 Unspecified atrial fibrillation; Z99.81 Dependence on supplemental oxygen; E78.5 Hyperlipidemia, unspecified; I11.0 Hypertensive heart disease with heart failure; I50.9 Heart failure, unspecified
CPT/HCPCS: 36415; 71045-TC-FY; 71250-TC; 80048; 80053; 82550; 83735; 83880; 84100; 84484; 85025; 93005; 93010; 94640; 99285-25; C9803; J1644; U0003

== ENCOUNTER 2020-05-22 11:09 | Emergency (ER) | payer OTHER ==
[2020-05-22 11:15] VITALS: TEMP 98.4; BMI 20.2
[2020-05-22] MEDS ORDERED: morphine CARPU-JECT 4 MG/1 ML DISP.SYRIN IVPUSH ONE (12:12)
[2020-05-22] MEDS ORDERED: BACLOFEN 10 MG TABLET (FP) PO ONE (12:13)
[2020-05-22] MEDS ORDERED: LIDOCAINE 5% TOPICAL PATCH TP ONE (12:13)
[2020-05-22] MEDS ORDERED: LIDOCAINE 5% TOPICAL PATCH ONE (13:36)
[2020-05-22] MEDS ORDERED: BACLOFEN 10 MG TABLET (FP) ONE (13:36)
[2020-05-22] MEDS ORDERED: morphine SULFATE 4 MG/ML VIAL ONE (13:36)
[2020-05-22 13:46] LABS: BASO % 0.2 % (0-2.0); HEMATOCRIT 36.6 % (32.4-45.2); HEMOGLOBIN 12.1 GM/dL (10.7-15.3); LYMPH % 5.2 % (8-40); MCH 31.3 pg (25.7-33.7); MEAN CELL VOLUME 94.8 fl (80-96); MEAN PLT VOLUME 7.1 fl (7.5-11.1); MONO % 4.6 % (3.8-10.2); PLATELET COUNT 222 K/MM3 (134-434); RBC 3.86 M/mm3 (3.60-5.2); RDW 14.1 % (11.6-15.6); WHITE BLOOD COUNT 11.4 K/mm3 (4.0-10.0)
[2020-05-22 13:53] LABS: INR 0.91 (0.83-1.09); PROTHROMBIN TIME (PATIENT) 11.1 SEC (9.7-13.0)
[2020-05-22 13:56] LABS: ACTIVATED PTT 26.6 SECONDS (25.2-36.5)
[2020-05-22 14:07] LABS: CHLORIDE 104 mmol/L (98-107); SODIUM 140 mmol/L (136-145)
[2020-05-22 14:09] LABS: CALCIUM 9.2 mg/dL (8.5-10.1)
[2020-05-22 14:10] LABS: ALBUMIN 3.5 g/dl (3.4-5.0); ANION GAP 5 MMOL/L (8-16); BLOOD UREA NITROGEN 9.6 mg/dL (7-18); CO2 31 mmol/L (21-32); GLUCOSE,RANDOM 91 mg/dL (74-106); LIPASE 125 U/L (73-393)
[2020-05-22 14:12] LABS: SGOT/AST 20 U/L (15-37); SGPT/ALT 26 U/L (13-61)
[2020-05-22 14:13] LABS: CREATININE 0.7 mg/dL (0.55-1.3)
[2020-05-22 14:15] LABS: ALK PHOS 116 U/L (45-117); BILIRUBIN,TOTAL 0.5 mg/dL (0.2-1); TOT PROT 6.3 g/dl (6.4-8.2)
[2020-05-22 16:36] VITALS: PULSE 73
[2020-05-22] MEDS ORDERED: KETOROLAC TROMETHAMINE 15 MG/ML VIAL IVPUSH ONE (16:38)
[2020-05-22 17:04] VITALS: BP 131/48
[2020-05-22] MEDS ORDERED: LIDOCAINE PATCH REMOVAL MC ONE (22:00)
== END 2020-05-22 17:00 | disposition home or self-care (01) ==
LOC: JER 11:09
PROC: 3E0333Z Introduction of Anti-inflammatory into Peripheral Vein, Percutaneous Approach (ICD-10-PCS; principal; 2020-05-22)
PROC: 3E033GC Introduction of Other Therapeutic Substance into Peripheral Vein, Percutaneous Approach (ICD-10-PCS; 2020-05-22)
DX: M54.9 Dorsalgia, unspecified (principal)
CPT/HCPCS: 36415; 72125-TC; 72128-TC; 72131-TC; 74177-TC; 80053; 82550; 83605; 83690; 84484; 85025; 85610; 85730; 93005; 93010; 99285-25; C9803; J0475; Q9967; U0003; U0005

== ENCOUNTER 2020-06-14 08:13 | Emergency (ER) | payer OTHER ==
[2020-06-14 08:19] VITALS: BP 134/60; PULSE 71; TEMP 98.6; BMI 23.8
== END 2020-06-14 10:59 | disposition home or self-care (01) ==
LOC: JER 08:13
DX: S22.060A Wedge compression fracture of T7-T8 vertebra, initial encounter for closed fracture (principal); S22.070A Wedge compression fracture of T9-T10 vertebra, initial encounter for closed fracture; J45.901 Unspecified asthma with (acute) exacerbation
CPT/HCPCS: 99283-25

== ENCOUNTER 2020-06-21 20:54 | Inpatient (IN) | payer OTHER ==
[2020-06-21] MEDS ORDERED: ALBUTEROL SO4 2.5/IPRATROPIUM 0.5 INH SOL 3 ML VIAL.NEB. NEB ONE ×2 (21:46→22:08)
[2020-06-21] MEDS ORDERED: methylPREDNISolone NA SUCC 125 MG/2 ML VIAL IVPUSH ONE (21:46)
[2020-06-21] MEDS ORDERED: methylPREDNISolone NA SUCC 125 MG/2 ML VIAL ONE (22:08)
[2020-06-21 22:38] LABS: VENOUS BASE EXCESS 1.7 mmol/L (-2-2); VENOUS O2 SATURATION 32.9 % (70-80); VENOUS PCO2 57.3 mmHg (38-52); VENOUS PH 7.321 (7.310-7.410)
[2020-06-21 22:41] LABS: BASO % 0.4 % (0-2.0); HEMATOCRIT 35.8 % (32.4-45.2); HEMOGLOBIN 12.1 GM/dL (10.7-15.3); LYMPH % 7.4 % (8-40); MCH 32.2 pg (25.7-33.7); MCHC 33.9 g/dl (32.0-36.0); MEAN CELL VOLUME 95.1 fl (80-96); MEAN PLT VOLUME 7.6 fl (7.5-11.1); MONO % 2.1 % (3.8-10.2); NEUT % 90.1 % (42.8-82.8); PLATELET COUNT 215 K/MM3 (134-434); RBC 3.76 M/mm3 (3.60-5.2); RDW 14.1 % (11.6-15.6)
[2020-06-21 22:49] LABS: INR 0.95 (0.83-1.09); PROTHROMBIN TIME (PATIENT) 11.5 SEC (9.7-13.0)
[2020-06-21 22:51] LABS: ACTIVATED PTT 28.4 SECONDS (25.2-36.5)
[2020-06-21 23:02] LABS: ALBUMIN 3.7 g/dl (3.4-5.0); CALCIUM 8.8 mg/dL (8.5-10.1)
[2020-06-21 23:03] LABS: BLOOD UREA NITROGEN 13.7 mg/dL (7-18)
[2020-06-21 23:06] LABS: CREATININE 0.7 mg/dL (0.55-1.3)
[2020-06-21 23:07] LABS: BILIRUBIN,TOTAL 0.2 mg/dL (0.2-1); TOT PROT 6.4 g/dl (6.4-8.2)
[2020-06-21] MEDS ORDERED: ASPIRIN 325 MG TABLET PO ONE (23:17)
[2020-06-21] MEDS ORDERED: ASPIRIN 81 MG CHEWABLE TABLETS ONE (23:53)
[2020-06-22 01:51] LABS: ALBUMIN 3.4 g/dl (3.4-5.0); CALCIUM 8.3 mg/dL (8.5-10.1)
[2020-06-22 01:55] LABS: CREATININE 0.6 mg/dL (0.55-1.3); PHOSPHOROUS 2.6 mg/dL (2.5-4.9)
[2020-06-22 01:56] LABS: BILIRUBIN,TOTAL 0.3 mg/dL (0.2-1); TOT PROT 6.1 g/dl (6.4-8.2)
[2020-06-22 04:31] VITALS: BMI 13.8
[2020-06-22 07:56] LABS: HEMATOCRIT 32.2 % (32.4-45.2); HEMOGLOBIN 11.2 GM/dL (10.7-15.3); MCH 32.8 pg (25.7-33.7); MCHC 34.7 g/dl (32.0-36.0); MEAN CELL VOLUME 94.5 fl (80-96); MEAN PLT VOLUME 7.3 fl (7.5-11.1); PLATELET COUNT 183 K/MM3 (134-434); RBC 3.41 M/mm3 (3.60-5.2); WHITE BLOOD COUNT 3.7 K/mm3 (4.0-10.0)
[2020-06-22] MEDS ORDERED: ALBUTEROL SO4 HFA INHALER IH PRN (08:58)
[2020-06-22] MEDS ORDERED: oxyCODONE HCL 5 MG TABLET PO PRN (09:15)
[2020-06-22] MEDS ORDERED: PT OWN MED DRAWER 7, Y5N ONE ×2 (12:10→17:15)
[2020-06-22] MEDS: ESCITALOPRAM OXALATE 10 MG TABLET PO SCH (12:13)
[2020-06-22] MEDS: VERAPAMIL HCL 120 MG CAP SUSTAINED RELEASE PO SCH (12:13)
[2020-06-22] MEDS: methylPREDNISolone NA SUCC 40 MG/1 ML VIAL IVPUSH SCH ×2 (12:13→17:30)
[2020-06-22] MEDS: ATORVASTATIN CA 10 MG TABLET (FP) PO SCH (12:14)
[2020-06-22] MEDS: NEBIVOLOL 5 MG TABLET (FP) PO SCH (12:14)
[2020-06-22] MEDS: FAMOTIDINE 20 MG TABLET PO SCH (12:14)
[2020-06-22] MEDS: TIOTROPIUM BROMIDE 2.5 MCG (SPIRIVA) RESPIMAT INHALER IH SCH (17:30)
[2020-06-22] MEDS: BUDESONIDE/FORMETEROL FUMARATE 160/4.5 mcg INHALER IH SCH ×2 (17:30→21:31)
[2020-06-22] MEDS: ACETAMINOPHEN 325 MG TABLET (FP) PO PRN (19:53)
[2020-06-22] MEDS: HEPARIN NA (PORCINE) 5,000 UNITS/ML 1ML VIAL SQ SCH (21:31)
[2020-06-23] MEDS: methylPREDNISolone NA SUCC 40 MG/1 ML VIAL IVPUSH SCH ×3 (02:56→18:16)
[2020-06-23] MEDS: ACETAMINOPHEN 325 MG TABLET (FP) PO PRN (06:23)
[2020-06-23 07:08] LABS: BASO % 0.1 % (0-2.0); HEMATOCRIT 30.4 % (32.4-45.2); HEMOGLOBIN 10.2 GM/dL (10.7-15.3); LYMPH % 4.1 % (8-40); MCH 31.9 pg (25.7-33.7); MCHC 33.6 g/dl (32.0-36.0); MEAN CELL VOLUME 94.9 fl (80-96); MEAN PLT VOLUME 7.7 fl (7.5-11.1); MONO % 3.8 % (3.8-10.2); PLATELET COUNT 203 K/MM3 (134-434); RDW 14.1 % (11.6-15.6); WHITE BLOOD COUNT 6.2 K/mm3 (4.0-10.0)
[2020-06-23 07:32] LABS: CALCIUM 8.2 mg/dL (8.5-10.1)
[2020-06-23 07:33] LABS: ALBUMIN 3.2 g/dl (3.4-5.0); BLOOD UREA NITROGEN 16.3 mg/dL (7-18)
[2020-06-23 07:36] LABS: CREATININE 0.5 mg/dL (0.55-1.3)
[2020-06-23 07:38] LABS: BILIRUBIN,TOTAL 0.2 mg/dL (0.2-1); TOT PROT 5.5 g/dl (6.4-8.2)
[2020-06-23] MEDS ORDERED: PT OWN MED DRAWER 7, Y5N ONE (10:29)
[2020-06-23] MEDS: TIOTROPIUM BROMIDE 2.5 MCG (SPIRIVA) RESPIMAT INHALER IH SCH (10:36)
[2020-06-23] MEDS: BUDESONIDE/FORMETEROL FUMARATE 160/4.5 mcg INHALER IH SCH ×2 (10:37→21:37)
[2020-06-23] MEDS: NEBIVOLOL 5 MG TABLET (FP) PO SCH (10:38)
[2020-06-23] MEDS: VERAPAMIL HCL 120 MG CAP SUSTAINED RELEASE PO SCH (10:38)
[2020-06-23] MEDS: HEPARIN NA (PORCINE) 5,000 UNITS/ML 1ML VIAL SQ SCH ×2 (10:38→21:37)
[2020-06-23] MEDS: ESCITALOPRAM OXALATE 10 MG TABLET PO SCH (10:38)
[2020-06-23] MEDS: ATORVASTATIN CA 10 MG TABLET (FP) PO SCH (10:39)
[2020-06-23] MEDS: FAMOTIDINE 20 MG TABLET PO SCH (10:39)
[2020-06-23 11:47] LABS: ANISOCYTOSIS 1+; MACROCYTOSIS 0; OVALOCYTE 1+; PLATELET ESTIMATE NORMAL; TEAR DROP CELLS 1+
[2020-06-24] MEDS: methylPREDNISolone NA SUCC 40 MG/1 ML VIAL IVPUSH SCH ×2 (01:11→09:28)
[2020-06-24 09:25] VITALS: BP 113/59; PULSE 88; TEMP 97.9
[2020-06-24] MEDS: VERAPAMIL HCL 120 MG CAP SUSTAINED RELEASE PO SCH (09:27)
[2020-06-24] MEDS: HEPARIN NA (PORCINE) 5,000 UNITS/ML 1ML VIAL SQ SCH (09:27)
[2020-06-24] MEDS: ATORVASTATIN CA 10 MG TABLET (FP) PO SCH (09:27)
[2020-06-24] MEDS: FAMOTIDINE 20 MG TABLET PO SCH (09:27)
[2020-06-24] MEDS: ESCITALOPRAM OXALATE 10 MG TABLET PO SCH (09:27)
[2020-06-24] MEDS: NEBIVOLOL 5 MG TABLET (FP) PO SCH (09:27)
[2020-06-24] MEDS: BUDESONIDE/FORMETEROL FUMARATE 160/4.5 mcg INHALER IH SCH (09:28)
[2020-06-24] MEDS: TIOTROPIUM BROMIDE 2.5 MCG (SPIRIVA) RESPIMAT INHALER IH SCH (09:28)
[2020-06-25] MEDS ORDERED: predniSONE 20 MG TABLET (UD) PO SCH (10:00)
== END 2020-06-24 14:43 | disposition home or self-care (01) | DRG 191 ==
LOC: JER 20:54 → JERBED 23:26 → J4W 06-22 04:44
PROVIDERS: ADMIT Specialist; ATTEND Specialist
DX: J44.1 Chronic obstructive pulmonary disease with (acute) exacerbation (principal); J96.12 Chronic respiratory failure with hypercapnia; J96.11 Chronic respiratory failure with hypoxia; I24.8 Other forms of acute ischemic heart disease; I48.91 Unspecified atrial fibrillation; Z99.81 Dependence on supplemental oxygen; E78.5 Hyperlipidemia, unspecified
CPT/HCPCS: 36415; 71045-TC-FY; 71275-TC; 80053; 82550; 82803; 83735; 83880; 84100; 84484; 85025; 85027; 85379; 85610; 85730; 93005; 93010; 93306-TC; 99285-25; C9803; J1644; U0003; U0005

== ENCOUNTER 2020-07-08 07:59 | Inpatient (IN) | payer OTHER ==
[2020-07-08] MEDS ORDERED: methylPREDNISolone NA SUCC 125 MG/2 ML VIAL IVPB ONE (08:14)
[2020-07-08] MEDS ORDERED: ALBUTEROL SO4 2.5/IPRATROPIUM 0.5 INH SOL 3 ML VIAL.NEB. NEB ONE ×2 (08:14→09:17)
[2020-07-08] MEDS ORDERED: methylPREDNISolone NA SUCC 125 MG/2 ML VIAL ONE (09:18)
[2020-07-08 09:37] VITALS: BMI 19.3
[2020-07-08 09:38] LABS: BASO % 0.3 % (0-2.0); EOS % 0.1 % (0-4.5); HEMATOCRIT 34.4 % (32.4-45.2); HEMOGLOBIN 11.5 GM/dL (10.7-15.3); LYMPH % 3.2 % (8-40); MCH 32.2 pg (25.7-33.7); MCHC 33.4 g/dl (32.0-36.0); MEAN CELL VOLUME 96.7 fl (80-96); MEAN PLT VOLUME 7.4 fl (7.5-11.1); MONO % 3.8 % (3.8-10.2); NEUT % 92.6 % (42.8-82.8); PLATELET COUNT 187 K/MM3 (134-434); RBC 3.56 M/mm3 (3.60-5.2); RDW 14.5 % (11.6-15.6); VENOUS BASE EXCESS 2.5 mmol/L (-2-2); VENOUS PCO2 69.2 mmHg (38-52); VENOUS PH 7.269 (7.310-7.410); WHITE BLOOD COUNT 8.4 K/mm3 (4.0-10.0)
[2020-07-08 10:16] LABS: ALBUMIN 3.8 g/dl (3.4-5.0); ALK PHOS 80 U/L (45-117); ANION GAP 4 MMOL/L (8-16); BILIRUBIN,TOTAL 0.5 mg/dL (0.2-1); BLOOD UREA NITROGEN 15.3 mg/dL (7-18); CALCIUM 9.2 mg/dL (8.5-10.1); CHLORIDE 102 mmol/L (98-107); CO2 33 mmol/L (21-32); CREATININE 0.6 mg/dL (0.55-1.3); GLUCOSE,RANDOM 97 mg/dL (74-106); MAGNESIUM 2.3 mg/dL (1.8-2.4); SGOT/AST 19 U/L (15-37); SGPT/ALT 30 U/L (13-61); SODIUM 139 mmol/L (136-145); TOT PROT 6.8 g/dl (6.4-8.2)
[2020-07-08] MEDS ORDERED: ASPIRIN 81 MG CHEWABLE TABLETS PO ONE (10:19)
[2020-07-08] MEDS ORDERED: ASPIRIN 81 MG CHEWABLE TABLETS ONE (11:26)
[2020-07-08] MEDS ORDERED: HEPARIN - 25,000 UNIT in SODIUM CHLORIDE 495 ML IV SCH (12:00)
[2020-07-08] MEDS ORDERED: HEPARIN NA (PORCINE) 5,000 UNITS/ML 1ML VIAL IVPUSH PRN ×2 (12:00)
[2020-07-08] MEDS ORDERED: HEPARIN NA (PORCINE) 5,000 UNITS/ML 1ML VIAL IVPUSH ONE (12:05)
[2020-07-08 12:20] LABS: ANISOCYTOSIS 2+; HELMET CELLS 1+; MACROCYTOSIS 1+; OVALOCYTE 2+; PLATELET ESTIMATE NORMAL; TEAR DROP CELLS 1+
[2020-07-08] MEDS ORDERED: HEPARIN NA (PORCINE) 5,000 UNITS/ML 1ML VIAL ONE (12:23)
[2020-07-08] MEDS ORDERED: HEPARIN INFUSION - 25,000 UNITS/500 ML INFUS.BAG IVPB ONE (12:24)
[2020-07-08] MEDS ORDERED: ALBUTEROL SO4 HFA INHALER IH PRN (15:27)
[2020-07-08 17:11] LABS: INR 0.98 (0.83-1.09); PROTHROMBIN TIME (PATIENT) 12.1 SEC (9.7-13.0)
[2020-07-08 17:13] LABS: ACTIVATED PTT 100.1 SECONDS (25.2-36.5)
[2020-07-08] MEDS: oxyCODONE HCL 5 MG TABLET PO PRN (18:36)
[2020-07-08] MEDS: BUDESONIDE/FORMETEROL FUMARATE 160/4.5 mcg INHALER IH SCH (21:07)
[2020-07-09] MEDS: ACETAMINOPHEN 325 MG TABLET (FP) PO PRN ×2 (06:33→15:46)
[2020-07-09] MEDS: oxyCODONE HCL 5 MG TABLET PO PRN ×2 (06:33→15:46)
[2020-07-09] MEDS: methylPREDNISolone NA SUCC 40 MG/1 ML VIAL IVPUSH SCH ×3 (06:45→17:19)
[2020-07-09] MEDS ORDERED: predniSONE 10 MG TABLET (UD) PO SCH (10:00)
[2020-07-09] MEDS: ESCITALOPRAM OXALATE 10 MG TABLET PO SCH (10:07)
[2020-07-09] MEDS: NEBIVOLOL 5 MG TABLET (FP) PO SCH (10:08)
[2020-07-09] MEDS: ASPIRIN 81 MG CHEWABLE TABLETS PO SCH (10:08)
[2020-07-09] MEDS: HEPARIN NA (PORCINE) 5,000 UNITS/ML 1ML VIAL SQ SCH ×2 (10:08→21:26)
[2020-07-09] MEDS: FAMOTIDINE 20 MG TABLET PO SCH (10:08)
[2020-07-09] MEDS: BUDESONIDE/FORMETEROL FUMARATE 160/4.5 mcg INHALER IH SCH ×2 (10:09→21:26)
[2020-07-09] MEDS: TIOTROPIUM BROMIDE 2.5 MCG (SPIRIVA) RESPIMAT INHALER IH SCH (14:42)
[2020-07-09] MEDS: VERAPAMIL HCL 120 MG E.R. TABLET PO SCH (14:42)
[2020-07-09] MEDS: ATORVASTATIN CA 10 MG TABLET (FP) PO SCH (21:26)
[2020-07-10] MEDS: methylPREDNISolone NA SUCC 40 MG/1 ML VIAL IVPUSH SCH ×2 (01:25→10:15)
[2020-07-10] MEDS: oxyCODONE HCL 5 MG TABLET PO PRN ×3 (05:29→20:07)
[2020-07-10] MEDS: ACETAMINOPHEN 325 MG TABLET (FP) PO PRN ×3 (05:30→20:07)
[2020-07-10 09:29] LABS: HEMOGLOBIN 10.5 GM/dL (10.7-15.3); LYMPH % 1.9 % (8-40); MCH 32.2 pg (25.7-33.7); MCHC 33.7 g/dl (32.0-36.0); MEAN CELL VOLUME 95.5 fl (80-96); MEAN PLT VOLUME 7.4 fl (7.5-11.1); MONO % 3.6 % (3.8-10.2); NEUT % 94.5 % (42.8-82.8); PLATELET COUNT 188 K/MM3 (134-434); RBC 3.25 M/mm3 (3.60-5.2); RDW 14.1 % (11.6-15.6); WHITE BLOOD COUNT 7.5 K/mm3 (4.0-10.0)
[2020-07-10 09:48] LABS: ALBUMIN 3.3 g/dl (3.4-5.0); CALCIUM 8.8 mg/dL (8.5-10.1)
[2020-07-10 09:49] LABS: BLOOD UREA NITROGEN 21.7 mg/dL (7-18)
[2020-07-10 09:52] LABS: CREATININE 0.6 mg/dL (0.55-1.3)
[2020-07-10 09:53] LABS: BILIRUBIN,TOTAL 0.3 mg/dL (0.2-1); TOT PROT 6.2 g/dl (6.4-8.2)
[2020-07-10] MEDS ORDERED: PT OWN MED DRAWER 7, Y5N ONE (10:14)
[2020-07-10] MEDS: ASPIRIN 81 MG CHEWABLE TABLETS PO SCH (10:15)
[2020-07-10] MEDS: VERAPAMIL HCL 120 MG E.R. TABLET PO SCH (10:15)
[2020-07-10] MEDS: NEBIVOLOL 5 MG TABLET (FP) PO SCH (10:15)
[2020-07-10] MEDS: FAMOTIDINE 20 MG TABLET PO SCH (10:15)
[2020-07-10] MEDS: HEPARIN NA (PORCINE) 5,000 UNITS/ML 1ML VIAL SQ SCH ×2 (10:15→21:17)
[2020-07-10] MEDS: ESCITALOPRAM OXALATE 10 MG TABLET PO SCH (10:15)
[2020-07-10] MEDS: BUDESONIDE/FORMETEROL FUMARATE 160/4.5 mcg INHALER IH SCH ×2 (10:16→21:18)
[2020-07-10] MEDS: TIOTROPIUM BROMIDE 2.5 MCG (SPIRIVA) RESPIMAT INHALER IH SCH (10:16)
[2020-07-10 10:20] LABS: ANISOCYTOSIS 0; MACROCYTOSIS 0; PLATELET ESTIMATE NORMAL
[2020-07-10] MEDS: ATORVASTATIN CA 10 MG TABLET (FP) PO SCH (21:17)
[2020-07-11] MEDS: ACETAMINOPHEN 325 MG TABLET (FP) PO PRN ×2 (02:04→09:35)
[2020-07-11] MEDS: oxyCODONE HCL 5 MG TABLET PO PRN ×2 (02:05→09:35)
[2020-07-11] MEDS ORDERED: FENTANYL PATCH WASTE TD PRN (08:10)
[2020-07-11] MEDS ORDERED: fentaNYL 12mcg/hr PATCH.TD72 TD SCH (08:15)
[2020-07-11] MEDS ORDERED: PT OWN MED DRAWER 7, Y5N ONE (09:08)
[2020-07-11] MEDS: HEPARIN NA (PORCINE) 5,000 UNITS/ML 1ML VIAL SQ SCH (09:36)
[2020-07-11] MEDS: FAMOTIDINE 20 MG TABLET PO SCH (09:37)
[2020-07-11] MEDS: ESCITALOPRAM OXALATE 10 MG TABLET PO SCH (09:37)
[2020-07-11] MEDS: ASPIRIN 81 MG CHEWABLE TABLETS PO SCH (09:37)
[2020-07-11] MEDS: NEBIVOLOL 5 MG TABLET (FP) PO SCH (09:37)
[2020-07-11] MEDS: VERAPAMIL HCL 120 MG E.R. TABLET PO SCH (09:37)
[2020-07-11 09:54] VITALS: BP 140/50; PULSE 90; TEMP 97.8
[2020-07-11] MEDS ORDERED: predniSONE 20 MG TABLET (UD) PO SCH (10:00)
[2020-07-11] MEDS ORDERED: DOCUSATE SODIUM 100 MG CAPSULE (FP) PO SCH (10:00)
[2020-07-11] MEDS: TIOTROPIUM BROMIDE 2.5 MCG (SPIRIVA) RESPIMAT INHALER IH SCH (10:48)
[2020-07-11] MEDS: BUDESONIDE/FORMETEROL FUMARATE 160/4.5 mcg INHALER IH SCH (10:48)
== END 2020-07-11 13:44 | disposition home or self-care (01) | DRG 543 ==
LOC: JER 07:59 → JERBED 10:21 → J4W 15:38
PROVIDERS: ADMIT Internal Medicine; ATTEND Internal Medicine
DX: M80.08XA Age-related osteoporosis with current pathological fracture, vertebra(e), initial encounter for fracture (principal); J44.1 Chronic obstructive pulmonary disease with (acute) exacerbation; I24.8 Other forms of acute ischemic heart disease; J96.11 Chronic respiratory failure with hypoxia; J96.12 Chronic respiratory failure with hypercapnia; E78.5 Hyperlipidemia, unspecified; I48.0 Paroxysmal atrial fibrillation; I10 Essential (primary) hypertension; M54.6 Pain in thoracic spine; M48.00 Spinal stenosis, site unspecified
CPT/HCPCS: 36415; 71045-TC-FY; 80053; 80061; 82803; 83036; 83721; 83735; 83880; 84443; 84484; 85025; 85610; 85730; 93005; 93010; 99285-25; C9803; J1644; U0003; U0005

== ENCOUNTER 2020-07-15 01:17 | Inpatient (IN) | payer OTHER ==
[2020-07-15 01:58] LABS: BASO % 0.2 % (0-2.0); HEMATOCRIT 36.1 % (32.4-45.2); HEMOGLOBIN 11.5 GM/dL (10.7-15.3); LYMPH % 4.1 % (8-40); MCHC 31.8 g/dl (32.0-36.0); MEAN CELL VOLUME 97.6 fl (80-96); MEAN PLT VOLUME 7.7 fl (7.5-11.1); MONO % 7.8 % (3.8-10.2); NEUT % 87.9 % (42.8-82.8); PLATELET COUNT 287 K/MM3 (134-434); RDW 14.7 % (11.6-15.6); WHITE BLOOD COUNT 16.4 K/mm3 (4.0-10.0)
[2020-07-15 02:04] LABS: VENOUS BASE EXCESS 0.6 mmol/L (-2-2)
[2020-07-15 02:05] LABS: INR 0.89 (0.83-1.09)
[2020-07-15 02:07] LABS: ACTIVATED PTT 20.6 SECONDS (25.2-36.5)
[2020-07-15 02:24] LABS: VENOUS PCO2 96.9 mmHg (38-52); VENOUS PH 7.14 (7.310-7.410)
[2020-07-15 02:30] LABS: CALCIUM 8.7 mg/dL (8.5-10.1)
[2020-07-15 02:32] LABS: ALBUMIN 3.4 g/dl (3.4-5.0); BLOOD UREA NITROGEN 26.4 mg/dL (7-18); MAGNESIUM 3.6 mg/dL (1.8-2.4)
[2020-07-15 02:33] LABS: CREATININE 0.8 mg/dL (0.55-1.3)
[2020-07-15 02:35] LABS: BILIRUBIN,TOTAL 0.4 mg/dL (0.2-1); TOT PROT 6.4 g/dl (6.4-8.2)
[2020-07-15 05:20] LABS: ANISOCYTOSIS 1+; MACROCYTOSIS 1+; OVALOCYTE 1+; PLATELET ESTIMATE NORMAL
[2020-07-15 06:30] LABS: VENOUS BASE EXCESS 4.6 mmol/L (-2-2); VENOUS O2 SATURATION 64.8 % (70-80); VENOUS PCO2 65.1 mmHg (38-52); VENOUS PH 7.314 (7.310-7.410)
[2020-07-15] MEDS ORDERED: FENTANYL PATCH WASTE TD PRN (12:13)
[2020-07-15] MEDS ORDERED: NEBIVOLOL 2.5 MG TABLET (FP) PO SCH (12:15)
[2020-07-15] MEDS ORDERED: ASPIRIN COATED 81 MG TABLET.EC ONE (12:29)
[2020-07-15] MEDS ORDERED: FAMOTIDINE 20 MG TABLET ONE (12:29)
[2020-07-15] MEDS ORDERED: ESCITALOPRAM OXALATE 10 MG TABLET ONE (12:30)
[2020-07-15] MEDS ORDERED: methylPREDNISolone NA SUCC 40 MG/1 ML VIAL ONE ×2 (12:30→18:06)
[2020-07-15] MEDS ORDERED: DOCUSATE SODIUM 100 MG CAPSULE (FP) PO ONE (12:30)
[2020-07-15] MEDS: DOCUSATE SODIUM 100 MG CAPSULE (FP) PO SCH (12:37)
[2020-07-15] MEDS: BUDESONIDE/FORMETEROL FUMARATE 160/4.5 mcg INHALER IH SCH ×2 (12:37→21:29)
[2020-07-15] MEDS: methylPREDNISolone NA SUCC 40 MG/1 ML VIAL IVPUSH SCH ×3 (12:37→21:28)
[2020-07-15] MEDS: ESCITALOPRAM OXALATE 10 MG TABLET PO SCH (12:37)
[2020-07-15] MEDS: FAMOTIDINE 20 MG TABLET PO SCH (12:37)
[2020-07-15] MEDS: ASPIRIN COATED 81 MG TABLET.EC PO SCH (12:37)
[2020-07-15] MEDS: fentaNYL 12mcg/hr PATCH.TD72 TD SCH (12:50)
[2020-07-15] MEDS: VERAPAMIL HCL 120 MG E.R. TABLET PO SCH (12:56)
[2020-07-15 21:00] VITALS: BMI 19.0
[2020-07-15] MEDS: oxyCODONE HCL 5 MG TABLET PO PRN (21:27)
[2020-07-15] MEDS: ACETAMINOPHEN 325 MG TABLET (FP) PO PRN (21:27)
[2020-07-15] MEDS: ATORVASTATIN CA 10 MG TABLET (FP) PO SCH (21:28)
[2020-07-16] MEDS: methylPREDNISolone NA SUCC 40 MG/1 ML VIAL IVPUSH SCH ×4 (03:21→21:21)
[2020-07-16 07:10] LABS: BASO % 0.1 % (0-2.0); HEMATOCRIT 29.4 % (32.4-45.2); LYMPH % 2.4 % (8-40); MCH 32.2 pg (25.7-33.7); MCHC 33.9 g/dl (32.0-36.0); MEAN CELL VOLUME 94.9 fl (80-96); MEAN PLT VOLUME 7.6 fl (7.5-11.1); MONO % 4.2 % (3.8-10.2); NEUT % 93.3 % (42.8-82.8); PLATELET COUNT 173 K/MM3 (134-434); RBC 3.09 M/mm3 (3.60-5.2); RDW 14.4 % (11.6-15.6); WHITE BLOOD COUNT 5.4 K/mm3 (4.0-10.0)
[2020-07-16 07:50] LABS: CALCIUM 8.5 mg/dL (8.5-10.1)
[2020-07-16 07:51] LABS: ALBUMIN 2.8 g/dl (3.4-5.0); BLOOD UREA NITROGEN 25.3 mg/dL (7-18)
[2020-07-16 07:54] LABS: CREATININE 0.4 mg/dL (0.55-1.3)
[2020-07-16 07:56] LABS: BILIRUBIN,TOTAL 0.5 mg/dL (0.2-1); TOT PROT 5.3 g/dl (6.4-8.2)
[2020-07-16] MEDS ORDERED: PT OWN MED DRAWER 7, Y5N ONE ×2 (08:36→10:15)
[2020-07-16 08:51] LABS: ANISOCYTOSIS 1+; MACROCYTOSIS 0; PLATELET ESTIMATE NORMAL
[2020-07-16] MEDS: DOCUSATE SODIUM 100 MG CAPSULE (FP) PO SCH (10:45)
[2020-07-16] MEDS: ESCITALOPRAM OXALATE 10 MG TABLET PO SCH (10:45)
[2020-07-16] MEDS: ASPIRIN COATED 81 MG TABLET.EC PO SCH (10:46)
[2020-07-16] MEDS: NEBIVOLOL 5 MG TABLET (FP) PO SCH (10:46)
[2020-07-16] MEDS: FAMOTIDINE 20 MG TABLET PO SCH (10:46)
[2020-07-16] MEDS: oxyCODONE HCL 5 MG TABLET PO PRN ×2 (10:47→21:19)
[2020-07-16] MEDS: BUDESONIDE/FORMETEROL FUMARATE 160/4.5 mcg INHALER IH SCH ×2 (10:48→21:24)
[2020-07-16] MEDS: TIOTROPIUM BROMIDE 2.5 MCG (SPIRIVA) RESPIMAT INHALER IH SCH ×2 (10:48→11:29)
[2020-07-16] MEDS: VERAPAMIL HCL 120 MG E.R. TABLET PO SCH (10:48)
[2020-07-16] MEDS ORDERED: ALBUTEROL SO4 0.083% IH SOL 2.5 MG/3 ML VIAL.NEB. NEB PRN (11:33)
[2020-07-16] MEDS ORDERED: FUROSEMIDE 40 MG/4 ML INJECTABLE VIAL IVPUSH ONE (11:45)
[2020-07-16] MEDS: ALBUTEROL SO4 0.083% IH SOL 2.5 MG/3 ML VIAL.NEB. NEB SCH ×2 (13:45→20:50)
[2020-07-16] MEDS: ACETAMINOPHEN 325 MG TABLET (FP) PO PRN (21:20)
[2020-07-16] MEDS: HEPARIN NA (PORCINE) 5,000 UNITS/ML 1ML VIAL SQ SCH (21:21)
[2020-07-16] MEDS: ATORVASTATIN CA 10 MG TABLET (FP) PO SCH (21:21)
[2020-07-17] MEDS: methylPREDNISolone NA SUCC 40 MG/1 ML VIAL IVPUSH SCH ×3 (02:25→22:09)
[2020-07-17] MEDS: oxyCODONE HCL 5 MG TABLET PO PRN ×2 (05:18→16:47)
[2020-07-17] MEDS: ACETAMINOPHEN 325 MG TABLET (FP) PO PRN ×2 (05:19→16:48)
[2020-07-17] MEDS: ALBUTEROL SO4 0.083% IH SOL 2.5 MG/3 ML VIAL.NEB. NEB SCH ×3 (08:00→20:21)
[2020-07-17] MEDS: BUDESONIDE/FORMETEROL FUMARATE 160/4.5 mcg INHALER IH SCH ×2 (09:50→22:10)
[2020-07-17] MEDS: HEPARIN NA (PORCINE) 5,000 UNITS/ML 1ML VIAL SQ SCH ×2 (09:51→22:09)
[2020-07-17] MEDS: TIOTROPIUM BROMIDE 2.5 MCG (SPIRIVA) RESPIMAT INHALER IH SCH (09:51)
[2020-07-17] MEDS: DOCUSATE SODIUM 100 MG CAPSULE (FP) PO SCH (09:51)
[2020-07-17] MEDS: VERAPAMIL HCL 120 MG E.R. TABLET PO SCH (09:52)
[2020-07-17] MEDS: NEBIVOLOL 5 MG TABLET (FP) PO SCH (09:52)
[2020-07-17] MEDS: FAMOTIDINE 20 MG TABLET PO SCH (09:52)
[2020-07-17] MEDS: ESCITALOPRAM OXALATE 10 MG TABLET PO SCH (09:52)
[2020-07-17] MEDS: ASPIRIN COATED 81 MG TABLET.EC PO SCH (09:52)
[2020-07-17] MEDS ORDERED: FUROSEMIDE 40 MG/4 ML INJECTABLE VIAL IVPUSH ONE (10:30)
[2020-07-17] MEDS: ATORVASTATIN CA 10 MG TABLET (FP) PO SCH (22:09)
[2020-07-18 07:44] LABS: CALCIUM 8.3 mg/dL (8.5-10.1)
[2020-07-18 07:45] LABS: ALBUMIN 2.9 g/dl (3.4-5.0); BLOOD UREA NITROGEN 21.2 mg/dL (7-18)
[2020-07-18 07:48] LABS: CREATININE 0.4 mg/dL (0.55-1.3)
[2020-07-18] MEDS: ACETAMINOPHEN 325 MG TABLET (FP) PO PRN ×3 (07:48→21:31)
[2020-07-18 07:49] LABS: TOT PROT 5.4 g/dl (6.4-8.2)
[2020-07-18] MEDS: oxyCODONE HCL 5 MG TABLET PO PRN ×3 (07:49→21:30)
[2020-07-18] MEDS: ALBUTEROL SO4 0.083% IH SOL 2.5 MG/3 ML VIAL.NEB. NEB SCH ×3 (07:54→20:10)
[2020-07-18] MEDS ORDERED: PT OWN MED DRAWER 7, Y5N ONE (09:21)
[2020-07-18] MEDS: TIOTROPIUM BROMIDE 2.5 MCG (SPIRIVA) RESPIMAT INHALER IH SCH (09:22)
[2020-07-18] MEDS: BUDESONIDE/FORMETEROL FUMARATE 160/4.5 mcg INHALER IH SCH ×2 (09:22→21:34)
[2020-07-18] MEDS: HEPARIN NA (PORCINE) 5,000 UNITS/ML 1ML VIAL SQ SCH ×2 (09:23→21:25)
[2020-07-18] MEDS: ESCITALOPRAM OXALATE 10 MG TABLET PO SCH (09:23)
[2020-07-18] MEDS: VERAPAMIL HCL 120 MG E.R. TABLET PO SCH (09:23)
[2020-07-18] MEDS: methylPREDNISolone NA SUCC 40 MG/1 ML VIAL IVPUSH SCH ×2 (09:23→21:25)
[2020-07-18] MEDS: FUROSEMIDE 20 MG TABLET (FP) PO SCH (09:23)
[2020-07-18] MEDS: NEBIVOLOL 5 MG TABLET (FP) PO SCH (09:23)
[2020-07-18] MEDS: DOCUSATE SODIUM 100 MG CAPSULE (FP) PO SCH (09:23)
[2020-07-18] MEDS: FAMOTIDINE 20 MG TABLET PO SCH (09:23)
[2020-07-18] MEDS: ASPIRIN COATED 81 MG TABLET.EC PO SCH (09:25)
[2020-07-18] MEDS: fentaNYL 12mcg/hr PATCH.TD72 TD SCH (11:19)
[2020-07-18] MEDS: ATORVASTATIN CA 10 MG TABLET (FP) PO SCH (21:25)
[2020-07-19] MEDS: oxyCODONE HCL 5 MG TABLET PO PRN ×3 (05:14→20:03)
[2020-07-19] MEDS: ACETAMINOPHEN 325 MG TABLET (FP) PO PRN ×3 (05:14→20:04)
[2020-07-19] MEDS: ALBUTEROL SO4 0.083% IH SOL 2.5 MG/3 ML VIAL.NEB. NEB SCH ×3 (07:44→20:22)
[2020-07-19] MEDS ORDERED: PT OWN MED DRAWER 7, Y5N ONE (09:28)
[2020-07-19] MEDS: ASPIRIN COATED 81 MG TABLET.EC PO SCH (09:31)
[2020-07-19] MEDS: DOCUSATE SODIUM 100 MG CAPSULE (FP) PO SCH (09:31)
[2020-07-19] MEDS: FAMOTIDINE 20 MG TABLET PO SCH (09:31)
[2020-07-19] MEDS: ESCITALOPRAM OXALATE 10 MG TABLET PO SCH (09:31)
[2020-07-19] MEDS: HEPARIN NA (PORCINE) 5,000 UNITS/ML 1ML VIAL SQ SCH ×2 (09:32→22:20)
[2020-07-19] MEDS: TIOTROPIUM BROMIDE 2.5 MCG (SPIRIVA) RESPIMAT INHALER IH SCH (09:34)
[2020-07-19] MEDS: BUDESONIDE/FORMETEROL FUMARATE 160/4.5 mcg INHALER IH SCH ×2 (09:34→22:21)
[2020-07-19] MEDS: methylPREDNISolone NA SUCC 40 MG/1 ML VIAL IVPUSH SCH (09:42)
[2020-07-19] MEDS: NEBIVOLOL 5 MG TABLET (FP) PO SCH (10:19)
[2020-07-19] MEDS: VERAPAMIL HCL 120 MG E.R. TABLET PO SCH (10:19)
[2020-07-19] MEDS: FUROSEMIDE 20 MG TABLET (FP) PO SCH (10:19)
[2020-07-19] MEDS: ATORVASTATIN CA 10 MG TABLET (FP) PO SCH (22:20)
[2020-07-20] MEDS: ACETAMINOPHEN 325 MG TABLET (FP) PO PRN ×2 (05:31→13:36)
[2020-07-20] MEDS: oxyCODONE HCL 5 MG TABLET PO PRN ×2 (05:31→13:34)
[2020-07-20 07:19] LABS: BASO % 0.1 % (0-2.0); EOS % 0.1 % (0-4.5); HEMATOCRIT 29.5 % (32.4-45.2); HEMOGLOBIN 10.1 GM/dL (10.7-15.3); LYMPH % 3.8 % (8-40); MCH 32.3 pg (25.7-33.7); MCHC 34.1 g/dl (32.0-36.0); MEAN CELL VOLUME 94.7 fl (80-96); MEAN PLT VOLUME 7.4 fl (7.5-11.1); MONO % 9.1 % (3.8-10.2); NEUT % 86.9 % (42.8-82.8); PLATELET COUNT 141 K/MM3 (134-434); RBC 3.12 M/mm3 (3.60-5.2); RDW 14.4 % (11.6-15.6); WHITE BLOOD COUNT 6.5 K/mm3 (4.0-10.0)
[2020-07-20 07:38] LABS: ALBUMIN 2.8 g/dl (3.4-5.0); BLOOD UREA NITROGEN 14.3 mg/dL (7-18); CALCIUM 8.3 mg/dL (8.5-10.1)
[2020-07-20 07:42] LABS: CREATININE 0.4 mg/dL (0.55-1.3)
[2020-07-20 07:43] LABS: BILIRUBIN,TOTAL 0.5 mg/dL (0.2-1); TOT PROT 5.2 g/dl (6.4-8.2)
[2020-07-20] MEDS: ALBUTEROL SO4 0.083% IH SOL 2.5 MG/3 ML VIAL.NEB. NEB SCH ×2 (07:45→14:10)
[2020-07-20] MEDS: NEBIVOLOL 5 MG TABLET (FP) PO SCH (09:54)
[2020-07-20] MEDS: FAMOTIDINE 20 MG TABLET PO SCH (09:54)
[2020-07-20] MEDS: ASPIRIN COATED 81 MG TABLET.EC PO SCH (09:54)
[2020-07-20] MEDS: VERAPAMIL HCL 120 MG E.R. TABLET PO SCH (09:54)
[2020-07-20] MEDS: DOCUSATE SODIUM 100 MG CAPSULE (FP) PO SCH (09:55)
[2020-07-20] MEDS: FUROSEMIDE 20 MG TABLET (FP) PO SCH (09:55)
[2020-07-20] MEDS: ESCITALOPRAM OXALATE 10 MG TABLET PO SCH (09:55)
[2020-07-20] MEDS: TIOTROPIUM BROMIDE 2.5 MCG (SPIRIVA) RESPIMAT INHALER IH SCH (09:56)
[2020-07-20] MEDS: HEPARIN NA (PORCINE) 5,000 UNITS/ML 1ML VIAL SQ SCH (09:56)
[2020-07-20] MEDS: BUDESONIDE/FORMETEROL FUMARATE 160/4.5 mcg INHALER IH SCH (09:57)
[2020-07-20] MEDS ORDERED: predniSONE 20 MG TABLET (UD) PO SCH (10:00)
[2020-07-20 10:41] LABS: ANISOCYTOSIS 2+; PLATELET ESTIMATE ADEQUATE
[2020-07-20 15:27] VITALS: BP 129/59; PULSE 69; TEMP 97.7
== END 2020-07-20 15:26 | disposition home health service (06) | DRG 189 ==
LOC: JER 01:17 → JERBED 05:03 → J4W 20:06
PROVIDERS: ADMIT Internal Medicine; ATTEND Internal Medicine
DX: J96.22 Acute and chronic respiratory failure with hypercapnia (principal); I50.32 Chronic diastolic (congestive) heart failure; J44.1 Chronic obstructive pulmonary disease with (acute) exacerbation; I24.8 Other forms of acute ischemic heart disease; I11.0 Hypertensive heart disease with heart failure; I27.20 Pulmonary hypertension, unspecified; E78.5 Hyperlipidemia, unspecified; I25.119 Atherosclerotic heart disease of native coronary artery with unspecified angina pectoris
CPT/HCPCS: 36415; 71045-TC-FY; 80053; 82550; 82803; 83735; 83880; 84484; 85025; 85610; 85730; 93005; 93010; 94640; 94660; 99285-25; C9803; J1644; U0003; U0005

== ENCOUNTER 2020-07-29 18:12 | Inpatient (IN) | payer OTHER ==
[2020-07-29] MEDS ORDERED: ALBUTEROL SO4 2.5/IPRATROPIUM 0.5 INH SOL 3 ML VIAL.NEB. NEB ONE ×2 (18:58→19:06)
[2020-07-29] MEDS ORDERED: FUROSEMIDE 40 MG/4 ML INJECTABLE VIAL IVPUSH ONE (19:20)
[2020-07-29] MEDS ORDERED: FUROSEMIDE 40 MG/4 ML INJECTABLE VIAL ONE (19:32)
[2020-07-29 19:33] LABS: VENOUS BASE EXCESS 6.5 mmol/L (-2-2); VENOUS O2 SATURATION 43.8 % (70-80); VENOUS PCO2 58.4 mmHg (38-52); VENOUS PH 7.372 (7.310-7.410)
[2020-07-29 19:35] LABS: BASO % 0.3 % (0-2.0); EOS % 0.1 % (0-4.5); HEMATOCRIT 31.3 % (32.4-45.2); HEMOGLOBIN 10.4 GM/dL (10.7-15.3); LYMPH % 5.1 % (8-40); MCH 31.8 pg (25.7-33.7); MCHC 33.2 g/dl (32.0-36.0); MEAN CELL VOLUME 95.9 fl (80-96); MEAN PLT VOLUME 6.6 fl (7.5-11.1); MONO % 8.1 % (3.8-10.2); NEUT % 86.4 % (42.8-82.8); PLATELET COUNT 171 10^3/uL (134-434); RBC 3.26 M/mm3 (3.60-5.2); RDW 15.7 % (11.6-15.6)
[2020-07-29 19:56] LABS: ALBUMIN 3.3 g/dl (3.4-5.0)
[2020-07-29 19:59] LABS: CREATININE 0.4 mg/dL (0.55-1.3)
[2020-07-29 20:01] LABS: TOT PROT 5.9 g/dl (6.4-8.2)
[2020-07-29 20:14] LABS: CALCIUM 9.9 mg/dL (8.5-10.1)
[2020-07-29] MEDS ORDERED: ALBUTEROL SO4 HFA INHALER IH PRN (20:44)
[2020-07-29] MEDS ORDERED: fentaNYL 25mcg/hr PATCH.TD72 ONE (21:17)
[2020-07-29] MEDS: fentaNYL 25mcg/hr PATCH.TD72 TD SCH (21:30)
[2020-07-29] MEDS: BUDESONIDE/FORMETEROL FUMARATE 160/4.5 mcg INHALER IH SCH (22:54)
[2020-07-30] MEDS: ACETAMINOPHEN 325 MG TABLET (FP) PO PRN ×2 (07:04→20:44)
[2020-07-30] MEDS: oxyCODONE HCL 5 MG TABLET PO PRN ×2 (07:04→20:44)
[2020-07-30 08:46] LABS: BASO % 0.5 % (0-2.0); EOS % 0.4 % (0-4.5); HEMATOCRIT 32.9 % (32.4-45.2); HEMOGLOBIN 10.9 GM/dL (10.7-15.3); LYMPH % 6.2 % (8-40); MCH 31.7 pg (25.7-33.7); MCHC 33.1 g/dl (32.0-36.0); MEAN CELL VOLUME 95.9 fl (80-96); MEAN PLT VOLUME 7.3 fl (7.5-11.1); MONO % 6.7 % (3.8-10.2); NEUT % 86.2 % (42.8-82.8); PLATELET COUNT 177 10^3/uL (134-434); RBC 3.43 M/mm3 (3.60-5.2); RDW 15.4 % (11.6-15.6)
[2020-07-30 09:14] LABS: ALBUMIN 3.3 g/dl (3.4-5.0); BLOOD UREA NITROGEN 15.5 mg/dL (7-18); CALCIUM 9.4 mg/dL (8.5-10.1)
[2020-07-30 09:18] LABS: CREATININE 0.4 mg/dL (0.55-1.3)
[2020-07-30 09:19] LABS: BILIRUBIN,TOTAL 0.9 mg/dL (0.2-1); TOT PROT 5.9 g/dl (6.4-8.2)
[2020-07-30] MEDS: FAMOTIDINE 20 MG TABLET PO SCH (09:36)
[2020-07-30] MEDS: predniSONE 10 MG TABLET (UD) PO SCH (09:37)
[2020-07-30] MEDS: NEBIVOLOL 5 MG TABLET (FP) PO SCH (09:37)
[2020-07-30] MEDS: FUROSEMIDE 20 MG TABLET (FP) PO SCH (09:37)
[2020-07-30] MEDS: DOCUSATE SODIUM 100 MG CAPSULE (FP) PO SCH (09:37)
[2020-07-30] MEDS: ESCITALOPRAM OXALATE 10 MG TABLET PO SCH (09:37)
[2020-07-30] MEDS: TIOTROPIUM BROMIDE 2.5 MCG (SPIRIVA) RESPIMAT INHALER IH SCH (09:38)
[2020-07-30] MEDS: ASPIRIN COATED 81 MG TABLET.EC PO SCH (09:38)
[2020-07-30] MEDS ORDERED: PT OWN MED DRAWER 7, Y5N ONE (10:52)
[2020-07-30] MEDS: BUDESONIDE/FORMETEROL FUMARATE 160/4.5 mcg INHALER IH SCH ×2 (11:10→21:19)
[2020-07-30] MEDS: VERAPAMIL HCL 120 MG E.R. TABLET PO SCH (11:10)
[2020-07-30] MEDS: ALBUTEROL SO4 0.083% IH SOL 2.5 MG/3 ML VIAL.NEB. NEB SCH ×3 (11:30→20:25)
[2020-07-30] MEDS: HEPARIN NA (PORCINE) 5,000 UNITS/ML 1ML VIAL SQ SCH (21:20)
[2020-07-30] MEDS: ATORVASTATIN CA 10 MG TABLET (FP) PO SCH (21:20)
[2020-07-31] MEDS ORDERED: PT OWN MED DRAWER 7, Y5N ONE (08:56)
[2020-07-31] MEDS: ALBUTEROL SO4 0.083% IH SOL 2.5 MG/3 ML VIAL.NEB. NEB SCH ×4 (09:00→20:19)
[2020-07-31] MEDS: predniSONE 10 MG TABLET (UD) PO SCH (09:08)
[2020-07-31] MEDS: NEBIVOLOL 5 MG TABLET (FP) PO SCH (09:08)
[2020-07-31] MEDS: VERAPAMIL HCL 120 MG E.R. TABLET PO SCH (09:08)
[2020-07-31] MEDS: FAMOTIDINE 20 MG TABLET PO SCH (09:08)
[2020-07-31] MEDS: FUROSEMIDE 20 MG TABLET (FP) PO SCH (09:08)
[2020-07-31] MEDS: DOCUSATE SODIUM 100 MG CAPSULE (FP) PO SCH (09:08)
[2020-07-31] MEDS: ASPIRIN COATED 81 MG TABLET.EC PO SCH (09:08)
[2020-07-31] MEDS: HEPARIN NA (PORCINE) 5,000 UNITS/ML 1ML VIAL SQ SCH ×2 (09:08→22:03)
[2020-07-31] MEDS: TIOTROPIUM BROMIDE 2.5 MCG (SPIRIVA) RESPIMAT INHALER IH SCH (09:09)
[2020-07-31] MEDS: ESCITALOPRAM OXALATE 10 MG TABLET PO SCH (09:09)
[2020-07-31] MEDS: BUDESONIDE/FORMETEROL FUMARATE 160/4.5 mcg INHALER IH SCH ×2 (09:10→22:08)
[2020-07-31] MEDS: methylPREDNISolone NA SUCC 40 MG/1 ML VIAL IVPUSH SCH ×2 (11:23→17:11)
[2020-07-31] MEDS: ACETAMINOPHEN 325 MG TABLET (FP) PO PRN ×2 (12:24→22:03)
[2020-07-31] MEDS: oxyCODONE HCL 5 MG TABLET PO PRN ×2 (12:24→22:03)
[2020-07-31] MEDS: MELATONIN 1 MG TABLET PO SCH (22:03)
[2020-07-31] MEDS: ATORVASTATIN CA 10 MG TABLET (FP) PO SCH (22:03)
[2020-08-01] MEDS: methylPREDNISolone NA SUCC 40 MG/1 ML VIAL IVPUSH SCH ×3 (02:17→17:32)
[2020-08-01] MEDS: ALBUTEROL SO4 0.083% IH SOL 2.5 MG/3 ML VIAL.NEB. NEB SCH ×4 (07:20→20:08)
[2020-08-01 07:37] LABS: BASO % 0.1 % (0-2.0); HEMATOCRIT 28.8 % (32.4-45.2); HEMOGLOBIN 9.5 GM/dL (10.7-15.3); LYMPH % 3.1 % (8-40); MCH 31.4 pg (25.7-33.7); MCHC 32.9 g/dl (32.0-36.0); MEAN CELL VOLUME 95.4 fl (80-96); MEAN PLT VOLUME 7.5 fl (7.5-11.1); MONO % 3.2 % (3.8-10.2); NEUT % 93.6 % (42.8-82.8); PLATELET COUNT 150 10^3/uL (134-434); RBC 3.02 M/mm3 (3.60-5.2); RDW 15.2 % (11.6-15.6); WHITE BLOOD COUNT 3.8 K/mm3 (4.0-10.0)
[2020-08-01 08:09] LABS: ALBUMIN 2.8 g/dl (3.4-5.0)
[2020-08-01 08:12] LABS: BILIRUBIN,TOTAL 0.8 mg/dL (0.2-1); CREATININE 0.3 mg/dL (0.55-1.3); TOT PROT 5.3 g/dl (6.4-8.2)
[2020-08-01 08:59] LABS: ANISOCYTOSIS 0; HELMET CELLS 0; HOWELL-JOLLY BODIES 0; MACROCYTOSIS 0; OVALOCYTE 0; PLATELET ESTIMATE DECREASED; ROULEAU 0; SICKELED CELLS 0; TARGET CELLS 0; TEAR DROP CELLS 0; TOXIC GRANULATION 0
[2020-08-01] MEDS: ESCITALOPRAM OXALATE 10 MG TABLET PO SCH (10:19)
[2020-08-01] MEDS: ASPIRIN COATED 81 MG TABLET.EC PO SCH (10:19)
[2020-08-01] MEDS: FAMOTIDINE 20 MG TABLET PO SCH (10:19)
[2020-08-01] MEDS: NEBIVOLOL 5 MG TABLET (FP) PO SCH (10:19)
[2020-08-01] MEDS: DOCUSATE SODIUM 100 MG CAPSULE (FP) PO SCH (10:20)
[2020-08-01] MEDS: FUROSEMIDE 20 MG TABLET (FP) PO SCH (10:20)
[2020-08-01] MEDS: TIOTROPIUM BROMIDE 2.5 MCG (SPIRIVA) RESPIMAT INHALER IH SCH (10:20)
[2020-08-01] MEDS: BUDESONIDE/FORMETEROL FUMARATE 160/4.5 mcg INHALER IH SCH ×2 (10:20→21:32)
[2020-08-01] MEDS: HEPARIN NA (PORCINE) 5,000 UNITS/ML 1ML VIAL SQ SCH ×2 (10:20→21:23)
[2020-08-01] MEDS ORDERED: PT OWN MED DRAWER 7, Y5N ONE (10:22)
[2020-08-01] MEDS: VERAPAMIL HCL 120 MG E.R. TABLET PO SCH (10:25)
[2020-08-01] MEDS: oxyCODONE HCL 5 MG TABLET PO PRN ×2 (15:18→22:34)
[2020-08-01] MEDS: ACETAMINOPHEN 325 MG TABLET (FP) PO PRN ×2 (15:19→22:08)
[2020-08-01] MEDS: fentaNYL 25mcg/hr PATCH.TD72 TD SCH (21:22)
[2020-08-01] MEDS: ATORVASTATIN CA 10 MG TABLET (FP) PO SCH (21:23)
[2020-08-01] MEDS: MELATONIN 1 MG TABLET PO SCH (21:23)
[2020-08-01] MEDS: FENTANYL PATCH WASTE MC PRN (21:28)
[2020-08-01] MEDS ORDERED: POTASSIUM CHLORIDE TABS 20 MEQ TABLET.ER (FP) PO ONE (22:39)
[2020-08-02] MEDS: methylPREDNISolone NA SUCC 40 MG/1 ML VIAL IVPUSH SCH ×3 (02:35→18:57)
[2020-08-02 07:09] LABS: BASO % 0.1 % (0-2.0); HEMATOCRIT 27.7 % (32.4-45.2); HEMOGLOBIN 9.2 GM/dL (10.7-15.3); LYMPH % 2.2 % (8-40); MCH 31.3 pg (25.7-33.7); MCHC 33.1 g/dl (32.0-36.0); MEAN CELL VOLUME 94.5 fl (80-96); MEAN PLT VOLUME 7.3 fl (7.5-11.1); NEUT % 93.7 % (42.8-82.8); PLATELET COUNT 158 10^3/uL (134-434); RBC 2.93 M/mm3 (3.60-5.2); RDW 15.3 % (11.6-15.6)
[2020-08-02 07:50] LABS: CALCIUM 9.1 mg/dL (8.5-10.1)
[2020-08-02 07:51] LABS: BLOOD UREA NITROGEN 19.5 mg/dL (7-18)
[2020-08-02 07:54] LABS: CREATININE 0.4 mg/dL (0.55-1.3)
[2020-08-02] MEDS: ALBUTEROL SO4 0.083% IH SOL 2.5 MG/3 ML VIAL.NEB. NEB SCH ×4 (08:30→20:20)
[2020-08-02 09:33] LABS: ANISOCYTOSIS 0; MACROCYTOSIS 0; PLATELET ESTIMATE DECREASED
[2020-08-02] MEDS: TIOTROPIUM BROMIDE 2.5 MCG (SPIRIVA) RESPIMAT INHALER IH SCH (10:06)
[2020-08-02] MEDS: BUDESONIDE/FORMETEROL FUMARATE 160/4.5 mcg INHALER IH SCH ×2 (10:06→21:33)
[2020-08-02] MEDS: DOCUSATE SODIUM 100 MG CAPSULE (FP) PO SCH (10:07)
[2020-08-02] MEDS: ESCITALOPRAM OXALATE 10 MG TABLET PO SCH (10:07)
[2020-08-02] MEDS: HEPARIN NA (PORCINE) 5,000 UNITS/ML 1ML VIAL SQ SCH ×2 (10:07→21:32)
[2020-08-02] MEDS: FAMOTIDINE 20 MG TABLET PO SCH (10:08)
[2020-08-02] MEDS: ASPIRIN COATED 81 MG TABLET.EC PO SCH (10:08)
[2020-08-02] MEDS: FUROSEMIDE 20 MG TABLET (FP) PO SCH (10:08)
[2020-08-02] MEDS: NEBIVOLOL 5 MG TABLET (FP) PO SCH (10:08)
[2020-08-02] MEDS ORDERED: PT OWN MED DRAWER 7, Y5N ONE (10:14)
[2020-08-02] MEDS: VERAPAMIL HCL 120 MG E.R. TABLET PO SCH (10:16)
[2020-08-02] MEDS: ACETAMINOPHEN 325 MG TABLET (FP) PO PRN (21:32)
[2020-08-02] MEDS: ATORVASTATIN CA 10 MG TABLET (FP) PO SCH (21:32)
[2020-08-02] MEDS: MELATONIN 1 MG TABLET PO SCH (21:33)
[2020-08-02] MEDS: oxyCODONE HCL 5 MG TABLET PO PRN (22:27)
[2020-08-03] MEDS: methylPREDNISolone NA SUCC 40 MG/1 ML VIAL IVPUSH SCH ×3 (01:33→17:30)
[2020-08-03] MEDS: ALBUTEROL SO4 0.083% IH SOL 2.5 MG/3 ML VIAL.NEB. NEB SCH ×4 (07:36→20:50)
[2020-08-03] MEDS: HEPARIN NA (PORCINE) 5,000 UNITS/ML 1ML VIAL SQ SCH ×2 (10:44→21:51)
[2020-08-03] MEDS: FUROSEMIDE 20 MG TABLET (FP) PO SCH (10:44)
[2020-08-03] MEDS: ASPIRIN COATED 81 MG TABLET.EC PO SCH (10:44)
[2020-08-03] MEDS: NEBIVOLOL 5 MG TABLET (FP) PO SCH (10:44)
[2020-08-03] MEDS: ESCITALOPRAM OXALATE 10 MG TABLET PO SCH (10:44)
[2020-08-03] MEDS: DOCUSATE SODIUM 100 MG CAPSULE (FP) PO SCH (10:44)
[2020-08-03] MEDS: VERAPAMIL HCL 120 MG E.R. TABLET PO SCH (10:45)
[2020-08-03] MEDS: TIOTROPIUM BROMIDE 2.5 MCG (SPIRIVA) RESPIMAT INHALER IH SCH (10:46)
[2020-08-03] MEDS: BUDESONIDE/FORMETEROL FUMARATE 160/4.5 mcg INHALER IH SCH ×2 (10:46→21:56)
[2020-08-03] MEDS: FAMOTIDINE 20 MG TABLET PO SCH (10:46)
[2020-08-03] MEDS: ACETAMINOPHEN 325 MG TABLET (FP) PO PRN (21:51)
[2020-08-03] MEDS: MELATONIN 1 MG TABLET PO SCH (21:51)
[2020-08-03] MEDS: ATORVASTATIN CA 10 MG TABLET (FP) PO SCH (21:51)
[2020-08-03] MEDS: oxyCODONE HCL 5 MG TABLET PO PRN (21:52)
[2020-08-04] MEDS: methylPREDNISolone NA SUCC 40 MG/1 ML VIAL IVPUSH SCH ×3 (03:29→18:22)
[2020-08-04 07:32] LABS: HEMATOCRIT 27.1 % (32.4-45.2); HEMOGLOBIN 9.1 GM/dL (10.7-15.3); LYMPH % 2.5 % (8-40); MCH 31.9 pg (25.7-33.7); MCHC 33.8 g/dl (32.0-36.0); MEAN CELL VOLUME 94.4 fl (80-96); MEAN PLT VOLUME 7.3 fl (7.5-11.1); MONO % 4.4 % (3.8-10.2); NEUT % 93.1 % (42.8-82.8); PLATELET COUNT 144 10^3/uL (134-434); RBC 2.87 M/mm3 (3.60-5.2); RDW 15.1 % (11.6-15.6); WHITE BLOOD COUNT 4.2 K/mm3 (4.0-10.0)
[2020-08-04] MEDS: ALBUTEROL SO4 0.083% IH SOL 2.5 MG/3 ML VIAL.NEB. NEB SCH (07:40)
[2020-08-04 07:41] LABS: ALBUMIN 2.9 g/dl (3.4-5.0); CALCIUM 9.2 mg/dL (8.5-10.1)
[2020-08-04 07:44] LABS: CREATININE 0.3 mg/dL (0.55-1.3)
[2020-08-04 07:46] LABS: TOT PROT 5.3 g/dl (6.4-8.2)
[2020-08-04] MEDS ORDERED: PT OWN MED DRAWER 7, Y5N ONE (10:05)
[2020-08-04 10:25] LABS: ANISOCYTOSIS 1+; MACROCYTOSIS 0; PLATELET ESTIMATE DECREASED
[2020-08-04] MEDS: oxyCODONE HCL 5 MG TABLET PO PRN ×2 (10:29→21:31)
[2020-08-04] MEDS: NEBIVOLOL 5 MG TABLET (FP) PO SCH (10:29)
[2020-08-04] MEDS: ACETAMINOPHEN 325 MG TABLET (FP) PO PRN ×2 (10:30→21:30)
[2020-08-04] MEDS: DOCUSATE SODIUM 100 MG CAPSULE (FP) PO SCH (10:30)
[2020-08-04] MEDS: FAMOTIDINE 20 MG TABLET PO SCH (10:30)
[2020-08-04] MEDS: FUROSEMIDE 20 MG TABLET (FP) PO SCH (10:30)
[2020-08-04] MEDS: ASPIRIN COATED 81 MG TABLET.EC PO SCH (10:31)
[2020-08-04] MEDS: VERAPAMIL HCL 120 MG E.R. TABLET PO SCH (10:31)
[2020-08-04] MEDS: ESCITALOPRAM OXALATE 10 MG TABLET PO SCH (10:31)
[2020-08-04] MEDS: HEPARIN NA (PORCINE) 5,000 UNITS/ML 1ML VIAL SQ SCH ×2 (10:31→21:31)
[2020-08-04] MEDS: BUDESONIDE/FORMETEROL FUMARATE 160/4.5 mcg INHALER IH SCH ×2 (10:32→21:48)
[2020-08-04] MEDS: TIOTROPIUM BROMIDE 2.5 MCG (SPIRIVA) RESPIMAT INHALER IH SCH (10:32)
[2020-08-04] MEDS: fentaNYL 25mcg/hr PATCH.TD72 TD SCH (21:29)
[2020-08-04] MEDS: ATORVASTATIN CA 10 MG TABLET (FP) PO SCH (21:30)
[2020-08-04] MEDS: MELATONIN 1 MG TABLET PO SCH (21:30)
[2020-08-05] MEDS: methylPREDNISolone NA SUCC 40 MG/1 ML VIAL IVPUSH SCH ×3 (04:14→17:34)
[2020-08-05] MEDS ORDERED: PT OWN MED DRAWER 7, Y5N ONE (09:42)
[2020-08-05] MEDS: FUROSEMIDE 20 MG TABLET (FP) PO SCH (09:58)
[2020-08-05] MEDS: ESCITALOPRAM OXALATE 10 MG TABLET PO SCH (09:58)
[2020-08-05] MEDS: FAMOTIDINE 20 MG TABLET PO SCH (09:58)
[2020-08-05] MEDS: NEBIVOLOL 5 MG TABLET (FP) PO SCH (09:58)
[2020-08-05] MEDS: VERAPAMIL HCL 120 MG E.R. TABLET PO SCH (09:59)
[2020-08-05] MEDS: HEPARIN NA (PORCINE) 5,000 UNITS/ML 1ML VIAL SQ SCH ×2 (09:59→22:00)
[2020-08-05] MEDS: ASPIRIN COATED 81 MG TABLET.EC PO SCH (09:59)
[2020-08-05] MEDS: DOCUSATE SODIUM 100 MG CAPSULE (FP) PO SCH (09:59)
[2020-08-05] MEDS: TIOTROPIUM BROMIDE 2.5 MCG (SPIRIVA) RESPIMAT INHALER IH SCH (10:00)
[2020-08-05] MEDS: BUDESONIDE/FORMETEROL FUMARATE 160/4.5 mcg INHALER IH SCH ×2 (10:00→22:01)
[2020-08-05] MEDS ORDERED: ACETAMINOPHEN 325 MG TABLET (FP) PO PRN (12:07)
[2020-08-05] MEDS ORDERED: oxyCODONE HCL 5 MG TABLET PO PRN (12:58)
[2020-08-05] MEDS: ACETAMINOPHEN 325 MG TABLET (FP) PO PRN (15:40)
[2020-08-05] MEDS: MELATONIN 1 MG TABLET PO SCH (22:00)
[2020-08-05] MEDS: ATORVASTATIN CA 10 MG TABLET (FP) PO SCH (22:00)
[2020-08-06] MEDS: methylPREDNISolone NA SUCC 40 MG/1 ML VIAL IVPUSH SCH ×3 (01:24→17:16)
[2020-08-06] MEDS: NEBIVOLOL 5 MG TABLET (FP) PO SCH (09:39)
[2020-08-06] MEDS: FAMOTIDINE 20 MG TABLET PO SCH (09:40)
[2020-08-06] MEDS: FUROSEMIDE 20 MG TABLET (FP) PO SCH (09:40)
[2020-08-06] MEDS: ASPIRIN COATED 81 MG TABLET.EC PO SCH (09:40)
[2020-08-06] MEDS: ESCITALOPRAM OXALATE 10 MG TABLET PO SCH (09:40)
[2020-08-06] MEDS: VERAPAMIL HCL 120 MG E.R. TABLET PO SCH (09:40)
[2020-08-06] MEDS: DOCUSATE SODIUM 100 MG CAPSULE (FP) PO SCH (09:40)
[2020-08-06] MEDS: HEPARIN NA (PORCINE) 5,000 UNITS/ML 1ML VIAL SQ SCH ×2 (09:44→23:10)
[2020-08-06] MEDS: TIOTROPIUM BROMIDE 2.5 MCG (SPIRIVA) RESPIMAT INHALER IH SCH (09:46)
[2020-08-06] MEDS: BUDESONIDE/FORMETEROL FUMARATE 160/4.5 mcg INHALER IH SCH ×2 (09:46→21:07)
[2020-08-06] MEDS: oxyCODONE HCL 5 MG TABLET PO PRN (20:00)
[2020-08-06] MEDS: ACETAMINOPHEN 325 MG TABLET (FP) PO PRN (20:44)
[2020-08-06] MEDS: ATORVASTATIN CA 10 MG TABLET (FP) PO SCH (21:07)
[2020-08-06] MEDS: MELATONIN 1 MG TABLET PO SCH (21:07)
[2020-08-06] MEDS: NYSTATIN 500,000 UNITS/5 ML SUSPENSION PO SCH (23:15)
[2020-08-07] MEDS: methylPREDNISolone NA SUCC 40 MG/1 ML VIAL IVPUSH SCH ×3 (01:01→17:25)
[2020-08-07] MEDS: NYSTATIN 500,000 UNITS/5 ML SUSPENSION PO SCH ×4 (05:13→23:34)
[2020-08-07 08:09] LABS: BASO % 0.1 % (0-2.0); HEMATOCRIT 31.3 % (32.4-45.2); HEMOGLOBIN 10.3 GM/dL (10.7-15.3); LYMPH % 2.7 % (8-40); MCH 31.4 pg (25.7-33.7); MEAN CELL VOLUME 95.4 fl (80-96); MEAN PLT VOLUME 7.9 fl (7.5-11.1); NEUT % 90.2 % (42.8-82.8); PLATELET COUNT 167 10^3/uL (134-434); RBC 3.28 M/mm3 (3.60-5.2); RDW 15.3 % (11.6-15.6); WHITE BLOOD COUNT 4.9 K/mm3 (4.0-10.0)
[2020-08-07 08:23] LABS: CALCIUM 10.1 mg/dL (8.5-10.1)
[2020-08-07 08:24] LABS: CREATININE 0.4 mg/dL (0.55-1.3)
[2020-08-07 08:26] LABS: TOT PROT 5.4 g/dl (6.4-8.2)
[2020-08-07 08:32] LABS: BLOOD UREA NITROGEN 26.7 mg/dL (7-18)
[2020-08-07 08:34] LABS: BILIRUBIN,TOTAL 0.6 mg/dL (0.2-1)
[2020-08-07] MEDS: ESCITALOPRAM OXALATE 10 MG TABLET PO SCH (09:30)
[2020-08-07] MEDS: FUROSEMIDE 20 MG TABLET (FP) PO SCH (09:30)
[2020-08-07] MEDS: DOCUSATE SODIUM 100 MG CAPSULE (FP) PO SCH (09:30)
[2020-08-07] MEDS: NEBIVOLOL 5 MG TABLET (FP) PO SCH (09:30)
[2020-08-07] MEDS: VERAPAMIL HCL 120 MG E.R. TABLET PO SCH (09:30)
[2020-08-07] MEDS: FAMOTIDINE 20 MG TABLET PO SCH (09:30)
[2020-08-07] MEDS: ASPIRIN COATED 81 MG TABLET.EC PO SCH (09:30)
[2020-08-07] MEDS: BUDESONIDE/FORMETEROL FUMARATE 160/4.5 mcg INHALER IH SCH ×2 (09:31→21:09)
[2020-08-07] MEDS: HEPARIN NA (PORCINE) 5,000 UNITS/ML 1ML VIAL SQ SCH ×2 (09:31→21:09)
[2020-08-07] MEDS: TIOTROPIUM BROMIDE 2.5 MCG (SPIRIVA) RESPIMAT INHALER IH SCH (09:32)
[2020-08-07] MEDS: oxyCODONE HCL 5 MG TABLET PO PRN (17:31)
[2020-08-07] MEDS: fentaNYL 25mcg/hr PATCH.TD72 TD SCH (21:02)
[2020-08-07] MEDS: MELATONIN 1 MG TABLET PO SCH (21:09)
[2020-08-07] MEDS: ATORVASTATIN CA 10 MG TABLET (FP) PO SCH (21:09)
[2020-08-08] MEDS: methylPREDNISolone NA SUCC 40 MG/1 ML VIAL IVPUSH SCH ×3 (02:09→18:20)
[2020-08-08] MEDS: NYSTATIN 500,000 UNITS/5 ML SUSPENSION PO SCH ×3 (06:19→18:20)
[2020-08-08] MEDS: oxyCODONE HCL 5 MG TABLET PO PRN (06:48)
[2020-08-08] MEDS: ACETAMINOPHEN 325 MG TABLET (FP) PO PRN (06:48)
[2020-08-08] MEDS ORDERED: PT OWN MED DRAWER 7, Y5N ONE (08:59)
[2020-08-08] MEDS: ASPIRIN COATED 81 MG TABLET.EC PO SCH (09:23)
[2020-08-08] MEDS: FAMOTIDINE 20 MG TABLET PO SCH (09:23)
[2020-08-08] MEDS: HEPARIN NA (PORCINE) 5,000 UNITS/ML 1ML VIAL SQ SCH ×2 (09:23→22:26)
[2020-08-08] MEDS: DOCUSATE SODIUM 100 MG CAPSULE (FP) PO SCH (09:23)
[2020-08-08] MEDS: NEBIVOLOL 5 MG TABLET (FP) PO SCH (09:23)
[2020-08-08] MEDS: FUROSEMIDE 20 MG TABLET (FP) PO SCH (09:23)
[2020-08-08] MEDS: VERAPAMIL HCL 120 MG E.R. TABLET PO SCH (09:23)
[2020-08-08] MEDS: ESCITALOPRAM OXALATE 10 MG TABLET PO SCH (09:24)
[2020-08-08] MEDS: TIOTROPIUM BROMIDE 2.5 MCG (SPIRIVA) RESPIMAT INHALER IH SCH (09:24)
[2020-08-08] MEDS: BUDESONIDE/FORMETEROL FUMARATE 160/4.5 mcg INHALER IH SCH ×2 (09:24→22:26)
[2020-08-08] MEDS: ATORVASTATIN CA 10 MG TABLET (FP) PO SCH (22:26)
[2020-08-08] MEDS: MELATONIN 1 MG TABLET PO SCH (22:26)
[2020-08-09] MEDS: NYSTATIN 500,000 UNITS/5 ML SUSPENSION PO SCH ×5 (00:58→23:07)
[2020-08-09] MEDS: methylPREDNISolone NA SUCC 40 MG/1 ML VIAL IVPUSH SCH ×3 (01:00→22:16)
[2020-08-09] MEDS: NEBIVOLOL 5 MG TABLET (FP) PO SCH (10:02)
[2020-08-09] MEDS: FAMOTIDINE 20 MG TABLET PO SCH (10:02)
[2020-08-09] MEDS: DOCUSATE SODIUM 100 MG CAPSULE (FP) PO SCH (10:02)
[2020-08-09] MEDS: VERAPAMIL HCL 120 MG E.R. TABLET PO SCH (10:02)
[2020-08-09] MEDS: FUROSEMIDE 20 MG TABLET (FP) PO SCH (10:02)
[2020-08-09] MEDS: HEPARIN NA (PORCINE) 5,000 UNITS/ML 1ML VIAL SQ SCH ×2 (10:02→22:16)
[2020-08-09] MEDS: ASPIRIN COATED 81 MG TABLET.EC PO SCH (10:02)
[2020-08-09] MEDS: ESCITALOPRAM OXALATE 10 MG TABLET PO SCH (10:02)
[2020-08-09] MEDS: BUDESONIDE/FORMETEROL FUMARATE 160/4.5 mcg INHALER IH SCH ×2 (10:03→22:17)
[2020-08-09] MEDS: TIOTROPIUM BROMIDE 2.5 MCG (SPIRIVA) RESPIMAT INHALER IH SCH (10:03)
[2020-08-09] MEDS: ACETAMINOPHEN 325 MG TABLET (FP) PO PRN (21:48)
[2020-08-09] MEDS: ATORVASTATIN CA 10 MG TABLET (FP) PO SCH (22:16)
[2020-08-09] MEDS: MELATONIN 1 MG TABLET PO SCH (22:16)
[2020-08-09] MEDS: oxyCODONE HCL 5 MG TABLET PO PRN (23:07)
[2020-08-10] MEDS: NYSTATIN 500,000 UNITS/5 ML SUSPENSION PO SCH ×3 (06:26→17:06)
[2020-08-10 06:51] LABS: BASO % 0.1 % (0-2.0); HEMATOCRIT 28.2 % (32.4-45.2); HEMOGLOBIN 9.4 GM/dL (10.7-15.3); MCH 31.5 pg (25.7-33.7); MCHC 33.4 g/dl (32.0-36.0); MEAN CELL VOLUME 94.3 fl (80-96); MEAN PLT VOLUME 7.7 fl (7.5-11.1); MONO % 7.3 % (3.8-10.2); NEUT % 90.6 % (42.8-82.8); PLATELET COUNT 157 10^3/uL (134-434); RBC 2.99 M/mm3 (3.60-5.2); RDW 15.1 % (11.6-15.6); WHITE BLOOD COUNT 6.2 K/mm3 (4.0-10.0)
[2020-08-10 07:12] LABS: ALBUMIN 2.8 g/dl (3.4-5.0); BLOOD UREA NITROGEN 22.7 mg/dL (7-18); CALCIUM 8.7 mg/dL (8.5-10.1)
[2020-08-10 07:17] LABS: BILIRUBIN,TOTAL 0.4 mg/dL (0.2-1); TOT PROT 5.1 g/dl (6.4-8.2)
[2020-08-10 07:30] LABS: CREATININE 0.3 mg/dL (0.55-1.3)
[2020-08-10 09:51] LABS: ANISOCYTOSIS 1+; MACROCYTOSIS 0; PLATELET ESTIMATE DECREASED
[2020-08-10] MEDS: NEBIVOLOL 5 MG TABLET (FP) PO SCH (10:28)
[2020-08-10] MEDS: FUROSEMIDE 20 MG TABLET (FP) PO SCH (10:28)
[2020-08-10] MEDS: ESCITALOPRAM OXALATE 10 MG TABLET PO SCH (10:28)
[2020-08-10] MEDS: MULTIVITAMINS (DAILY MVI) TABLET (FP) PO SCH (10:28)
[2020-08-10] MEDS: FAMOTIDINE 20 MG TABLET PO SCH (10:28)
[2020-08-10] MEDS: ASPIRIN COATED 81 MG TABLET.EC PO SCH (10:28)
[2020-08-10] MEDS: DOCUSATE SODIUM 100 MG CAPSULE (FP) PO SCH ×2 (10:29→10:37)
[2020-08-10] MEDS: TIOTROPIUM BROMIDE 2.5 MCG (SPIRIVA) RESPIMAT INHALER IH SCH (10:29)
[2020-08-10] MEDS: HEPARIN NA (PORCINE) 5,000 UNITS/ML 1ML VIAL SQ SCH ×2 (10:29→21:28)
[2020-08-10] MEDS: BUDESONIDE/FORMETEROL FUMARATE 160/4.5 mcg INHALER IH SCH ×2 (10:29→21:33)
[2020-08-10] MEDS: VERAPAMIL HCL 120 MG E.R. TABLET PO SCH (10:29)
[2020-08-10] MEDS: methylPREDNISolone NA SUCC 40 MG/1 ML VIAL IVPUSH SCH ×2 (10:29→21:29)
[2020-08-10] MEDS: oxyCODONE HCL 5 MG TABLET PO PRN ×2 (13:56→21:25)
[2020-08-10] MEDS: fentaNYL 25mcg/hr PATCH.TD72 TD SCH (21:27)
[2020-08-10] MEDS: ATORVASTATIN CA 10 MG TABLET (FP) PO SCH (21:28)
[2020-08-10] MEDS: MELATONIN 1 MG TABLET PO SCH (21:29)
[2020-08-10] MEDS: ACETAMINOPHEN 325 MG TABLET (FP) PO PRN (21:34)
[2020-08-10] MEDS: FENTANYL PATCH WASTE MC PRN (21:40)
[2020-08-10] MEDS ORDERED: POLYETHYLENE GLYCOL (HEALTHYLAX) 3350 17 GM PACKET PO PRN (21:53)
[2020-08-11] MEDS: NYSTATIN 500,000 UNITS/5 ML SUSPENSION PO SCH ×4 (06:24→18:09)
[2020-08-11] MEDS ORDERED: PT OWN MED DRAWER 7, Y5N ONE (09:16)
[2020-08-11] MEDS: ESCITALOPRAM OXALATE 10 MG TABLET PO SCH (09:52)
[2020-08-11] MEDS: FAMOTIDINE 20 MG TABLET PO SCH (09:52)
[2020-08-11] MEDS: HEPARIN NA (PORCINE) 5,000 UNITS/ML 1ML VIAL SQ SCH ×2 (09:52→22:00)
[2020-08-11] MEDS: MULTIVITAMINS (DAILY MVI) TABLET (FP) PO SCH (09:52)
[2020-08-11] MEDS: NEBIVOLOL 5 MG TABLET (FP) PO SCH (09:52)
[2020-08-11] MEDS: FUROSEMIDE 20 MG TABLET (FP) PO SCH (09:52)
[2020-08-11] MEDS: methylPREDNISolone NA SUCC 40 MG/1 ML VIAL IVPUSH SCH ×2 (09:52→22:01)
[2020-08-11] MEDS: ASPIRIN COATED 81 MG TABLET.EC PO SCH (09:52)
[2020-08-11] MEDS: VERAPAMIL HCL 120 MG E.R. TABLET PO SCH (09:52)
[2020-08-11] MEDS: BUDESONIDE/FORMETEROL FUMARATE 160/4.5 mcg INHALER IH SCH ×2 (09:53→22:06)
[2020-08-11] MEDS: TIOTROPIUM BROMIDE 2.5 MCG (SPIRIVA) RESPIMAT INHALER IH SCH (09:53)
[2020-08-11] MEDS: oxyCODONE HCL 5 MG TABLET PO PRN (20:01)
[2020-08-11] MEDS: ATORVASTATIN CA 10 MG TABLET (FP) PO SCH (22:01)
[2020-08-11] MEDS: MELATONIN 1 MG TABLET PO SCH (22:01)
[2020-08-11] MEDS: ACETAMINOPHEN 325 MG TABLET (FP) PO PRN (22:01)
[2020-08-12] MEDS: NYSTATIN 500,000 UNITS/5 ML SUSPENSION PO SCH ×4 (06:14→17:07)
[2020-08-12] MEDS ORDERED: PT OWN MED DRAWER 7, Y5N ONE (09:20)
[2020-08-12] MEDS: TIOTROPIUM BROMIDE 2.5 MCG (SPIRIVA) RESPIMAT INHALER IH SCH (10:21)
[2020-08-12] MEDS: BUDESONIDE/FORMETEROL FUMARATE 160/4.5 mcg INHALER IH SCH ×2 (10:21→23:34)
[2020-08-12] MEDS: HEPARIN NA (PORCINE) 5,000 UNITS/ML 1ML VIAL SQ SCH ×2 (10:22→22:23)
[2020-08-12] MEDS: NEBIVOLOL 5 MG TABLET (FP) PO SCH (10:22)
[2020-08-12] MEDS: MULTIVITAMINS (DAILY MVI) TABLET (FP) PO SCH (10:22)
[2020-08-12] MEDS: FAMOTIDINE 20 MG TABLET PO SCH (10:23)
[2020-08-12] MEDS: ESCITALOPRAM OXALATE 10 MG TABLET PO SCH (10:23)
[2020-08-12] MEDS: FUROSEMIDE 20 MG TABLET (FP) PO SCH (10:23)
[2020-08-12] MEDS: methylPREDNISolone NA SUCC 40 MG/1 ML VIAL IVPUSH SCH ×2 (10:24→22:23)
[2020-08-12] MEDS: ASPIRIN COATED 81 MG TABLET.EC PO SCH (10:24)
[2020-08-12] MEDS: VERAPAMIL HCL 120 MG E.R. TABLET PO SCH (10:25)
[2020-08-12] MEDS: oxyCODONE HCL 5 MG TABLET PO PRN (20:13)
[2020-08-12] MEDS: ACETAMINOPHEN 325 MG TABLET (FP) PO PRN (20:14)
[2020-08-12] MEDS: MELATONIN 1 MG TABLET PO SCH (22:23)
[2020-08-12] MEDS: ATORVASTATIN CA 10 MG TABLET (FP) PO SCH (22:23)
[2020-08-13] MEDS: NYSTATIN 500,000 UNITS/5 ML SUSPENSION PO SCH ×3 (07:25→11:40)
[2020-08-13 08:01] LABS: BASO % 0.2 % (0-2.0); HEMATOCRIT 32.5 % (32.4-45.2); HEMOGLOBIN 10.8 GM/dL (10.7-15.3); LYMPH % 1.7 % (8-40); MCH 31.5 pg (25.7-33.7); MCHC 33.2 g/dl (32.0-36.0); MEAN CELL VOLUME 94.9 fl (80-96); MEAN PLT VOLUME 8.1 fl (7.5-11.1); MONO % 6.1 % (3.8-10.2); PLATELET COUNT 178 10^3/uL (134-434); RBC 3.43 M/mm3 (3.60-5.2); WHITE BLOOD COUNT 7.7 K/mm3 (4.0-10.0)
[2020-08-13 08:22] LABS: CALCIUM 9.3 mg/dL (8.5-10.1)
[2020-08-13 08:24] LABS: ALBUMIN 3.1 g/dl (3.4-5.0); BLOOD UREA NITROGEN 13.3 mg/dL (7-18)
[2020-08-13 08:26] LABS: CREATININE 0.4 mg/dL (0.55-1.3)
[2020-08-13 08:27] LABS: BILIRUBIN,TOTAL 0.7 mg/dL (0.2-1); TOT PROT 5.6 g/dl (6.4-8.2)
[2020-08-13 09:01] VITALS: BP 146/59; PULSE 75; TEMP 98.2
[2020-08-13] MEDS: BUDESONIDE/FORMETEROL FUMARATE 160/4.5 mcg INHALER IH SCH (09:37)
[2020-08-13] MEDS: TIOTROPIUM BROMIDE 2.5 MCG (SPIRIVA) RESPIMAT INHALER IH SCH (09:37)
[2020-08-13] MEDS: NEBIVOLOL 5 MG TABLET (FP) PO SCH (09:38)
[2020-08-13] MEDS: ASPIRIN COATED 81 MG TABLET.EC PO SCH (09:38)
[2020-08-13] MEDS: FUROSEMIDE 20 MG TABLET (FP) PO SCH (09:38)
[2020-08-13] MEDS: MULTIVITAMINS (DAILY MVI) TABLET (FP) PO SCH (09:38)
[2020-08-13] MEDS: ESCITALOPRAM OXALATE 10 MG TABLET PO SCH (09:38)
[2020-08-13] MEDS: HEPARIN NA (PORCINE) 5,000 UNITS/ML 1ML VIAL SQ SCH (09:39)
[2020-08-13] MEDS: FAMOTIDINE 20 MG TABLET PO SCH (09:40)
[2020-08-13] MEDS ORDERED: predniSONE 20 MG TABLET (UD) PO SCH (10:00)
[2020-08-13 10:17] LABS: ANISOCYTOSIS 1+; MACROCYTOSIS 0; PLATELET ESTIMATE NORMAL
[2020-08-13] MEDS: VERAPAMIL HCL 120 MG E.R. TABLET PO SCH (10:24)
[2020-08-13 13:18] VITALS: BMI 17.6
== END 2020-08-13 13:35 | disposition home or self-care (01) | DRG 190 ==
LOC: JER 18:12 → JERBED 20:15 → J4W 07-30 01:47
PROVIDERS: ADMIT Specialist; ATTEND Specialist
DX: J44.1 Chronic obstructive pulmonary disease with (acute) exacerbation (principal); E43 Unspecified severe protein-calorie malnutrition; J96.21 Acute and chronic respiratory failure with hypoxia; J96.22 Acute and chronic respiratory failure with hypercapnia; I50.33 Acute on chronic diastolic (congestive) heart failure; R64 Cachexia; Z68.1 Body mass index [BMI] 19.9 or less, adult; I11.0 Hypertensive heart disease with heart failure; J44.9 Chronic obstructive pulmonary disease, unspecified; I48.0 Paroxysmal atrial fibrillation; I27.20 Pulmonary hypertension, unspecified; K59.00 Constipation, unspecified; I25.10 Atherosclerotic heart disease of native coronary artery without angina pectoris; E78.5 Hyperlipidemia, unspecified
CPT/HCPCS: 36415; 71045-TC-FY; 80048; 80053; 80061; 82550; 82553; 82803; 83721; 83880; 84439; 84443; 84484; 85025; 93005; 93010; 94640; 99285-25; C9803; J1644; U0003; U0005

== ENCOUNTER 2020-08-24 14:34 | Inpatient (IN) | payer OTHER ==
[2020-08-24] MEDS ORDERED: FUROSEMIDE 40 MG/4 ML INJECTABLE VIAL IVPUSH ONE (15:36)
[2020-08-24] MEDS ORDERED: FUROSEMIDE 40 MG/4 ML INJECTABLE VIAL ONE (15:59)
[2020-08-24 16:15] LABS: BASO % 0.4 % (0-2.0); EOS % 0.1 % (0-4.5); HEMATOCRIT 30.8 % (32.4-45.2); HEMOGLOBIN 10.3 GM/dL (10.7-15.3); MCH 31.5 pg (25.7-33.7); MCHC 33.3 g/dl (32.0-36.0); MEAN CELL VOLUME 94.4 fl (80-96); MEAN PLT VOLUME 7.1 fl (7.5-11.1); MONO % 3.3 % (3.8-10.2); NEUT % 93.2 % (42.8-82.8); PLATELET COUNT 210 10^3/uL (134-434); RBC 3.26 M/mm3 (3.60-5.2); RDW 15.8 % (11.6-15.6); WHITE BLOOD COUNT 6.2 K/mm3 (4.0-10.0)
[2020-08-24 16:19] LABS: VENOUS BASE EXCESS 13.1 mmol/L (-2-2); VENOUS O2 SATURATION 40.2 % (70-80); VENOUS PCO2 60.5 mmHg (38-52); VENOUS PH 7.432 (7.310-7.410)
[2020-08-24 16:21] LABS: INR 0.94 (0.83-1.09); PROTHROMBIN TIME (PATIENT) 11.4 SEC (9.7-13.0)
[2020-08-24 16:23] LABS: ACTIVATED PTT 22.6 SECONDS (25.2-36.5)
[2020-08-24 16:30] LABS: CHLORIDE 94 mmol/L (98-107); SODIUM 137 mmol/L (136-145)
[2020-08-24] MEDS ORDERED: ALBUTEROL SO4 2.5/IPRATROPIUM 0.5 INH SOL 3 ML VIAL.NEB. NEB ONE ×4 (16:31→16:46)
[2020-08-24 16:32] LABS: BLOOD UREA NITROGEN 13.7 mg/dL (7-18); CALCIUM 8.3 mg/dL (8.5-10.1)
[2020-08-24 16:33] LABS: ANION GAP 4 MMOL/L (8-16); CO2 40 mmol/L (21-32); GLUCOSE,RANDOM 107 mg/dL (74-106); MAGNESIUM 2.5 mg/dL (1.8-2.4)
[2020-08-24 16:36] LABS: CREATININE 0.5 mg/dL (0.55-1.3); SGOT/AST 22 U/L (15-37); SGPT/ALT 31 U/L (13-61)
[2020-08-24 16:37] LABS: BILIRUBIN,TOTAL 0.9 mg/dL (0.2-1); TOT PROT 5.7 g/dl (6.4-8.2)
[2020-08-24 16:41] LABS: N-TERMINAL BNP 2804.7 pg/ml (5-125)
[2020-08-24 16:46] LABS: ALK PHOS 183 U/L (45-117)
[2020-08-24 16:50] LABS: ANISOCYTOSIS 2+; MACROCYTOSIS 0; OVALOCYTE 1+; PLATELET ESTIMATE NORMAL; TARGET CELLS 1+
[2020-08-24] MEDS ORDERED: methylPREDNISolone NA SUCC 125 MG/2 ML VIAL IVPB ONE (17:01)
[2020-08-24] MEDS ORDERED: methylPREDNISolone NA SUCC 125 MG/2 ML VIAL ONE (17:48)
[2020-08-25] MEDS: methylPREDNISolone NA SUCC 40 MG/1 ML VIAL IVPUSH SCH ×4 (02:36→21:24)
[2020-08-25] MEDS: fentaNYL 25mcg/hr PATCH.TD72 TD SCH (02:49)
[2020-08-25] MEDS: ASPIRIN COATED 81 MG TABLET.EC PO SCH (10:15)
[2020-08-25] MEDS: MULTIVITAMINS (DAILY MVI) TABLET (FP) PO SCH (10:15)
[2020-08-25] MEDS: NEBIVOLOL 5 MG TABLET (FP) PO SCH (10:15)
[2020-08-25] MEDS: ESCITALOPRAM OXALATE 10 MG TABLET PO SCH (10:15)
[2020-08-25] MEDS: FAMOTIDINE 20 MG TABLET PO SCH (10:15)
[2020-08-25] MEDS: HEPARIN NA (PORCINE) 5,000 UNITS/ML 1ML VIAL SQ SCH ×2 (10:16→21:38)
[2020-08-25] MEDS ORDERED: PT OWN MED DRAWER 7, Y5N ONE (10:19)
[2020-08-25] MEDS: BUDESONIDE/FORMETEROL FUMARATE 160/4.5 mcg INHALER IH SCH ×2 (10:19→21:39)
[2020-08-25] MEDS: TIOTROPIUM BROMIDE 2.5 MCG (SPIRIVA) RESPIMAT INHALER IH SCH (10:20)
[2020-08-25] MEDS: ACETAMINOPHEN 325 MG TABLET (FP) PO PRN (10:22)
[2020-08-25] MEDS: oxyCODONE HCL 5 MG TABLET PO PRN (10:23)
[2020-08-25] MEDS: FUROSEMIDE 40 MG/4 ML INJECTABLE VIAL IVPUSH SCH (11:02)
[2020-08-25] MEDS: ATORVASTATIN CA 10 MG TABLET (FP) PO SCH (21:38)
[2020-08-26] MEDS: methylPREDNISolone NA SUCC 40 MG/1 ML VIAL IVPUSH SCH ×4 (03:25→21:26)
[2020-08-26] MEDS: ESCITALOPRAM OXALATE 10 MG TABLET PO SCH (09:46)
[2020-08-26] MEDS: MULTIVITAMINS (DAILY MVI) TABLET (FP) PO SCH (09:46)
[2020-08-26] MEDS: FAMOTIDINE 20 MG TABLET PO SCH (09:47)
[2020-08-26] MEDS: ASPIRIN COATED 81 MG TABLET.EC PO SCH (09:47)
[2020-08-26] MEDS: NEBIVOLOL 5 MG TABLET (FP) PO SCH (09:47)
[2020-08-26] MEDS: TIOTROPIUM BROMIDE 2.5 MCG (SPIRIVA) RESPIMAT INHALER IH SCH (09:50)
[2020-08-26] MEDS: BUDESONIDE/FORMETEROL FUMARATE 160/4.5 mcg INHALER IH SCH ×2 (09:50→21:44)
[2020-08-26] MEDS: HEPARIN NA (PORCINE) 5,000 UNITS/ML 1ML VIAL SQ SCH ×2 (09:51→21:43)
[2020-08-26] MEDS: FUROSEMIDE 40 MG/4 ML INJECTABLE VIAL IVPUSH SCH (09:54)
[2020-08-26] MEDS: oxyCODONE HCL 5 MG TABLET PO PRN (18:43)
[2020-08-26] MEDS: ATORVASTATIN CA 10 MG TABLET (FP) PO SCH (21:44)
[2020-08-27] MEDS: methylPREDNISolone NA SUCC 40 MG/1 ML VIAL IVPUSH SCH ×3 (03:41→22:52)
[2020-08-27] MEDS: oxyCODONE HCL 5 MG TABLET PO PRN ×2 (05:41→22:54)
[2020-08-27] MEDS: ACETAMINOPHEN 325 MG TABLET (FP) PO PRN (05:42)
[2020-08-27 07:38] LABS: BASO % 0.1 % (0-2.0); HEMATOCRIT 32.4 % (32.4-45.2); HEMOGLOBIN 10.9 GM/dL (10.7-15.3); LYMPH % 4.1 % (8-40); MCH 31.6 pg (25.7-33.7); MCHC 33.5 g/dl (32.0-36.0); MEAN CELL VOLUME 94.2 fl (80-96); MEAN PLT VOLUME 7.3 fl (7.5-11.1); MONO % 5.1 % (3.8-10.2); NEUT % 90.7 % (42.8-82.8); PLATELET COUNT 221 10^3/uL (134-434); RBC 3.44 M/mm3 (3.60-5.2); RDW 15.5 % (11.6-15.6); WHITE BLOOD COUNT 6.6 K/mm3 (4.0-10.0)
[2020-08-27 07:52] LABS: CALCIUM 8.7 mg/dL (8.5-10.1)
[2020-08-27 07:53] LABS: BLOOD UREA NITROGEN 23.7 mg/dL (7-18)
[2020-08-27 07:56] LABS: CREATININE 0.6 mg/dL (0.55-1.3)
[2020-08-27 07:58] LABS: BILIRUBIN,TOTAL 0.8 mg/dL (0.2-1); TOT PROT 5.6 g/dl (6.4-8.2)
[2020-08-27] MEDS: FAMOTIDINE 20 MG TABLET PO SCH (09:47)
[2020-08-27] MEDS: ESCITALOPRAM OXALATE 10 MG TABLET PO SCH (09:47)
[2020-08-27] MEDS: TIOTROPIUM BROMIDE 2.5 MCG (SPIRIVA) RESPIMAT INHALER IH SCH (09:48)
[2020-08-27] MEDS: NEBIVOLOL 5 MG TABLET (FP) PO SCH (09:48)
[2020-08-27] MEDS: BUDESONIDE/FORMETEROL FUMARATE 160/4.5 mcg INHALER IH SCH ×2 (09:48→22:52)
[2020-08-27] MEDS: MULTIVITAMINS (DAILY MVI) TABLET (FP) PO SCH (09:48)
[2020-08-27] MEDS: ASPIRIN COATED 81 MG TABLET.EC PO SCH (09:48)
[2020-08-27] MEDS: HEPARIN NA (PORCINE) 5,000 UNITS/ML 1ML VIAL SQ SCH ×2 (09:49→22:51)
[2020-08-27] MEDS: FUROSEMIDE 40 MG/4 ML INJECTABLE VIAL IVPUSH SCH (12:08)
[2020-08-27] MEDS: ALBUTEROL SO4 0.083% IH SOL 2.5 MG/3 ML VIAL.NEB. NEB PRN (20:54)
[2020-08-27] MEDS: ATORVASTATIN CA 10 MG TABLET (FP) PO SCH (22:52)
[2020-08-28] MEDS: fentaNYL 25mcg/hr PATCH.TD72 TD SCH (02:42)
[2020-08-28] MEDS: oxyCODONE HCL 5 MG TABLET PO PRN ×2 (06:21→20:20)
[2020-08-28] MEDS: ACETAMINOPHEN 325 MG TABLET (FP) PO PRN (06:21)
[2020-08-28] MEDS: FENTANYL PATCH WASTE TD SCH (06:39)
[2020-08-28] MEDS: NEBIVOLOL 5 MG TABLET (FP) PO SCH (09:45)
[2020-08-28] MEDS: HEPARIN NA (PORCINE) 5,000 UNITS/ML 1ML VIAL SQ SCH ×2 (09:46→21:43)
[2020-08-28] MEDS: ASPIRIN COATED 81 MG TABLET.EC PO SCH (09:46)
[2020-08-28] MEDS: FUROSEMIDE 40 MG/4 ML INJECTABLE VIAL IVPUSH SCH (09:47)
[2020-08-28] MEDS: ESCITALOPRAM OXALATE 10 MG TABLET PO SCH (09:47)
[2020-08-28] MEDS: FAMOTIDINE 20 MG TABLET PO SCH (09:48)
[2020-08-28] MEDS: BUDESONIDE/FORMETEROL FUMARATE 160/4.5 mcg INHALER IH SCH ×2 (09:48→21:43)
[2020-08-28] MEDS: methylPREDNISolone NA SUCC 40 MG/1 ML VIAL IVPUSH SCH ×2 (09:48→21:43)
[2020-08-28] MEDS: MULTIVITAMINS (DAILY MVI) TABLET (FP) PO SCH (09:48)
[2020-08-28] MEDS: TIOTROPIUM BROMIDE 2.5 MCG (SPIRIVA) RESPIMAT INHALER IH SCH (09:48)
[2020-08-28] MEDS: ATORVASTATIN CA 10 MG TABLET (FP) PO SCH (21:43)
[2020-08-29] MEDS: ACETAMINOPHEN 325 MG TABLET (FP) PO PRN (02:42)
[2020-08-29] MEDS ORDERED: oxyCODONE HCL 5 MG TABLET PO PRN (06:27)
[2020-08-29] MEDS: oxyCODONE HCL 5 MG TABLET PO PRN (06:29)
[2020-08-29 07:28] LABS: CHLORIDE 90 mmol/L (98-107); SODIUM 137 mmol/L (136-145)
[2020-08-29 07:34] LABS: BLOOD UREA NITROGEN 21.5 mg/dL (7-18); CALCIUM 8.1 mg/dL (8.5-10.1); CO2 40 mmol/L (21-32); GLUCOSE,RANDOM 145 mg/dL (74-106)
[2020-08-29 07:38] LABS: CREATININE 0.4 mg/dL (0.55-1.3)
[2020-08-29 07:52] LABS: ANION GAP 7 MMOL/L (8-16)
[2020-08-29] MEDS ORDERED: KCL 10 MEQ IVPB 10 MEQ/100 ML INFUS.BAG IVPB ONE ×2 (08:45→10:00)
[2020-08-29] MEDS ORDERED: POTASSIUM CHLORIDE TABS 20 MEQ TABLET.ER (FP) PO ONE ×2 (08:45→10:00)
[2020-08-29] MEDS: HEPARIN NA (PORCINE) 5,000 UNITS/ML 1ML VIAL SQ SCH ×2 (10:25→21:25)
[2020-08-29] MEDS: ASPIRIN COATED 81 MG TABLET.EC PO SCH (10:25)
[2020-08-29] MEDS: NEBIVOLOL 5 MG TABLET (FP) PO SCH (10:25)
[2020-08-29] MEDS: ESCITALOPRAM OXALATE 10 MG TABLET PO SCH (10:26)
[2020-08-29] MEDS: FUROSEMIDE 40 MG/4 ML INJECTABLE VIAL IVPUSH SCH (10:26)
[2020-08-29] MEDS: FAMOTIDINE 20 MG TABLET PO SCH (10:27)
[2020-08-29] MEDS: BUDESONIDE/FORMETEROL FUMARATE 160/4.5 mcg INHALER IH SCH ×2 (10:28→21:26)
[2020-08-29] MEDS: TIOTROPIUM BROMIDE 2.5 MCG (SPIRIVA) RESPIMAT INHALER IH SCH (10:28)
[2020-08-29] MEDS: MULTIVITAMINS (DAILY MVI) TABLET (FP) PO SCH (10:28)
[2020-08-29] MEDS: methylPREDNISolone NA SUCC 40 MG/1 ML VIAL IVPUSH SCH (10:28)
[2020-08-29] MEDS: ATORVASTATIN CA 10 MG TABLET (FP) PO SCH (21:25)
[2020-08-29] MEDS: predniSONE 20 MG TABLET (UD) PO SCH (21:25)
[2020-08-29 22:51] LABS: CALCIUM 8.6 mg/dL (8.5-10.1)
[2020-08-29 22:52] LABS: BLOOD UREA NITROGEN 23.1 mg/dL (7-18)
[2020-08-29 22:55] LABS: CREATININE 0.6 mg/dL (0.55-1.3)
[2020-08-30] MEDS: oxyCODONE HCL 5 MG TABLET PO PRN ×3 (00:59→20:07)
[2020-08-30] MEDS: NEBIVOLOL 5 MG TABLET (FP) PO SCH (10:00)
[2020-08-30] MEDS: ASPIRIN COATED 81 MG TABLET.EC PO SCH (10:00)
[2020-08-30] MEDS: FAMOTIDINE 20 MG TABLET PO SCH (10:00)
[2020-08-30] MEDS: ESCITALOPRAM OXALATE 10 MG TABLET PO SCH (10:00)
[2020-08-30] MEDS: MULTIVITAMINS (DAILY MVI) TABLET (FP) PO SCH (10:00)
[2020-08-30] MEDS: FUROSEMIDE 40 MG/4 ML INJECTABLE VIAL IVPUSH SCH (10:01)
[2020-08-30] MEDS: BUDESONIDE/FORMETEROL FUMARATE 160/4.5 mcg INHALER IH SCH ×2 (10:01→21:35)
[2020-08-30] MEDS: HEPARIN NA (PORCINE) 5,000 UNITS/ML 1ML VIAL SQ SCH ×2 (10:01→21:35)
[2020-08-30] MEDS: TIOTROPIUM BROMIDE 2.5 MCG (SPIRIVA) RESPIMAT INHALER IH SCH (10:02)
[2020-08-30] MEDS: ACETAMINOPHEN 325 MG TABLET (FP) PO PRN ×2 (12:19→20:07)
[2020-08-30 14:31] VITALS: BMI 16.2
[2020-08-30] MEDS: ALBUTEROL SO4 0.083% IH SOL 2.5 MG/3 ML VIAL.NEB. NEB PRN (20:41)
[2020-08-30] MEDS: ATORVASTATIN CA 10 MG TABLET (FP) PO SCH (21:35)
[2020-08-30] MEDS: predniSONE 20 MG TABLET (UD) PO SCH (21:35)
[2020-08-31] MEDS: fentaNYL 25mcg/hr PATCH.TD72 TD SCH (00:05)
[2020-08-31] MEDS: FENTANYL PATCH WASTE TD SCH (00:17)
[2020-08-31] MEDS: oxyCODONE HCL 5 MG TABLET PO PRN (04:58)
[2020-08-31] MEDS: ACETAMINOPHEN 325 MG TABLET (FP) PO PRN (04:58)
[2020-08-31] MEDS ORDERED: FUROSEMIDE 40 MG TABLET (FP) PO SCH (10:00)
[2020-08-31] MEDS ORDERED: POTASSIUM CHLORIDE TABS 20 MEQ TABLET.ER (FP) PO SCH (10:00)
[2020-08-31] MEDS: ASPIRIN COATED 81 MG TABLET.EC PO SCH (10:45)
[2020-08-31] MEDS: FAMOTIDINE 20 MG TABLET PO SCH (10:45)
[2020-08-31] MEDS: MULTIVITAMINS (DAILY MVI) TABLET (FP) PO SCH (10:45)
[2020-08-31] MEDS: NEBIVOLOL 5 MG TABLET (FP) PO SCH (10:45)
[2020-08-31] MEDS: ESCITALOPRAM OXALATE 10 MG TABLET PO SCH (10:45)
[2020-08-31] MEDS: TIOTROPIUM BROMIDE 2.5 MCG (SPIRIVA) RESPIMAT INHALER IH SCH (10:46)
[2020-08-31] MEDS: HEPARIN NA (PORCINE) 5,000 UNITS/ML 1ML VIAL SQ SCH (10:46)
[2020-08-31] MEDS: BUDESONIDE/FORMETEROL FUMARATE 160/4.5 mcg INHALER IH SCH (10:46)
[2020-08-31 13:17] VITALS: BP 106/61; PULSE 66; TEMP 98.6
== END 2020-08-31 13:05 | disposition home health service (06) | DRG 291 ==
LOC: JER 14:34 → JERBED 16:58 → J4W 08-25 00:23
PROVIDERS: ADMIT Internal Medicine; ATTEND Internal Medicine
DX: I11.0 Hypertensive heart disease with heart failure (principal); E43 Unspecified severe protein-calorie malnutrition; J96.12 Chronic respiratory failure with hypercapnia; J96.11 Chronic respiratory failure with hypoxia; Z68.1 Body mass index [BMI] 19.9 or less, adult; R64 Cachexia; J44.1 Chronic obstructive pulmonary disease with (acute) exacerbation; I50.33 Acute on chronic diastolic (congestive) heart failure; J44.9 Chronic obstructive pulmonary disease, unspecified; I48.91 Unspecified atrial fibrillation; E78.5 Hyperlipidemia, unspecified
CPT/HCPCS: 36415; 71045-TC-FY; 80048; 80053; 82550; 82803; 83735; 83880; 84484; 85025; 85610; 85730; 93005; 93010; 94640; 99285-25; C9803; J1644; U0003; U0005

== ENCOUNTER 2020-12-03 23:33 | Emergency (ER) | payer OTHER ==
[2020-12-04 00:02] VITALS: BMI 19.5
[2020-12-04] MEDS ORDERED: morphine CARPU-JECT 4 MG/1 ML DISP.SYRIN IVPUSH ONE (00:53)
[2020-12-04] MEDS ORDERED: morphine SULFATE 4 MG/ML VIAL ONE (01:03)
[2020-12-04 02:03] LABS: BASO % 0.4 % (0-2.0); HEMATOCRIT 35.6 % (32.4-45.2); HEMOGLOBIN 11.9 GM/dL (10.7-15.3); LYMPH % 11.2 % (8-40); MCH 30.6 pg (25.7-33.7); MCHC 33.5 g/dl (32.0-36.0); MEAN CELL VOLUME 91.2 fl (80-96); MEAN PLT VOLUME 6.8 fl (7.5-11.1); MONO % 10.6 % (3.8-10.2); NEUT % 77.8 % (42.8-82.8); PLATELET COUNT 291 10^3/uL (134-434); RBC 3.91 M/mm3 (3.60-5.2); RDW 14.7 % (11.6-15.6); WHITE BLOOD COUNT 10.9 K/mm3 (4.0-10.0)
[2020-12-04 02:07] LABS: EPI CELLS >36 /uL (0-25.1); HYALINE CASTS 10 /uL (0-3.1); URINE APPEARANCE CLOUDY; URINE BACTERIA 18 /uL (0-1359); URINE BILIRUBIN NEGATIVE (NEGATIVE); URINE COLOR YELLOW; URINE GLUCOSE (UA) NEGATIVE (NEGATIVE); URINE KETONE TRACE (NEGATIVE); URINE LEUK ESTERASE 1+ (NEGATIVE); URINE NITRITE NEGATIVE (NEGATIVE); URINE PROTEIN TRACE (NEGATIVE); URINE RBC 12 /uL (0-23.9); URINE UROBILINOGEN 0.2 mg/dL (0.2-1.0); URINE WBC 108 /uL (0-25.8)
[2020-12-04 02:16] LABS: CHLORIDE 104 mmol/L (98-107); INR 0.96 (0.83-1.09); PROTHROMBIN TIME (PATIENT) 10.7 SEC (9.7-13.0); SODIUM 138 mmol/L (136-145)
[2020-12-04 02:19] LABS: ACTIVATED PTT 25.1 SECONDS (25.2-36.5)
[2020-12-04 02:20] LABS: ALBUMIN 3.5 g/dl (3.4-5.0); ANION GAP 3 MMOL/L (8-16); BLOOD UREA NITROGEN 21.2 mg/dL (7-18); CALCIUM 9.1 mg/dL (8.5-10.1); CO2 30 mmol/L (21-32)
[2020-12-04 02:21] LABS: GLUCOSE,RANDOM 96 mg/dL (74-106)
[2020-12-04 02:23] LABS: SGPT/ALT 28 U/L (13-61)
[2020-12-04 02:24] LABS: CREATININE 0.6 mg/dL (0.55-1.3); SGOT/AST 24 U/L (15-37)
[2020-12-04 02:25] LABS: BILIRUBIN,TOTAL 0.2 mg/dL (0.2-1); TOT PROT 6.5 g/dl (6.4-8.2)
[2020-12-04 02:26] LABS: ALK PHOS 123 U/L (45-117)
[2020-12-04 03:01] LABS: ERYTHROCYTE SEDIMENTATION RATE 18 mm/hr (0-30)
[2020-12-04 04:41] VITALS: BP 117/52; PULSE 68; TEMP 97.9
== END 2020-12-04 04:42 | disposition home or self-care (01) ==
LOC: JER 23:33
PROC: 3E033NZ Introduction of Analgesics, Hypnotics, Sedatives into Peripheral Vein, Percutaneous Approach (ICD-10-PCS; principal; 2020-12-04)
DX: M54.50 Low back pain, unspecified (principal)
CPT/HCPCS: 36415; 72131-TC; 80053; 81003; 85025; 85610; 85651; 85730; 86140; 99285-25

== ENCOUNTER 2021-01-04 18:26 | Emergency (ER) | payer OTHER ==
[2021-01-04 18:34] VITALS: TEMP 97.4; BMI 17.6
[2021-01-04] MEDS ORDERED: LIDOCAINE 5% TOPICAL PATCH ONE (19:28)
[2021-01-04] MEDS ORDERED: LIDOCAINE 5% TOPICAL PATCH TP ONE (19:41)
[2021-01-04 20:27] VITALS: BP 112/65; PULSE 92
[2021-01-04] MEDS ORDERED: LIDOCAINE PATCH REMOVAL MC SCH (22:00)
== END 2021-01-04 20:38 | disposition home or self-care (01) ==
LOC: JER 18:26
DX: M54.50 Low back pain, unspecified (principal)
CPT/HCPCS: 99283-25

== ENCOUNTER → 2021-05-17 | Day surgery (SDC) | payer OTHER ==
[2021-05-15 15:09] VITALS: BMI 16.7
[~2021-05-17] MED LIST changes: +ACETAMINOPHEN 325 MG TABLET (FP) PO PRN; -BACITRACIN 50,000 UNITS VIAL TP ONE; -BUPIVACAINE HCL/PF 0.25% (2.5MG/ML) 10 ML VIAL IJ ONE; -BUPIVACAINE LIPOSOME/PF (EXPAREL) 266 MG/20 ML VIAL NR ONE; +CYCLOPENTOLATE HCL 1% OPHTH SOLN 2 ML BOTTLE OP SCH; +KETOROLAC TROMETHAMINE 0.5% EYE DROP 1 DROP DROPS OP SCH; -LIDOCAINE 1%/EPI 1:100000 (20 ML MULTI DOSE VIAL) IJ ONE; +OFLOXACIN 0.3% OPHTHALMIC SOLUTION 5 ML BOTTLE OP SCH; +PHENYLEPHRINE 2.5% OPHTH SOLN 15 ML BOTTLE OP SCH; +TROPICAMIDE 1% OPHTH SOLN 15 ML BOTTLE OP SCH; -VANCOMYCIN 1,000 MG VIAL (RESTRICTED TO ID ONLY) IVPB ONE
== END | disposition home or self-care (01) ==
LOC: JASU-SURG 04:36
PROVIDERS: ATTEND Ophthalmology
DX: Z53.8 Procedure and treatment not carried out for other reasons (principal)

== ENCOUNTER 2021-05-31 04:52 | Day surgery (SDC) | payer OTHER ==
[2021-05-29 17:16] VITALS: BMI 16.2
[2021-05-31] MEDS: KETOROLAC TROMETHAMINE 0.5% EYE DROP 1 DROP DROPS ONE ×3 (06:15→07:00)
[2021-05-31] MEDS: TROPICAMIDE 1% OPHTH SOLN 15 ML BOTTLE ONE ×3 (06:15→07:00)
[2021-05-31] MEDS: PHENYLEPHRINE 2.5% OPHTH SOLN 15 ML BOTTLE ONE ×3 (06:15→07:00)
[2021-05-31] MEDS: CYCLOPENTOLATE HCL 1% OPHTH SOLN 2 ML BOTTLE ONE ×3 (06:15→07:00)
[2021-05-31] MEDS: OFLOXACIN 0.3% OPHTHALMIC SOLUTION 5 ML BOTTLE ONE ×3 (06:15→07:00)
[2021-05-31] MEDS ORDERED: CHONDROITIN SU A/HYALUR SOD 1 KIT ONE (07:06)
[2021-05-31] MEDS ORDERED: TETRACAINE 0.5% OPHTH SOLN 2 ML BOTTLE ONE (07:21)
[2021-05-31] MEDS ORDERED: VANCOMYCIN 500 MG VIAL (RESTRICTED TO ID ONLY) ONE (07:21)
[2021-05-31] MEDS ORDERED: EPINEPHrine/PF 1 MG/1 ML (1:1,000) AMPULE ONE (07:21)
[2021-05-31] MEDS ORDERED: TRYPAN BLUE 0.5 ML DISP.SYRIN ONE (07:22)
[2021-05-31] MEDS ORDERED: POVIDONE-IODINE 5% OPHTHALMIC PREP 30 ML SOLUTION ONE (07:22)
[2021-05-31] MEDS ORDERED: MIDAZOLAM HCL 2 MG/2 ML SINGLE DOSE VIAL ONE (07:31)
[2021-05-31] MEDS ORDERED: LIDOCAINE HCL/PF 1% SDV 5ML VIAL ONE (07:31)
[2021-05-31] MEDS ORDERED: TETRACAINE 0.5% OPHTH SOLN 2 ML BOTTLE OD ONE (08:09)
[2021-05-31] MEDS ORDERED: POVIDONE-IODINE 5% OPHTHALMIC PREP 30 ML SOLUTION OD ONE (08:13)
[2021-05-31] MEDS ORDERED: BSS (NA/CA/MG/K) BALANCED SALT SOLUTION OPHTH SOLN 15 ML BOTTLE OD ONE (08:18)
[2021-05-31] MEDS ORDERED: LIDOCAINE HCL 1% PRESERVATIVE FREE - 30ML VIAL IO ONE (08:20)
[2021-05-31] MEDS ORDERED: CHONDROITIN SU A/HYALUR SOD 1 KIT IO ONE (08:21)
[2021-05-31] MEDS ORDERED: EPINEPHrine/PF 1 MG/1 ML (1:1,000) AMPULE SQ ONE (08:26)
[2021-05-31] MEDS ORDERED: ACETAMINOPHEN 325 MG TABLET (FP) PO PRN ×2 (08:49→10:55)
[2021-05-31] MEDS ORDERED: ONDANSETRON 4 MG/2 ML VIAL IVPUSH PRN (08:49)
[2021-05-31] MEDS ORDERED: LACTATED RINGERS SOLUTION 1,000 ML IV SCH (09:00)
[2021-05-31 10:37] VITALS: BP 122/56; PULSE 90; TEMP 98.7
[2021-05-31] MEDS ORDERED: OFLOXACIN 0.3% OPHTHALMIC SOLUTION 5 ML BOTTLE OP SCH (11:00)
[2021-05-31] MEDS ORDERED: PHENYLEPHRINE 2.5% OPHTH SOLN 15 ML BOTTLE OP SCH (11:00)
[2021-05-31] MEDS ORDERED: TROPICAMIDE 1% OPHTH SOLN 15 ML BOTTLE OP SCH (11:00)
[2021-05-31] MEDS ORDERED: CYCLOPENTOLATE HCL 1% OPHTH SOLN 2 ML BOTTLE OP SCH (11:00)
[2021-05-31] MEDS ORDERED: KETOROLAC TROMETHAMINE 0.5% EYE DROP 1 DROP DROPS OP SCH (11:00)
== END 2021-05-31 10:00 | disposition home or self-care (01) ==
LOC: JASU-SURG 04:52
PROVIDERS: ATTEND Ophthalmology
PROC: 08RJ3JZ Replacement of Right Lens with Synthetic Substitute, Percutaneous Approach (ICD-10-PCS; 2021-05-31)
PROC: 085J3ZZ Destruction of Right Lens, Percutaneous Approach (ICD-10-PCS; principal; 2021-05-31 08:00)
DX: H26.9 Unspecified cataract (principal)

== ENCOUNTER 2021-06-09 04:36 | Day surgery (SDC) | payer OTHER ==
[2021-06-08 09:24] VITALS: BMI 16.2
[~2021-06-09 04:36] MED LIST changes: -CYCLOPENTOLATE HCL 1% OPHTH SOLN 2 ML BOTTLE OP SCH; -KETOROLAC TROMETHAMINE 0.5% EYE DROP 1 DROP DROPS OP SCH; -OFLOXACIN 0.3% OPHTHALMIC SOLUTION 5 ML BOTTLE OP SCH; -PHENYLEPHRINE 2.5% OPHTH SOLN 15 ML BOTTLE OP SCH; -TROPICAMIDE 1% OPHTH SOLN 15 ML BOTTLE OP SCH
[2021-06-09] MEDS ORDERED: CHONDROITIN SU A/HYALUR SOD 1 KIT ONE (07:13)
[2021-06-09] MEDS ORDERED: LIDOCAINE HCL/PF 1% SDV 5ML VIAL ONE (07:13)
[2021-06-09] MEDS ORDERED: POVIDONE-IODINE 5% OPHTHALMIC PREP 30 ML SOLUTION ONE (07:21)
[2021-06-09] MEDS ORDERED: TETRACAINE 0.5% OPHTH SOLN 2 ML BOTTLE ONE (07:21)
[2021-06-09] MEDS ORDERED: KETOROLAC TROMETHAMINE 0.5% EYE DROP 1 DROP DROPS ONE (09:18)
[2021-06-09] MEDS ORDERED: PHENYLEPHRINE 2.5% OPHTH SOLN 15 ML BOTTLE ONE (09:18)
[2021-06-09] MEDS ORDERED: CYCLOPENTOLATE HCL 1% OPHTH SOLN 2 ML BOTTLE ONE (09:18)
[2021-06-09] MEDS ORDERED: OFLOXACIN 0.3% OPHTHALMIC SOLUTION 5 ML BOTTLE ONE (09:18)
[2021-06-09] MEDS ORDERED: TROPICAMIDE 1% OPHTH SOLN 15 ML BOTTLE ONE (09:18)
[2021-06-09] MEDS: TROPICAMIDE 1% OPHTH SOLN 15 ML BOTTLE OP SCH ×3 (09:20→09:30)
[2021-06-09] MEDS: KETOROLAC TROMETHAMINE 0.5% EYE DROP 1 DROP DROPS OP SCH ×3 (09:20→09:30)
[2021-06-09] MEDS: PHENYLEPHRINE 2.5% OPHTH SOLN 15 ML BOTTLE OP SCH ×3 (09:20→09:30)
[2021-06-09] MEDS: CYCLOPENTOLATE HCL 1% OPHTH SOLN 2 ML BOTTLE OP SCH ×3 (09:20→09:30)
[2021-06-09] MEDS: OFLOXACIN 0.3% OPHTHALMIC SOLUTION 5 ML BOTTLE OP SCH ×3 (09:20→09:30)
[2021-06-09] MEDS ORDERED: MIDAZOLAM HCL 2 MG/2 ML SINGLE DOSE VIAL ONE (10:26)
[2021-06-09] MEDS ORDERED: TETRACAINE 0.5% OPHTH SOLN 2 ML BOTTLE OS ONE (10:35)
[2021-06-09] MEDS ORDERED: POVIDONE-IODINE 5% OPHTHALMIC PREP 30 ML SOLUTION OS ONE (10:38)
[2021-06-09] MEDS ORDERED: BSS (NA/CA/MG/K) BALANCED SALT SOLUTION OPHTH SOLN 15 ML BOTTLE OS ONE (10:44)
[2021-06-09] MEDS ORDERED: CHONDROITIN SU A/HYALUR SOD 1 KIT IO ONE (10:45)
[2021-06-09] MEDS ORDERED: LIDOCAINE HCL 1% PRESERVATIVE FREE - 30ML VIAL IO ONE (10:45)
[2021-06-09] MEDS ORDERED: EPINEPHrine/PF 1 MG/1 ML (1:1,000) AMPULE SQ ONE (10:50)
[2021-06-09 14:38] VITALS: TEMP 98
[2021-06-09 14:42] VITALS: BP 120/63; PULSE 112
== END 2021-06-09 11:55 | disposition home or self-care (01) ==
LOC: JASU-SURG 04:36
PROVIDERS: ATTEND Ophthalmology
PROC: 08RK3JZ Replacement of Left Lens with Synthetic Substitute, Percutaneous Approach (ICD-10-PCS; principal; 2021-06-09 11:00)
DX: H26.9 Unspecified cataract (principal)

== ENCOUNTER 2021-12-04 16:36 | Emergency (ER) | payer OTHER ==
[2021-12-04 17:18] VITALS: BP 129/52; RESP 20; TEMP 98.5; BMI 16.5
[2021-12-04] MEDS ORDERED: KETOROLAC TROMETHAMINE 30 MG/1 ML VIAL IM ONE (18:49)
[2021-12-04] MEDS ORDERED: LIDOCAINE 5% TOPICAL PATCH TP ONE (18:50)
[2021-12-04] MEDS ORDERED: ACETAMINOPHEN 325 MG TABLET (FP) PO ONE (18:50)
[2021-12-04] MEDS ORDERED: ACETAMINOPHEN 325 MG TABLET (FP) ONE (18:55)
[2021-12-04] MEDS ORDERED: KETOROLAC TROMETHAMINE 30 MG/1 ML VIAL ONE (18:56)
[2021-12-04] MEDS ORDERED: LIDOCAINE 5% TOPICAL PATCH ONE (18:56)
[2021-12-04 21:04] VITALS: PULSE 98
[2021-12-04] MEDS ORDERED: LIDOCAINE PATCH REMOVAL MC SCH (22:00)
== END 2021-12-04 21:09 | disposition home or self-care (01) ==
LOC: JER 16:36
PROC: 3E0233Z Introduction of Anti-inflammatory into Muscle, Percutaneous Approach (ICD-10-PCS; principal; 2021-12-04)
DX: M54.50 Low back pain, unspecified (principal)
CPT/HCPCS: 99284-25; C9803-CS; U0003; U0005

== ENCOUNTER 2021-12-14 09:51 | Inpatient (IN) | payer OTHER ==
[2021-12-14] MEDS ORDERED: ONDANSETRON 4 MG/2 ML VIAL ONE (11:52)
[2021-12-14] MEDS ORDERED: SODIUM CHLORIDE 0.9% 500 ML INFUS.BAG IV ONE (12:15)
[2021-12-14] MEDS ORDERED: ONDANSETRON 4 MG/2 ML VIAL IVPUSH ONE (12:24)
[2021-12-14] MEDS ORDERED: LACTATED RINGERS SOLUTION 1000 ML INFUS.BAG IV ONE (12:30)
[2021-12-14 12:47] LABS: BASO % 0.4 % (0-2.0); EOS % 1.1 % (0-4.5); HEMATOCRIT 33.4 % (32.4-45.2); HEMOGLOBIN 11.2 GM/dL (10.7-15.3); MCH 30.5 pg (25.7-33.7); MCHC 33.5 g/dl (32.0-36.0); MEAN PLT VOLUME 7.1 fl (7.5-11.1); MONO % 8.1 % (3.8-10.2); NEUT % 79.4 % (42.8-82.8); PLATELET COUNT 267 10^3/uL (134-434); RBC 3.67 M/mm3 (3.60-5.2); RDW 14.1 % (11.6-15.6); WHITE BLOOD COUNT 7.3 K/mm3 (4.0-10.0)
[2021-12-14 13:23] LABS: CALCIUM 9.5 mg/dL (8.5-10.1)
[2021-12-14 13:25] LABS: ALBUMIN 3.5 g/dl (3.4-5.0); BLOOD UREA NITROGEN 9.1 mg/dL (7-18)
[2021-12-14 13:28] LABS: CREATININE 0.4 mg/dL (0.55-1.3)
[2021-12-14 13:30] LABS: BILIRUBIN,TOTAL 0.4 mg/dL (0.2-1); TOT PROT 6.4 g/dl (6.4-8.2)
[2021-12-14 15:01] LABS: EPI CELLS 17 /uL (0-25.1); HYALINE CASTS 1 /uL (0-3.1); PH,URINE 5.5 (5.0-8.0); URINE APPEARANCE CLEAR; URINE BACTERIA 344 /uL (0-1359); URINE BILIRUBIN NEGATIVE (NEGATIVE); URINE COLOR YELLOW; URINE GLUCOSE (UA) NEGATIVE (NEGATIVE); URINE KETONE 3+ (NEGATIVE); URINE LEUK ESTERASE NEGATIVE (NEGATIVE); URINE NITRITE NEGATIVE (NEGATIVE); URINE PROTEIN NEGATIVE (NEGATIVE); URINE RBC 12 /uL (0-23.9); URINE UROBILINOGEN 0.2 mg/dL (0.2-1.0); URINE WBC 12 /uL (0-25.8)
[2021-12-14] MEDS ORDERED: ALBUTEROL SO4 HFA INHALER IH PRN (15:04)
[2021-12-14] MEDS ORDERED: POLYETHYLENE GLYCOL (HEALTHYLAX) 3350 17 GM PACKET PO PRN (15:04)
[2021-12-14] MEDS ORDERED: AZITHROMYCIN IVPB 500 MG in DEXTROSE 5%-WATER - 250 ML IVPB SCH (15:15)
[2021-12-14] MEDS ORDERED: CEFTRIAXONE 1 GM/50 ML BAG ONE (15:15)
[2021-12-14] MEDS ORDERED: AZITHROMYCIN IVPB 500 MG/250 ML BAG IVPB ONE (15:15)
[2021-12-14] MEDS ORDERED: CEFTRIAXONE 1,000 MG in DEXTROSE 5%-WATER - 50 ML IVPB SCH (15:15)
[2021-12-14] MEDS: SODIUM CHLORIDE 1,000 ML IV SCH ×2 (15:22→23:36)
[2021-12-14] MEDS ORDERED: CEFTRIAXONE 1 GM in DEXTROSE 5%-WATER - 50 ML IVPB SCH (15:55)
[2021-12-14] MEDS: ACETAMINOPHEN 325 MG TABLET (FP) PO PRN (20:32)
[2021-12-14] MEDS ORDERED: ONDANSETRON 4 MG/2 ML VIAL IVPB PRN (21:30)
[2021-12-14] MEDS: HEPARIN NA (PORCINE) 5,000 UNITS/ML 1ML VIAL SQ SCH (22:42)
[2021-12-14] MEDS: methylPREDNISolone NA SUCC 125 MG/2 ML VIAL IVPB SCH (22:46)
[2021-12-14] MEDS: BUDESONIDE/FORMETEROL FUMARATE 160/4.5 mcg INHALER IH SCH (23:33)
[2021-12-14] MEDS ORDERED: ACETAMINOPHEN 325 MG TABLET (FP) PO PRN (23:41)
[2021-12-15] MEDS: oxyCODONE HCL 5 MG TABLET PO PRN ×3 (05:34→15:05)
[2021-12-15] MEDS ORDERED: oxyCODONE HCL 5 MG TABLET PO PRN (08:16)
[2021-12-15] MEDS ORDERED: ACETAMINOPHEN 325 MG TABLET (FP) PO PRN (08:18)
[2021-12-15] MEDS ORDERED: NEBIVOLOL 2.5 MG TABLET (FP) PO SCH (10:00)
[2021-12-15] MEDS ORDERED: POTASSIUM CHLORIDE TABS 20 MEQ TABLET.ER (FP) PO SCH (10:00)
[2021-12-15] MEDS ORDERED: FUROSEMIDE 20 MG TABLET (FP) PO SCH (10:00)
[2021-12-15] MEDS ORDERED: ESCITALOPRAM OXALATE 10 MG TABLET PO SCH (10:00)
[2021-12-15] MEDS: BUDESONIDE/FORMETEROL FUMARATE 160/4.5 mcg INHALER IH SCH ×2 (10:21→21:39)
[2021-12-15] MEDS: AZITHROMYCIN IVPB 500 MG/250 ML BAG IVPB SCH (10:22)
[2021-12-15 10:26] LABS: BLOOD UREA NITROGEN 6.6 mg/dL (7-18); CALCIUM 8.8 mg/dL (8.5-10.1)
[2021-12-15] MEDS: FAMOTIDINE 20 MG TABLET PO SCH (10:28)
[2021-12-15] MEDS: ATORVASTATIN CA 10 MG TABLET (FP) PO SCH (10:28)
[2021-12-15] MEDS: MULTIVITAMINS (DAILY MVI) TABLET (FP) PO SCH (10:28)
[2021-12-15 10:29] LABS: CREATININE 0.5 mg/dL (0.55-1.3); URIC ACID 7.2 mg/dL (2.6-7.2)
[2021-12-15] MEDS: HEPARIN NA (PORCINE) 5,000 UNITS/ML 1ML VIAL SQ SCH ×2 (10:29→21:38)
[2021-12-15] MEDS: ACETAMINOPHEN 325 MG TABLET (FP) PO PRN ×2 (10:32→15:06)
[2021-12-15] MEDS: ESCITALOPRAM OXALATE 10 MG TABLET PO SCH (10:41)
[2021-12-15] MEDS: CALCIUM 500MG/VIT-D 200 UNITS COMBO TABLET (FP) PO SCH (10:41)
[2021-12-15] MEDS: TIOTROPIUM BROMIDE 2.5 MCG (SPIRIVA) RESPIMAT INHALER IH SCH (11:12)
[2021-12-15] MEDS: NEBIVOLOL 5 MG TABLET (FP) PO SCH (11:14)
[2021-12-15] MEDS: VERAPAMIL HCL 120 MG TABLET PO SCH (11:14)
[2021-12-15] MEDS: methylPREDNISolone NA SUCC 125 MG/2 ML VIAL IVPB SCH ×2 (11:59→21:38)
[2021-12-15] MEDS: CEFTRIAXONE 1 GM in DEXTROSE 5%-WATER - 50 ML IVPB SCH (13:32)
[2021-12-15 16:30] VITALS: BMI 16.5
[2021-12-15] MEDS: SODIUM CHLORIDE 1,000 ML IV SCH (17:56)
[2021-12-16] MEDS: oxyCODONE HCL 5 MG TABLET PO PRN ×4 (00:05→22:38)
[2021-12-16] MEDS: ACETAMINOPHEN 325 MG TABLET (FP) PO PRN ×4 (00:06→22:37)
[2021-12-16] MEDS ORDERED: INSULIN (NOVOLOG) ASPART 100 UNITS/ML 10ML VIAL ONE (05:31)
[2021-12-16] MEDS: AZITHROMYCIN IVPB 500 MG/250 ML BAG IVPB SCH (09:14)
[2021-12-16] MEDS: CEFTRIAXONE 1 GM in DEXTROSE 5%-WATER - 50 ML IVPB SCH (09:14)
[2021-12-16] MEDS: VERAPAMIL HCL 120 MG TABLET PO SCH (09:14)
[2021-12-16] MEDS: methylPREDNISolone NA SUCC 125 MG/2 ML VIAL IVPB SCH ×3 (09:15→17:35)
[2021-12-16] MEDS: CALCIUM 500MG/VIT-D 200 UNITS COMBO TABLET (FP) PO SCH (09:15)
[2021-12-16] MEDS: NEBIVOLOL 5 MG TABLET (FP) PO SCH (09:15)
[2021-12-16] MEDS: ATORVASTATIN CA 10 MG TABLET (FP) PO SCH (09:15)
[2021-12-16] MEDS: FAMOTIDINE 20 MG TABLET PO SCH (09:15)
[2021-12-16] MEDS: ESCITALOPRAM OXALATE 10 MG TABLET PO SCH (09:15)
[2021-12-16] MEDS: MULTIVITAMINS (DAILY MVI) TABLET (FP) PO SCH (09:15)
[2021-12-16] MEDS: HEPARIN NA (PORCINE) 5,000 UNITS/ML 1ML VIAL SQ SCH ×2 (09:16→21:48)
[2021-12-16] MEDS: TIOTROPIUM BROMIDE 2.5 MCG (SPIRIVA) RESPIMAT INHALER IH SCH (09:16)
[2021-12-16] MEDS: BUDESONIDE/FORMETEROL FUMARATE 160/4.5 mcg INHALER IH SCH ×2 (09:16→21:49)
[2021-12-16 10:17] LABS: BLOOD UREA NITROGEN 9.5 mg/dL (7-18); CALCIUM 9.1 mg/dL (8.5-10.1)
[2021-12-16 10:21] LABS: CREATININE 0.5 mg/dL (0.55-1.3)
[2021-12-16] MEDS ORDERED: ALBUTEROL SO4 2.5/IPRATROPIUM 0.5 INH SOL 3 ML VIAL.NEB. NEB PRN (10:27)
[2021-12-16] MEDS: ALBUTEROL SO4 0.083% IH SOL 2.5 MG/3 ML VIAL.NEB. NEB PRN (10:57)
[2021-12-16] MEDS ORDERED: ALBUTEROL SO4 2.5/IPRATROPIUM 0.5 INH SOL 3 ML VIAL.NEB. NEB SCH (14:00)
[2021-12-16] MEDS ORDERED: oxyCODONE HCL 5 MG TABLET PO PRN ×3 (14:08→14:31)
[2021-12-16] MEDS: FUROSEMIDE 20 MG TABLET (FP) PO SCH (14:34)
[2021-12-16] MEDS: ALBUTEROL SO4 2.5/IPRATROPIUM 0.5 INH SOL 3 ML VIAL.NEB. NEB SCH ×2 (15:59→20:01)
[2021-12-17] MEDS: methylPREDNISolone NA SUCC 125 MG/2 ML VIAL IVPB SCH ×4 (01:33→17:31)
[2021-12-17] MEDS: ALBUTEROL SO4 0.083% IH SOL 2.5 MG/3 ML VIAL.NEB. NEB PRN (05:05)
[2021-12-17] MEDS ORDERED: oxyCODONE HCL 5 MG TABLET PO ONE (09:15)
[2021-12-17] MEDS: AZITHROMYCIN IVPB 500 MG/250 ML BAG IVPB SCH (09:20)
[2021-12-17] MEDS: ATORVASTATIN CA 10 MG TABLET (FP) PO SCH (09:20)
[2021-12-17] MEDS: FAMOTIDINE 20 MG TABLET PO SCH (09:20)
[2021-12-17] MEDS: NEBIVOLOL 5 MG TABLET (FP) PO SCH (09:20)
[2021-12-17] MEDS: VERAPAMIL HCL 120 MG TABLET PO SCH (09:20)
[2021-12-17] MEDS: MULTIVITAMINS (DAILY MVI) TABLET (FP) PO SCH (09:20)
[2021-12-17] MEDS: FUROSEMIDE 20 MG TABLET (FP) PO SCH (09:20)
[2021-12-17] MEDS: ESCITALOPRAM OXALATE 10 MG TABLET PO SCH (09:20)
[2021-12-17] MEDS: CALCIUM 500MG/VIT-D 200 UNITS COMBO TABLET (FP) PO SCH (09:20)
[2021-12-17] MEDS: HEPARIN NA (PORCINE) 5,000 UNITS/ML 1ML VIAL SQ SCH ×2 (09:20→21:11)
[2021-12-17] MEDS: BUDESONIDE/FORMETEROL FUMARATE 160/4.5 mcg INHALER IH SCH ×2 (09:21→21:12)
[2021-12-17] MEDS: TIOTROPIUM BROMIDE 2.5 MCG (SPIRIVA) RESPIMAT INHALER IH SCH (09:21)
[2021-12-17 09:38] LABS: HEMATOCRIT 26.8 % (32.4-45.2); HEMOGLOBIN 8.7 GM/dL (10.7-15.3); MCH 30.1 pg (25.7-33.7); MCHC 32.4 g/dl (32.0-36.0); MEAN PLT VOLUME 7.1 fl (7.5-11.1); PLATELET COUNT 236 10^3/uL (134-434); RBC 2.88 M/mm3 (3.60-5.2); RDW 14.7 % (11.6-15.6); WHITE BLOOD COUNT 5.8 K/mm3 (4.0-10.0)
[2021-12-17] MEDS: ALBUTEROL SO4 2.5/IPRATROPIUM 0.5 INH SOL 3 ML VIAL.NEB. NEB SCH ×4 (10:00→20:06)
[2021-12-17 10:02] LABS: ALBUMIN 3.3 g/dl (3.4-5.0); BLOOD UREA NITROGEN 9.9 mg/dL (7-18); CALCIUM 9.4 mg/dL (8.5-10.1)
[2021-12-17 10:05] LABS: CREATININE 0.6 mg/dL (0.55-1.3)
[2021-12-17 10:07] LABS: BILIRUBIN,TOTAL 0.2 mg/dL (0.2-1); TOT PROT 5.7 g/dl (6.4-8.2)
[2021-12-17 10:45] LABS: ANISOCYTOSIS 2+; MACROCYTOSIS 1+
[2021-12-17 11:02] LABS: PLATELET ESTIMATE ADEQUATE
[2021-12-17] MEDS ORDERED: PANTOPRAZOLE 20 MG TABLET PO SCH (12:30)
[2021-12-17] MEDS: PANTOPRAZOLE 40 MG TABLET PO SCH (21:11)
[2021-12-18] MEDS: ALBUTEROL SO4 0.083% IH SOL 2.5 MG/3 ML VIAL.NEB. NEB PRN (02:17)
[2021-12-18] MEDS: methylPREDNISolone NA SUCC 125 MG/2 ML VIAL IVPB SCH ×2 (02:23→10:05)
[2021-12-18] MEDS: oxyCODONE HCL 5 MG TABLET PO PRN ×2 (06:18→12:51)
[2021-12-18 09:38] LABS: HEMATOCRIT 29.6 % (32.4-45.2); HEMOGLOBIN 9.4 GM/dL (10.7-15.3); MCH 30.2 pg (25.7-33.7); MCHC 31.6 g/dl (32.0-36.0); MEAN CELL VOLUME 95.4 fl (80-96); MEAN PLT VOLUME 7.8 fl (7.5-11.1); RDW 15.1 % (11.6-15.6)
[2021-12-18 09:44] LABS: WHITE BLOOD COUNT 8.9 K/mm3 (4.0-10.0)
[2021-12-18 09:45] LABS: PLATELET COUNT 275 10^3/uL (134-434)
[2021-12-18 10:01] LABS: CALCIUM 9.6 mg/dL (8.5-10.1)
[2021-12-18 10:02] LABS: ALBUMIN 3.5 g/dl (3.4-5.0)
[2021-12-18] MEDS: TIOTROPIUM BROMIDE 2.5 MCG (SPIRIVA) RESPIMAT INHALER IH SCH (10:04)
[2021-12-18] MEDS: BUDESONIDE/FORMETEROL FUMARATE 160/4.5 mcg INHALER IH SCH ×2 (10:04→22:12)
[2021-12-18 10:05] LABS: CREATININE 0.6 mg/dL (0.55-1.3)
[2021-12-18] MEDS: HEPARIN NA (PORCINE) 5,000 UNITS/ML 1ML VIAL SQ SCH ×2 (10:05→22:11)
[2021-12-18 10:06] LABS: BILIRUBIN,TOTAL 0.2 mg/dL (0.2-1); IRON SERUM 32 ug/dL (50-175); TOTAL IRON BINDING CAPACITY 392 ug/dL (250-450)
[2021-12-18 10:07] LABS: ANISOCYTOSIS 1+; MACROCYTOSIS 0; TOT PROT 6.2 g/dl (6.4-8.2)
[2021-12-18] MEDS: ATORVASTATIN CA 10 MG TABLET (FP) PO SCH (10:12)
[2021-12-18] MEDS: ESCITALOPRAM OXALATE 10 MG TABLET PO SCH (10:12)
[2021-12-18] MEDS: MULTIVITAMINS (DAILY MVI) TABLET (FP) PO SCH (10:12)
[2021-12-18] MEDS: PANTOPRAZOLE 40 MG TABLET PO SCH ×2 (10:12→22:11)
[2021-12-18] MEDS: VERAPAMIL HCL 120 MG TABLET PO SCH (10:12)
[2021-12-18] MEDS: CALCIUM 500MG/VIT-D 200 UNITS COMBO TABLET (FP) PO SCH (10:12)
[2021-12-18] MEDS: FUROSEMIDE 20 MG TABLET (FP) PO SCH (10:12)
[2021-12-18] MEDS: NEBIVOLOL 5 MG TABLET (FP) PO SCH (10:12)
[2021-12-18] MEDS: AZITHROMYCIN IVPB 500 MG/250 ML BAG IVPB SCH (10:49)
[2021-12-18] MEDS ORDERED: methylPREDNISolone NA SUCC 40 MG/1 ML VIAL IVPB SCH (11:54)
[2021-12-18] MEDS: ACETAMINOPHEN 325 MG TABLET (FP) PO PRN ×2 (12:51→18:44)
[2021-12-18] MEDS: ALBUTEROL SO4 2.5/IPRATROPIUM 0.5 INH SOL 3 ML VIAL.NEB. NEB SCH ×2 (16:08→20:00)
[2021-12-18] MEDS: methylPREDNISolone NA SUCC 40 MG/1 ML VIAL IVPB SCH (17:07)
[2021-12-19] MEDS: methylPREDNISolone NA SUCC 40 MG/1 ML VIAL IVPB SCH ×2 (02:02→09:53)
[2021-12-19] MEDS: oxyCODONE HCL 5 MG TABLET PO PRN (02:03)
[2021-12-19] MEDS ORDERED: NALOXONE HCL 0.4 MG/ML VIAL ONE (04:00)
[2021-12-19 05:45] LABS: HEMOGLOBIN 9.5 GM/dL (10.7-15.3); MCH 30.7 pg (25.7-33.7); MCHC 31.7 g/dl (32.0-36.0); MEAN CELL VOLUME 96.8 fl (80-96); PLATELET COUNT 333 10^3/uL (134-434); RDW 15.2 % (11.6-15.6); WHITE BLOOD COUNT 14.4 K/mm3 (4.0-10.0)
[2021-12-19] MEDS ORDERED: FENTANYL NS IVPB 500 MCG/100 ML BAG IVPB ONE ×2 (05:46→10:17)
[2021-12-19] MEDS ORDERED: MIDAZOLAM IN 0.9 % SOD.CHLORID 1 MG/1 ML PLAST..BAG ONE (05:46)
[2021-12-19 06:12] LABS: CHLORIDE 102 mmol/L (98-107); SODIUM 139 mmol/L (136-145)
[2021-12-19 06:16] LABS: ALBUMIN 3.1 g/dl (3.4-5.0); CALCIUM 8.7 mg/dL (8.5-10.1); GLUCOSE,RANDOM 296 mg/dL (74-106)
[2021-12-19 06:17] LABS: BLOOD UREA NITROGEN 22.5 mg/dL (7-18)
[2021-12-19 06:20] LABS: PHOSPHOROUS 7.8 mg/dL (2.5-4.9); SGOT/AST 90 U/L (15-37)
[2021-12-19 06:21] LABS: BILIRUBIN,TOTAL 0.3 mg/dL (0.2-1); TOT PROT 5.6 g/dl (6.4-8.2)
[2021-12-19 06:25] LABS: ALK PHOS 56 U/L (45-117); ANION GAP 4 MMOL/L (8-16); CO2 32 mmol/L (21-32); INR 0.99 (0.83-1.09); PROTHROMBIN TIME (PATIENT) 11.4 SEC (9.7-13.0); SGPT/ALT 128 U/L (13-61)
[2021-12-19] MEDS: NALOXONE HCL 0.4 MG/ML VIAL IVPUSH ONE ×2 (06:42→08:18)
[2021-12-19] MEDS ORDERED: PROPOFOL 1,000,000 MCG/100 ML VIAL IVPB SCH (07:15)
[2021-12-19] MEDS ORDERED: MIDAZOLAM 100 MG in SODIUM CHLORIDE 100 ML IVPB SCH (07:15)
[2021-12-19] MEDS ORDERED: FENTANYL IVPB 500 MCG/100 ML BAG IVPB SCH (07:15)
[2021-12-19 07:21] LABS: LACTIC ACID 2.6 mmol/L (0.4-2.0)
[2021-12-19] MEDS ORDERED: LACTATED RINGERS SOLUTION 1000 ML INFUS.BAG IV ONE (07:31)
[2021-12-19] MEDS ORDERED: MIDAZOLAM IN 0.9 % SOD.CHLORID 100 MG/100 ML PLAST..BAG IVPB SCH (07:33)
[2021-12-19] MEDS ORDERED: NOREPINEPHRINE BITARTRATE 4 MG/4 ML ML IV ONE (07:58)
[2021-12-19] MEDS: ALBUTEROL SO4 2.5/IPRATROPIUM 0.5 INH SOL 3 ML VIAL.NEB. NEB SCH ×4 (08:15→20:41)
[2021-12-19] MEDS: PANTOPRAZOLE 40 MG TABLET PO SCH ×2 (09:36→21:57)
[2021-12-19] MEDS: ESCITALOPRAM OXALATE 10 MG TABLET PO SCH (09:36)
[2021-12-19] MEDS: CALCIUM 500MG/VIT-D 200 UNITS COMBO TABLET (FP) PO SCH (09:36)
[2021-12-19] MEDS: ATORVASTATIN CA 10 MG TABLET (FP) PO SCH (09:36)
[2021-12-19] MEDS: TIOTROPIUM BROMIDE 2.5 MCG (SPIRIVA) RESPIMAT INHALER IH SCH (09:36)
[2021-12-19] MEDS: MULTIVITAMINS (DAILY MVI) TABLET (FP) PO SCH (09:37)
[2021-12-19] MEDS: VERAPAMIL HCL 120 MG TABLET PO SCH (09:37)
[2021-12-19] MEDS: BUDESONIDE/FORMETEROL FUMARATE 160/4.5 mcg INHALER IH SCH (09:37)
[2021-12-19 09:44] LABS: ANISOCYTOSIS 2+; MACROCYTOSIS 0; OVALOCYTE 2+; TEAR DROP CELLS 2+
[2021-12-19] MEDS: HEPARIN NA (PORCINE) 5,000 UNITS/ML 1ML VIAL SQ SCH (09:53)
[2021-12-19] MEDS: AZITHROMYCIN IVPB 500 MG/250 ML BAG IVPB SCH (09:54)
[2021-12-19] MEDS ORDERED: NOREPINEPHRINE BITARTRATE 4,000 MCG in DEXTROSE 5%-WATER - 496 ML IV SCH (11:15)
[2021-12-19] MEDS ORDERED: NOREPINEPHRINE BITARTRATE/D5W 8 MG/250 ML BAG IVPB SCH (11:15)
[2021-12-19 11:19] LABS: HEMOGLOBIN 8.3 GM/dL (10.7-15.3); MCH 31.3 pg (25.7-33.7); MCHC 33.1 g/dl (32.0-36.0); MEAN CELL VOLUME 94.5 fl (80-96); MEAN PLT VOLUME 6.7 fl (7.5-11.1); PLATELET COUNT 223 10^3/uL (134-434); RBC 2.65 M/mm3 (3.60-5.2); RDW 14.9 % (11.6-15.6); WHITE BLOOD COUNT 10.1 K/mm3 (4.0-10.0)
[2021-12-19] MEDS ORDERED: PIPERACILLIN/TAZOB 3.375 GM 3.375 GM in DEXTROSE 5%-WATER - 50 ML IVPB SCH ×2 (11:30→18:00)
[2021-12-19] MEDS ORDERED: CALCIUM ACETATE 667 MG CAPSULE (FP) PO SCH (12:00)
[2021-12-19] MEDS ORDERED: ASPIRIN 81 MG CHEWABLE TABLETS NGT SCH (12:15)
[2021-12-19 12:34] LABS: ANISOCYTOSIS 0; MACROCYTOSIS 0; TEAR DROP CELLS 1+
[2021-12-19] MEDS ORDERED: LORazepam 2 MG/ML SDV VIAL IVPUSH ONE (13:01)
[2021-12-19] MEDS ORDERED: morphine SULFATE 4 MG/ML VIAL IVPUSH ONE (13:03)
[2021-12-19] MEDS: MORPHINE 100 MG/100 ML MG IVPB SCH (14:15)
[2021-12-19 20:07] LABS: GLIADIN ANTIBODY IGA 3 units (0-19); GLIADIN ANTIBODY IGG 1 units (0-19); TRANSGLUTAMINASE IGG < 2 U/mL (0-5)
[2021-12-19] MEDS ORDERED: ENOXAPARIN NA (PORCINE) 40 MG/0.4 ML DISP.SYRIN SQ SCH (22:00)
[2021-12-20] MEDS: MORPHINE 100 MG/100 ML MG IVPB SCH (06:24)
[2021-12-20] MEDS: ALBUTEROL SO4 2.5/IPRATROPIUM 0.5 INH SOL 3 ML VIAL.NEB. NEB SCH ×4 (08:19→20:16)
[2021-12-20] MEDS: LORazepam 2 MG/ML SDV VIAL IVPUSH PRN ×2 (09:55→16:37)
[2021-12-21] MEDS ORDERED: MORPHINE 100 MG/100 ML MG IVPB SCH (00:37)
[2021-12-21] MEDS ORDERED: LORazepam 2 MG/ML SDV VIAL IVPUSH PRN (00:37)
[2021-12-21] MEDS ORDERED: MORPHINE SULFATE/0.9% NACL/PF 100 MG/100 ML BAG IVPB SCH (11:17)
[2021-12-22] MEDS: MORPHINE 100 MG/100 ML MG IVPB SCH (10:21)
[2021-12-22] MEDS ORDERED: SCOPOLAMINE HYDROBROMIDE 1 PATCH PATCH.TD72 TD SCH ×2 (17:30→18:00)
[2021-12-23] MEDS: MORPHINE 100 MG/100 ML MG IVPB SCH ×3 (04:31→19:40)
[2021-12-24] MEDS ORDERED: LORazepam 2 MG/ML SDV VIAL IM ONE (04:30)
[2021-12-24] MEDS: MORPHINE 100 MG/100 ML MG IVPB SCH (09:40)
[2021-12-24] MEDS ORDERED: LORazepam 2 MG/ML SDV VIAL IVPUSH PRN (11:45)
[2021-12-25 04:42] VITALS: BP 101/49; PULSE 129; RESP 12; TEMP 99.3
[2021-12-25] MEDS: MORPHINE 100 MG/100 ML MG IVPB SCH (08:40)
== END 2021-12-25 09:55 | disposition expired | DRG 208 ==
LOC: JER 09:51 → JERBED 15:06 → J7W 19:59 → JICU 12-19 05:24 → J4S 12-20 20:29
PROVIDERS: ADMIT Internal Medicine; ATTEND Internal Medicine
PROC: 02H633Z Insertion of Infusion Device into Right Atrium, Percutaneous Approach (ICD-10-PCS; principal; 2021-12-19)
PROC: 5A1935Z Respiratory Ventilation, Less than 24 Consecutive Hours (ICD-10-PCS; 2021-12-19)
PROC: B548ZZA Ultrasonography of Superior Vena Cava, Guidance (ICD-10-PCS; 2021-12-19)
PROC: 0BH17EZ Insertion of Endotracheal Airway into Trachea, Via Natural or Artificial Opening (ICD-10-PCS; 2021-12-19)
DX: J44.1 Chronic obstructive pulmonary disease with (acute) exacerbation (principal); J96.01 Acute respiratory failure with hypoxia; I21.4 Non-ST elevation (NSTEMI) myocardial infarction; I50.33 Acute on chronic diastolic (congestive) heart failure; J18.9 Pneumonia, unspecified organism; J96.02 Acute respiratory failure with hypercapnia; E87.1 Hypo-osmolality and hyponatremia; J44.0 Chronic obstructive pulmonary disease with (acute) lower respiratory infection; Z99.81 Dependence on supplemental oxygen; I11.0 Hypertensive heart disease with heart failure; M54.9 Dorsalgia, unspecified; M54.16 Radiculopathy, lumbar region; E86.1 Hypovolemia; I25.10 Atherosclerotic heart disease of native coronary artery without angina pectoris; E87.5 Hyperkalemia; R82.81 Pyuria; I48.0 Paroxysmal atrial fibrillation; E78.00 Pure hypercholesterolemia, unspecified; D64.9 Anemia, unspecified; I27.20 Pulmonary hypertension, unspecified; M81.0 Age-related osteoporosis without current pathological fracture
CPT/HCPCS: 0241U-QW; 36415; 71045-TC-FY; 71046-TC-FY; 71250-TC; 80048; 80053; 81003; 82378; 82533; 82550; 82607; 82728; 82784; 82962; 83516; 83540; 83550; 83605; 83930; 84100; 84155; 84165; 84300; 84439; 84443; 84481; 84484; 84550; 85025; 85045; 85379; 85384; 85610; 85730; 86140; 86334; 86850; 86900; 86901; 87040; 87086; 87186; 87899; 94002; 94010; 94640; 99285-25; J1644